=== PATIENT | female | born 1950 | race Caucasian/White ===

== ENCOUNTER 2016-06-18 12:26 | Day surgery (SDC) | payer MEDICARE ==
[2016-06-14 15:29] VITALS: BMI 34.5
[~2016-06-18 12:26] MED LIST: ALBUTEROL NEB (CONC) 2.5 MG/0.5 ML INHALATION ONE; LACTATED RINGERS 1,000 ML IV ONE; LACTATED RINGERS 1,000 ML IV SCH; LIDOCAINE 2% (PF) 20 MG/ML 10ML INHALATION ONE
[2016-06-18] MEDS ORDERED: LIDOCAINE 1% INJ 10MG/ML (20 ML MDV) ONE (12:39)
[2016-06-18] MEDS ORDERED: GLYCOPYRROLATE 0.2 MG/ML 2 ML VIAL ONE (12:39)
[2016-06-18] MEDS ORDERED: PROPOFOL 10 MG/ML 20 ML VIAL IV ONE (12:39)
[2016-06-18] MEDS ORDERED: MIDAZOLAM 2 MG/2 ML VIAL ONE (12:39)
[2016-06-18] MEDS ORDERED: LIDOCAINE 1% 20 ML VIAL (10MG/ML) FOR IV START INTRADERMA ONE (12:53)
[2016-06-18 13:07] LABS: Glucose,Whole Blood 90 mg/dL (75-99)
--- NOTE | 2016-06-18 14:21 | P.PCN ---
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 Anesthetic agents was being administered by FREIGHT RATE ANALYST at the bedside. The patient was given a total of 70 mg of Diprivan, 1 mg of Versed and 50 mg of lidocaine. After achieving a adequate sedation flexible bronchoscope was inserted into the right nostril was advanced upper airway. Examination of the posterior oropharynx, larynx and epiglottis and vocal cords was done. There was significant amount of adipose tissue growing circumferentially around the upper airway. This was consistent with a history of obstructive sleep apnea. Epiglottis was identified. The vallecula , arytenoids and the vocal cords were visualized and they're all within normal limits. The vocal cords and functional and symmetrical. Following that, a total of 2 ML's of 1% lidocaine was applied to the vocal cords and the flexible bronchoscope was advanced Doppler airway. Evidence of tracheobronchomalacia was seen throughout the airway was in lower lobes bilaterally. At this point, therapeutic airway suctioning was done and copious amount of thick purulent mucous plugs were aspirated and lower lungs bilaterally, more so in the different segments of the right lower lobe bronchus. Cinnamon amount of secretions were seen in the left lower lobe bronchus and limited in the left upper lobe bronchus. The rest or secretions were quite thick and purulent. I give them with saline ultimately was able to suction the rest or secretions and airway patency was achieved. The visualized airways and the segments and subsegments were all patent and there was no endobronchial tumors or lesions identified. Nevertheless there was significant amount of mucosa erythematous changes throughout the airways more so in the left upper lobe and left lower lobe bronchi. A bronchioloalveolar lavage of the right lower lobe was done. A total of 25 mL of fluid was aspirated and aspirate was quite purulent and turbid. Addendum of the procedure, diabetic airway suctioning was done and the flexible bronchoscope was removed and the patient was transferred recovery in stable condition. No bedside complications. No bleeding. Further recommendations are to follow in terms of antibiotic therapy based on the results of the cultures that were obtained today.
[2016-06-18 14:52] VITALS: BP 105/66; RESP 20
[2016-06-18 14:59] VITALS: PULSE 72
[2016-06-18 17:13] LABS: RBC, Body Fluid 2055 /uL
== END 2016-06-18 15:16 | disposition home or self-care (01) ==
LOC: ORWHC2ENDO 12:26
PROVIDERS: ATTEND Internal Medicine Critical Care Medicine
DX: J39.8 Other specified diseases of upper respiratory tract (principal); J98.09 Other diseases of bronchus, not elsewhere classified; R05 Cough; I10 Essential (primary) hypertension; E78.5 Hyperlipidemia, unspecified; J44.9 Chronic obstructive pulmonary disease, unspecified; J45.909 Unspecified asthma, uncomplicated; G47.33 Obstructive sleep apnea (adult) (pediatric); Z99.89 Dependence on other enabling machines and devices; Z72.0 Tobacco use; F39 Unspecified mood [affective] disorder; Z79.51 Long term (current) use of inhaled steroids; Z79.899 Other long term (current) drug therapy; Z88.0 Allergy status to penicillin; Z88.2 Allergy status to sulfonamides; Z88.8 Allergy status to other drugs, medicaments and biological substances; E66.9 Obesity, unspecified; Z68.34 Body mass index [BMI] 34.0-34.9, adult
CPT/HCPCS: 94640; 87798 ×4; 87496; 87498; 87529 ×2; 89050; 87252; 87502 ×2; 87070; 87205; 87116; 87102; 87206; 31624; J2250; J2001 ×2; J2704

== ENCOUNTER 2016-06-27 10:11 | Observation (INO) | payer MEDICARE ==
[2016-06-27] MEDS ORDERED: MORPHINE SULFATE 4 MG/ML SYRINGE IV STA (10:16)
[2016-06-27] MEDS ORDERED: ONDANSETRON 4 MG/2 ML VIAL IVP STA (10:16)
[2016-06-27] MEDS ORDERED: RX INFO: IV CONTRAST WAS GIVEN 1 EACH MISC MISCELLANE PRN (10:17)
--- NOTE | 2016-06-27 10:24 | ED ---
General Adult HPI - General Stated complaint: chest pain Time Seen by Provider: 06/27/16 10:12 Source: RN notes reviewed - History of Present Illness Initial comments: This is a 65-year-old female who presents to the emergency department complaining of severe chest pain that radiates straight through to her back. Patient states started about 15 minutes ago. Patient states it's always there but it does at times get much worse. Patient states she is no more short of breath than she normally is. Patient denies any diaphoresis. Patient denies any abdominal pain. Patient denies any nausea or vomiting. Patient states that she has been coughing lately. Patient states she had an episode of this last week and until she coughed up a bunch of blood the pain continued. Patient states last for about 15 minutes a week ago. Patient states she has hypertension. Patient denies any heart disease. Patient denies any recent fever or chills. Patient denies any headache patient denies numbness weakness. Patient denies lightheadedness dizziness or near syncopal episode. - Related Data Home Medications Medication Instructions Recorded Confirmed Enalapril Maleate [Vasotec] 20 mg PO DAILY 05/11/14 06/27/16 Escitalopram [Lexapro] 10 mg PO DAILY 05/11/14 06/27/16 Fluticasone/Salmeterol [Advair 1 puff INHALATION RT-DAILY 05/11/14 06/27/16 500-50 Diskus] Hydrochlorothiazide [Hydrodiuril] 12.5 mg PO DAILY 05/11/14 06/27/16 Omeprazole [PriLOSEC] 20 mg PO AC-BRKFST 05/11/14 06/27/16 Citracal Slow Release 2 tab PO QAM 06/14/16 06/27/16 Multivitamins, Thera [Multivitamin 1 tab PO DAILY 06/14/16 06/27/16 (formulary)] Tiotropium 18 Mcg/Puff [Spiriva] 1 cap INHALATION RT-DAILY 06/14/16 06/27/16 traMADol HCL [Ultram] 50 mg PO Q6HR PRN 06/18/16 06/27/16 Allergies Allergy/AdvReac Type Severity Reaction Status Date / Time albuterol Allergy Unknown shaking, Verified 06/27/16 11:30 weakness, insomnia oxytetracycline Allergy Unknown Verified 06/27/16 11:30 [From Terramycin] Childhood oxytetracycline HCl Allergy Unknown Verified 06/27/16 11:30 [From Terramycin] Childhood Penicillins Allergy Unknown Verified 06/27/16 11:30 Childhood streptomycin [Streptomycin] Allergy Unknown Verified 06/27/16 11:30 Childhood Sulfa (Sulfonamide Allergy Unknown Verified 06/27/16 11:30 Antibiotics) Childhood Tetracyclines Allergy Unknown Verified 06/27/16 11:30 Childhood Review of Systems ROS Statement: Those systems with pertinent positive or pertinent negative responses have been documented in the HPI. ROS Other: All systems not noted in ROS Statement are negative. Past Medical History Past Medical History: Asthma, Chest Pain / Angina, COPD, GERD/Reflux, Hyperlipidemia, Hypertension, Osteoarthritis (OA), Pneumonia, Skin Disorder, Sleep Apnea/CPAP/BIPAP Additional Past Medical History / Comment(s): HX OF MIGRAINES, USES OXYGEN AT 2 LITERS AT NIGHT AND PRN DURING THE DAY., ENLARGED LIVER., TRACHEOBRONCHOMALACIA , CHRONIC COUGH., patch of dry skin on elbow, History of Any Multi-Drug Resistant Organisms: None Reported Past Surgical History: Appendectomy, Section, Orthopedic Surgery, Tonsillectomy Additional Past Surgical History / Comment(s): jamey wrist, left elbow, ovarian cyst, exploratory laparoscopy, Rt knee Arthroscopy x 2. Past Anesthesia/Blood Transfusion Reactions: Motion Sickness Past Psychological History: Depression Smoking Status: Current every day smoker Past Alcohol Use History: Rare Additional Past Alcohol Use History / Comment(s): STARTED SMOKING AT AGE 14. smokes 1/2 - 3/4PPD Past Drug Use History: None Reported - Past Family History Mother Family Medical History: Cancer Additional Family Medical History / Comment(s): LUNG CA Father Family Medical History: Cancer Additional Family Medical History / Comment(s): LUNG CA Sister(s) Family Medical History: Cancer, Deep Vein Thrombosis (DVT) Additional Family Medical History / Comment(s): . Brother(s) Family Medical History: Coronary Artery Disease (CAD) General Exam - General Exam Comments Initial Comments: GENERAL: Patient is well-developed and well-nourished. Patient is nontoxic and well- hydrated and is in moderate distress. ENT: Neck is soft and supple. No significant lymphadenopathy is noted. Oropharynx is clear. Moist mucous membranes. Neck has full range of motion without eliciting any pain. EYES: The sclera were anicteric and conjunctiva were pink and moist. Extraocular movements were intact and pupils were equal round and reactive to light. Eyelids were unremarkable. PULMONARY: Unlabored respirations. Good breath sounds bilaterally. No audible rales rhonchi or wheezing was noted. CARDIOVASCULAR: There is a regular rate and rhythm without any murmurs gallops or rubs. ABDOMEN: Soft and nontender with normal bowel sounds. No palpable organomegaly was noted. There is no palpable pulsatile mass. SKIN: Skin is clear with no lesions or rashes and otherwise unremarkable. NEUROLOGIC: Patient is alert and oriented x3. Cranial nerves II through XII are grossly intact. Motor and sensory are also intact. Normal speech, volume and content. Symmetrical smile. MUSCULOSKELETAL: Normal extremities with adequate strength and full range of motion. No lower extremity swelling or edema. No calf tenderness. LYMPHATICS: No significant lymphadenopathy is noted PSYCHIATRIC: Normal psychiatric evaluation. Normal interpersonal interactions appears functionally intact in deals appropriately with others. No signs of depression. No signs of anxiety. Course Vital Signs 06/27/16 06/27/16 06/27/16 10:13 10:35 10:36 Temperature 98.3 F Pulse Rate 86 Respiratory 24 Rate Blood Pressure 135/71 108/55 105/63 O2 Sat by Pulse 93 L Oximetry Medical Decision Making - Medical Decision Making EKG shows normal sinus rhythm at 86 bpm NM interval is on an 88 QRS is 78 QT interval 372 QTC is 445. EKG shows no ST segment elevation or depression or T- wave abdomen is noted. Patient has Q waves in leads 3 and aVF which are the same as an old EKG. Chest x-ray shows no acute abnormality. Computed tomography scan of the aorta shows no acute abnormality. No obvious PE was seen either. Because the patient has significant chest pain on his 2 different occasions now I thought the patient was having some unstable angina I started the patient on heparin I consult cardiology I spoke with Dr. Vail he agreed to admit the patient admitted the patient I wrote admitting orders. I continued the heparin Nitropaste and aspirin on the floor. - Lab Data Result diagrams: 06/27/16 10:12 06/27/16 10:12 Lab Results 06/27/16 06/27/16 06/27/16 Range/Units 10:12 10:12 10:12 WBC 13.7 H (3.8-10.6) k/uL RBC 5.15 (3.80-5.40) m/uL Hgb 15.9 (11.4-16.0) gm/dL Hct 48.7 H (34.0-46.0) % MCV 94.5 (80.0-100.0) fL MCH 30.8 (25.0-35.0) pg MCHC 32.6 (31.0-37.0) g/dL RDW 14.6 (11.5-15.5) % Plt Count 215 (150-450) k/uL Neutrophils % 59 % Lymphocytes % 33 % Monocytes % 4 % Eosinophils % 2 % Basophils % 1 % Neutrophils # 8.0 H (1.3-7.7) k/uL Lymphocytes # 4.6 (1.0-4.8) k/uL Monocytes # 0.6 (0-1.0) k/uL Eosinophils # 0.2 (0-0.7) k/uL Basophils # 0.1 (0-0.2) k/uL PT 9.6 (9.0-12.0) sec INR 0.9 (<1.1) APTT 22.4 (22.0-30.0) sec Sodium 141 (137-145) mmol/L Potassium 4.2 (3.5-5.1) mmol/L Chloride 103 (98-107) mmol/L Carbon Dioxide 29 (22-30) mmol/L Anion Gap 9 mmol/L BUN 18 H (7-17) mg/dL Creatinine 0.87 (0.52-1.04) mg/dL Est GFR (MDRD) Af Amer >60 (>60 ml/min/1.73 sqM) Est GFR (MDRD) Non-Af >60 (>60 ml/min/1.73 sqM) Glucose 106 H (74-99) mg/dL Calcium 10.4 H (8.4-10.2) mg/dL Magnesium 2.2 (1.6-2.3) mg/dL Total Bilirubin 1.1 (0.2-1.3) mg/dL AST 16 (14-36) U/L ALT 24 (9-52) U/L Alkaline Phosphatase 99 (38-126) U/L Total Creatine Kinase (30-135) U/L CK-MB (CK-2) (0.0-2.4) ng/mL CK-MB (CK-2) Rel Index Troponin I (0.000-0.034) ng/mL Total Protein 7.2 (6.3-8.2) g/dL Albumin 4.2 (3.5-5.0) g/dL 06/27/16 Range/Units 10:12 WBC (3.8-10.6) k/uL RBC (3.80-5.40) m/uL Hgb (11.4-16.0) gm/dL Hct (34.0-46.0) % MCV (80.0-100.0) fL MCH (25.0-35.0) pg MCHC (31.0-37.0) g/dL RDW (11.5-15.5) % Plt Count (150-450) k/uL Neutrophils % % Lymphocytes % % Monocytes % % Eosinophils % % Basophils % % Neutrophils # (1.3-7.7) k/uL Lymphocytes # (1.0-4.8) k/uL Monocytes # (0-1.0) k/uL Eosinophils # (0-0.7) k/uL Basophils # (0-0.2) k/uL PT (9.0-12.0) sec INR (<1.1) APTT (22.0-30.0) sec Sodium (137-145) mmol/L Potassium (3.5-5.1) mmol/L Chloride (98-107) mmol/L Carbon Dioxide (22-30) mmol/L Anion Gap mmol/L BUN (7-17) mg/dL Creatinine (0.52-1.04) mg/dL Est GFR (MDRD) Af Amer (>60 ml/min/1.73 sqM) Est GFR (MDRD) Non-Af (>60 ml/min/1.73 sqM) Glucose (74-99) mg/dL Calcium (8.4-10.2) mg/dL Magnesium (1.6-2.3) mg/dL Total Bilirubin (0.2-1.3) mg/dL AST (14-36) U/L ALT (9-52) U/L Alkaline Phosphatase (38-126) U/L Total Creatine Kinase 43 (30-135) U/L CK-MB (CK-2) 0.7 (0.0-2.4) ng/mL CK-MB (CK-2) Rel Index 1.6 Troponin I <0.012 (0.000-0.034) ng/mL Total Protein (6.3-8.2) g/dL Albumin (3.5-5.0) g/dL Critical Care Time Critical Care Time: Yes Total Critical Care Time: 35 Disposition Clinical Impression: Unstable angina pectoris Disposition: ADMITTED IP TO THIS [facility] Time of Disposition: 13:11
[2016-06-27 10:35] LABS: Basophils # (A) 0.1 k/uL (0-0.2); Basophils % (A) 1 %; CH 30.4; CHCM 32.4; Eosinophils # (A) 0.2 k/uL (0-0.7); Eosinophils % (A) 2 %; HCT 48.7 % (34.0-46.0); HDW 2.27; HGB 15.9 gm/dL (11.4-16.0); Luc # (Auto) 0.24; Luc % (Auto) 2; Lymphocytes # (A) 4.6 k/uL (1.0-4.8); Lymphocytes % (A) 33 %; MCH 30.8 pg (25.0-35.0); MCHC 32.6 g/dL (31.0-37.0); MCV 94.5 fL (80.0-100.0); Mean Platelet Volume 6.6; Monocytes # (A) 0.6 k/uL (0-1.0); Monocytes % (A) 4 %; Neutrophils % (A) 59 %; RBC 5.15 m/uL (3.80-5.40); RDW 14.6 % (11.5-15.5); WBC 13.7 k/uL (3.8-10.6); WBC (Perox) 13.31
[2016-06-27 10:40] LABS: INR 0.9 (<1.1); Partial Thromboplastin Time 22.4 sec (22.0-30.0); Prothrombin Time 9.6 sec (9.0-12.0)
[2016-06-27 10:42] LABS: ALT 24 U/L (9-52); AST 16 U/L (14-36); Alkaline Phosphatase 99 U/L (38-126); Anion Gap 9 mmol/L; Blood Urea Nitrogen 18 mg/dL (7-17); Calcium 10.4 mg/dL (8.4-10.2); Carbon Dioxide 29 mmol/L (22-30); Chloride 103 mmol/L (98-107); Glucose 106 mg/dL (74-99); Magnesium 2.2 mg/dL (1.6-2.3); Non-African American GFR(MDRD) >60 (>60 ml/min/1.73 sqM); Potassium 4.2 mmol/L (3.5-5.1); Sodium 141 mmol/L (137-145); Total Bilirubin 1.1 mg/dL (0.2-1.3); Total Protein 7.2 g/dL (6.3-8.2)
[2016-06-27 11:05] LABS: Creatine Kinase 43 U/L (30-135)
[2016-06-27 11:14] LABS: Creatine Kinase MB 0.7 ng/mL (0.0-2.4)
--- NOTE | 2016-06-27 11:33 | CT ---
EXAMINATION TYPE: CT angio thoracic/abd aorta DATE OF EXAM: 06/27/2016 11:14 AM COMPARISON: CT chest March 03, 2013. CT abdomen and pelvis August 05, 2012. HISTORY: Severe back pain CT DLP: 1931.4 mGycm. Automated Exposure Control for Dose Reduction was Utilized. CONTRAST: CTA scan of the thorax, abdomen and pelvis is performed without oral and without and with IV Contrast , patient injected with 100 mL of Omnipaque 350. Three-D reconstructed images are created on a drumbi workstation and reviewed FINDINGS: VASCULAR: Poorly opacified pulmonary system is noted making evaluation at this level suboptimal. There is mild calcified plaque in the aortic arch. There is mild noncalcified plaque in the descendin g ectatic thoracic aorta. There is mild to minimal calcified plaque in the mid to distal abdominal ao rta. There is mild to moderate mixed plaque in the left common iliac artery. Mild mixed plaque is see n in the right common iliac artery extending into bilateral internal iliac arteries. External iliac a rteries are patent to common femoral artery origin with mild eccentric mixed plaque. There is no sign ificant stenosis identified. There is patent celiac axis, SMA, BETTINA, and bilateral single renal arteries. There is normal variant w ith takeoff of left gastric artery from the abdominal aorta adjacent to celiac axis. There is normal three-vessel origin from the aortic arch. No linear hypodensity to suggest dissection is seen. No ane urysmal change is noted. LUNGS: Moderate underlying emphysematous change is present. Dependent atelectasis in the left lung ba se is seen. There is more focal consolidation or atelectasis in the right lung base near diaphragm re demonstrated. No pleural effusion or pneumothorax is identified. No concerning parenchymal nodule or mass is seen. Tracheobronchial tree is patent. MEDIASTINUM: There are no greater than 1 cm hilar or mediastinal lymph nodes. No pericardial effusi on is seen. Coronary artery calcification is present. Heart size is upper limits of normal. OTHER: No additional significant abnormality is seen. LIVER/GB: Dependent gallstones are seen in gallbladder on today's study. Liver is diffusely low dense relative to spleen consistent with fatty infiltration. PANCREAS: No significant abnormality is seen. SPLEEN: No significant abnormality is seen. ADRENALS: No significant abnormality is seen. KIDNEYS: No significant abnormality is seen. BOWEL: Diverticula in the sigmoid colon are redemonstrated. No CT evidence for acute diverticulitis. There is no suspicious small or large bowel dilatation. GENITAL ORGANS: No gross abnormality seen. LYMPH NODES: No greater than 1cm abdominal or pelvic lymph nodes are appreciated. OSSEOUS STRUCTURES: There is exaggerated thoracic kyphosis with moderate multilevel spurring. There i s mild multilevel spurring in the lumbar spine. OTHER: No significant additional abnormality is seen. IMPRESSION: 1. No aortic aneurysm or dissection. 2. No significant acute finding is seen to account for patient's symptoms.
--- NOTE | 2016-06-27 12:22 | XR ---
EXAMINATION TYPE: XR chest 2V DATE OF EXAM: 06/27/2016 12:18 PM COMPARISON: Chest x-ray June 06, 2016. HISTORY: Chest pain for one day. History of COPD appears TECHNIQUE: Frontal and lateral views of the chest are obtained. FINDINGS: There is chronic emphysematous change with right greater than left bibasilar scarring and/o r atelectasis. There is no new focal air space opacity, pleural effusion, or pneumothorax seen. The cardiac silhouette size is enlarged with ectatic and atherosclerotic thoracic aorta. The osseous st ructures are intact. IMPRESSION: Chronic emphysematous change and cardiomegaly without new suspicious acute pulmonary pro cess.
[2016-06-27 13:03] LABS: Troponin I <0.012 ng/mL (0.000-0.034)
[2016-06-27] MEDS ORDERED: NITROGLYCERIN OINT 1 INCH/GM PACKET TOPICAL STA (13:09)
[2016-06-27] MEDS ORDERED: HEPARIN SODIUM,PORCINE 5,000 UNIT/ML 1 ML VIAL IV ONE (13:09)
[2016-06-27] MEDS ORDERED: ASPIRIN 81 MG CHEW PO STA (13:09)
[2016-06-27] MEDS ORDERED: NITROGLYCERIN SL TABS 0.4 MG TAB SUBLINGUAL PRN (13:11)
[2016-06-27] MEDS ORDERED: HEPARIN SODIUM,PORCINE/D5W PMX 25,000 UNIT in DEXTROSE/WATER 1 500ML.BAG IV SCH (13:15)
--- NOTE | 2016-06-27 14:34 | P.HPIM ---
History of Present Illness H&P Date: 06/27/16 Chief Complaint: chest pain Patient came to ER with sudden onset of Midsternal CP radiating to her back. It lasted till NTG given, which made it better. Still present at a milder level. She had similar sx that were relieved afte hemoptysis episode last week, She has not een Dr Rubi since this. Now pain is better, no SOB- ohter than chronic from COPD. No nausea, vomiting, Diarhea, constipation. Review of Systems All systems: negative Past Medical History Past Medical History: Asthma, Chest Pain / Angina, COPD (O2 dependent), GERD/ Reflux, Hyperlipidemia, Hypertension, Osteoarthritis (OA), Pneumonia, Skin Disorder, Sleep Apnea/CPAP/BIPAP Additional Past Medical History / Comment(s): HX OF MIGRAINES, ENLARGED LIVER., TRACHEOBRONCHOMALACIA, CHRONIC COUGH History of Any Multi-Drug Resistant Organisms: None Reported Past Surgical History: Appendectomy, Section, Orthopedic Surgery, Tonsillectomy Additional Past Surgical History / Comment(s): jamey wrist, left elbow, ovarian cyst, exploratory laparoscopy, Rt knee Arthroscopy x 2. Past Anesthesia/Blood Transfusion Reactions: Motion Sickness Past Psychological History: Depression Smoking Status: Current every day smoker Past Alcohol Use History: Rare Additional Past Alcohol Use History / Comment(s): STARTED SMOKING AT AGE 14. smokes 1/2 - 3/4PPD Past Drug Use History: None Reported - Past Family History Mother Family Medical History: Cancer Additional Family Medical History / Comment(s): LUNG CA Father Family Medical History: Cancer Additional Family Medical History / Comment(s): LUNG CA Sister(s) Family Medical History: Cancer, Deep Vein Thrombosis (DVT) Additional Family Medical History / Comment(s): . Brother(s) Family Medical History: Coronary Artery Disease (CAD) Medications and Allergies Home Medications Medication Instructions Recorded Confirmed Type Enalapril Maleate [Vasotec] 20 mg PO DAILY 05/11/14 06/27/16 History Escitalopram [Lexapro] 10 mg PO DAILY 05/11/14 06/27/16 History Fluticasone/Salmeterol [Advair 1 puff INHALATION RT-DAILY 05/11/14 06/27/16 History 500-50 Diskus] Hydrochlorothiazide [Hydrodiuril] 12.5 mg PO DAILY 05/11/14 06/27/16 History Omeprazole [PriLOSEC] 20 mg PO AC-BRKFST 05/11/14 06/27/16 History Citracal Slow Release 2 tab PO QAM 06/14/16 06/27/16 History Multivitamins, Thera [Multivitamin 1 tab PO DAILY 06/14/16 06/27/16 History (formulary)] Tiotropium 18 Mcg/Puff [Spiriva] 1 cap INHALATION RT-DAILY 06/14/16 06/27/16 History traMADol HCL [Ultram] 50 mg PO Q6HR PRN 06/18/16 06/27/16 History Allergies Allergy/AdvReac Type Severity Reaction Status Date / Time albuterol Allergy Unknown shaking, Verified 06/27/16 11:30 weakness, insomnia oxytetracycline Allergy Unknown Verified 06/27/16 11:30 [From Terramycin] Childhood oxytetracycline HCl Allergy Unknown Verified 06/27/16 11:30 [From Terramycin] Childhood Penicillins Allergy Unknown Verified 06/27/16 11:30 Childhood streptomycin [Streptomycin] Allergy Unknown Verified 06/27/16 11:30 Childhood Sulfa (Sulfonamide Allergy Unknown Verified 06/27/16 11:30 Antibiotics) Childhood Tetracyclines Allergy Unknown Verified 06/27/16 11:30 Childhood Physical Exam Vitals: Vital Signs Pulse Resp BP Pulse Ox 06/27/16 13:18 72 18 98/59 90 L - Constitutional General appearance: average body habitus - EENT Eyes: EOMI, PERRLA - Neck Neck: no lymphadenopathy Thyroid: bilateral: normal size, negative: enlarged - Respiratory Respiratory: bilateral: diminished, dullness - Cardiovascular Rhythm: regular Heart sounds: normal: S1, S2 - Psychiatric Psychiatric: A&O x's 3 Results CBC & Chem 7: 06/27/16 10:12 06/27/16 10:12 Thrombosis Risk Factor Assmnt - DVT/VTE Prophylaxis DVT/VTE Prophylaxis: Pharmacologic Prophylaxis ordered Assessment and Plan Plan: chest pain eval for unstable angina: will consult cardiology, serial troponins and CKs Heoptysis : pulmonlogy consult Hypertension: cont enalapril, HCTZ, COPD: cont spiriva, continue O2 Depresion: cont Lexapro Gerd/ GI proylaxxis: cont protonix Dvt Prophylaxis:heparin drip I will await consutls and reevaluate her in 24 hrs.
[2016-06-27] MEDS ORDERED: traMADol 50 MG TAB PO PRN (14:35)
[2016-06-27] MEDS ORDERED: HYDROmorphone 1 MG/ML 1 ML SYRINGE IVP STA (17:00)
[2016-06-27 17:01] LABS: Creatine Kinase 41 U/L (30-135)
[2016-06-27 17:14] LABS: Creatine Kinase MB 0.8 ng/mL (0.0-2.4); Troponin I <0.012 ng/mL (0.000-0.034)
[2016-06-27] MEDS: PANTOPRAZOLE 40 MG TABLET PO SCH ×2 (18:08→18:11)
[2016-06-27] MEDS: NITROGLYCERIN OINT 1 INCH/GM PACKET TOPICAL SCH ×2 (18:36→23:14)
[2016-06-27] MEDS: SYMBICORT 160-4.5 MCG INHALER INHALATION SCH (19:24)
[2016-06-27] MEDS ORDERED: BENZOCAINE/MENTHOL LOZENG 1 EACH LOZENGE MUCOUS MEM PRN (22:55)
[2016-06-27 23:12] LABS: Partial Thromboplastin Time 23.4 sec (22.0-30.0)
[2016-06-27 23:16] LABS: INR 0.9 (<1.1)
[2016-06-27 23:17] LABS: Prothrombin Time 9.6 sec (9.0-12.0)
[2016-06-27 23:23] LABS: Creatine Kinase 38 U/L (30-135)
[2016-06-27 23:37] LABS: Creatine Kinase MB 0.6 ng/mL (0.0-2.4); Troponin I <0.012 ng/mL (0.000-0.034)
[2016-06-27] MEDS ORDERED: HEPARIN SODIUM,PORCINE 5,000 UNIT/ML 1 ML VIAL IV PRN (23:58)
[2016-06-28] MEDS: SYMBICORT 160-4.5 MCG INHALER INHALATION SCH ×3 (00:11→21:34)
[2016-06-28] MEDS: ACETAMINOPHEN TAB 325 MG TAB PO PRN ×3 (00:30→21:19)
[2016-06-28] MEDS: NITROGLYCERIN OINT 1 INCH/GM PACKET TOPICAL SCH ×4 (06:32→22:27)
[2016-06-28 07:32] LABS: Basophils % (A) 0 %; CH 29.6; CHCM 31.4; Eosinophils # (A) 0.2 k/uL (0-0.7); Eosinophils % (A) 1 %; HCT 42.9 % (34.0-46.0); HDW 2.31; HGB 13.9 gm/dL (11.4-16.0); Luc # (Auto) 0.24; Luc % (Auto) 2; Lymphocytes % (A) 24 %; MCH 30.6 pg (25.0-35.0); MCHC 32.3 g/dL (31.0-37.0); MCV 94.7 fL (80.0-100.0); Mean Platelet Volume 6.7; Monocytes # (A) 0.7 k/uL (0-1.0); Monocytes % (A) 5 %; Neutrophils # (A) 8.6 k/uL (1.3-7.7); Neutrophils % (A) 68 %; RBC 4.53 m/uL (3.80-5.40); RDW 14.1 % (11.5-15.5); WBC 12.7 k/uL (3.8-10.6); WBC (Perox) 13.36
[2016-06-28 07:56] LABS: Anion Gap 8 mmol/L; Blood Urea Nitrogen 18 mg/dL (7-17); Calcium 9.4 mg/dL (8.4-10.2); Carbon Dioxide 28 mmol/L (22-30); Chloride 104 mmol/L (98-107); Cholesterol 228 mg/dL (<200); Glucose 103 mg/dL (74-99); HDL Cholesterol 52 mg/dL (40-60); Magnesium 2.3 mg/dL (1.6-2.3); Non-African American GFR(MDRD) >60 (>60 ml/min/1.73 sqM); Potassium 4.3 mmol/L (3.5-5.1); Sodium 140 mmol/L (137-145); Triglycerides 139 mg/dL (<150)
[2016-06-28] MEDS: TIOTROPIUM 18 MCG/PUFF INHALER INHALATION SCH (08:33)
[2016-06-28] MEDS ORDERED: BUTA/APAP/CAF/COD 50-325-40-30 CAP PO PRN ×2 (11:16→11:25)
[2016-06-28] MEDS ORDERED: MORPHINE SULFATE 2 MG/ML SYRINGE IVP STA (11:22)
[2016-06-28] MEDS: HYDROCHLOROTHIAZIDE 12.5 MG CAP PO SCH (11:26)
[2016-06-28] MEDS: ESCITALOPRAM 10 MG TAB PO SCH (11:26)
[2016-06-28] MEDS: ASPIRIN 325 MG TAB PO SCH (11:26)
[2016-06-28] MEDS: LISINOPRIL 20 MG TAB PO SCH (11:26)
--- NOTE | 2016-06-28 11:38 | CONS ---
DATE OF CONSULTATION: This is a 65-year-old lady who smokes 2 packs a day, has COPD, bronchial asthma and also has some issues with mucus plugging, was seen by Dr. Mckeon who performed a bronchoalveolar lavage on her about a week ago. She came into the hospital complaining of pain in the chest radiating to the back. She had a CAT scan of the chest, which did not reveal any evidence of aortic pathology or pulmonary pathology. There was a question of chest pain, possible angina and I was asked to see her in this regard. Her symptoms do not suggest angina, very musculoskeletal and these have improved already unfortunately she continues to smoke. Her troponins are normal. Her EKG does not reveal any significant changes to indicate ischemia. She had a Lexiscan stress test about 14 months ago, which did not reveal any evidence of ischemia. At the time of my evaluation, she is resting comfortably without symptoms. EKG revealed sinus mechanism with nondiagnostic inferior Q waves. PAST MEDICAL HISTORY: This is remarkable for smoking, COPD, mucous plugging, status post recent bronchioloalveolar lavage, osteoarthritis, recurrent pneumonia, sleep apnea, uses a BiPAP. She is status post appendectomy, tonsillectomy and section. She also has hypertensive cardiovascular disease and COPD. Medications at home include Enalapril 20 mg daily, Lexapro, inhalers, hydrochlorothiazide 12.5 mg daily, omeprazole 20 mg daily, Tramadol, multivitamins. ALLERGIES: She is allergic to ALBUTEROL, PENICILLIN, STREPTOMYCIN, TERRAMYCIN, TETRACYCLINE. SULFONAMIDES. Please refer to the recent note by Dr. Mckeon. On examination, blood pressure is 118/70, pulse rate is 80 per minute, regular. HEENT: Unremarkable. Fundus was not examined by me. Neck is supple. There is no JVD. I do not hear a carotid bruit. Heart exam reveals S1 and S2 heard normally. No significant murmur. There is a lot of respiratory noise. Lungs reveal bilateral scattered rhonchi. Abdomen is soft, nontender. Lower extremities reveal diminished pulses. Central nervous system is normal. EKG revealed sinus mechanism, nondiagnostic inferior Q-waves, no acute changes. Laboratory data revealed unremarkable troponins. Stress test from April 2015 was a Lexiscan stress test was normal. IMPRESSION: 1. Chest pain atypical, status post recent bronchioloalveolar lavage. 2. Chronic obstructive pulmonary disease, bronchial asthma. 3. History of smoking. RECOMMENDATIONS: From a cardiac standpoint, I am not recommending any intervention. She can be evaluated by pulmonary by Dr. Mckeon and can be discharged. She can have outpatient stress test in 3 to 4 weeks if she continues to have symptoms, but for the pain that she presents with, I do not believe we are dealing with any myocardial ischemia-type picture and stress test about 14 months ago was negative. Thank you very much for the consult.
--- NOTE | 2016-06-28 13:17 | P.PN ---
Subjective Patient came to ER with sudden onset of Midsternal CP radiating to her back. It lasted till NTG given, which made it better. Still present at a milder level. She had similar sx that were relieved afte hemoptysis episode last week, She has not een Dr Rubi since this. Now pain is better, no SOB- other than chronic from COPD. No nausea, vomiting, Diarhea, constipation. She is complaining of significant headache today. She has no more hemoptysis. A pulmonology consult is pending. Objective - Vital Signs Vital signs: Vital Signs Temp 97.9 F 06/28/16 11:42 Pulse 67 06/28/16 11:42 Resp 18 06/28/16 11:42 BP 133/65 06/28/16 11:42 Pulse Ox 88 L 06/28/16 11:42 Intake & Output 06/27/16 06/28/16 06/28/16 18:59 06:59 18:59 Intake Total 521.333 Balance 521.333 Intake: IV 40 0.9@20 20 Heparin Sodium,Porcine/ 20 D5w Pmx 25,000 unit In Dextrose/Water 1 500ml. bag @ 10.302 UNITS/KG/HR 20 mls/hr IV .Q24H GABO Rx #:[id number] Intake, IV Titration 181.333 Amount Heparin Sodium,Porcine/ 181.333 D5w Pmx 25,000 unit In Dextrose/Water 1 500ml. bag @ 10.302 UNITS/KG/HR 20 mls/hr IV .Q24H GABO Rx #:[id number] Oral 300 Other: Voiding Method Toilet # Voids 1 1 - Exam General: The patient is awake and alert, in moderate distress, Neck: The neck is supple, there is no thyromegaly, lymphadenopathy, tenderness or JVD. Cardiovascular: S1S2 is normal, There is a regular rate and rhythm. No murmur, rub or gallop is appreciated. Respiratory: Lungs are clear to auscultation bilaterally, respirations are non -labored, breath sounds are equal. Gastrointestinal: Soft, non-distended, non-tender abdomen without masses or organomegaly noted. There is no rebound or guarding present. Bowel sounds are unremarkable. Musculoskeletal: Normal ROM, no tenderness, There is no pedal edema. There is no calf tenderness or swelling. No cords were appreciated. Neurological: CN II-XII intact, there are no obvious motor or sensory deficits. Coordination appears grossly intact. Speech is normal. Skin: Skin is warm and dry and no rashes or lesions are noted. - Labs CBC & Chem 7: 06/28/16 06:41 06/28/16 06:41 Labs: Abnormal Lab Results - Last 24 Hours (Table) 06/28/16 06/28/16 06/28/16 Range/Units 06:41 06:41 06:41 WBC 12.7 H (3.8-10.6) k/uL Neutrophils # 8.6 H (1.3-7.7) k/uL APTT 31.4 H (22.0-30.0) sec BUN 18 H (7-17) mg/dL Glucose 103 H (74-99) mg/dL Cholesterol 228 H (<200) mg/dL LDL Cholesterol, Calc 148 H (0-99) mg/dL Assessment and Plan Plan: chest pain eval for unstable angina: serial troponins and CKs all negative. Suspect it is more from a pulmonary cause, or possible GI. Cardiology cleared her. They will follow her up outpatient Heoptysis : pulmonlogy consult pending. Hypertension: cont enalapril, HCTZ, COPD: cont spiriva, continue O2 Depresion: cont Lexapro Gerd/ GI proylaxxis: cont protonix Dvt Prophylaxis:heparin drip I will await pulmonology and possibly discharge her later today.
[2016-06-28] MEDS: FLUTICASONE 50MCG/SPRAY NASAL 16GM EA NOSTRIL PRN (13:36)
[2016-06-28] MEDS: MULTIVITAMINS, THERA 1 EACH TAB PO SCH (13:37)
--- NOTE | 2016-06-28 13:42 | P.CNPUL ---
History of Present Illness Consult date: 06/28/16 Requesting physician: Preston Vail Reason for consult: chest pain Chief complaint: Chest pain History of present illness: This is a very pleasant 65-year-old female patient who follows with Dr. Dr. Vail as her primary care physician. She has a history of hyperlipidemia, hypertension, obesity, migraines, chronic cough. She does have a history of COPD, chronic and ongoing tobacco dependence, sleep apnea, tracheobronchomalacia and had recently undergone bronchoscopy with BAL with Dr. Mckeon last week. She presented to our office yesterday while waiting in the waiting room developed severe midsternal chest pain and she was brought here urgently to the emergency room. a chest x-ray revealed evidence of chronic emphysematous changes and cardiomegaly without any acute pulmonary process. A CT of the chest revealed no evidence of aortic aneurysm or dissection. No significant acute findings were noted. EKG revealed normal sinus rhythm without acute ST or T-wave abnormalities. Troponins were negative. Influenza screen is negative. She is seen today in consultation on the observation unit. She is awake and alert in no acute distress. She states the chest discomfort has subsided. She does complain of a headache and was given morphine. she has had low O2 saturations in the upper 80s on 3 L/m per nasal cannula. She needs increased encouragement regarding deep breathing which her saturations recover nicely. Review of Systems 14 point review of system was conducted. All negative other than as mentioned in HPI. Past Medical History Past Medical History: Asthma, Chest Pain / Angina, COPD, GERD/Reflux, Hyperlipidemia, Hypertension, Osteoarthritis (OA), Pneumonia, Skin Disorder, Sleep Apnea/CPAP/BIPAP Additional Past Medical History / Comment(s): HX OF MIGRAINES, ENLARGED LIVER., TRACHEOBRONCHOMALACIA, CHRONIC COUGH, beginnings of catracts- wears contact lenses. History of Any Multi-Drug Resistant Organisms: None Reported Past Surgical History: Appendectomy, Section, Orthopedic Surgery, Tonsillectomy Additional Past Surgical History / Comment(s): jamey wrist, left elbow, ovarian cyst, exploratory laparoscopy, Rt knee Arthroscopy x 2.bronchoscopy Past Anesthesia/Blood Transfusion Reactions: Motion Sickness Past Psychological History: Depression Smoking Status: Current every day smoker Past Alcohol Use History: Rare Additional Past Alcohol Use History / Comment(s): STARTED SMOKING AT AGE 14. smokes 1/2 - 3/4PPD Past Drug Use History: None Reported - Past Family History Mother Family Medical History: Cancer Additional Family Medical History / Comment(s): LUNG CA Father Family Medical History: Cancer Additional Family Medical History / Comment(s): LUNG CA Sister(s) Family Medical History: Cancer, Deep Vein Thrombosis (DVT) Additional Family Medical History / Comment(s): . Brother(s) Family Medical History: Coronary Artery Disease (CAD) Medications and Allergies Home Medications Medication Instructions Recorded Confirmed Type Enalapril Maleate [Vasotec] 20 mg PO DAILY 05/11/14 06/27/16 History Escitalopram [Lexapro] 10 mg PO DAILY 05/11/14 06/27/16 History Fluticasone/Salmeterol [Advair 1 puff INHALATION RT-DAILY 05/11/14 06/27/16 History 500-50 Diskus] Hydrochlorothiazide [Hydrodiuril] 12.5 mg PO DAILY 05/11/14 06/27/16 History Omeprazole [PriLOSEC] 20 mg PO AC-BRKFST 05/11/14 06/27/16 History Citracal Slow Release 2 tab PO QAM 06/14/16 06/27/16 History Multivitamins, Thera [Multivitamin 1 tab PO DAILY 06/14/16 06/27/16 History (formulary)] Tiotropium 18 Mcg/Puff [Spiriva] 1 cap INHALATION RT-DAILY 06/14/16 06/27/16 History traMADol HCL [Ultram] 50 mg PO Q6HR PRN 06/18/16 06/27/16 History Allergies Allergy/AdvReac Type Severity Reaction Status Date / Time albuterol Allergy Unknown shaking, Verified 06/27/16 11:30 weakness, insomnia oxytetracycline Allergy Unknown Verified 06/27/16 11:30 [From Terramycin] Childhood oxytetracycline HCl Allergy Unknown Verified 06/27/16 11:30 [From Terramycin] Childhood Penicillins Allergy Unknown Verified 06/27/16 11:30 Childhood streptomycin [Streptomycin] Allergy Unknown Verified 06/27/16 11:30 Childhood Sulfa (Sulfonamide Allergy Unknown Verified 06/27/16 11:30 Antibiotics) Childhood Tetracyclines Allergy Unknown Verified 06/27/16 11:30 Childhood Physical Exam Vitals: Vital Signs Temp Pulse Pulse Pulse Resp BP BP 06/28/16 11:42 97.9 F 67 18 133/65 06/28/16 08:00 98.0 F 66 18 115/63 06/28/16 04:00 98.5 F 85 16 102/56 06/28/16 00:00 98.6 F 88 16 99/44 06/27/16 22:59 18 06/27/16 21:40 100.3 F H 99 20 108/53 06/27/16 21:36 98 F 90 18 103/57 06/27/16 19:22 82 18 110/56 06/27/16 17:25 74 20 90/54 06/27/16 16:54 75 20 84/49 06/27/16 14:25 98.4 F 76 20 88/53 Pulse Ox 06/28/16 11:42 88 L 06/28/16 08:00 88 L 06/28/16 04:00 83 L 06/28/16 00:00 86 L 06/27/16 22:59 06/27/16 21:40 84 L 06/27/16 21:36 100 06/27/16 19:22 95 06/27/16 17:25 92 L 06/27/16 16:54 92 L 06/27/16 14:25 87 L Intake and Output 06/27/16 06/28/16 06/28/16 22:59 06:59 14:59 Intake Total 140 381.333 Balance 140 381.333 Intake: IV 40 0.9@20 20 Heparin Sodium,Porcine/ 20 D5w Pmx 25,000 unit In Dextrose/Water 1 500ml. bag @ 10.302 UNITS/KG/HR 20 mls/hr IV .Q24H GABO Rx #:[id number] Intake, IV Titration 181.333 Amount Heparin Sodium,Porcine/ 181.333 D5w Pmx 25,000 unit In Dextrose/Water 1 500ml. bag @ 10.302 UNITS/KG/HR 20 mls/hr IV .Q24H GABO Rx #:[id number] Oral 100 200 Other: Voiding Method Toilet Toilet # Voids 1 1 GENERAL EXAM: Obese. Alert, comfortable in no apparent distress. HEAD: Normocephalic. EYES: Normal reaction of pupils, equal size. NOSE: Clear with pink turbinates. THROAT: No erythema or exudates. NECK: No masses, no JVD. CHEST: No chest wall deformity. LUNGS: Equal air entry with no crackles, wheeze, rhonchi or dullness. CVS: S1 and S2 normal with no audible murmurs, regular rhythm. ABDOMEN: No hepatosplenomegaly, normal bowel sounds, no guarding or rigidity. SPINE: No scoliosis or deformity SKIN: No rashes CENTRAL NERVOUS SYSTEM: No focal deficits, tone is normal in all 4 extremities. Extremities: There is no peripheral edema. No clubbing, no cyanosis. Peripheral pulses are intact. Results - Laboratory Findings CBC and BMP: 06/28/16 06:41 06/28/16 06:41 PT/INR, D-dimer PT 9.6 sec (9.0-12.0) 06/27/16 22:22 INR 0.9 (<1.1) 06/27/16 22:22 Abnormal lab findings: Abnormal Labs 06/28/16 06/28/16 06/28/16 06:41 06:41 06:41 WBC 12.7 H Neutrophils # 8.6 H APTT 31.4 H BUN 18 H Glucose 103 H Cholesterol 228 H LDL Cholesterol, Calc 148 H - Diagnostic Findings Chest x-ray: image reviewed CT scan - chest: image reviewed Assessment and Plan Plan: Impression: #1 Atypical chest pain in a patient found to have normal troponins, normal CTA and chest x-ray. #2 Chronic and ongoing tobacco dependence. #3 Chronic obstructive pulmonary disease, currently inactive and stable. #4 Tracheobronchomalacia with recent bronchoscopy and BAL. #5 Obesity. #6 Gastroesophageal reflux disease. #7 History of migraines. #8 Obstructive sleep apnea. #9 Hypertension. #10 Hyperlipidemia. Plan: The patient was seen and evaluated by Dr. Torres. Her chest x-ray, computed tomography scan and labs were reviewed. There is no acute pulmonary process. She was reassured. We will increase her activity as tolerated. She has been seen and evaluated by cardiology who is recommending outpatient stress test in 3 -4 weeks if symptoms were to recur. She is receiving medication for her migraines. We'll continue with her usual pulmonary medications. She could be cleared for discharge from the pulmonary standpoint. She'll be rescheduled with Dr. Mckeon in 1 week. She is however encouraged to call sooner with any recurrence of symptoms or other questions or concerns. Time with Patient: Greater than 30
[2016-06-29] MEDS: NITROGLYCERIN OINT 1 INCH/GM PACKET TOPICAL SCH ×2 (05:56→11:34)
[2016-06-29] MEDS: SYMBICORT 160-4.5 MCG INHALER INHALATION SCH (07:57)
[2016-06-29] MEDS: TIOTROPIUM 18 MCG/PUFF INHALER INHALATION SCH (07:57)
[2016-06-29 08:03] VITALS: RESP 18
[2016-06-29] MEDS: ASPIRIN 325 MG TAB PO SCH (08:54)
[2016-06-29] MEDS: PANTOPRAZOLE 40 MG TABLET PO SCH (08:54)
[2016-06-29] MEDS: HYDROCHLOROTHIAZIDE 12.5 MG CAP PO SCH (08:55)
[2016-06-29] MEDS: ESCITALOPRAM 10 MG TAB PO SCH (08:56)
[2016-06-29] MEDS: LISINOPRIL 20 MG TAB PO SCH (08:56)
[2016-06-29] MEDS ORDERED: ATORVASTATIN 20 MG TAB PO SCH (09:00)
[2016-06-29] MEDS: FLUTICASONE 50MCG/SPRAY NASAL 16GM EA NOSTRIL PRN (10:12)
[2016-06-29] MEDS: MULTIVITAMINS, THERA 1 EACH TAB PO SCH (11:33)
[2016-06-29 11:55] VITALS: BP 104/59; PULSE 77; TEMP 98.9
--- NOTE | 2016-06-29 13:59 | P.PN ---
Subjective This is a very pleasant 65-year-old female patient who follows with Dr. Vail as her primary care physician. She has a history of hyperlipidemia, hypertension, obesity, migraines, chronic cough. She does have a history of COPD, chronic and ongoing tobacco dependence, sleep apnea, tracheobronchomalacia and had recently undergone bronchoscopy with BAL with Dr. cMkeon last week. She presented to our office yesterday while waiting in the waiting room developed severe midsternal chest pain and she was brought here urgently to the emergency room. a chest x-ray revealed evidence of chronic emphysematous changes and cardiomegaly without any acute pulmonary process. A CT of the chest revealed no evidence of aortic aneurysm or dissection. No significant acute findings were noted. EKG revealed normal sinus rhythm without acute ST or T-wave abnormalities. Troponins were negative. Influenza screen is negative. She is seen today in consultation on the observation unit. She is awake and alert in no acute distress. She states the chest discomfort has subsided. She does complain of a headache and was given morphine. she has had low O2 saturations in the upper 80s on 3 L/m per nasal cannula. She needs increased encouragement regarding deep breathing which her saturations recover nicely. The patient is seen again today in follow-up 06/29/2016 on the observation unit. She is awake and alert in no acute distress. She still has some lingering chest wall pain. She continues with very shallow respirations which causes her to have a low O2 saturations until she is reminded for deep breathing and picks back up over 90%. Her workup has been negative for any acute process. Objective - Vital Signs Vital signs: Vital Signs Temp 98.9 F 06/29/16 11:42 Pulse 77 06/29/16 11:42 Resp 18 06/29/16 11:42 BP 104/59 06/29/16 11:42 Pulse Ox 78 L 06/29/16 11:42 Intake & Output 06/28/16 06/29/16 06/29/16 18:59 06:59 18:59 Intake Total 540 450 477 Balance 540 450 477 Intake: Oral 540 450 477 Other: Voiding Method Toilet Toilet Toilet # Voids 1 3 - Exam GENERAL EXAM: Obese. Alert, comfortable in no apparent distress. HEAD: Normocephalic. EYES: Normal reaction of pupils, equal size. NOSE: Clear with pink turbinates. THROAT: No erythema or exudates. NECK: No masses, no JVD. CHEST: No chest wall deformity. LUNGS: Equal air entry with no crackles, wheeze, rhonchi or dullness. CVS: S1 and S2 normal with no audible murmurs, regular rhythm. ABDOMEN: No hepatosplenomegaly, normal bowel sounds, no guarding or rigidity. SPINE: No scoliosis or deformity SKIN: No rashes CENTRAL NERVOUS SYSTEM: No focal deficits, tone is normal in all 4 extremities. Extremities: There is no peripheral edema. No clubbing, no cyanosis. Peripheral pulses are intact. - Labs CBC & Chem 7: 06/28/16 06:41 06/28/16 06:41 Assessment and Plan Plan: Impression: #1 Atypical chest pain in a patient found to have normal troponins, normal CTA and chest x-ray. #2 Chronic and ongoing tobacco dependence. #3 Chronic obstructive pulmonary disease, currently inactive and stable. #4 Tracheobronchomalacia with recent bronchoscopy and BAL. #5 Obesity. #6 Gastroesophageal reflux disease. #7 History of migraines. #8 Obstructive sleep apnea. #9 Hypertension. #10 Hyperlipidemia. Plan: The patient was seen and evaluated by Dr. Torres. Her chest x-ray, computed tomography scan and labs were reviewed. There is no acute pulmonary process. She was reassured. She is cleared for discharge from the pulmonary standpoint. She'll be rescheduled with Dr. Mckeon in 1 week. She is however encouraged to call sooner with any recurrence of symptoms or other questions or concerns.
--- NOTE | 2016-06-29 14:17 | P.DS ---
Providers Date of admission: 06/27/16 13:11 Expected date of discharge: 06/29/16 Attending physician: Preston Vail Consults: 06/27/16 14:36 Consult Physician Routine Consulting Provider: Jory Torres Consult Reason/Comments: hemoptysis Do you want consulting provider notified?: Yes Primary care physician: Preston [facility] Course: Patient came to ER with sudden onset of Midsternal CP radiating to her back. It lasted till NTG given, which made it better. Still present at a milder level. She had similar sx that were relieved afte hemoptysis episode last week, She has not een Dr Rubi since this. Now pain is better, no SOB- other than chronic from She was admitted observation. She had complaints of headache during her stay and was started on Fioricet. She improved. Pulmonology evaluated and felt that she is musculoskeletal. Cardiology evaluated and felt this was atypical chest pain. She had serial troponins and CKs that were negative. She was cleared for discharge with plan outpatient follow-up. She'll follow-up with Dr. Mckeon outpatient for her episode of hemoptysis. May be related to her recent bronchoscopy She will follow up outpatient with cardiology if needed. Final diagnoses chest pain, atypical Hemoptysis, resolved Hypertension Oxygen dependent COPD Depresion Gerd Plan - Discharge Summary New Discharge Prescriptions: Atorvastatin [Lipitor] 20 mg PO DAILY #30 tab Discharge Medication List Enalapril Maleate [Vasotec] 20 mg PO DAILY 05/11/14 [History] Escitalopram [Lexapro] 10 mg PO DAILY 05/11/14 [History] Fluticasone/Salmeterol [Advair 500-50 Diskus] 1 puff INHALATION RT-DAILY [History] Hydrochlorothiazide [Hydrodiuril] 12.5 mg PO DAILY 05/11/14 [History] Omeprazole [PriLOSEC] 20 mg PO AC-BRKFST 05/11/14 [History] Citracal Slow Release 2 tab PO QAM 06/14/16 [History] Multivitamins, Thera [Multivitamin (formulary)] 1 tab PO DAILY 06/14/16 [History ] Tiotropium 18 Mcg/Puff [Spiriva] 1 cap INHALATION RT-DAILY 06/14/16 [History] traMADol HCL [Ultram] 50 mg PO Q6HR PRN 06/18/16 [History] Atorvastatin [Lipitor] 20 mg PO DAILY #30 tab 06/29/16 [Rx] Fluticasone Nasal [place] [Flonase Nasal [place]] 2 spray EA NOSTRIL DAILY PRN #0 spr 06/29/16 [Rx] Follow up Appointment(s)/Referral(s): Preston Vail MD [Primary Care Provider] - 1 Week Susan Mckeon MD [STAFF PHYSICIAN] - 1 Week Discharge Disposition: HOME SELF-CARE
== END 2016-06-29 15:20 | disposition home or self-care (01) ==
LOC: EC 10:11 → 3OBS 13:11
PROVIDERS: ADMIT Family Medicine; ATTEND Family Medicine
DX: R07.89 Other chest pain (principal); R04.2 Hemoptysis; I11.9 Hypertensive heart disease without heart failure; J44.9 Chronic obstructive pulmonary disease, unspecified; J45.909 Unspecified asthma, uncomplicated; J39.8 Other specified diseases of upper respiratory tract; E66.9 Obesity, unspecified; E78.5 Hyperlipidemia, unspecified; F17.200 Nicotine dependence, unspecified, uncomplicated; F32.9 Major depressive disorder, single episode, unspecified; G47.33 Obstructive sleep apnea (adult) (pediatric); K21.9 Gastro-esophageal reflux disease without esophagitis; Z79.899 Other long term (current) drug therapy; Z87.01 Personal history of pneumonia (recurrent); Z99.81 Dependence on supplemental oxygen; Z79.51 Long term (current) use of inhaled steroids; Z88.1 Allergy status to other antibiotic agents; Z88.0 Allergy status to penicillin; Z88.2 Allergy status to sulfonamides; Z88.8 Allergy status to other drugs, medicaments and biological substances; R51 Headache; G43.909 Migraine, unspecified, not intractable, without status migrainosus
CPT/HCPCS: 96366 ×7; 96375 ×4; 96376 ×3; 96365 ×2; 99291 ×2; 36415; 94640 ×4; 93005; 80061; 80053; 80048; 82550; 82553; 83605; 83690; 83735 ×2; 84484; 85025 ×2; 85610; 85730 ×2; 87502; 71020; 75635; 71275; G0378 ×3; J2270 ×2; J1644 ×3; Q9967; J2405; J1170

== ENCOUNTER 2016-07-05 01:16 | Inpatient (IN) | payer MEDICARE ==
[2016-07-05] MEDS ORDERED: SODIUM CHLORIDE 0.9% 1,000 ML IV ONE (01:52)
[2016-07-05] MEDS ORDERED: HYDROmorphone 1 MG/ML 1 ML SYRINGE IVP STA ×2 (01:52→06:31)
[2016-07-05] MEDS ORDERED: ONDANSETRON 4 MG/2 ML VIAL IVP STA (01:52)
--- NOTE | 2016-07-05 02:16 | ED ---
Abdominal Pain HPI - General Source: patient, RN notes reviewed Mode of arrival: wheelchair Limitations: no limitations <Rosa Jaimes - Last Filed: 07/05/16 04:14> <Dale Amin - Last Filed: 07/05/16 06:41> - General Chief Complaint: Abdominal Pain Stated Complaint: L Side Pain Time Seen by Provider: 07/05/16 01:35 - History of Present Illness Initial Comments: Patient is a 65-year-old female presents to the emergency room for evaluation of abdominal pain. Patient states she began developing left-sided abdominal pain on Saturday. Patient states pain has been getting worse over the past few days. Patient states that she now can not handle her pain. Patient states she is having 10 out of 10 constant sharp pain on her left side. Patient denies pain or burning during urination, trouble urinating or blood in urine. Patient denies history of kidney stones. Patient states pain is worse when she takes deep breath or moves. Patient does have a known history of COPD. Patient denies any worsening shortness of breath. Patient states her O2 sat is usually at 88%. Patient states she is nauseous but denies any vomiting. Patient denies constipation or diarrhea. Patient states she was here last week for chest pain. Patient denies any chest pain today. (Rosa Jaimes) - Related Data Home Medications Medication Instructions Recorded Confirmed Enalapril Maleate [Vasotec] 20 mg PO DAILY 05/11/14 07/05/16 Escitalopram [Lexapro] 10 mg PO DAILY 05/11/14 07/05/16 Fluticasone/Salmeterol [Advair 1 puff INHALATION RT-DAILY 05/11/14 07/05/16 500-50 Diskus] Hydrochlorothiazide [Hydrodiuril] 12.5 mg PO DAILY 05/11/14 07/05/16 Omeprazole [PriLOSEC] 20 mg PO AC-BRKFST 05/11/14 07/05/16 Citracal Slow Release 2 tab PO QAM 06/14/16 07/05/16 Multivitamins, Thera [Multivitamin 1 tab PO DAILY 06/14/16 07/05/16 (formulary)] Tiotropium 18 Mcg/Puff [Spiriva] 1 cap INHALATION RT-DAILY 06/14/16 07/05/16 traMADol HCL [Ultram] 50 mg PO Q6HR PRN 06/18/16 07/05/16 Previous Rx's Medication Instructions Recorded Atorvastatin [Lipitor] 20 mg PO DAILY #30 tab 06/29/16 Fluticasone Nasal Topping [Flonase 2 spray EA NOSTRIL DAILY PRN #0 spr 06/29/16 Nasal Topping] Allergies Allergy/AdvReac Type Severity Reaction Status Date / Time albuterol Allergy Unknown shaking, Verified 07/05/16 01:26 weakness, insomnia oxytetracycline Allergy Unknown Verified 07/05/16 01:26 [From Terramycin] Childhood oxytetracycline HCl Allergy Unknown Verified 07/05/16 01:26 [From Terramycin] Childhood Penicillins Allergy Unknown Verified 07/05/16 01:26 Childhood streptomycin [Streptomycin] Allergy Unknown Verified 07/05/16 01:26 Childhood Sulfa (Sulfonamide Allergy Unknown Verified 07/05/16 01:26 Antibiotics) Childhood Tetracyclines Allergy Unknown Verified 07/05/16 01:26 Childhood Review of Systems ROS Other: All systems not noted in ROS Statement are negative. <Rosa Jaimes - Last Filed: 07/05/16 04:14> ROS Other: All systems not noted in ROS Statement are negative. <Dale Amin - Last Filed: 07/05/16 06:41> ROS Statement: Those systems with pertinent positive or pertinent negative responses have been documented in the HPI. Past Medical History Past Medical History: Asthma, Chest Pain / Angina, COPD, GERD/Reflux, Hyperlipidemia, Hypertension, Osteoarthritis (OA), Pneumonia, Skin Disorder, Sleep Apnea/CPAP/BIPAP Additional Past Medical History / Comment(s): HX OF MIGRAINES, ENLARGED LIVER., TRACHEOBRONCHOMALACIA, CHRONIC COUGH, beginnings of catracts- wears contact lenses. History of Any Multi-Drug Resistant Organisms: None Reported Past Surgical History: Appendectomy, Section, Orthopedic Surgery, Tonsillectomy Additional Past Surgical History / Comment(s): jamey wrist, left elbow, ovarian cyst, exploratory laparoscopy, Rt knee Arthroscopy x 2.bronchoscopy Past Anesthesia/Blood Transfusion Reactions: Motion Sickness Past Psychological History: Depression Smoking Status: Current every day smoker Past Alcohol Use History: Rare Additional Past Alcohol Use History / Comment(s): STARTED SMOKING AT AGE 14. smokes 1/2 - 3/4PPD Past Drug Use History: None Reported - Past Family History Mother Family Medical History: Cancer Additional Family Medical History / Comment(s): LUNG CA Father Family Medical History: Cancer Additional Family Medical History / Comment(s): LUNG CA Sister(s) Family Medical History: Cancer, Deep Vein Thrombosis (DVT) Additional Family Medical History / Comment(s): . Brother(s) Family Medical History: Coronary Artery Disease (CAD) <Rosa Jaimes - Last Filed: 07/05/16 04:14> General Exam Limitations: no limitations General appearance: alert, in no apparent distress Head exam: Present: atraumatic, normocephalic, normal inspection Eye exam: Present: normal appearance Pupils: Present: normal accommodation ENT exam: Present: normal exam Neck exam: Present: normal inspection Respiratory exam: Present: decreased breath sounds. Absent: respiratory distress Cardiovascular Exam: Present: regular rate, normal rhythm, normal heart sounds GI/Abdominal exam: Present: soft, tenderness (Left upper quadrant), normal bowel sounds. Absent: distended, guarding, rebound, rigid Extremities exam: Present: normal inspection Back exam: Present: normal inspection Neurological exam: Present: alert, oriented X3, CN II-XII intact, normal gait Psychiatric exam: Present: normal affect, normal mood Skin exam: Present: warm, dry, intact, normal color. Absent: rash <Rosa Jaimes - Last Filed: 07/05/16 04:14> <Dale Amin - Last Filed: 07/05/16 06:41> - General Exam Comments Initial Comments: Laying in exam room, uncomfortable secondary to pain (Rosa Jaimes) Course <Rosa Jaimes - Last Filed: 07/05/16 04:14> <Dale Amin - Last Filed: 07/05/16 06:41> Vital Signs 07/05/16 07/05/16 07/05/16 01:23 03:31 04:55 Temperature 98.6 F 97.8 F Pulse Rate 98 105 H 80 Respiratory 16 18 18 Rate Blood Pressure 116/75 137/60 95/50 O2 Sat by Pulse 84 L 95 95 Oximetry 07/05/16 06:23 Temperature Pulse Rate 81 Respiratory 18 Rate Blood Pressure 94/55 O2 Sat by Pulse 95 Oximetry - Reevaluation(s) Reevaluation #1: 07/05/16 06:39 I did reevaluate the patient she did require CAT scan of the chest due to the elevated d-dimer and symptoms. (Dale Amin) Medical Decision Making - Lab Data Result diagrams: 07/05/16 02:10 07/05/16 02:10 - Radiology Data Radiology results: report reviewed, image reviewed <Rosa Jaimes - Last Filed: 07/05/16 04:14> - Lab Data Result diagrams: 07/05/16 02:10 07/05/16 02:10 - Radiology Data Radiology results: report reviewed (I did review the imaging and did discuss the findings with radiologist or is evidence bilateral lower lobe pulmonary emboli more so on the left than the right.), image reviewed <Dale Amin - Last Filed: 07/05/16 06:41> - Medical Decision Making Patient is a 65-year-old female presents to the emergency room for evaluation of left upper quadrant pain. KUB x-ray: Mildly increased left base atelectasis/ infiltrate and possible small left pleural effusion. No definite evidence of intestinal obstruction or perforation seen. Case discussed and passed on to Dr. Amin at 4:15 AM. (Rosa Jaimes) - Lab Data Lab Results 07/05/16 07/05/16 07/05/16 Range/Units 02:10 02:10 02:16 WBC 10.5 (3.8-10.6) k/uL RBC 4.99 (3.80-5.40) m/uL Hgb 15.1 (11.4-16.0) gm/dL Hct 47.0 H (34.0-46.0) % MCV 94.2 (80.0-100.0) fL MCH 30.3 (25.0-35.0) pg MCHC 32.1 (31.0-37.0) g/dL RDW 13.9 (11.5-15.5) % Plt Count 288 (150-450) k/uL Neutrophils % 65 % Lymphocytes % 25 % Monocytes % 5 % Eosinophils % 2 % Basophils % 1 % Neutrophils # 6.9 (1.3-7.7) k/uL Lymphocytes # 2.6 (1.0-4.8) k/uL Monocytes # 0.5 (0-1.0) k/uL Eosinophils # 0.2 (0-0.7) k/uL Basophils # 0.1 (0-0.2) k/uL PT (9.0-12.0) sec INR (<1.1) APTT (22.0-30.0) sec D-Dimer (<0.60) mg/L FEU Sodium 140 (137-145) mmol/L Potassium 3.9 (3.5-5.1) mmol/L Chloride 103 (98-107) mmol/L Carbon Dioxide 29 (22-30) mmol/L Anion Gap 8 mmol/L BUN 15 (7-17) mg/dL Creatinine 0.80 (0.52-1.04) mg/dL Est GFR (MDRD) Af Amer >60 (>60 ml/min/1.73 sqM) Est GFR (MDRD) Non-Af >60 (>60 ml/min/1.73 sqM) Glucose 120 H (74-99) mg/dL Calcium 10.4 H (8.4-10.2) mg/dL Magnesium (1.6-2.3) mg/dL Total Bilirubin 1.3 (0.2-1.3) mg/dL AST 15 (14-36) U/L ALT 30 (9-52) U/L Alkaline Phosphatase 106 (38-126) U/L Total Creatine Kinase 40 (30-135) U/L CK-MB (CK-2) 0.4 (0.0-2.4) ng/mL CK-MB (CK-2) Rel Index 1.0 Troponin I <0.012 (0.000-0.034) ng/mL NT-Pro-B Natriuret Pep pg/mL Total Protein 6.6 (6.3-8.2) g/dL Albumin 3.9 (3.5-5.0) g/dL Amylase 34 (30-110) U/L Lipase 26 (23-300) U/L Urine Color Urine Appearance (Clear) Urine pH (5.0-8.0) Ur Specific [place] (1.001-1.035) Urine Protein (Negative) Urine Glucose (UA) (Negative) Urine Ketones (Negative) Urine Blood (Negative) Urine Nitrite (Negative) Urine Bilirubin (Negative) Urine Urobilinogen (<2.0) mg/dL Ur Leukocyte Esterase (Negative) Urine RBC (0-5) /hpf Urine WBC (0-5) /hpf Ur Squamous Epith Cells (0-4) /hpf Urine Bacteria (None) /hpf Urine Mucus (None) /hpf 07/05/16 07/05/16 07/05/16 Range/Units 02:16 02:16 02:16 WBC (3.8-10.6) k/uL RBC (3.80-5.40) m/uL Hgb (11.4-16.0) gm/dL Hct (34.0-46.0) % MCV (80.0-100.0) fL MCH (25.0-35.0) pg MCHC (31.0-37.0) g/dL RDW (11.5-15.5) % Plt Count (150-450) k/uL Neutrophils % % Lymphocytes % % Monocytes % % Eosinophils % % Basophils % % Neutrophils # (1.3-7.7) k/uL Lymphocytes # (1.0-4.8) k/uL Monocytes # (0-1.0) k/uL Eosinophils # (0-0.7) k/uL Basophils # (0-0.2) k/uL PT 10.2 (9.0-12.0) sec INR 1.0 (<1.1) APTT 23.3 (22.0-30.0) sec D-Dimer 1.07 H (<0.60) mg/L FEU Sodium (137-145) mmol/L Potassium (3.5-5.1) mmol/L Chloride (98-107) mmol/L Carbon Dioxide (22-30) mmol/L Anion Gap mmol/L BUN (7-17) mg/dL Creatinine (0.52-1.04) mg/dL Est GFR (MDRD) Af Amer (>60 ml/min/1.73 sqM) Est GFR (MDRD) Non-Af (>60 ml/min/1.73 sqM) Glucose (74-99) mg/dL Calcium (8.4-10.2) mg/dL Magnesium 2.0 (1.6-2.3) mg/dL Total Bilirubin (0.2-1.3) mg/dL AST (14-36) U/L ALT (9-52) U/L Alkaline Phosphatase (38-126) U/L Total Creatine Kinase (30-135) U/L CK-MB (CK-2) (0.0-2.4) ng/mL CK-MB (CK-2) Rel Index Troponin I (0.000-0.034) ng/mL NT-Pro-B Natriuret Pep 86 pg/mL Total Protein (6.3-8.2) g/dL Albumin (3.5-5.0) g/dL Amylase (30-110) U/L Lipase (23-300) U/L Urine Color Urine Appearance (Clear) Urine pH (5.0-8.0) Ur Specific [place] (1.001-1.035) Urine Protein (Negative) Urine Glucose (UA) (Negative) Urine Ketones (Negative) Urine Blood (Negative) Urine Nitrite (Negative) Urine Bilirubin (Negative) Urine Urobilinogen (<2.0) mg/dL Ur Leukocyte Esterase (Negative) Urine RBC (0-5) /hpf Urine WBC (0-5) /hpf Ur Squamous Epith Cells (0-4) /hpf Urine Bacteria (None) /hpf Urine Mucus (None) /hpf 07/05/ Range/Units 03:25 WBC (3.8-10.6) k/uL RBC (3.80-5.40) m/uL Hgb (11.4-16.0) gm/dL Hct (34.0-46.0) % MCV (80.0-100.0) fL MCH (25.0-35.0) pg MCHC (31.0-37.0) g/dL RDW (11.5-15.5) % Plt Count (150-450) k/uL Neutrophils % % Lymphocytes % % Monocytes % % Eosinophils % % Basophils % % Neutrophils # (1.3-7.7) k/uL Lymphocytes # (1.0-4.8) k/uL Monocytes # (0-1.0) k/uL Eosinophils # (0-0.7) k/uL Basophils # (0-0.2) k/uL PT (9.0-12.0) sec INR (<1.1) APTT (22.0-30.0) sec D-Dimer (<0.60) mg/L FEU Sodium (137-145) mmol/L Potassium (3.5-5.1) mmol/L Chloride (98-107) mmol/L Carbon Dioxide (22-30) mmol/L Anion Gap mmol/L BUN (7-17) mg/dL Creatinine (0.52-1.04) mg/dL Est GFR (MDRD) Af Amer (>60 ml/min/1.73 sqM) Est GFR (MDRD) Non-Af (>60 ml/min/1.73 sqM) Glucose (74-99) mg/dL Calcium (8.4-10.2) mg/dL Magnesium (1.6-2.3) mg/dL Total Bilirubin (0.2-1.3) mg/dL AST (14-36) U/L ALT (9-52) U/L Alkaline Phosphatase (38-126) U/L Total Creatine Kinase (30-135) U/L CK-MB (CK-2) (0.0-2.4) ng/mL CK-MB (CK-2) Rel Index Troponin I (0.000-0.034) ng/mL NT-Pro-B Natriuret Pep pg/mL Total Protein (6.3-8.2) g/dL Albumin (3.5-5.0) g/dL Amylase (30-110) U/L Lipase (23-300) U/L Urine Color [place] Urine Appearance Turbid H (Clear) Urine pH 5.0 (5.0-8.0) Ur Specific [place] 1.022 (1.001-1.035) Urine Protein Trace H (Negative) Urine Glucose (UA) Negative (Negative) Urine Ketones Negative (Negative) Urine Blood Negative (Negative) Urine Nitrite Negative (Negative) Urine Bilirubin Negative (Negative) Urine Urobilinogen 2.0 (<2.0) mg/dL Ur Leukocyte Esterase Negative (Negative) Urine RBC 2 (0-5) /hpf Urine WBC 3 (0-5) /hpf Ur Squamous Epith Cells 2 (0-4) /hpf Urine Bacteria Many H (None) /hpf Urine Mucus Many H (None) /hpf 07/05/16 04:00 Sinus rhythm with marked sinus arrhythmia, ventricular rate 92 bpm, PA interval 170 ms, QRS duration 80 ms, QT/QTC 392/484 ms (Rosa Jaimes) Critical Care Time <Rosa Jaimes - Last Filed: 07/05/16 04:14> Critical Care Time: Yes <Dale Amin - Last Filed: 07/05/16 06:41> Critical Care Time: 31 minutes of critical care time which includes initial evaluation the workup done by the physician operations assistant evaluation labs x-rays and CAT scans. Evaluation the patient several occasions. Discussion with radiologist discussion with the admitting physician orders and documentation of the above. ( Dale Amin) Disposition <Rosa Jaimes - Last Filed: 07/05/16 04:14> <Dale Amin - Last Filed: 07/05/16 06:41> Clinical Impression: Pulmonary embolism on left, Pulmonary embolism on right, Chest pain Disposition: ADMITTED IP TO THIS HOSP Condition: Stable
[2016-07-05 02:25] LABS: Basophils # (A) 0.1 k/uL (0-0.2); Basophils % (A) 1 %; CH 31.1; CHCM 33.1; Eosinophils # (A) 0.2 k/uL (0-0.7); Eosinophils % (A) 2 %; HDW 2.26; HGB 15.1 gm/dL (11.4-16.0); Luc % (Auto) 2; Lymphocytes # (A) 2.6 k/uL (1.0-4.8); Lymphocytes % (A) 25 %; MCH 30.3 pg (25.0-35.0); MCHC 32.1 g/dL (31.0-37.0); MCV 94.2 fL (80.0-100.0); Mean Platelet Volume 6.6; Monocytes # (A) 0.5 k/uL (0-1.0); Monocytes % (A) 5 %; Neutrophils # (A) 6.9 k/uL (1.3-7.7); Neutrophils % (A) 65 %; RBC 4.99 m/uL (3.80-5.40); RDW 13.9 % (11.5-15.5); WBC 10.5 k/uL (3.8-10.6); WBC (Perox) 10.44
[2016-07-05 02:36] LABS: ALT 30 U/L (9-52); AST 15 U/L (14-36); Alkaline Phosphatase 106 U/L (38-126); Amylase 34 U/L (30-110); Anion Gap 8 mmol/L; Blood Urea Nitrogen 15 mg/dL (7-17); Calcium 10.4 mg/dL (8.4-10.2); Carbon Dioxide 29 mmol/L (22-30); Chloride 103 mmol/L (98-107); Glucose 120 mg/dL (74-99); Non-African American GFR(MDRD) >60 (>60 ml/min/1.73 sqM); Potassium 3.9 mmol/L (3.5-5.1); Sodium 140 mmol/L (137-145); Total Bilirubin 1.3 mg/dL (0.2-1.3); Total Protein 6.6 g/dL (6.3-8.2)
[2016-07-05] MEDS ORDERED: ACETAMINOPHEN IV (For NPO) 1,000 MG in EMPTY BAG 1 BAG IVPB STA (03:03)
[2016-07-05] MEDS ORDERED: DIAZEPAM 5 MG/ML 2 ML SYRINGE IVP STA (03:03)
[2016-07-05 03:41] LABS: Appearance,Urine Turbid (Clear); Bacteria,Urine Many /hpf; Bilirubin,Urine Negative (Negative); Glucose,Urine (UA) Negative (Negative); Ketones,Urine Negative (Negative); Leukocyte Esterase,Urine Negative (Negative); Mucus,Urine Many /hpf; Nitrite,Urine Negative (Negative); Particle Count 105662; Protein,Urine Trace (Negative); RBC,Urine 2 /hpf (0-5); Specific Gravity,Urine 1.022 (1.001-1.035); Squamous Epithelial Cell,Urine 2 /hpf (0-4); UA Billing (MACRO vs. MICRO) MICRO; WBC,Urine 3 /hpf (0-5)
[2016-07-05 03:53] LABS: Creatine Kinase 40 U/L (30-135)
[2016-07-05 04:04] LABS: Creatine Kinase MB 0.4 ng/mL (0.0-2.4); Partial Thromboplastin Time 23.3 sec (22.0-30.0); Prothrombin Time 10.2 sec (9.0-12.0); Troponin I <0.012 ng/mL (0.000-0.034)
--- NOTE | 2016-07-05 04:06 | XR ---
EXAM: XR Abdomen, 1 View. CLINICAL HISTORY: Reason: pain TECHNIQUE: Upright views of the abdomen/pelvis. COMPARISON: 06/27/16 CTA. FINDINGS: Lower thorax: Persistent bibasilar atelectasis/consolidation, appears slightly increased on the left where there may now be a small left pleural effusion. Gastrointestinal tract: Unremarkable. No dilation. Bones/joints: The bones are stable including mild levoscoliosis and multilevel degenerative changes. IMPRESSION: 1. Mildly increased left base atelectasis/infiltrate and possible small left pleural effusion. 2. No definite evidence of intestinal obstruction or perforation seen.
[2016-07-05] MEDS ORDERED: RX INFO: IV CONTRAST WAS GIVEN 1 EACH MISC MISCELLANE PRN (05:04)
--- NOTE | 2016-07-05 06:13 | CT ---
ADDENDUM - Added by Jesse Blackburn M.D. on 08/10/2016 6:53 AM (-07:00) MIPs were performed. EXAM: CTA chest. HISTORY: Pain. Rule out PE. COMPARISON: 06/27/16. TECHNIQUE: Continuous axial images of the chest were obtained after administration of intravenous contrast, per CTA protocol. Soft tissue and lung algorithms were applied. Coronal and sagittal reformatting was performed. FINDINGS: Several segmental and subsegmental pulmonary emboli in the left lower lobe. Smaller degree of segmental and subsegmental pulmonary emboli in the right lower lobe. No evidence for saddle embolus. Bilateral atelectasis and scarring, particularly in the lower lobes. Some of these opacities are wedge shaped and peripherally located. They could be related to above-mentioned pulmonary emboli. Bilateral emphysematous changes, particularly in the upper lobes. No acute aortic abnormality. Mild cardiomegaly. No pericardial effusion. No pleural effusion. IMPRESSION: 1. Bilateral segmental and subsegmental emboli in the lower lobes. 2. Chronic changes as discussed. CTDI vol = 89.00 mGy DLP = 465.40 mGycm One or more of the following dose reduction techniques were used: automated exposure control, adjustment of the mA and/or kV according to patient size, use of iterative reconstruction technique. [employer] 07/05/16 06:09 Call Doctor Regarding Pulmonary Embolism, called Dr. Amin on 07/05 06:08 (-04:00)
[2016-07-05] MEDS ORDERED: SODIUM CHLORIDE 0.9% 500 ML IV STA (06:31)
[2016-07-05] MEDS ORDERED: NALOXONE 0.4 MG/ML 1 ML VIAL IV PRN (06:41)
[2016-07-05] MEDS ORDERED: HEPARIN SODIUM,PORCINE 5,000 UNIT/ML 1 ML VIAL IV STA (06:42)
[2016-07-05] MEDS ORDERED: traMADol 50 MG TAB PO PRN (06:43)
[2016-07-05] MEDS ORDERED: FLUTICASONE 50MCG/SPRAY NASAL 16GM EA NOSTRIL PRN (06:43)
[2016-07-05] MEDS: HEPARIN SODIUM,PORCINE/D5W PMX 25,000 UNIT in DEXTROSE/WATER 1 500ML.BAG IV SCH ×2 (07:04→20:34)
[2016-07-05] MEDS: IPRATROPIUM-ALBUTEROL 3 ML NEB INHALATION SCH ×5 (07:41→20:27)
[2016-07-05] MEDS: SYMBICORT 160-4.5 MCG INHALER INHALATION SCH (07:41)
[2016-07-05] MEDS: TIOTROPIUM 18 MCG/PUFF INHALER INHALATION SCH (07:42)
[2016-07-05] MEDS ORDERED: CITRACAL SLOW PO SCH (09:00)
[2016-07-05] MEDS: ESCITALOPRAM 10 MG TAB PO SCH (10:26)
[2016-07-05] MEDS: ATORVASTATIN 20 MG TAB PO SCH (10:26)
[2016-07-05] MEDS: MULTIVITAMINS, THERA 1 EACH TAB PO SCH (10:27)
[2016-07-05] MEDS: HYDROCHLOROTHIAZIDE 12.5 MG CAP PO SCH (10:27)
[2016-07-05] MEDS: HYDROmorphone 1 MG/ML 1 ML SYRINGE IVP PRN ×3 (10:28→22:52)
[2016-07-05] MEDS: PANTOPRAZOLE 40 MG TABLET PO SCH (10:51)
--- NOTE | 2016-07-05 11:58 | P.HPIM ---
History of Present Illness H&P Date: 07/05/16 Chief Complaint: Left-sided abdominal pain Patient is a 65-year-old female, patient of Dr. Vail in the outpatient setting, with medical history significant for hyperlipidemia, hypertension, obesity, migraines, COPD, tracheobronchial malacia, sleep apnea, and obesity. Patient states that she uses 2 L of oxygen at home at nighttime. Patient follows with Dr. Mckeon in the outpatient setting. Patient was recently hospitalized from 06/27/2016 2 06/29/2016 with atypical chest pain and hemoptysis that resolved felt to be due to recent bronchoscopy. Patient at that time underwent serial troponins and CKs that were negative. Patient also had a chest CTA and chest x-ray that was negative. Patient was discharged home in stable condition with close follow-up in the outpatient setting. On this admission, patient presented to the emergency department with complaints of left -sided abdominal pain that started on Saturday, progressively getting worse over the last couple days. Pain described as sharp, exacerbated with inspiration or movement, associated with nausea but no vomiting. In the emergency department, patient was found to have elevated d-dimer and underwent a CT of the chest with evidence of bilateral segmental and subsegmental emboli in the lower lobes without evidence of saddle embolus. Patient was admitted to the selective care unit on continuous cardiac monitoring on IV heparin will consult requested to Dr. Carney for pulmonary service. Upon examination, patient is lying in bed. Patient continues to complain of upper quadrant abdominal pain radiating to her back currently rated 10 out of 10. Again, pain is exacerbated with inspiration and movement. Patient denies increased shortness of breath, chills, nausea, vomiting, fevers, or chest pain. Denies constipation or diarrhea. Denies dysuria, hematuria, or urinary frequency. Past Medical History Past Medical History: Asthma, Chest Pain / Angina, COPD, GERD/Reflux, Hyperlipidemia, Hypertension, Osteoarthritis (OA), Pneumonia, Skin Disorder, Sleep Apnea/CPAP/BIPAP Additional Past Medical History / Comment(s): Pt recently admitted to [facility] on 03/03 with atypical chest pain, hemoptysis-resolved. Other HX : Home O2 at 2L/ NC at HS, MIGRAINES, ENLARGED LIVER., TRACHEOBRONCHOMALACIA, CHRONIC COUGH, beginnings of catracts- wears contact lenses. History of Any Multi-Drug Resistant Organisms: None Reported Past Surgical History: Appendectomy, Section, Orthopedic Surgery, Tonsillectomy Additional Past Surgical History / Comment(s): jamey wrist, left elbow, ovarian cyst, exploratory laparoscopy, Rt knee Arthroscopy x 2.bronchoscopy Past Anesthesia/Blood Transfusion Reactions: Motion Sickness Past Psychological History: Depression Additional Psychological History / Comment(s): Pt resides with her spouse. She uses O2 at 2L/NC at HS. She is independent. She has a nebulizer. Smoking Status: Current every day smoker Past Alcohol Use History: Rare Additional Past Alcohol Use History / Comment(s): STARTED SMOKING AT AGE 14. smokes 1/2 - 3/4PPD Past Drug Use History: None Reported - Past Family History Mother Family Medical History: Cancer Additional Family Medical History / Comment(s): LUNG CA Father Family Medical History: Cancer Additional Family Medical History / Comment(s): LUNG CA Sister(s) Family Medical History: Cancer, Deep Vein Thrombosis (DVT) Additional Family Medical History / Comment(s): . Brother(s) Family Medical History: Coronary Artery Disease (CAD) Medications and Allergies Home Medications Medication Instructions Recorded Confirmed Type Enalapril Maleate [Vasotec] 20 mg PO DAILY 05/11/14 07/05/16 History Fluticasone/Salmeterol [Advair 1 puff INHALATION RT-DAILY 05/11/14 07/05/16 History 500-50 Diskus] Hydrochlorothiazide [Hydrodiuril] 12.5 mg PO DAILY 05/11/14 07/05/16 History Omeprazole [PriLOSEC] 20 mg PO AC-BRKFST 05/11/14 07/05/16 History Citracal Slow Release 2 tab PO QAM 06/14/16 07/05/16 History Multivitamins, Thera [Multivitamin 1 tab PO DAILY 06/14/16 07/05/16 History (formulary)] Tiotropium 18 Mcg/Puff [Spiriva] 1 cap INHALATION RT-DAILY 06/14/16 07/05/16 History Allergies Allergy/AdvReac Type Severity Reaction Status Date / Time oxytetracycline Allergy Unknown Verified 07/05/16 06:57 [From Terramycin] Childhood oxytetracycline HCl Allergy Unknown Verified 07/05/16 06:57 [From Terramycin] Childhood Penicillins Allergy Unknown Verified 07/05/16 06:57 Childhood streptomycin [Streptomycin] Allergy Unknown Verified 07/05/16 06:57 Childhood Sulfa (Sulfonamide Allergy Unknown Verified 07/05/16 06:57 Antibiotics) Childhood Tetracyclines Allergy Unknown Verified 07/05/16 06:57 Childhood albuterol AdvReac Unknown shaking, Verified 07/05/16 06:57 weakness, insomnia Physical Exam Vitals: Vital Signs Temp Pulse Pulse Resp BP BP Pulse Ox 07/05/16 10:56 91 16 07/05/16 10:39 91 111/59 07/05/16 08:51 97.5 F L 80 16 95/50 85 L 07/05/16 07:00 97.7 F 78 18 104/58 97 Intake and Output 07/04/16 07/05/16 07/05/16 22:59 06:59 14:59 Intake Total 284.9 Balance 284.9 Intake: Intake, IV Titration 34.9 Amount Heparin Sodium,Porcine/ 34.9 D5w Pmx 25,000 unit In Dextrose/Water 1 500ml. bag @ 18 UNITS/KG/HR 34. 94 mls/hr IV .[id number] [facility] Rx#:[id number] Oral 250 GENERAL: Pt awake and alert, well-nourished, appears uncomfortable. HEAD: Atraumatic, normocephalic. EYES: Pupils equal, round, and reactive to light, extraocular movements intact, sclera anicteric, conjunctiva are normal. ENT: Oropharynx clear without exudates. Moist mucous membranes. NECK:Supple without lymphadenopathy or JVD. LUNGS: Breath sounds diminished to auscultation bilaterally. No wheezes, rales , or rhonchi. HEART: Heart S1, S2, no S3 or S4. Regular rate and rhythm. No murmurs, rubs or gallops. ABDOMEN: Soft, upper quadrant tenderness, nondistended, normoactive bowel sounds. No guarding, no rebound. No masses or organomegaly appreciated. EXTREMITIES: 2+ peripheral pulses. No edema. No calf tenderness. NEUROLOGICAL: Pt oriented x 3. Cranial nerves II through XII grossly intact. Strength and sensation grossly intact. PSYCH: Anxious. SKIN: Warm, dry, intact. Normal turgor. No rashes or lesions. Results CBC & Chem 7: 07/05/16 02:10 07/05/16 02:10 Abdominal x-ray: report reviewed CT scan - chest: report reviewed Thrombosis Risk Factor Assmnt - DVT/VTE Prophylaxis DVT/VTE Prophylaxis: Pharmacologic Prophylaxis ordered - Choose All That Apply Any of the Below Risk Factors Present?: Yes Each Factor Represents 1 point: Abnormal pulmonary function (COPD), Obesity ( BMI >25) Other Risk Factors: Yes Each Risk Factor Represents 2 Points: Age 61-74 years Each Risk Factor Represents 3 Points: Family history of DVT/PE, History of DVT/ PE Other congenital or acquired thrombophilia - If yes, enter type in comment: No Thrombosis Risk Factor Assessment Total Risk Factor Score: 10 Thrombosis Risk Factor Assessment Level: High Risk Assessment and Plan Plan: Impression and plan: 1. Bilateral pulmonary emboli. Pulmonary consult in place, recommendations pending. Continue IV heparin. Continue cardiac monitoring. Monitor respiratory status. 2. Left upper quadrant pain suspect secondary to pulmonary emboli. Continue IV Dilaudid as necessary and tramadol as necessary. 3. Chronic hypoxic respiratory failure, patient uses 2 L nasal cannula at night in the outpatient setting. 4. Chronic obstructive pulmonary disease, stable. Continue Symbicort, Spiriva , nebulized updraft treatments. 5. Tracheobronchomalacia with a recent bronchoscopy and BAL. 6. Obesity, BMI 34.5. Following outpatient setting. 7. Gastroesophageal reflux disease. Continue Protonix 40 mg daily. 8. Obstructive sleep apnea. 9. Hypertension. Continue hydrochlorothiazide 12.5 mg by mouth daily, continue lisinopril 40 mg daily,. 10. Hyperlipidemia. Continue Lipitor 20 mg by mouth daily. 11. History of migraines. 12. Depression, stable. Continue Lexapro grams by mouth daily. 13. Nicotine dependence. Smoking cessation encouraged. Continue to monitor patient. Home medications been reviewed and resumed as appropriate. Continue supportive treatment and pain management. Continue to follow with pulmonary service. Continue GI and DVT prophylaxis. Incentive spirometry 10 times an hour while awake. Repeat CBC and BMP in a.m. The above impression and plan have been discussed and directed by Dr. Sousa. Dwight LEMOS acting as scribe for Dr. Sousa.
[2016-07-05 12:46] LABS: ABG Base Excess -0.6 mmol/L; ABG HCO3 25 mmol/L (21-25); ABG Oxygen Saturation 96.9 % (94-97); ABG PCO2 50 mmHg (35-45); ABG PH 7.32 (7.35-7.45); ABG PO2 98 mmHg (83-108); ABG TCO2 26 mmol/L (19-24)
[2016-07-05] MEDS: LISINOPRIL 20 MG TAB PO SCH (14:27)
[2016-07-05 14:57] LABS: Glucose,Whole Blood 112 mg/dL (75-99)
[2016-07-05 14:59] LABS: Appearance,Urine Clear (Clear); Bilirubin,Urine Negative (Negative); Glucose,Urine (UA) Negative (Negative); Ketones,Urine Negative (Negative); Leukocyte Esterase,Urine Negative (Negative); Nitrite,Urine Negative (Negative); Protein,Urine Negative (Negative); Specific Gravity,Urine 1.028 (1.001-1.035); UA Billing (MACRO vs. MICRO) CHEM; Urobilinogen,Urine <2.0 mg/dL (<2.0)
[2016-07-05] MEDS: HEPARIN SODIUM,PORCINE 5,000 UNIT/ML 1 ML VIAL IV PRN (15:10)
--- NOTE | 2016-07-05 16:27 | P.CNPUL ---
History of Present Illness Consult date: 07/05/16 Requesting physician: Adolfo Sousa Jr Reason for consult: abnormal CXR/CT Chief complaint: left upper quadrant pain History of present illness: This is a very pleasant 65-year-old female patient who follows with Dr. Vail as her primary care physician. She has a history of hyperlipidemia, hypertension, obesity, migraines, chronic cough. She does have a history of chronic obstructive pulmonary disease, chronic and ongoing tobacco dependence, sleep apnea, tracheobronchomalacia and had recently undergone bronchoscopy with BAL with Dr. Mckeon 2 weeks ago. Last week she was admitted on 06/27/2016 with excruciating midsternal pain. A computed tomography scan of the chest revealed no evidence of aortic aneurysm or dissection. There were no acute findings. EKG was normal. Troponins were negative. Influenza screen was negative. She was discharged home the following day. She reads re-presented here early this morning with complaints of abdominal discomfort that is left lateral abdominal pain that had been getting worse over the last several days. She was complaining a lot of 10 out of 10 constant sharp pain in her left side.a KUB of the abdomen revealed mildly increased left base atelectasis/ infiltrate and small left pleural effusion. There is no evidence of intestinal obstruction or perforation seen.CT angiogram revealed bilateral segmental and subsegmental emboli in the lower lobes with wedge shaped opacities. She is seen in consultation on the selective care unit. She is awake and alert. She is complaining of significant left-sided chest and upper abdominal discomfort. She was initially requiring 2 L/m per nasal cannula maintaining O2 saturations in the 90s. Early this morning she started to desaturate requiring 15 L nonrebreather mask. She is quite uncomfortable and short of breath on our evaluation. Arterial blood gases were drawn and she has a pO2 of 98, pCO2 50, pH 7.3 200% FiO2. Review of Systems 14 point review of system was conducted. All negative other than as mentioned in HPI. Past Medical History Past Medical History: Asthma, Chest Pain / Angina, COPD, GERD/Reflux, Hyperlipidemia, Hypertension, Osteoarthritis (OA), Pneumonia, Skin Disorder, Sleep Apnea/CPAP/BIPAP Additional Past Medical History / Comment(s): Pt recently admitted to [facility] on 03/03 with atypical chest pain, hemoptysis-resolved. Other HX : Home O2 at 2L/ NC at HS, MIGRAINES, ENLARGED LIVER., TRACHEOBRONCHOMALACIA, CHRONIC COUGH, beginnings of catracts- wears contact lenses. History of Any Multi-Drug Resistant Organisms: None Reported Past Surgical History: Appendectomy, Section, Orthopedic Surgery, Tonsillectomy Additional Past Surgical History / Comment(s): jamey wrist, left elbow, ovarian cyst, exploratory laparoscopy, Rt knee Arthroscopy x 2.bronchoscopy Past Anesthesia/Blood Transfusion Reactions: Motion Sickness Past Psychological History: Depression Additional Psychological History / Comment(s): Pt resides with her spouse. She uses O2 at 2L/NC at HS. She is independent. She has a nebulizer. Smoking Status: Current every day smoker Past Alcohol Use History: Rare Additional Past Alcohol Use History / Comment(s): STARTED SMOKING AT AGE 14. smokes 1/2 - 3/4PPD Past Drug Use History: None Reported - Past Family History Mother Family Medical History: Cancer Additional Family Medical History / Comment(s): LUNG CA Father Family Medical History: Cancer Additional Family Medical History / Comment(s): LUNG CA Sister(s) Family Medical History: Cancer, Deep Vein Thrombosis (DVT) Additional Family Medical History / Comment(s): . Brother(s) Family Medical History: Coronary Artery Disease (CAD) Medications and Allergies Home Medications Medication Instructions Recorded Confirmed Type Enalapril Maleate [Vasotec] 20 mg PO DAILY 05/11/14 07/05/16 History Fluticasone/Salmeterol [Advair 1 puff INHALATION RT-DAILY 05/11/14 07/05/16 History 500-50 Diskus] Hydrochlorothiazide [Hydrodiuril] 12.5 mg PO DAILY 05/11/14 07/05/16 History Omeprazole [PriLOSEC] 20 mg PO AC-BRKFST 05/11/14 07/05/16 History Citracal Slow Release 2 tab PO QAM 06/14/16 07/05/16 History Multivitamins, Thera [Multivitamin 1 tab PO DAILY 06/14/16 07/05/16 History (formulary)] Tiotropium 18 Mcg/Puff [Spiriva] 1 cap INHALATION RT-DAILY 06/14/16 07/05/16 History Allergies Allergy/AdvReac Type Severity Reaction Status Date / Time oxytetracycline Allergy Unknown Verified 07/05/16 06:57 [From Terramycin] Childhood oxytetracycline HCl Allergy Unknown Verified 07/05/16 06:57 [From Terramycin] Childhood Penicillins Allergy Unknown Verified 07/05/16 06:57 Childhood streptomycin [Streptomycin] Allergy Unknown Verified 07/05/16 06:57 Childhood Sulfa (Sulfonamide Allergy Unknown Verified 07/05/16 06:57 Antibiotics) Childhood Tetracyclines Allergy Unknown Verified 07/05/16 06:57 Childhood albuterol AdvReac Unknown shaking, Verified 07/05/16 06:57 weakness, insomnia Physical Exam Vitals: Vital Signs Temp Pulse Pulse Resp BP BP Pulse Ox 07/05/16 16:00 99.9 F H 90 20 91/60 93 L 07/05/16 15:32 88 07/05/16 15:30 87 19 115/63 94 L 07/05/16 15:14 87 07/05/16 15:00 87 19 112/60 94 L 07/05/16 14:30 100.1 F H 93 21 125/59 94 L 07/05/16 13:14 99 F 07/05/16 12:00 97.9 F 129 H 20 116/55 75 L 07/05/16 11:58 90 L 07/05/16 10:56 91 16 07/05/16 10:39 91 111/59 07/05/16 08:51 97.5 F L 80 16 95/50 85 L 07/05/16 07:00 97.7 F 78 18 104/58 97 Intake and Output 07/05/16 07/05/16 07/05/16 06:59 14:59 22:59 Intake Total 284.9 303.596 Output Total 35 40 Balance 249.9 263.596 Intake: IV 20 0.9 NS 20 Intake, IV Titration 34.9 283.596 Amount Heparin Sodium,Porcine/ 34.9 283.596 D5w Pmx 25,000 unit In Dextrose/Water 1 500ml. bag @ 18 UNITS/KG/HR 34. 94 mls/hr IV .[id number] [facility] Rx#:[id number] Oral 250 Output: Urine 35 40 Other: Voiding Method Indwelling Catheter GENERAL EXAM: Alert, active, comfortable in no apparent distress. HEAD: Normocephalic. EYES: Normal reaction of pupils, equal size. NOSE: Clear with pink turbinates. THROAT: No erythema or exudates. NECK: No masses, no JVD. CHEST: No chest wall deformity. LUNGS: Equal air entry with faint crackles in the left posterior base. CVS: S1 and S2 normal with no audible murmurs, regular rhythm. ABDOMEN: No hepatosplenomegaly, normal bowel sounds, no guarding or rigidity. SPINE: No scoliosis or deformity SKIN: No rashes CENTRAL NERVOUS SYSTEM: No focal deficits, tone is normal in all 4 extremities. Extremities: There is no significant peripheral edema. No clubbing, no cyanosis. Peripheral pulses are intact. Results - Laboratory Findings CBC and BMP: 07/05/16 02:10 07/05/16 02:10 ABG ABG pH 7.32 (7.35-7.45) L 07/05/16 12:28 ABG pCO2 50 mmHg (35-45) H 07/05/16 12:28 ABG pO2 98 mmHg (83-108) 07/05/16 12:28 ABG O2 Saturation 96.9 % (94-97) 07/05/16 12:28 PT/INR, D-dimer PT 10.2 sec (9.0-12.0) 07/05/16 02:16 INR 1.0 (<1.1) 07/05/16 02:16 D-Dimer 1.07 mg/L FEU (<0.60) H 07/05/16 02:16 Abnormal lab findings: Abnormal Labs 07/05/16 07/05/16 07/05/16 12:28 12:59 14:37 APTT 41.5 H ABG pH 7.32 L ABG pCO2 50 H ABG Total CO2 26 H POC Glucose (mg/dL) 112 H - Diagnostic Findings Chest x-ray: image reviewed CT scan - chest: image reviewed Assessment and Plan Plan: Impression: #1 Dyspnea and left-sided chest pain and a patient found to have bilateral segmental and subsegmental pulmonary emboli with possible pulmonary infarction in the left lung base. #2 Recent admission for atypical chest pain with normal troponins and a normal CT angiogram and chest x-ray 1 week ago. #3 Chronic and ongoing tobacco dependence. #4 Chronic obstructive pulmonary disease. #5 Tracheobronchomalacia with recent bronchoscopy and BAL negative for cytology. #6 Obesity. #7 Gastroesophageal reflux disease. #8 History of migraines. #9 History of sleep apnea. #10 Hypertension. #11 Hyperlipidemia. Plan: The patient was seen and evaluated by Dr. Carney. Her chest x-ray, computed tomography scan and labs were all reviewed. There are some small subsegmental pulmonary emboli noted. We will transfer her to the intensive care unit based on her high oxygen requirements and significant pain and discomfort. She'll be placed on BiPAP 10/5 at 50% FiO2. She is anticoagulated with heparin drip. She does have some patchy infiltrates and recent fever. We will initiate IV Levaquin. We'll continue with her bronchodilators unusual pulmonary medications. We'll continue to monitor her closely in the intensive care unit. We'll continue to follow. Time with Patient: Greater than 30
[2016-07-05] MEDS: LEVOFLOXACIN 750MG-D5W PMX 750 MG in DEXTROSE/WATER 1 150ML.BAG IVPB SCH (17:04)
[2016-07-05] MEDS ORDERED: IPRATROPIUM-ALBUTEROL 3 ML NEB INHALATION PRN (21:11)
[2016-07-06 04:33] LABS: Basophils % (A) 0 %; CH 30.5; CHCM 32.3; Eosinophils # (A) 0.2 k/uL (0-0.7); Eosinophils % (A) 2 %; HDW 2.33; HGB 13.9 gm/dL (11.4-16.0); Luc # (Auto) 0.16; Luc % (Auto) 2; Lymphocytes # (A) 2.2 k/uL (1.0-4.8); Lymphocytes % (A) 21 %; MCH 30.8 pg (25.0-35.0); MCHC 32.4 g/dL (31.0-37.0); MCV 94.9 fL (80.0-100.0); Mean Platelet Volume 6.6; Monocytes # (A) 0.5 k/uL (0-1.0); Monocytes % (A) 5 %; Neutrophils # (A) 7.4 k/uL (1.3-7.7); Neutrophils % (A) 71 %; RBC 4.53 m/uL (3.80-5.40); RDW 13.4 % (11.5-15.5); WBC 10.4 k/uL (3.8-10.6); WBC (Perox) 10.97
[2016-07-06 04:54] LABS: ALT 28 U/L (9-52); AST 15 U/L (14-36); Alkaline Phosphatase 93 U/L (38-126); Anion Gap 7 mmol/L; Blood Urea Nitrogen 13 mg/dL (7-17); Calcium 9.4 mg/dL (8.4-10.2); Carbon Dioxide 29 mmol/L (22-30); Chloride 101 mmol/L (98-107); Glucose 100 mg/dL (74-99); Magnesium 1.8 mg/dL (1.6-2.3); Non-African American GFR(MDRD) >60 (>60 ml/min/1.73 sqM); Potassium 3.9 mmol/L (3.5-5.1); Sodium 137 mmol/L (137-145); Total Bilirubin 0.7 mg/dL (0.2-1.3)
[2016-07-06] MEDS ORDERED: Potassium Replacement Protocol 1 EACH MISC MISCELLANE PRN (06:27)
[2016-07-06] MEDS ORDERED: Magnesium Replacement Protocol 1 EACH MISC MISCELLANE PRN (06:28)
[2016-07-06] MEDS: HEPARIN SODIUM,PORCINE 5,000 UNIT/ML 1 ML VIAL IV PRN (06:38)
[2016-07-06] MEDS: POTASSIUM CHLORIDE 10 MEQ, LIDOCAINE 2% INJ 10 MG in SODIUM CHLORIDE 0.9% 100 ML IV SCH ×2 (06:53→12:39)
[2016-07-06] MEDS: MAGNESIUM SULFATE-D5W PMX 1 GM in DEXTROSE/WATER 1 100ML.BAG IVPB SCH ×2 (06:53→12:40)
[2016-07-06] MEDS: HYDROmorphone 2 MG/ML 1 ML SYRINGE IVP PRN (06:55)
--- NOTE | 2016-07-06 07:49 | XR ---
EXAMINATION TYPE: XR chest 1V DATE OF EXAM: 07/06/2016 6:35 AM COMPARISON: 06/27/2016 HISTORY: 65-year-old female with pulmonary embolism TECHNIQUE: Single frontal view of the chest is obtained. FINDINGS: Rightward patient rotation alters the normal cardiomediastinal contours. Heart remains mildly enlarge d. Mild diffuse interstitial prominence and mild hyperinflation is unchanged. Continued patchy bibasi lar opacities. No significant pleural effusion. IMPRESSION: Overall stable cardiomegaly, COPD, and patchy bibasilar atelectasis/infiltrates.
--- NOTE | 2016-07-06 08:23 | P.PN ---
Subjective Progress note dated 07/06/2016 65-year-old female that we saw yesterday in consultation. She was over on the sixth floor. She was admitted with a diagnosis of pulmonary embolism. She does have history of hyperlipidemia hypertension obesity migraines chronic cough. She also has a history of COPD. Was recently in the hospital. Also suffers from sleep apnea and tracheal bronchomalacia with recent bronchoscopy done about 2 weeks ago. Anyway because of worsening respiratory status we decided to move her the unit. She isn't currently on BiPAP. BiPAP settings are 10 and 5 and 70%. She's currently on heparin via weightbase protocol and appointment 9 IV. Currently sleeping. Does not appear to be in any distress. Yesterday the big issue is severe pain particularly on the left side. She may have suffered a pulmonary infarct. I'm probably going to have respiratory therapy do a blood gas on her just to see where she is at. Objective - Vital Signs Vital signs: Vital Signs Temp 102.3 F H 07/06/16 04:00 Pulse 94 07/06/16 07:00 Resp 16 07/06/16 07:00 BP 119/71 07/06/16 07:00 Pulse Ox 94 L 07/06/16 07:00 Intake & Output 07/05/16 07/06/16 07/06/16 18:59 06:59 18:59 Intake Total 798.496 864.769 Output Total 250 694 Balance 548.496 170.769 Weight 98.2 kg Intake: IV 80 265 0.9 NS 80 265 Intake, IV Titration 468.496 599.769 Amount Heparin Sodium,Porcine/ 318.496 599.769 D5w Pmx 25,000 unit In Dextrose/Water 1 500ml. bag @ 18 UNITS/KG/HR 34. 94 mls/hr IV .[id number] [facility] Rx#:[id number] Levofloxacin 750Mg-D5w 150 Pmx 750 mg In Dextrose/ Water 1 150ml.bag @ 100 mls/hr IVPB Q24H [facility] Rx#: [id number] Oral 250 Output: Urine 250 694 Other: Voiding Method Indwelling Catheter Indwelling Catheter - Exam No acute distress, oriented 3. HEENT examination is grossly unremarkable. Mucous membranes are moist. BiPAP mask in place. Neck supple. Full range of motion. No adenopathy or thyromegaly. Cardiovascular examination reveals regular rhythm rate. S1 and S2 normal. No S3-S4. No distinct murmur noted. Pulmonary exam: lungs reveal few scattered rhonchi. No wheezes. No crackles. Breath sounds are diminished but equal bilaterally. Abdomen soft bowel sounds are heard. Extremities are intact. No cyanosis clubbing or edema. Dermatologic examination is without rash. Neurologic examination is nonfocal. - Labs CBC & Chem 7: 07/06/16 04:11 07/06/16 04:11 Labs: Abnormal Lab Results - Last 24 Hours (Table) 07/05/16 07/05/16 07/05/16 Range/Units 12:28 12:59 14:37 APTT 41.5 H (22.0-30.0) sec ABG pH 7.32 L (7.35-7.45) ABG pCO2 50 H (35-45) mmHg ABG Total CO2 26 H (19-24) mmol/L Glucose (74-99) mg/dL POC Glucose (mg/dL) 112 H (75-99) mg/dL Total Protein (6.3-8.2) g/dL Albumin (3.5-5.0) g/dL 07/05/16 07/06/16 07/06/16 Range/Units 19:44 04:11 04:11 APTT 55.7 H 42.0 H (22.0-30.0) sec ABG pH (7.35-7.45) ABG pCO2 (35-45) mmHg ABG Total CO2 (19-24) mmol/L Glucose 100 H (74-99) mg/dL POC Glucose (mg/dL) (75-99) mg/dL Total Protein 6.0 L (6.3-8.2) g/dL Albumin 3.4 L (3.5-5.0) g/dL Microbiology - Last 24 Hours (Table) 07/05/16 14:20 Urine Culture - Preliminary Urine,Catheterized Assessment and Plan (1) Acute bronchitis Status: Acute (2) Pneumonia Status: Acute (3) Chest pain Status: Acute (4) Pulmonary embolism on left Status: Acute (5) COPD bronchitis Status: Acute (6) Tracheomalacia Status: Acute Plan: Plan dated 07/06/2016 The patient's medications labs and x-rays are all reviewed. Additional recommendations suggestions are forthcoming. CAT scan x-rays were reviewed yesterday. The patient was placed on BiPAP. She is on heparin via weight- based protocol. We added some antibiotics for possible infection. We'll follow closely. Prognosis is guarded. Time with Patient: Less than 30
[2016-07-06] MEDS: SYMBICORT 160-4.5 MCG INHALER INHALATION SCH (09:54)
[2016-07-06] MEDS: TIOTROPIUM 18 MCG/PUFF INHALER INHALATION SCH (09:54)
[2016-07-06] MEDS: IPRATROPIUM-ALBUTEROL 3 ML NEB INHALATION SCH ×4 (09:54→21:07)
--- NOTE | 2016-07-06 12:03 | P.PN ---
Subjective Principal diagnosis: Bilateral pulmonary emboli Patient is a 65-year-old female, patient of Dr. Vail in the outpatient setting, with medical history significant for hyperlipidemia, hypertension, obesity, migraines, COPD, tracheobronchial malacia, sleep apnea, and obesity. Patient states that she uses 2 L of oxygen at home at nighttime. Patient follows with Dr. Mckeon in the outpatient setting. Patient was recently hospitalized from 06/27/2016 to 06/29/2016 with atypical chest pain and hemoptysis that resolved felt to be due to recent bronchoscopy. Patient at that time underwent serial troponins and CKs that were negative. Patient also had a chest CTA and chest x-ray that was negative. Patient was discharged home in stable condition with close follow-up in the outpatient setting. On this admission, patient presented to the emergency department with complaints of left -sided abdominal pain that started on Saturday, progressively getting worse over the last couple days. Pain described as sharp, exacerbated with inspiration or movement, associated with nausea but no vomiting. In the emergency department, patient was found to have elevated d-dimer and underwent a CT angiogram with evidence of bilateral segmental and subsegmental emboli in the lower lobes without evidence of saddle embolus. Patient was admitted to the selective care unit on continuous cardiac monitoring on IV heparin will consult requested to Dr. Carney for pulmonary service. While on selective care unit, patient developed acute hypoxic respiratory failure requiring 15 L of nonrebreather mask. Patient was transferred to the intensive care unit for further monitoring where she did require BiPAP overnight. This morning patient is examined in the intensive care unit where she is currently off BiPAP. is at bedside. Patient continues to complain of left upper quadrant abdominal pain radiating to her back currently rated 8 out of 10. Again, pain is exacerbated with inspiration and movement. Patient nausea, vomiting, increased shortness of breath, or chest pain. Patient did have a temperature of 102.3 at 4 AM last night. Patient is currently oxygenating 93% on 15 L high flow nasal cannula. WBC 10.4. Chest x-ray from this morning with evidence of stable cardiomegaly, COPD, and patchy by basilar atelectasis versus infiltrates. Patient continues on IV heparin for pulmonary emboli and IV Levaquin for suspected pneumonia. Objective - Vital Signs Vital signs: Vital Signs Temp 99.7 F H 07/06/16 08:00 Pulse 85 04/21/17 10:30 Resp 17 07/06/16 10:30 BP 99/59 07/06/16 10:30 Pulse Ox 93 L 07/06/16 10:30 Intake & Output 07/05/16 07/06/16 07/06/16 18:59 06:59 18:59 Intake Total 798.496 864.769 Output Total 250 694 32 Balance 548.496 170.769 -32 Weight 98.2 kg 98.2 kg Intake: IV 80 265 0.9 NS 80 265 Intake, IV Titration 468.496 599.769 Amount Heparin Sodium,Porcine/ 318.496 599.769 D5w Pmx 25,000 unit In Dextrose/Water 1 500ml. bag @ 18 UNITS/KG/HR 34. 94 mls/hr IV .[id number] [facility] Rx#:[id number] Levofloxacin 750Mg-D5w 150 Pmx 750 mg In Dextrose/ Water 1 150ml.bag @ 100 mls/hr IVPB Q24H [facility] Rx#: [id number] Oral 250 Output: Urine 250 694 32 Other: Voiding Method Indwelling Catheter Indwelling Catheter Indwelling Catheter - Exam GENERAL: Pt awake and alert, well-nourished, appears uncomfortable. HEAD: Atraumatic, normocephalic. EYES: Pupils equal, round, and reactive to light, extraocular movements intact, sclera anicteric, conjunctiva are normal. ENT: Oropharynx clear without exudates. Moist mucous membranes. NECK:Supple without lymphadenopathy or JVD. LUNGS: Breath sounds diminished to auscultation bilaterally. No wheezes, rales , or rhonchi. HEART: Heart S1, S2, no S3 or S4. Regular rate and rhythm. No murmurs, rubs or gallops. ABDOMEN: Soft, left upper quadrant tenderness, nondistended, normoactive bowel sounds. No guarding, no rebound. No masses or organomegaly appreciated. EXTREMITIES: 2+ peripheral pulses. No edema. No calf tenderness. NEUROLOGICAL: Pt oriented x 3. Cranial nerves II through XII grossly intact. Strength and sensation grossly intact. PSYCH: Calm SKIN: Warm, dry, intact. Normal turgor. No rashes or lesions. - Labs CBC & Chem 7: 07/06/16 04:11 07/06/16 04:11 Labs: Abnormal Lab Results - Last 24 Hours (Table) 07/05/16 07/05/16 07/05/16 Range/Units 12:28 12:59 14:37 APTT 41.5 H (22.0-30.0) sec ABG pH 7.32 L (7.35-7.45) ABG pCO2 50 H (35-45) mmHg ABG Total CO2 26 H (19-24) mmol/L Glucose (74-99) mg/dL POC Glucose (mg/dL) 112 H (75-99) mg/dL Total Protein (6.3-8.2) g/dL Albumin (3.5-5.0) g/dL 07/05/16 07/06/16 07/06/16 Range/Units 19:44 04:11 04:11 APTT 55.7 H 42.0 H (22.0-30.0) sec ABG pH (7.35-7.45) ABG pCO2 (35-45) mmHg ABG Total CO2 (19-24) mmol/L Glucose 100 H (74-99) mg/dL POC Glucose (mg/dL) (75-99) mg/dL Total Protein 6.0 L (6.3-8.2) g/dL Albumin 3.4 L (3.5-5.0) g/dL Microbiology - Last 24 Hours (Table) 07/05/16 14:20 Urine Culture - Preliminary Urine,Catheterized Assessment and Plan Plan: Impression and plan: 1. Bilateral pulmonary emboli. Pulmonary consult in place, recommendations reviewed. Continue IV heparin. Continue cardiac monitoring. Monitor respiratory status. 2. Left upper quadrant pain suspect secondary to pulmonary emboli and possible infarction. Continue IV Dilaudid as necessary and tramadol as necessary. Will add Toradol for pain relief. 3. Acute on chronic hypoxic respiratory failure suspect secondary to pneumonia. Patient uses 2 L nasal cannula at night in the outpatient setting. Continue IV Levaquin. Will obtain sputum culture. 4. Chronic obstructive pulmonary disease, stable. Continue Symbicort, Spiriva , nebulized updraft treatments. 5. Tracheobronchomalacia with a recent bronchoscopy and BAL. 6. Obesity, BMI 34.5. Following outpatient setting. 7. Gastroesophageal reflux disease. Continue Protonix 40 mg daily. 8. Obstructive sleep apnea. 9. Hypertension. Continue hydrochlorothiazide 12.5 mg by mouth daily, continue lisinopril 40 mg daily. 10. Hyperlipidemia. Continue Lipitor 20 mg by mouth daily. 11. History of migraines. 12. Depression, stable. Continue Lexapro. 13. Nicotine dependence. Smoking cessation encouraged. Continue to monitor patient. Home medications has been reviewed and resumed as appropriate. Continue supportive treatment and pain management. Continue to follow with pulmonary service. Continue GI and DVT prophylaxis. Incentive spirometry 10 times an hour while awake. Repeat CBC and BMP in a.m. The above impression and plan have been discussed and directed by Dr. Sousa. Dwight LEMOS acting as scribe for Dr. Sousa.
[2016-07-06] MEDS: ESCITALOPRAM 10 MG TAB PO SCH (12:38)
[2016-07-06] MEDS: ATORVASTATIN 20 MG TAB PO SCH (12:38)
[2016-07-06] MEDS: HYDROCHLOROTHIAZIDE 12.5 MG CAP PO SCH (12:38)
[2016-07-06] MEDS: LISINOPRIL 20 MG TAB PO SCH (12:38)
[2016-07-06] MEDS: HEPARIN SODIUM,PORCINE/D5W PMX 25,000 UNIT in DEXTROSE/WATER 1 500ML.BAG IV SCH (12:40)
[2016-07-06] MEDS: PANTOPRAZOLE 40 MG TABLET PO SCH (12:41)
[2016-07-06] MEDS: MULTIVITAMINS, THERA 1 EACH TAB PO SCH (12:41)
[2016-07-06] MEDS: KETOROLAC 30 MG/ML 1 ML VIAL IVP SCH ×2 (14:22→18:25)
[2016-07-06] MEDS: LEVOFLOXACIN 750MG-D5W PMX 750 MG in DEXTROSE/WATER 1 150ML.BAG IVPB SCH (18:25)
[2016-07-07] MEDS: KETOROLAC 30 MG/ML 1 ML VIAL IVP SCH ×4 (00:27→17:57)
[2016-07-07] MEDS: HEPARIN SODIUM,PORCINE/D5W PMX 25,000 UNIT in DEXTROSE/WATER 1 500ML.BAG IV SCH ×2 (03:04→17:44)
[2016-07-07 04:50] LABS: Basophils % (A) 0 %; CH 30.9; CHCM 33.7; Eosinophils # (A) 0.2 k/uL (0-0.7); Eosinophils % (A) 3 %; HCT 39.6 % (34.0-46.0); HDW 2.56; HGB 13.2 gm/dL (11.4-16.0); Luc # (Auto) 0.21; Luc % (Auto) 3; Lymphocytes # (A) 2.9 k/uL (1.0-4.8); Lymphocytes % (A) 38 %; MCH 30.7 pg (25.0-35.0); MCHC 33.4 g/dL (31.0-37.0); Mean Platelet Volume 6.5; Monocytes # (A) 0.3 k/uL (0-1.0); Monocytes % (A) 4 %; Neutrophils % (A) 52 %; RBC 4.31 m/uL (3.80-5.40); RDW 13.1 % (11.5-15.5); WBC 7.8 k/uL (3.8-10.6); WBC (Perox) 7.79
[2016-07-07 05:20] LABS: Anion Gap 4 mmol/L; Blood Urea Nitrogen 14 mg/dL (7-17); Calcium 9.6 mg/dL (8.4-10.2); Carbon Dioxide 32 mmol/L (22-30); Chloride 99 mmol/L (98-107); Glucose 95 mg/dL (74-99); Magnesium 2.1 mg/dL (1.6-2.3); Non-African American GFR(MDRD) >60 (>60 ml/min/1.73 sqM); Phosphorous 3.9 mg/dL (2.5-4.5); Potassium 3.8 mmol/L (3.5-5.1); Sodium 135 mmol/L (137-145)
--- NOTE | 2016-07-07 07:44 | XR ---
EXAMINATION TYPE: XR chest 1V DATE OF EXAM: 07/07/2016 7:03 AM COMPARISON: 07/06/2016 INDICATION: Pulmonary embolism TECHNIQUE: Single frontal view of the chest is obtained. FINDINGS: The heart size is mildly prominent. The pulmonary vasculature is normal. Lung allen are stable in appearance. IMPRESSION: * 1. Stable from the chest.
[2016-07-07] MEDS: SYMBICORT 160-4.5 MCG INHALER INHALATION SCH (07:47)
[2016-07-07] MEDS: TIOTROPIUM 18 MCG/PUFF INHALER INHALATION SCH (07:47)
[2016-07-07] MEDS: IPRATROPIUM-ALBUTEROL 3 ML NEB INHALATION SCH ×4 (07:47→22:14)
[2016-07-07 07:50] LABS: Glucose,Whole Blood 104 mg/dL (75-99)
[2016-07-07] MEDS ORDERED: POTASSIUM CHLORIDE ER 20 MEQ TAB.ER PO SCH (08:00)
[2016-07-07] MEDS: LISINOPRIL 20 MG TAB PO SCH (08:11)
[2016-07-07] MEDS: HYDROCHLOROTHIAZIDE 12.5 MG CAP PO SCH (08:11)
[2016-07-07 08:53] LABS: INR 1.1 (<1.1); Prothrombin Time 11.1 sec (9.0-12.0)
[2016-07-07] MEDS: PANTOPRAZOLE 40 MG TABLET PO SCH (09:31)
[2016-07-07] MEDS: ATORVASTATIN 20 MG TAB PO SCH (09:32)
[2016-07-07] MEDS: HYDROmorphone 1 MG/ML 1 ML SYRINGE IVP PRN (09:32)
[2016-07-07] MEDS: ESCITALOPRAM 10 MG TAB PO SCH (09:32)
--- NOTE | 2016-07-07 11:36 | P.PN ---
Objective - Vital Signs Vital signs: Vital Signs Temp 97.5 F L 07/07/16 08:00 Pulse 74 07/07/16 08:00 Resp 23 07/07/16 08:00 BP 94/67 07/07/16 08:00 Pulse Ox 90 L 07/07/16 08:00 Intake & Output 07/06/16 07/07/16 07/07/16 18:59 06:59 18:59 Intake Total 709.212 830 60 Output Total 632 464 215 Balance 77.212 366 -155 Weight 98.2 kg Intake: IV 210 230 60 0.9 NS 210 230 60 Intake, IV Titration 259.212 600 Amount Heparin Sodium,Porcine/ 109.212 500 D5w Pmx 25,000 unit In Dextrose/Water 1 500ml. bag @ 18 UNITS/KG/HR 34. 94 mls/hr IV .[id number] [facility] Rx#:[id number] Levofloxacin 750Mg-D5w 150 100 Pmx 750 mg In Dextrose/ Water 1 150ml.bag @ 100 mls/hr IVPB Q24H [facility] Rx#: [id number] Oral 240 Output: Urine 632 464 215 Other: Voiding Method Indwelling Catheter Indwelling Catheter - Exam General: [Patient awake, alert and oriented times 3. Patient in no acute distress.] HEENT: [PERRL. EOMI. No pharyngeal erythema or exudate.] Neck: [No adenopathy.] Cardiac: [Heart regular in rate and rhythm. No S3. No S4. No clicks, rubs. No murmur.] Lungs: [Clear to auscultation bilaterally.bilateral chest discomfort lower lobes Abdomen: [No mass. No organomegaly. Bowel sounds presnt and normoactive in all 4 quadrants.] left abdominal flank pain Extremes: [No edema no cyanosis no claudication normal pulses] : [] Musculoskeletal: [No joint erythema, edema or tenderness.] Skin: [No rash.] Neurologic: [No lateralizing deficits. CN II - XII grossly intact.] Lymphatic: [No adenopathy.] - Labs CBC & Chem 7: 07/07/16 04:22 07/07/16 04:22 Labs: Abnormal Lab Results - Last 24 Hours (Table) 07/06/16 07/07/16 07/07/16 Range/Units 11:39 04:22 07:48 APTT 59.2 H (22.0-30.0) sec Sodium 135 L (137-145) mmol/L Carbon Dioxide 32 H (22-30) mmol/L POC Glucose (mg/dL) 104 H (75-99) mg/dL 07/07/16 Range/Units 08:20 APTT 54.0 H (22.0-30.0) sec Sodium (137-145) mmol/L Carbon Dioxide (22-30) mmol/L POC Glucose (mg/dL) (75-99) mg/dL Microbiology - Last 24 Hours (Table) 07/05/16 14:20 Urine Culture - Final Urine,Catheterized Assessment and Plan (1) Pulmonary embolism on left Narrative/Plan: she is currently being anticoagulated with heparin Status: Acute (2) Pulmonary embolism on right Narrative/Plan: Patient is currently being anticoagulated with heparin Status: Acute (3) Tracheomalacia Narrative/Plan: known history, currently under care with pulmonary medicine Status: Acute Plan: Patient currently being anticoagulated with heparin, also IV antibiotic , Levaquin to treat potential pneumonia pain management for discomfort longterm bronchodilators as well asinhaled corticosteroids Time with Patient: Greater than 30
[2016-07-07] MEDS: MULTIVITAMINS, THERA 1 EACH TAB PO SCH (12:40)
--- NOTE | 2016-07-07 14:43 | PN ---
DATE OF SERVICE: 07/07/2016 This is a very pleasant 65-year-old female patient, who follows with Dr. Vail as her primary care physician. She also follows with Dr. Mckeon in our office for tracheobronchial malacia, obstructive sleep apnea, and chronic and ongoing tobacco dependence, and chronic obstructive pulmonary disease. She presented here on 07/05/2016 with complaints of left-sided pain and upper abdominal discomfort. She was found to have bilateral segmental and subsegmental emboli of the lower lobes with a wedge-shaped opacities. She was in respiratory distress requiring 15 L nonrebreather mask out on selective care unit yesterday and we moved her into the intensive care unit for closer monitoring. Today, she is doing much better. She is awake and alert, in no acute distress. She is still on 15 L of high flow nasal cannula. She has a 0.9 normal saline at KVO and a heparin drip currently. She denies any worsening shortness of breath at this time. She is stronger today as compared to yesterday. She is comfortable at rest. Her pain has subsided. On physical exam, she is alert and oriented in no acute distress. Vital signs reveal blood pressure 94/67, heart rate 76, respirations are 23, temperature 97.5. She is 90% O2 saturation on 15 L of high flow nasal cannula. Her head is normocephalic. Sclerae are nonicteric. There is crowding of posterior pharynx. Her neck is short, supple. Trachea midline. Her lungs are clear anteriorly, faint crackles in the posterior bases. Her heart is regular, S1, S2. Her abdomen is obese, soft, nontender. Bowel sounds are present. There is trace peripheral edema. No clubbing. No cyanosis. Peripheral pulses are intact. INVESTIGATIONS: Lab results reveal WBC is 7.8, hemoglobin 13.2, platelet count 277,000. Sodium 135, potassium 3.5, chloride 99, CO2 of 32, BUN 14, creatinine 0.80. A chest x-ray reveals stable findings, no acute processes. Her medications are reviewed. IMPRESSION: 1. Left-sided chest discomfort secondary to pulmonary emboli. 2. Bilateral pulmonary emboli in the segmental and subsegmental branches. 3. Chronic and ongoing tobacco dependence. 4. Chronic obstructive pulmonary disease. 5. Tracheal bronchomalacia with recent bronchoscopy and BAL. 6. Obesity. 7. Gastroesophageal reflux disease. 8. History of migraines. 9. History of sleep apnea. 10. Hypertension. 11. Hyperlipidemia. 12. Recent admission for atypical chest pain with normal troponins and abnormal CT angiogram one week ago. PLAN: The patient was seen and evaluated by Dr. Carney. Her chest x-ray and labs were reviewed. Will continue with her current medications and we will see if her insurance will cover one of the newer anticoagulants in the form of Xarelto or Eliquis. If not, she will get warfarin 10 mg tonight. Will move her out of the intensive care unit back to the selective care unit today. Will continue to follow and make further recommendations based on her clinical status.
[2016-07-07] MEDS: LEVOFLOXACIN 750MG-D5W PMX 750 MG in DEXTROSE/WATER 1 150ML.BAG IVPB SCH (16:12)
[2016-07-07] MEDS: RIVAROXABAN 15 MG TAB PO SCH (17:29)
[2016-07-07] MEDS: HYDROmorphone 2 MG/ML 1 ML SYRINGE IVP PRN ×2 (18:40→22:55)
[2016-07-08] MEDS: KETOROLAC 30 MG/ML 1 ML VIAL IVP SCH ×5 (02:40→23:33)
[2016-07-08] MEDS: PANTOPRAZOLE 40 MG TABLET PO SCH (06:49)
[2016-07-08] MEDS: RIVAROXABAN 15 MG TAB PO SCH ×2 (06:49→17:36)
[2016-07-08 07:08] LABS: Basophils % (A) 0 %; CHCM 32.8; Eosinophils # (A) 0.2 k/uL (0-0.7); Eosinophils % (A) 3 %; HCT 41.1 % (34.0-46.0); HDW 2.31; HGB 13.4 gm/dL (11.4-16.0); Luc # (Auto) 0.13; Luc % (Auto) 2; Lymphocytes # (A) 1.6 k/uL (1.0-4.8); Lymphocytes % (A) 22 %; MCH 30.9 pg (25.0-35.0); MCHC 32.5 g/dL (31.0-37.0); MCV 94.9 fL (80.0-100.0); Mean Platelet Volume 6.6; Monocytes # (A) 0.4 k/uL (0-1.0); Monocytes % (A) 5 %; Neutrophils # (A) 4.9 k/uL (1.3-7.7); Neutrophils % (A) 68 %; RBC 4.33 m/uL (3.80-5.40); RDW 13.3 % (11.5-15.5); WBC 7.2 k/uL (3.8-10.6); WBC (Perox) 7.31
[2016-07-08 07:14] LABS: Anion Gap 5 mmol/L; Blood Urea Nitrogen 15 mg/dL (7-17); Calcium 9.9 mg/dL (8.4-10.2); Carbon Dioxide 33 mmol/L (22-30); Chloride 99 mmol/L (98-107); Glucose 103 mg/dL (74-99); Magnesium 1.7 mg/dL (1.6-2.3); Non-African American GFR(MDRD) >60 (>60 ml/min/1.73 sqM); Phosphorous 3.8 mg/dL (2.5-4.5); Potassium 4.5 mmol/L (3.5-5.1); Sodium 137 mmol/L (137-145)
[2016-07-08] MEDS: IPRATROPIUM-ALBUTEROL 3 ML NEB INHALATION SCH ×2 (07:31→11:17)
[2016-07-08] MEDS: TIOTROPIUM 18 MCG/PUFF INHALER INHALATION SCH (07:31)
[2016-07-08] MEDS: SYMBICORT 160-4.5 MCG INHALER INHALATION SCH (07:31)
[2016-07-08] MEDS: ATORVASTATIN 20 MG TAB PO SCH (08:22)
[2016-07-08] MEDS: HYDROCHLOROTHIAZIDE 12.5 MG CAP PO SCH (08:22)
[2016-07-08] MEDS: ESCITALOPRAM 10 MG TAB PO SCH (08:22)
[2016-07-08] MEDS: LISINOPRIL 20 MG TAB PO SCH (08:22)
--- NOTE | 2016-07-08 11:03 | P.PN ---
Subjective Principal diagnosis: Bilateral pulmonary embolus, patient of Dr. Vail's. We'll also follows Dr. Mckeon for her tracheobronchial malacia obstructive sleep apnea and chronic ongoing tobacco dependence chronic obstructive pulmonary disease. The chest discomfort secondary to the pulmonary embolus has diminished markedly she' s currently on heparin her left-sided pain and upper abdominal discomfort is diminished although still present patient is doing much better Objective - Vital Signs Vital signs: Vital Signs Temp 98.8 F 07/08/16 08:00 Pulse 90 07/08/16 08:00 Resp 17 07/08/16 06:00 BP 113/59 07/08/16 08:00 Pulse Ox 91 L 07/08/16 08:00 Intake & Output 07/07/16 07/08/16 07/08/16 18:59 06:59 18:59 Intake Total 600 290 190 Output Total 865 150 400 Balance -265 140 -210 Weight 98.2 kg 100 kg Intake: IV 100 190 10 0.9 NS 100 190 10 Intake, IV Titration 500 100 Amount Heparin Sodium,Porcine/ 500 D5w Pmx 25,000 unit In Dextrose/Water 1 500ml. bag @ 18 UNITS/KG/HR 34. 94 mls/hr IV .[id number] GABO Rx#:[id number] Levofloxacin 750Mg-D5w 100 Pmx 750 mg In Dextrose/ Water 1 150ml.bag @ 100 mls/hr IVPB Q24H [facility]O Rx#: [id number] Oral 180 Output: Urine 865 150 400 Other: Voiding Method Indwelling Catheter Indwelling Catheter # Voids 1 - Exam General: [Patient awake, alert and oriented times 3. Patient in no acute distress.] HEENT: [PERRL. EOMI. No pharyngeal erythema or exudate.] Neck: [No adenopathy.] Cardiac: [Heart regular in rate and rhythm. No S3. No S4. No clicks, rubs. No murmur.] Lungs: [Clear to auscultation bilaterally.bilateral chest discomfort lower lobes Abdomen: [No mass. No organomegaly. Bowel sounds presnt and normoactive in all 4 quadrants.] left abdominal flank pain Extremes: [No edema no cyanosis no claudication normal pulses] : [] Musculoskeletal: [No joint erythema, edema or tenderness.] Skin: [No rash.] Neurologic: [No lateralizing deficits. CN II - XII grossly intact.] Lymphatic: [No adenopathy.] - Labs CBC & Chem 7: 07/08/16 05:51 07/08/16 05:51 Labs: Abnormal Lab Results - Last 24 Hours (Table) 07/08/16 Range/Units 05:51 Carbon Dioxide 33 H (22-30) mmol/L Glucose 103 H (74-99) mg/dL Assessment and Plan (1) Pulmonary embolism on left Narrative/Plan: she is currently being anticoagulated with heparin Status: Acute (2) Pulmonary embolism on right Narrative/Plan: Patient is currently being anticoagulated with heparin Status: Acute (3) Tracheomalacia Narrative/Plan: known history, currently under care with pulmonary medicine Status: Acute Plan: Patient currently being anticoagulated with heparin, also IV antibiotic , Levaquin to treat potential pneumonia pain management for discomfort jail bronchodilators as well asinhaled corticosteroids Time with Patient: Greater than 30
[2016-07-08] MEDS ORDERED: ALBUTEROL NEB (CONC) 2.5 MG/0.5 ML INHALATION PRN (11:55)
[2016-07-08] MEDS: MULTIVITAMINS, THERA 1 EACH TAB PO SCH (12:31)
[2016-07-08] MEDS: HYDROmorphone 2 MG/ML 1 ML SYRINGE IVP PRN ×2 (12:31→21:00)
[2016-07-08] MEDS: ALBUTEROL NEB (CONC) 2.5 MG/0.5 ML INHALATION SCH ×3 (15:44→19:02)
--- NOTE | 2016-07-08 16:41 | PN ---
A 65-year-old female patient who follows with Dr. Vail and also Dr. Mckeon. She does have a history of tracheobronchomalacia, sleep apnea syndrome, chronic and ongoing tobacco dependence and COPD. She presented on the 05 of July with complaints of left-sided pain and upper abdominal discomfort. She was found to have a bilateral pulmonary emboli. She was initially on the floor. She was transferred to the ICU for respiratory decline, needed a nonrebreather mask for a period of time. Anyway, she improved and was able to be transferred out to the floor. Doing better today. Remains on the heparin drip. Her O2 has been weaned down. Her IV at KVO. Feeling much improved. Not back to baseline, but certainly feeling much better. Temperature 98.8, heart rate 68, respiratory rate is 16, blood pressure 113/59, mean 77. Her 10L high flow, which is down from her 15L high flow, shows a saturation of 94%. Appears in no acute distress. Not particularly tachypneic. HEENT is grossly unremarkable. Mucous membranes are moist. No oral lesions. NECK: Supple. Full range of motion. No adenopathy or thyromegaly. Neck veins are flat. Cardiovascular reveals regular rhythm and rate. S1, S2 normal. No S3, S4 or murmur. Lungs reveal a few scattered rhonchi. No wheezes or crackles. ABDOMEN: Soft. Bowel sounds are heard. No masses or tenderness. Extremities are intact. No cyanosis, clubbing or edema. Skin is without rash or lesions. Brief neurologic is nonfocal. Labs are reviewed. White count 7.2, hemoglobin 13.4, hematocrit 41.1, platelet count 301,000. PTT is 54.0, reflective of the fact she is still on IV heparin. Sodium, potassium and chloride normal. CO2 of 33. BUN and creatinine were 15 and 0.81. No recent x-rays to report. Most recent x-ray was done on the 07 of July and showed it to be stable and unchanged. Medications are reviewed. She is currently on: 1. Xarelto. 2. She is also on her other breathing medications as was done recently. ASSESSMENT: 1. Bilateral pulmonary emboli. 2. Chronic and ongoing tobacco dependence with chronic obstructive pulmonary disease and chronic obstructive pulmonary disease exacerbation. 3. History of tracheobronchomalacia. 4. Obesity. 5. Gastroesophageal reflux disease. 6. History of migraine. 7. Sleep apnea syndrome. 8. Hypertension. 9. Hyperlipidemia. 10. Recent admission for atypical chest pain with normal troponins. The patient was transitioned onto Xarelto. No additional recommendations are made. Will leave it up to the primary to make a decision about discharge. Will continue to follow. Prognosis is guarded.
[2016-07-08] MEDS: LEVOFLOXACIN 750 MG TAB PO SCH (17:36)
[2016-07-08] MEDS: CHLORPHEN-HYDROcod 8-10mg/5ml 5 ML ORAL.SYRG PO PRN (17:37)
[2016-07-09] MEDS: KETOROLAC 30 MG/ML 1 ML VIAL IVP SCH ×4 (06:19→23:51)
[2016-07-09] MEDS: RIVAROXABAN 15 MG TAB PO SCH ×2 (06:21→17:25)
[2016-07-09] MEDS: PANTOPRAZOLE 40 MG TABLET PO SCH (06:21)
[2016-07-09 06:45] LABS: Basophils % (A) 0 %; CH 30.9; CHCM 33.7; Eosinophils # (A) 0.3 k/uL (0-0.7); Eosinophils % (A) 5 %; HCT 41.6 % (34.0-46.0); HDW 2.51; HGB 13.7 gm/dL (11.4-16.0); Luc # (Auto) 0.16; Luc % (Auto) 3; Lymphocytes # (A) 2.3 k/uL (1.0-4.8); Lymphocytes % (A) 35 %; MCH 30.3 pg (25.0-35.0); MCHC 32.9 g/dL (31.0-37.0); MCV 92.1 fL (80.0-100.0); Mean Platelet Volume 6.6; Monocytes # (A) 0.3 k/uL (0-1.0); Monocytes % (A) 5 %; Neutrophils # (A) 3.4 k/uL (1.3-7.7); Neutrophils % (A) 53 %; RBC 4.52 m/uL (3.80-5.40); RDW 13.3 % (11.5-15.5); WBC 6.5 k/uL (3.8-10.6); WBC (Perox) 6.56
[2016-07-09 07:04] LABS: Anion Gap 6 mmol/L; Blood Urea Nitrogen 17 mg/dL (7-17); Calcium 9.9 mg/dL (8.4-10.2); Carbon Dioxide 33 mmol/L (22-30); Chloride 100 mmol/L (98-107); Glucose 88 mg/dL (74-99); Magnesium 1.8 mg/dL (1.6-2.3); Non-African American GFR(MDRD) >60 (>60 ml/min/1.73 sqM); Phosphorous 3.2 mg/dL (2.5-4.5); Sodium 139 mmol/L (137-145)
[2016-07-09] MEDS: ALBUTEROL NEB (CONC) 2.5 MG/0.5 ML INHALATION SCH ×4 (07:04→19:46)
[2016-07-09] MEDS: SYMBICORT 160-4.5 MCG INHALER INHALATION SCH (07:08)
[2016-07-09] MEDS: TIOTROPIUM 18 MCG/PUFF INHALER INHALATION SCH (07:08)
[2016-07-09] MEDS: MULTIVITAMINS, THERA 1 EACH TAB PO SCH (08:08)
[2016-07-09] MEDS: LISINOPRIL 20 MG TAB PO SCH (08:08)
[2016-07-09] MEDS: ESCITALOPRAM 10 MG TAB PO SCH (08:08)
[2016-07-09] MEDS: ATORVASTATIN 20 MG TAB PO SCH (08:09)
[2016-07-09] MEDS: HYDROCHLOROTHIAZIDE 12.5 MG CAP PO SCH (08:09)
[2016-07-09] MEDS: HYDROmorphone 2 MG/ML 1 ML SYRINGE IVP PRN ×2 (08:13→13:23)
[2016-07-09] MEDS ORDERED: BISACODYL 10 MG SUPP RECTAL STA (10:15)
[2016-07-09] MEDS ORDERED: POLYETHYLENE GLYCOL 3350 17 GM POWD.PACK PO SCH (10:30)
--- NOTE | 2016-07-09 11:00 | XR ---
EXAMINATION TYPE: XR abdomen 2V DATE OF EXAM: 07/09/2016 10:37 AM CLINICAL HISTORY: Abdominal pain. TECHNIQUE: Supine and upright views of the abdomen are obtained. COMPARISON: Abdominal x-ray July 05, 2016 FINDINGS: Scattered gas is seen in non-distended small bowel loops. Gas and fecal material is seen in non-distended colon and rectum. There is new left medial basilar consolidation with air bronchogra ms. There is persistent small left pleural effusion. There is right basilar scarring. Multilevel spur ring and lumbar spine is redemonstrated. IMPRESSION: Overall nonobstructive bowel gas pattern. Note is made of new left medial basilar or ret rocardiac consolidation with air bronchograms , suspected new focal pneumonia.
--- NOTE | 2016-07-09 12:25 | P.PN ---
Subjective Principal diagnosis: Bilateral pulmonary emboli Patient is a 65-year-old female, patient of Dr. Vail in the outpatient setting, with medical history significant for hyperlipidemia, hypertension, obesity, migraines, COPD, tracheobronchial malacia, sleep apnea, and obesity. Patient states that she uses 2 L of oxygen at home at nighttime. Patient follows with Dr. Mckeon in the outpatient setting. Patient was recently hospitalized from 06/27/2016 to 06/29/2016 with atypical chest pain and hemoptysis that resolved felt to be due to recent bronchoscopy. Patient at that time underwent serial troponins and CKs that were negative. Patient also had a chest CTA and chest x-ray that was negative. Patient was discharged home in stable condition with close follow-up in the outpatient setting. On this admission, patient presented to the emergency department with complaints of left -sided abdominal pain that started on Saturday, progressively getting worse over the last couple days. Pain described as sharp, exacerbated with inspiration or movement, associated with nausea but no vomiting. In the emergency department, patient was found to have elevated d-dimer and underwent a CT angiogram with evidence of bilateral segmental and subsegmental emboli in the lower lobes without evidence of saddle embolus. Patient was admitted to the selective care unit on continuous cardiac monitoring on IV heparin with consult requested to Dr. Carney for pulmonary service. While on selective care unit, patient developed acute hypoxic respiratory failure requiring 15 L of nonrebreather mask. Patient was transferred to the intensive care unit for further monitoring. Patient improved over the weekend and was transferred back to selective care unit. Upon exam, patient reports improvement in breathing. Patient does complain of persistent left flank pain. Patient denies nausea, vomiting, increased shortness of breath, or chest pain. Patient states she hasn't had a bowel movement since admission. Patient is currently oxygenating 90% on 8 L high flow nasal cannula. No evidence of fevers or leukocytosis. IV heparin has been discontinued and patient has been transition to Xarelto. Objective - Vital Signs Vital signs: Vital Signs Temp 98.6 F 07/09/16 08:00 Pulse 76 07/09/16 11:08 Resp 18 07/09/16 08:00 BP 110/56 07/09/16 08:00 Pulse Ox 90 L 07/09/16 08:00 Intake & Output 07/08/16 07/09/16 07/09/16 18:59 06:59 18:59 Intake Total 590 100 Output Total 400 150 Balance 190 -150 100 Weight 99.5 kg Intake: IV 30 0.9 NS 30 Oral 560 100 Output: Urine 400 150 Other: Voiding Method Bedside Commode # Voids 1 - Exam GENERAL: Pt awake and alert, well-nourished, in no acute distress. HEAD: Atraumatic, normocephalic. EYES: Pupils equal, round, and reactive to light, extraocular movements intact, sclera anicteric, conjunctiva are normal. ENT: Oropharynx clear without exudates. Moist mucous membranes. NECK:Supple without lymphadenopathy or JVD. LUNGS: Breath sounds essentially clear to auscultation bilaterally. No wheezes , rales, or rhonchi. HEART: Heart S1, S2, no S3 or S4. Regular rate and rhythm. No murmurs, rubs or gallops. ABDOMEN: Soft, nontender, nondistended, normoactive bowel sounds. No guarding, no rebound. No masses or organomegaly appreciated. Back: Left flank pain tenderness to palpation. EXTREMITIES: 2+ peripheral pulses. No edema. No calf tenderness. NEUROLOGICAL: Pt oriented x 3. Cranial nerves II through XII grossly intact. Strength and sensation grossly intact. PSYCH: Calm SKIN: Warm, dry, intact. Normal turgor. No rashes or lesions. - Labs CBC & Chem 7: 07/09/16 05:59 07/09/16 05:56 Labs: Abnormal Lab Results - Last 24 Hours (Table) 07/09/16 Range/Units 05:56 Carbon Dioxide 33 H (22-30) mmol/L Assessment and Plan Plan: Impression and plan: 1. Bilateral pulmonary emboli. Pulmonary consult in place, recommendations reviewed. Continue Xarelto for anticoagulation. Continue cardiac monitoring. Monitor respiratory status. 2. Left flank pain suspect referred from pulmonary emboli and possible infarction. Continue IV Dilaudid and tramadol as necessary. Continue Toradol for pain relief. 3. Acute on chronic hypoxic respiratory failure suspect secondary to pneumonia. Patient uses 2 L nasal cannula at night in the outpatient setting. Continue Levaquin. Wean FiO2 as tolerated. 4. Acute on chronic obstructive pulmonary disease exacerbation. Continue Symbicort, Spiriva, nebulized updraft treatments. 5. Tracheobronchomalacia with a recent bronchoscopy and BAL. 6. Obesity, BMI 34.5. Following outpatient setting. 7. Gastroesophageal reflux disease. Continue Protonix 40 mg daily. 8. Obstructive sleep apnea. Continue BiPAP at night. Patient has CPAP machine at home. 9. Hypertension. Continue hydrochlorothiazide 12.5 mg by mouth daily, continue lisinopril 40 mg daily. 10. Hyperlipidemia. Continue Lipitor 20 mg by mouth daily. 11. History of migraines. 12. Depression, stable. Continue Lexapro. 13. Nicotine dependence. Smoking cessation encouraged. 14. Constipation. Will obtain abdominal x-ray. Patient will receive Dulcolax suppository and be started on MiraLAX. Encourage oral intake. Continue to monitor patient. Continue supportive treatment and pain management. Consult physical therapy for discharge planning. Continue to follow with pulmonary service. Continue GI and DVT prophylaxis. Incentive spirometry 10 times an hour while awake. Repeat CBC and BMP in a.m. The above impression and plan have been discussed and directed by Dr. Vail. Dwight LEMOS acting as scribe for Dr. Vail.
[2016-07-09] MEDS ORDERED: BISACODYL 5 MG TABLET.DR PO PRN (14:53)
--- NOTE | 2016-07-09 16:44 | P.PN ---
Subjective Principal diagnosis: Pulmonary embolism This is a very pleasant 65-year-old female patient who follows with Dr. Vail as her primary care physician. She has a history of hyperlipidemia, hypertension, obesity, migraines, chronic cough. She does have a history of chronic obstructive pulmonary disease, chronic and ongoing tobacco dependence, sleep apnea, tracheobronchomalacia and had recently undergone bronchoscopy with BAL with Dr. Mckeon 2 weeks ago. Last week she was admitted on 06/27/2016 with excruciating midsternal pain. A computed tomography scan of the chest revealed no evidence of aortic aneurysm or dissection. There were no acute findings. EKG was normal. Troponins were negative. Influenza screen was negative. She was discharged home the following day. She reads re-presented here early this morning with complaints of abdominal discomfort that is left lateral abdominal pain that had been getting worse over the last several days. She was complaining a lot of 10 out of 10 constant sharp pain in her left side.a KUB of the abdomen revealed mildly increased left base atelectasis/ infiltrate and small left pleural effusion. There is no evidence of intestinal obstruction or perforation seen.CT angiogram revealed bilateral segmental and subsegmental emboli in the lower lobes with wedge shaped opacities. She is seen in consultation on the selective care unit. She is awake and alert. She is complaining of significant left-sided chest and upper abdominal discomfort. She was initially requiring 2 L/m per nasal cannula maintaining O2 saturations in the 90s. Early this morning she started to desaturate requiring 15 L nonrebreather mask. She is quite uncomfortable and short of breath on our evaluation. Arterial blood gases were drawn and she has a pO2 of 98, pCO2 50, pH 7.3 200% FiO2. She is seen again today 07/09/2016 in follow-up on the selective care unit. She is awake and alert in no acute distress. She's been up ambulating in the room. She did have some abdominal complaints. An abdominal x-ray revealed nonobstructive bowel gas pattern. However there was noted new left medial basilar retrocardiac consolidation with air bronchograms suspicious for new focal pneumonia. She is still requiring 8 L of high flow nasal cannula to maintain O2 saturations in the 90s. She's been hemodynamically stable. No leukocytosis. She is on Xarelto for anticoagulation. Objective - Vital Signs Vital signs: Vital Signs Temp 98.6 F 07/09/16 08:00 Pulse 76 07/09/16 15:38 Resp 19 07/09/16 12:00 BP 100/59 07/09/16 13:20 Pulse Ox 90 L 07/09/16 12:00 Intake & Output 07/08/16 07/09/16 07/09/16 18:59 06:59 18:59 Intake Total 590 320 Output Total 464 750 0259 Balance 190 -150 -780 Weight 99.5 kg Intake: IV 30 0.9 NS 30 Oral 560 320 Output: Urine 448 135 7231 Other: Voiding Method Bedside Commode # Voids 1 - Exam GENERAL EXAM: Obese. Alert, comfortable in no apparent distress. HEAD: Normocephalic. EYES: Normal reaction of pupils, equal size. NOSE: Clear with pink turbinates. THROAT: There is crowding of the posterior pharynx. No erythema or exudates. NECK: Short. No masses, no JVD. CHEST: No chest wall deformity. LUNGS: Equal air entry with few scattered rhonchi. CVS: S1 and S2 normal with no audible murmurs, regular rhythm. ABDOMEN: No hepatosplenomegaly, normal bowel sounds, no guarding or rigidity. SPINE: No scoliosis or deformity SKIN: No rashes CENTRAL NERVOUS SYSTEM: No focal deficits, tone is normal in all 4 extremities. Extremities: There is no significant peripheral edema. No clubbing, no cyanosis. Peripheral pulses are intact. - Labs CBC & Chem 7: 07/09/16 05:59 07/09/16 05:56 Labs: Abnormal Lab Results - Last 24 Hours (Table) 07/09/16 Range/Units 05:56 Carbon Dioxide 33 H (22-30) mmol/L Assessment and Plan Plan: Impression: #1 Dyspnea and left-sided chest pain and a patient found to have bilateral segmental and subsegmental pulmonary emboli with possible pulmonary infarction in the left lung base. There is new focal density with a new left medial basilar or retrocardiac consolidation. #2 Recent admission for atypical chest pain with normal troponins and a normal CT angiogram and chest x-ray 1 week ago. #3 Chronic and ongoing tobacco dependence. #4 Chronic obstructive pulmonary disease. #5 Tracheobronchomalacia with recent bronchoscopy and BAL negative for cytology. #6 Obesity. #7 Gastroesophageal reflux disease. #8 History of migraines. #9 History of sleep apnea. #10 Hypertension. #11 Hyperlipidemia. Plan: The patient was seen and evaluated by Dr. Mckeon. She is improved today as compared to yesterday. She still has ongoing issues with higher FiO2 requirements. We'll continue to titrate down the FiO2 to maintain O2 saturations in the 90s. She remains on bronchodilators, Symbicort, Tussionex. She is on Xarelto for anticoagulation. We'll continue antibiotics in the form of Levaquin. We'll increase her activity as tolerated. We'll continue to follow.
--- NOTE | 2016-07-09 16:53 | US ---
EXAMINATION TYPE: US venous doppler duplex LE BI DATE OF EXAM: 07/09/2016 4:45 PM COMPARISON: CLINICAL HISTORY: 65-year-old female rule out DVT. Patient with PE, on blood thinners. SIDE PERFORMED: Bilateral TECHNIQUE: The lower extremity deep venous system is examined utilizing real time linear array sonog shira with graded compression, doppler sonography and color-flow sonography. FINDINGS: VESSELS IMAGED: External Iliac Vein (EIV) Common Femoral Vein Deep Femoral Vein Greater Saphenous Vein * Femoral Vein Popliteal Vein Small Saphenous Vein * Proximal Calf Veins (* superficial vessels) Right Leg: Appears negative for DVT Left Leg: Appears negative for DVT. Prominent valves seen in mid popliteal vein. IMPRESSION: No evidence of DVT within the bilateral lower extremities imaged from the groin to the upper calves.
[2016-07-09] MEDS: BISACODYL 5 MG TABLET.DR PO SCH (17:25)
[2016-07-09] MEDS: LEVOFLOXACIN 750 MG TAB PO SCH (17:25)
[2016-07-09] MEDS: HYDROmorphone 1 MG/ML 1 ML SYRINGE IVP PRN (20:23)
[2016-07-10 06:40] LABS: Basophils % (A) 0 %; CH 30.6; CHCM 33.1; Eosinophils # (A) 0.3 k/uL (0-0.7); Eosinophils % (A) 4 %; HCT 41.3 % (34.0-46.0); HDW 2.41; HGB 13.7 gm/dL (11.4-16.0); Luc # (Auto) 0.24; Luc % (Auto) 3; Lymphocytes # (A) 2.5 k/uL (1.0-4.8); Lymphocytes % (A) 28 %; MCH 30.9 pg (25.0-35.0); MCHC 33.3 g/dL (31.0-37.0); MCV 92.8 fL (80.0-100.0); Mean Platelet Volume 6.6; Monocytes # (A) 0.4 k/uL (0-1.0); Monocytes % (A) 4 %; Neutrophils # (A) 5.4 k/uL (1.3-7.7); Neutrophils % (A) 61 %; RBC 4.45 m/uL (3.80-5.40); RDW 13.2 % (11.5-15.5); WBC 8.9 k/uL (3.8-10.6); WBC (Perox) 8.79
[2016-07-10] MEDS: RIVAROXABAN 15 MG TAB PO SCH ×2 (06:43→17:25)
[2016-07-10] MEDS: PANTOPRAZOLE 40 MG TABLET PO SCH (06:43)
[2016-07-10] MEDS: KETOROLAC 30 MG/ML 1 ML VIAL IVP SCH (06:45)
[2016-07-10 06:51] LABS: Calcium 9.9 mg/dL (8.4-10.2); Magnesium 1.9 mg/dL (1.6-2.3); Potassium 4.3 mmol/L (3.5-5.1)
--- NOTE | 2016-07-10 07:34 | XR ---
EXAMINATION TYPE: XR chest 2V DATE OF EXAM: 07/10/2016 7:20 AM COMPARISON: 07/07/2016 HISTORY: Shortness of breath TECHNIQUE: Frontal and lateral views of the chest are obtained. FINDINGS: Scattered senescent parenchymal changes noted. Hyperinflation compatible with COPD. There is right basilar atelectasis and/or infiltrate slightly improved from prior study. Heart size is stable. Mediastinal structures are stable and grossly unremarkable. No evidence for hilar prominence. Degenerative changes dorsal spine. IMPRESSION: 1. There is right basilar atelectasis and/or infiltrate slightly improved from prior study.
[2016-07-10] MEDS: ALBUTEROL NEB (CONC) 2.5 MG/0.5 ML INHALATION SCH ×4 (08:03→19:41)
[2016-07-10] MEDS: TIOTROPIUM 18 MCG/PUFF INHALER INHALATION SCH (08:03)
[2016-07-10] MEDS: SYMBICORT 160-4.5 MCG INHALER INHALATION SCH (08:03)
[2016-07-10] MEDS: ATORVASTATIN 20 MG TAB PO SCH (08:37)
[2016-07-10] MEDS: ESCITALOPRAM 10 MG TAB PO SCH (08:37)
[2016-07-10] MEDS: HYDROCHLOROTHIAZIDE 12.5 MG CAP PO SCH (08:37)
[2016-07-10] MEDS: MULTIVITAMINS, THERA 1 EACH TAB PO SCH (11:31)
[2016-07-10] MEDS: BISACODYL 5 MG TABLET.DR PO SCH (11:31)
[2016-07-10] MEDS: LISINOPRIL 20 MG TAB PO SCH (11:41)
--- NOTE | 2016-07-10 12:36 | P.PN ---
Subjective Principal diagnosis: Pulmonary embolism This is a very pleasant 65-year-old female patient who follows with Dr. Vail as her primary care physician. She has a history of hyperlipidemia, hypertension, obesity, migraines, chronic cough. She does have a history of chronic obstructive pulmonary disease, chronic and ongoing tobacco dependence, sleep apnea, tracheobronchomalacia and had recently undergone bronchoscopy with BAL with Dr. Mckeon 2 weeks ago. Last week she was admitted on 06/27/2016 with excruciating midsternal pain. A computed tomography scan of the chest revealed no evidence of aortic aneurysm or dissection. There were no acute findings. EKG was normal. Troponins were negative. Influenza screen was negative. She was discharged home the following day. She reads re-presented here early this morning with complaints of abdominal discomfort that is left lateral abdominal pain that had been getting worse over the last several days. She was complaining a lot of 10 out of 10 constant sharp pain in her left side.a KUB of the abdomen revealed mildly increased left base atelectasis/ infiltrate and small left pleural effusion. There is no evidence of intestinal obstruction or perforation seen.CT angiogram revealed bilateral segmental and subsegmental emboli in the lower lobes with wedge shaped opacities. She is seen in consultation on the selective care unit. She is awake and alert. She is complaining of significant left-sided chest and upper abdominal discomfort. She was initially requiring 2 L/m per nasal cannula maintaining O2 saturations in the 90s. Early this morning she started to desaturate requiring 15 L nonrebreather mask. She is quite uncomfortable and short of breath on our evaluation. Arterial blood gases were drawn and she has a pO2 of 98, pCO2 50, pH 7.3 200% FiO2. She is seen again today 07/09/2016 in follow-up on the selective care unit. She is awake and alert in no acute distress. She's been up ambulating in the room. She did have some abdominal complaints. An abdominal x-ray revealed nonobstructive bowel gas pattern. However there was noted new left medial basilar retrocardiac consolidation with air bronchograms suspicious for new focal pneumonia. She is still requiring 8 L of high flow nasal cannula to maintain O2 saturations in the 90s. She's been hemodynamically stable. No leukocytosis. She is on Xarelto for anticoagulation. The patient is seen again today 07/10/2016 in follow-up on the selective care unit. She is currently awake and alert in no acute distress. She is still requiring 8 L of high flow nasal cannula to maintain O2 saturations greater than 90%. Does continue with a loose nonproductive cough. No chills or night sweats.no fever. No leukocytosis. She remains on antibiotics in the form of Levaquin. Objective - Vital Signs Vital signs: Vital Signs Temp 97.0 F L 07/10/16 11:37 Pulse 90 07/10/16 11:39 Resp 20 07/10/16 11:39 BP 109/56 07/10/16 11:37 Pulse Ox 90 L 07/10/16 11:37 Intake & Output 07/09/16 07/10/16 07/10/16 18:59 06:59 18:59 Intake Total 560 20 180 Output Total 1100 Balance -540 20 180 Weight 94.5 kg Intake: IV 20 0.9 NS 20 Oral 560 180 Output: Urine 1100 Other: Voiding Method Toilet Toilet - Exam GENERAL EXAM: Obese. Alert, comfortable in no apparent distress. HEAD: Normocephalic. EYES: Normal reaction of pupils, equal size. NOSE: Clear with pink turbinates. THROAT: There is crowding of the posterior pharynx. No erythema or exudates. NECK: Short. No masses, no JVD. CHEST: No chest wall deformity. LUNGS: Equal air entry with few scattered rhonchi. CVS: S1 and S2 normal with no audible murmurs, regular rhythm. ABDOMEN: No hepatosplenomegaly, normal bowel sounds, no guarding or rigidity. SPINE: No scoliosis or deformity SKIN: No rashes CENTRAL NERVOUS SYSTEM: No focal deficits, tone is normal in all 4 extremities. Extremities: There is no significant peripheral edema. No clubbing, no cyanosis. Peripheral pulses are intact. - Labs CBC & Chem 7: 07/10/16 05:50 07/10/16 05:50 Labs: Abnormal Lab Results - Last 24 Hours (Table) 07/10/16 Range/Units 05:50 Carbon Dioxide 34 H (22-30) mmol/L BUN 23 H (7-17) mg/dL Creatinine 1.30 H (0.52-1.04) mg/dL Assessment and Plan Plan: Impression: #1 Dyspnea and left-sided chest pain and a patient found to have bilateral segmental and subsegmental pulmonary emboli with possible pulmonary infarction in the left lung base. There is new focal density with a new left medial basilar or retrocardiac consolidation. X-ray on 07/10/2016 reveals continued right basilar atelectasis improved from prior. #2 Recent admission for atypical chest pain with normal troponins and a normal CT angiogram and chest x-ray 1 week ago. #3 Chronic and ongoing tobacco dependence. #4 Chronic obstructive pulmonary disease. #5 Tracheobronchomalacia with recent bronchoscopy and BAL negative for cytology. #6 Obesity. #7 Gastroesophageal reflux disease. #8 History of migraines. #9 History of sleep apnea. #10 Hypertension. #11 Hyperlipidemia. Plan: The patient was seen and evaluated by Dr. Mckeon. She is improved today as compared to yesterday. She still has ongoing issues with higher FiO2 requirements. We will repeat her chest x-ray. She remains on bronchodilators, Symbicort, Tussionex. She is on Xarelto for anticoagulation. We'll continue antibiotics in the form of Levaquin. We'll increase her activity as tolerated. We'll continue to follow.
--- NOTE | 2016-07-10 12:39 | P.PN ---
Subjective Principal diagnosis: Bilateral pulmonary emboli Patient is a 65-year-old female, patient of Dr. Vail in the outpatient setting, with medical history significant for hyperlipidemia, hypertension, obesity, migraines, COPD, tracheobronchial malacia, sleep apnea, and obesity. Patient states that she uses 2 L of oxygen at home at nighttime. Patient follows with Dr. Mckeon in the outpatient setting. Patient was recently hospitalized from 06/27/2016 to 06/29/2016 with atypical chest pain and hemoptysis that resolved felt to be due to recent bronchoscopy. Patient at that time underwent serial troponins and CKs that were negative. Patient also had a chest CTA and chest x-ray that was negative. Patient was discharged home in stable condition with close follow-up in the outpatient setting. On this admission, patient presented to the emergency department with complaints of left -sided abdominal pain that started on Saturday, progressively getting worse over the last couple days. Pain described as sharp, exacerbated with inspiration or movement, associated with nausea but no vomiting. In the emergency department, patient was found to have elevated d-dimer and underwent a CT angiogram with evidence of bilateral segmental and subsegmental emboli in the lower lobes without evidence of saddle embolus. Patient was admitted to the selective care unit on continuous cardiac monitoring on IV heparin with consult requested to Dr. Carney for pulmonary service. While on selective care unit, patient developed acute hypoxic respiratory failure requiring 15 L of nonrebreather mask. Patient was transferred to the intensive care unit for further monitoring. Patient improved over the weekend and was transferred back to selective care unit. Upon exam, patient complains of feeling tired. Patient reports improvement in left flank pain. Patient denies nausea, vomiting, increased shortness of breath , or chest pain. Patient states she did have a bowel movement after receiving Dulcolax suppository yesterday. Patient is currently oxygenating 90% on 8 L high flow nasal cannula. No evidence of fevers or leukocytosis. Patient does have evidence of acute renal failure with BUN of 23 and creatinine 1.3. In reviewing vital signs, patient is noted to have had some episodes of hypotension. Patient did undergo a venous Doppler study yesterday that was negative for bilateral DVTs. Chest x-ray from this morning shows slight improvement in right basilar atelectasis and/or infiltrate from prior study. Abdominal x-ray obtained yesterday with evidence of overall nonobstructive bowel gas pattern with note of new left medial basilar retrocardiac consolidation with suspected new focal pneumonia per radiologist. Objective - Vital Signs Vital signs: Vital Signs Temp 97.0 F L 07/10/16 11:37 Pulse 90 07/10/16 11:39 Resp 20 07/10/16 11:39 BP 109/56 07/10/16 11:37 Pulse Ox 90 L 07/10/16 11:37 Intake & Output 07/09/16 07/10/16 07/10/16 18:59 06:59 18:59 Intake Total 560 20 180 Output Total 1100 Balance -540 20 180 Weight 94.5 kg Intake: IV 20 0.9 NS 20 Oral 560 180 Output: Urine 1100 Other: Voiding Method Toilet Toilet - Exam GENERAL: Pt awake and alert, well-nourished, in no acute distress. HEAD: Atraumatic, normocephalic. EYES: Pupils equal, round, and reactive to light, extraocular movements intact, sclera anicteric, conjunctiva are normal. ENT: Oropharynx clear without exudates. Moist mucous membranes. NECK:Supple without lymphadenopathy or JVD. LUNGS: Breath sounds essentially clear to auscultation bilaterally. No wheezes , rales, or rhonchi. HEART: Heart S1, S2, no S3 or S4. Regular rate and rhythm. No murmurs, rubs or gallops. ABDOMEN: Soft, nontender, nondistended, normoactive bowel sounds. No guarding, no rebound. No masses or organomegaly appreciated. Back: Left flank pain tenderness to palpation, improved from yesterday. EXTREMITIES: 2+ peripheral pulses. No edema. No calf tenderness. NEUROLOGICAL: Pt oriented x 3. Cranial nerves II through XII grossly intact. Strength and sensation grossly intact. PSYCH: Calm SKIN: Warm, dry, intact. Normal turgor. No rashes or lesions. - Labs CBC & Chem 7: 07/10/16 05:50 07/10/16 05:50 Labs: Abnormal Lab Results - Last 24 Hours (Table) 07/10/16 Range/Units 05:50 Carbon Dioxide 34 H (22-30) mmol/L BUN 23 H (7-17) mg/dL Creatinine 1.30 H (0.52-1.04) mg/dL Assessment and Plan Plan: Impression and plan: 1. Bilateral pulmonary emboli. Pulmonary consult in place, recommendations reviewed. Continue Xarelto for anticoagulation. Continue cardiac monitoring. Monitor respiratory status. 2. Acute renal failure suspect secondary to intravascular volume depletion and hypoperfusion with episodes of hypotension. Will hold blood pressure medications. Start IV fluids 0.9 normal saline 100 mL an hour. 3. Left flank pain suspect referred from pulmonary emboli and possible infarction, improved. We'll discontinue IV Dilaudid and start patient on hydrocodone by mouth. Continue tramadol as necessary. Toradol will be discontinued. 4. Acute on chronic hypoxic respiratory failure suspect secondary to pneumonia. New focal density with a new left medial basilar retrocardiac consolidation. Patient uses 2 L nasal cannula at night in the outpatient setting. Continue Levaquin. Increase activity. Wean FiO2 as tolerated to keep oxygen saturations in the low 90s. 5. Acute on chronic obstructive pulmonary disease exacerbation. Continue Symbicort, Spiriva, nebulized updraft treatments. 6. Tracheobronchomalacia with a recent bronchoscopy and BAL negative for cytology. 7. Obesity, BMI 34.5. Follow-up in outpatient setting. 8. Gastroesophageal reflux disease. Continue Protonix 40 mg daily. 9. Obstructive sleep apnea. Continue BiPAP at night. Patient has CPAP machine at home. 10. History of hypertension. Will discontinue hydrochlorothiazide 12.5 mg by mouth daily and lisinopril 40 mg daily for episodes of hypotension. 11. Hyperlipidemia. Continue Lipitor 20 mg by mouth daily. 12. History of migraines. 13. Depression, stable. Continue Lexapro. 14. Nicotine dependence. Smoking cessation encouraged. 15. Constipation, resolved. Abdominal x-ray with evidence of overall nonobstructive bowel pattern. Start patient on Colace 100 mg by mouth twice a day. Encourage oral intake. Continue to monitor patient. Continue supportive treatment and pain management. Consult physical therapy for discharge planning. Continue to follow with pulmonary service. Continue GI and DVT prophylaxis. Incentive spirometry 10 times an hour while awake. Repeat CBC and BMP in a.m. The above impression and plan have been discussed and directed by Dr. Vail. Dwight LEMOS acting as scribe for Dr. Vail.
[2016-07-10] MEDS: HYDROcodone/APAP 5-325MG 1 EACH TAB PO PRN (14:11)
[2016-07-10] MEDS: SODIUM CHLORIDE 0.9% 1,000 ML IV SCH ×2 (15:14→20:27)
[2016-07-10] MEDS: DOCUSATE 100 MG CAP PO SCH (20:28)
[2016-07-11 06:37] LABS: Basophils % (A) 0 %; CH 30.8; CHCM 33.6; Eosinophils # (A) 0.3 k/uL (0-0.7); Eosinophils % (A) 3 %; HCT 42.6 % (34.0-46.0); HDW 2.38; Luc # (Auto) 0.21; Luc % (Auto) 2; Lymphocytes # (A) 2.3 k/uL (1.0-4.8); Lymphocytes % (A) 24 %; MCH 30.3 pg (25.0-35.0); MCHC 32.9 g/dL (31.0-37.0); MCV 92.1 fL (80.0-100.0); Mean Platelet Volume 6.8; Monocytes # (A) 0.4 k/uL (0-1.0); Monocytes % (A) 4 %; Neutrophils # (A) 6.6 k/uL (1.3-7.7); Neutrophils % (A) 67 %; RBC 4.63 m/uL (3.80-5.40); RDW 13.4 % (11.5-15.5); WBC 9.9 k/uL (3.8-10.6); WBC (Perox) 9.86
[2016-07-11 06:47] LABS: Anion Gap 8 mmol/L; Blood Urea Nitrogen 19 mg/dL (7-17); Calcium 10.2 mg/dL (8.4-10.2); Carbon Dioxide 28 mmol/L (22-30); Chloride 106 mmol/L (98-107); Glucose 102 mg/dL (74-99); Non-African American GFR(MDRD) >60 (>60 ml/min/1.73 sqM); Potassium 4.4 mmol/L (3.5-5.1); Sodium 142 mmol/L (137-145)
[2016-07-11] MEDS: PANTOPRAZOLE 40 MG TABLET PO SCH (06:49)
--- NOTE | 2016-07-11 07:51 | XR ---
EXAMINATION TYPE: XR chest 2V DATE OF EXAM: 07/11/2016 7:47 AM COMPARISON: 07/10/2016 INDICATION: Right middle lobe atelectasis TECHNIQUE: Single frontal view of the chest is obtained. FINDINGS: The heart size is normal. The pulmonary vasculature is normal. Minimal linear opacity remains in the right midlung compatible some residual atelectasis which is res olving. There may be some developing infiltrate in the left lower lung field. Subsegmental atelectasi s or developing pneumonia should be considered. IMPRESSION: 1. Resolving right middle lobe atelectasis. 2. Developing left lower lobe infiltrate. Correlate for atelectasis and pneumonia.
[2016-07-11] MEDS: SODIUM CHLORIDE 0.9% NEBULIZ 3 ML INHALATION PRN ×2 (08:06→17:01)
[2016-07-11] MEDS: ALBUTEROL NEB (CONC) 2.5 MG/0.5 ML INHALATION SCH ×4 (08:06→21:18)
[2016-07-11] MEDS: TIOTROPIUM 18 MCG/PUFF INHALER INHALATION SCH (08:07)
[2016-07-11] MEDS: SYMBICORT 160-4.5 MCG INHALER INHALATION SCH (08:07)
[2016-07-11] MEDS ORDERED: LEVOFLOXACIN 750 MG TAB PO SCH (09:00)
[2016-07-11] MEDS: SODIUM CHLORIDE 0.9% 1,000 ML IV SCH (10:07)
[2016-07-11] MEDS: BISACODYL 5 MG TABLET.DR PO SCH (10:08)
[2016-07-11] MEDS: RIVAROXABAN 15 MG TAB PO SCH ×2 (10:08→18:04)
[2016-07-11] MEDS: ATORVASTATIN 20 MG TAB PO SCH (10:09)
[2016-07-11] MEDS: DOCUSATE 100 MG CAP PO SCH ×2 (10:09→20:32)
[2016-07-11] MEDS: ESCITALOPRAM 10 MG TAB PO SCH (10:10)
[2016-07-11] MEDS: MULTIVITAMINS, THERA 1 EACH TAB PO SCH (10:11)
[2016-07-11] MEDS: CHLORPHEN-HYDROcod 8-10mg/5ml 5 ML ORAL.SYRG PO PRN ×2 (14:27→21:42)
--- NOTE | 2016-07-11 14:44 | P.PN ---
Subjective Principal diagnosis: Bilateral pulmonary emboli Patient is a 65-year-old female, patient of Dr. Vail in the outpatient setting, with medical history significant for hyperlipidemia, hypertension, obesity, migraines, COPD, tracheobronchial malacia, sleep apnea, and obesity. Patient states that she uses 2 L of oxygen at home at nighttime. Patient follows with Dr. Mckeon in the outpatient setting. Patient was recently hospitalized from 06/27/2016 to 06/29/2016 with atypical chest pain and hemoptysis that resolved felt to be due to recent bronchoscopy. Patient at that time underwent serial troponins and CKs that were negative. Patient also had a chest CTA and chest x-ray that was negative. Patient was discharged home in stable condition with close follow-up in the outpatient setting. On this admission, patient presented to the emergency department with complaints of left -sided abdominal pain that started on Saturday, progressively getting worse over the last couple days. Pain described as sharp, exacerbated with inspiration or movement, associated with nausea but no vomiting. In the emergency department, patient was found to have elevated d-dimer and underwent a CT angiogram with evidence of bilateral segmental and subsegmental emboli in the lower lobes without evidence of saddle embolus. Patient was admitted to the selective care unit on continuous cardiac monitoring on IV heparin with consult requested to Dr. Carney for pulmonary service. While on selective care unit, patient developed acute hypoxic respiratory failure requiring 15 L of nonrebreather mask. Patient was transferred to the intensive care unit for further monitoring. Patient improved over the weekend and was transferred back to selective care unit. Upon exam, patient reports improvement in left flank pain. Patient denies nausea , vomiting, increased shortness of breath, or chest pain. Patient reports diarrhea. Patient is currently oxygenating 89% on 6 L high flow nasal cannula. No evidence of fevers or leukocytosis. Acute kidney failure has resolved. Chest x-ray from this morning shows resolving right middle lobe atelectasis and developing left lower lobe infiltrate. Objective - Vital Signs Vital signs: Vital Signs Temp 97.6 F 07/11/16 12:00 Pulse 98 07/11/16 12:00 Resp 18 07/11/16 12:00 BP 127/79 07/11/16 12:00 Pulse Ox 89 L 07/11/16 12:00 Intake & Output 07/10/16 07/11/16 07/11/16 18:59 06:59 18:59 Intake Total 1220 1600 118 Output Total 400 Balance 1220 1200 118 Weight 94.6 kg Intake: IV 800 Sodium Chloride 0.9% 1, 800 000 ml @ 100 mls/hr IV . Q10H GABO Rx#:[id number] Intake, IV Titration 700 800 Amount Sodium Chloride 0.9% 1, 700 800 000 ml @ 100 mls/hr IV . Q10H GABO Rx#:[id number] Oral 520 118 Output: Urine 400 Other: Voiding Method Toilet Toilet # Voids 1 - Exam GENERAL: Pt awake and alert, well-nourished, in no acute distress. HEAD: Atraumatic, normocephalic. EYES: Pupils equal, round, and reactive to light, extraocular movements intact, sclera anicteric, conjunctiva are normal. ENT: Oropharynx clear without exudates. Moist mucous membranes. NECK:Supple without lymphadenopathy or JVD. LUNGS: Breath sounds coarse with scattered rhonchi to auscultation bilaterally. No wheezes, rales, or rhonchi. HEART: Heart S1, S2, no S3 or S4. Regular rate and rhythm. No murmurs, rubs or gallops. ABDOMEN: Soft, nontender, nondistended, normoactive bowel sounds. No guarding, no rebound. No masses or organomegaly appreciated. Back: Left flank pain tenderness to palpation, improved from yesterday. EXTREMITIES: 2+ peripheral pulses. No edema. No calf tenderness. NEUROLOGICAL: Pt oriented x 3. Cranial nerves II through XII grossly intact. Strength and sensation grossly intact. PSYCH: Calm SKIN: Warm, dry, intact. Normal turgor. No rashes or lesions. - Labs CBC & Chem 7: 07/11/16 05:53 07/11/16 05:53 Labs: Abnormal Lab Results - Last 24 Hours (Table) 07/11/16 Range/Units 05:53 BUN 19 H (7-17) mg/dL Glucose 102 H (74-99) mg/dL Assessment and Plan Plan: Impression and plan: 1. Bilateral pulmonary emboli. Pulmonary consult in place, recommendations reviewed. Continue Xarelto for anticoagulation. Continue cardiac monitoring. Monitor respiratory status. 2. Acute renal failure suspect secondary to intravascular volume depletion and hypoperfusion with episodes of hypotension, resolved. Continue to hold blood pressure medications. Will discontinue IV fluids. 3. Left flank pain suspect referred from pulmonary emboli and possible infarction, improved. Continue hydrocodone by mouth. Continue tramadol as necessary. 4. Acute on chronic hypoxic respiratory failure suspect secondary to pneumonia. New focal density with a new left medial basilar retrocardiac consolidation. Patient uses 2 L nasal cannula at night in the outpatient setting and CPAP at night. Continue Levaquin. Increase activity. Wean FiO2 as tolerated to keep oxygen saturations in the low 90s. 5. Acute on chronic obstructive pulmonary disease exacerbation. Continue Symbicort, Spiriva, nebulized updraft treatments. 6. Tracheobronchomalacia with a recent bronchoscopy and BAL negative for cytology. 7. Obesity, BMI 34.5. Follow-up in outpatient setting. 8. Gastroesophageal reflux disease. Continue Protonix 40 mg daily. 9. Obstructive sleep apnea. Continue BiPAP at night. Patient has CPAP machine at home. 10. History of hypertension. Continue to hold hydrochlorothiazide 12.5 mg by mouth daily and lisinopril 40 mg daily for episodes of hypotension. 11. Hyperlipidemia. Continue Lipitor 20 mg by mouth daily. 12. History of migraines. 13. Depression, stable. Continue Lexapro. 14. Nicotine dependence. Smoking cessation encouraged. 15. Constipation, resolved, patient now has diarrhea. Hold Colace 100 mg by mouth twice a day for diarrhea. Continue to monitor patient. Continue supportive treatment and pain management. Consult physical therapy for discharge planning. Continue to follow with pulmonary service. Continue GI and DVT prophylaxis. Incentive spirometry 10 times an hour while awake. Repeat CBC and BMP in a.m. The above impression and plan have been discussed and directed by Dr. Vail. Dwight LEMOS acting as scribe for Dr. Vail.
--- NOTE | 2016-07-11 17:33 | P.PN ---
Subjective Principal diagnosis: Pulmonary embolism This is a very pleasant 65-year-old female patient who follows with Dr. Vail as her primary care physician. She has a history of hyperlipidemia, hypertension, obesity, migraines, chronic cough. She does have a history of chronic obstructive pulmonary disease, chronic and ongoing tobacco dependence, sleep apnea, tracheobronchomalacia and had recently undergone bronchoscopy with BAL with Dr. Mckeon 2 weeks ago. Last week she was admitted on 06/27/2016 with excruciating midsternal pain. A computed tomography scan of the chest revealed no evidence of aortic aneurysm or dissection. There were no acute findings. EKG was normal. Troponins were negative. Influenza screen was negative. She was discharged home the following day. She reads re-presented here early this morning with complaints of abdominal discomfort that is left lateral abdominal pain that had been getting worse over the last several days. She was complaining a lot of 10 out of 10 constant sharp pain in her left side.a KUB of the abdomen revealed mildly increased left base atelectasis/ infiltrate and small left pleural effusion. There is no evidence of intestinal obstruction or perforation seen.CT angiogram revealed bilateral segmental and subsegmental emboli in the lower lobes with wedge shaped opacities. She is seen in consultation on the selective care unit. She is awake and alert. She is complaining of significant left-sided chest and upper abdominal discomfort. She was initially requiring 2 L/m per nasal cannula maintaining O2 saturations in the 90s. Early this morning she started to desaturate requiring 15 L nonrebreather mask. She is quite uncomfortable and short of breath on our evaluation. Arterial blood gases were drawn and she has a pO2 of 98, pCO2 50, pH 7.3 200% FiO2. She is seen again today 07/09/2016 in follow-up on the selective care unit. She is awake and alert in no acute distress. She's been up ambulating in the room. She did have some abdominal complaints. An abdominal x-ray revealed nonobstructive bowel gas pattern. However there was noted new left medial basilar retrocardiac consolidation with air bronchograms suspicious for new focal pneumonia. She is still requiring 8 L of high flow nasal cannula to maintain O2 saturations in the 90s. She's been hemodynamically stable. No leukocytosis. She is on Xarelto for anticoagulation. The patient is seen again today 07/10/2016 in follow-up on the selective care unit. She is currently awake and alert in no acute distress. She is still requiring 8 L of high flow nasal cannula to maintain O2 saturations greater than 90%. Does continue with a loose nonproductive cough. No chills or night sweats.no fever. No leukocytosis. She remains on antibiotics in the form of Levaquin. She is continued on 6 L of high flow nasal cannula to maintain O2 saturations greater than 90%. She continues with a loose nonproductive cough. She remains afebrile. No leukocytosis. Today's chest x-ray reveals resolving right middle lobe atelectasis with some mild left lower lobe infiltrate. Remains on Levaquin. He has been having ongoing issues with diarrhea. We will check a C. diff. Objective - Vital Signs Vital signs: Vital Signs Temp 97.6 F 07/11/16 16:00 Pulse 92 07/11/16 17:17 Resp 18 07/11/16 16:54 BP 119/57 07/11/16 16:00 Pulse Ox 88 L 07/11/16 16:54 Intake & Output 07/10/16 07/11/16 07/11/16 18:59 06:59 18:59 Intake Total 1220 1600 890 Output Total 400 Balance 1220 1200 890 Weight 94.6 kg Intake: IV 800 550 Invasive Line 4 10 Sodium Chloride 0.9% 1, 800 540 000 ml @ 100 mls/hr IV . Q10H [facility] Rx#:[id number] Intake, IV Titration 700 800 Amount Sodium Chloride 0.9% 1, 700 800 000 ml @ 100 mls/hr IV . Q10H [facility] Rx#:[id number] Oral 520 340 Output: Urine 400 Other: Voiding Method Toilet Toilet # Voids 1 - Exam GENERAL EXAM: Obese. Alert, comfortable in no apparent distress. HEAD: Normocephalic. EYES: Normal reaction of pupils, equal size. NOSE: Clear with pink turbinates. THROAT: There is crowding of the posterior pharynx. No erythema or exudates. NECK: Short. No masses, no JVD. CHEST: No chest wall deformity. LUNGS: Equal air entry with few scattered rhonchi. CVS: S1 and S2 normal with no audible murmurs, regular rhythm. ABDOMEN: No hepatosplenomegaly, normal bowel sounds, no guarding or rigidity. SPINE: No scoliosis or deformity SKIN: No rashes CENTRAL NERVOUS SYSTEM: No focal deficits, tone is normal in all 4 extremities. Extremities: There is no significant peripheral edema. No clubbing, no cyanosis. Peripheral pulses are intact. - Labs CBC & Chem 7: 07/11/16 05:53 07/11/16 05:53 Labs: Abnormal Lab Results - Last 24 Hours (Table) 07/11/16 Range/Units 05:53 BUN 19 H (7-17) mg/dL Glucose 102 H (74-99) mg/dL Assessment and Plan Plan: Impression: #1 Dyspnea and left-sided chest pain and a patient found to have bilateral segmental and subsegmental pulmonary emboli with possible pulmonary infarction in the left lung base. There is new focal density with a new left medial basilar or retrocardiac consolidation improved. X-ray on 07/11/2016 reveals improved right basilar atelectasis. Anticoagulated with Xarelto. #2 Recent admission for atypical chest pain with normal troponins and a normal CT angiogram and chest x-ray 1 week ago. #3 Chronic and ongoing tobacco dependence. #4 Chronic obstructive pulmonary disease. #5 Tracheobronchomalacia with recent bronchoscopy and BAL negative for cytology. #6 Obesity. #7 Gastroesophageal reflux disease. #8 History of migraines. #9 History of sleep apnea. #10 Hypertension. #11 Hyperlipidemia. Plan: The patient was seen and evaluated by Dr. Mckeon. She is improved today as compared to yesterday. Her chest x-ray continues to improve. Continue to try to wean down her FiO2 will maintaining O2 saturations at 90% or higher. We'll add a flutter valve. We'll check a C. difficile. We will increase her activity as tolerated. We'll continue to follow.
[2016-07-11] MEDS: HYDROcodone/APAP 5-325MG 1 EACH TAB PO PRN (23:22)
[2016-07-11 23:25] VITALS: RESP 16
[2016-07-12 07:23] LABS: Basophils % (A) 1 %; CH 30.8; CHCM 33.5; Eosinophils # (A) 0.3 k/uL (0-0.7); Eosinophils % (A) 4 %; HCT 42.2 % (34.0-46.0); HDW 2.42; HGB 13.9 gm/dL (11.4-16.0); Luc % (Auto) 2; Lymphocytes # (A) 2.8 k/uL (1.0-4.8); Lymphocytes % (A) 33 %; MCH 30.3 pg (25.0-35.0); MCHC 32.8 g/dL (31.0-37.0); MCV 92.5 fL (80.0-100.0); Mean Platelet Volume 6.1; Monocytes # (A) 0.4 k/uL (0-1.0); Monocytes % (A) 4 %; Neutrophils # (A) 4.7 k/uL (1.3-7.7); Neutrophils % (A) 56 %; RBC 4.57 m/uL (3.80-5.40); RDW 13.3 % (11.5-15.5); WBC 8.4 k/uL (3.8-10.6); WBC (Perox) 8.34
[2016-07-12 07:42] VITALS: BP 110/51; PULSE 74; TEMP 98.5
[2016-07-12 07:46] LABS: Anion Gap 7 mmol/L; Blood Urea Nitrogen 15 mg/dL (7-17); Calcium 10.3 mg/dL (8.4-10.2); Carbon Dioxide 28 mmol/L (22-30); Chloride 107 mmol/L (98-107); Glucose 91 mg/dL (74-99); Non-African American GFR(MDRD) >60 (>60 ml/min/1.73 sqM); Potassium 3.9 mmol/L (3.5-5.1); Sodium 142 mmol/L (137-145)
[2016-07-12] MEDS: DOCUSATE 100 MG CAP PO SCH (08:25)
[2016-07-12] MEDS: PANTOPRAZOLE 40 MG TABLET PO SCH (08:25)
[2016-07-12] MEDS: RIVAROXABAN 15 MG TAB PO SCH (08:25)
[2016-07-12] MEDS: ATORVASTATIN 20 MG TAB PO SCH (08:25)
[2016-07-12] MEDS: BISACODYL 5 MG TABLET.DR PO SCH (08:25)
[2016-07-12] MEDS: ESCITALOPRAM 10 MG TAB PO SCH (08:26)
[2016-07-12] MEDS: TIOTROPIUM 18 MCG/PUFF INHALER INHALATION SCH (08:58)
[2016-07-12] MEDS: SYMBICORT 160-4.5 MCG INHALER INHALATION SCH (08:58)
[2016-07-12] MEDS: ALBUTEROL NEB (CONC) 2.5 MG/0.5 ML INHALATION SCH ×2 (08:58→12:30)
[2016-07-12] MEDS ORDERED: LEVOFLOXACIN 750 MG TAB PO SCH (09:00)
[2016-07-12 12:10] VITALS: BMI 33.6
[2016-07-12] MEDS: MULTIVITAMINS, THERA 1 EACH TAB PO SCH (12:13)
--- NOTE | 2016-07-12 12:40 | P.DS ---
Providers Date of admission: 07/05/16 06:42 Expected date of discharge: 07/12/16 Attending physician: Adolfo Sousa Consults: 07/05/16 06:59 Consult Physician Urgent Consulting Provider: Susan Mckeon Consult Reason/Comments: Bilateral pulmonary embolism, history of COPD Do you want consulting provider notified?: Already Contacted Primary care physician: Preston Vail [facility] Course: Patient is a 65-year-old female, patient of Dr. Vail in the outpatient setting, with medical history significant for hyperlipidemia, hypertension, obesity, migraines, COPD, tracheobronchial malacia, sleep apnea, and obesity. Patient states that she uses 2 L of oxygen at home at nighttime. Patient follows with Dr. Mckeon in the outpatient setting. Patient was recently hospitalized from 06/27/2016 to 06/29/2016 with atypical chest pain and hemoptysis that resolved felt to be due to recent bronchoscopy. Patient at that time underwent serial troponins and CKs that were negative. Patient also had a chest CTA and chest x-ray that was negative. Patient was discharged home in stable condition with close follow-up in the outpatient setting. On this admission, patient presented to the emergency department with complaints of progressive left-sided abdominal pain. patient was found to have elevated d- dimer and underwent a CT angiogram with evidence of bilateral segmental and subsegmental emboli in the lower lobes without evidence of saddle embolus. Patient was admitted to the selective care unit on continuous cardiac monitoring on IV heparin with consult requested to Dr. Carney for pulmonary service. While on selective care unit, patient developed acute hypoxic respiratory failure requiring 15 L of nonrebreather mask. Patient was transferred to the intensive care unit for further monitoring. Patient improved and was transferred back to selective care unit. Patient did have some abdominal complaints and underwent an abdominal x-ray there revealed a nonobstructive bowel gas pattern. Patient was also noted to have new left medial basilar retrocardiac consolidation suspicious for new focal pneumonia. Chest x-ray on 07/11/2016 showed resolving right middle lobe atelectasis with some mild left lower lobe infiltrate. Patient improved with antibiotics, supportive care and pain management, and anticoagulation in the form of Xarelto per PE protocol. On the day of discharge, patient's oxygen saturation was 91% on 2 L nasal cannula. Patient was ambulating in the room. Tolerating diet. Pain controlled with current pain management. Patient was felt stable for discharge to home by both pulmonary service and medical service with close follow-up in the outpatient setting. Discharge diagnoses: 1. Bilateral pulmonary emboli. 2. Acute renal failure suspect secondary to intravascular volume depletion and hypoperfusion with episodes of hypotension, resolved. 3. Left flank pain suspect referred from pulmonary emboli and possible infarction, improved. 4. Acute on chronic hypoxic respiratory failure suspect secondary to pneumonia. 5. Acute on chronic obstructive pulmonary disease exacerbation. 6. Tracheobronchomalacia with a recent bronchoscopy and BAL negative for cytology. 7. Obesity, BMI 34.5. 8. Gastroesophageal reflux disease. 9. Obstructive sleep apnea. 10. History of hypertension. 11. Hyperlipidemia. 12. History of migraines. 13. Depression, stable. 14. Nicotine dependence. 15. Constipation, resolved. 16. Diarrhea, resolved. The above impression and plan have been discussed and directed by Dr. Vail. Dwight LEMOS acting as scribe for Dr. Vail. Patient Condition at Discharge: Good Plan - Discharge Summary New Discharge Prescriptions: Albuterol Inhaler [Ventolin Hfa Inhaler] 1 - 2 puff INHALATION Q6HR PRN #1 inhaler PRN Reason: Shortness Of Breath Escitalopram [Lexapro] 10 mg PO DAILY #30 tab Rivaroxaban [Xarelto] 15 mg PO BID-W/MEALS #32 tab Rivaroxaban [Xarelto] 20 mg PO DAILY #30 tab Discharge Medication List Fluticasone/Salmeterol [Advair 500-50 Diskus] 1 puff INHALATION RT-DAILY [History] Omeprazole [PriLOSEC] 20 mg PO AC-BRKFST 05/11/14 [History] Multivitamins, Thera [Multivitamin (formulary)] 1 tab PO DAILY 06/14/16 [History ] Tiotropium 18 Mcg/Puff [Spiriva] 1 cap INHALATION RT-DAILY 06/14/16 [History] Albuterol Inhaler [Ventolin Hfa Inhaler] 1 - 2 puff INHALATION Q6HR PRN #1 inhaler 07/12/16 [Rx] Atorvastatin [Lipitor] 20 mg PO DAILY tab 07/12/16 [Rx] Escitalopram [Lexapro] 10 mg PO DAILY #30 tab 07/12/16 [Rx] Rivaroxaban [Xarelto] 15 mg PO BID-W/MEALS #32 tab 07/12/16 [Rx] Rivaroxaban [Xarelto] 20 mg PO DAILY #30 tab 07/12/16 [Rx] Follow up Appointment(s)/Referral(s): Preston Vail MD [Primary Care Provider] - 1-2 days Susan Mckeon MD [STAFF PHYSICIAN] - 1 Week Patient Instructions/Handouts: Pulmonary Embolism (DC) Activity/Diet/Wound Care/Special Instructions: Xaralto 15 mg PO BID for 16 more days for a total of 21 days FOLLOWED by Xarelto 20 mg PO daily. Discharge Disposition: HOME SELF-CARE
--- NOTE | 2016-07-12 12:59 | P.PN ---
Subjective Principal diagnosis: Pulmonary embolism This is a very pleasant 65-year-old female patient who follows with Dr. Vail as her primary care physician. She has a history of hyperlipidemia, hypertension, obesity, migraines, chronic cough. She does have a history of chronic obstructive pulmonary disease, chronic and ongoing tobacco dependence, sleep apnea, tracheobronchomalacia and had recently undergone bronchoscopy with BAL with Dr. Mckeon 2 weeks ago. Last week she was admitted on 06/27/2016 with excruciating midsternal pain. A computed tomography scan of the chest revealed no evidence of aortic aneurysm or dissection. There were no acute findings. EKG was normal. Troponins were negative. Influenza screen was negative. She was discharged home the following day. She reads re-presented here early this morning with complaints of abdominal discomfort that is left lateral abdominal pain that had been getting worse over the last several days. She was complaining a lot of 10 out of 10 constant sharp pain in her left side.a KUB of the abdomen revealed mildly increased left base atelectasis/ infiltrate and small left pleural effusion. There is no evidence of intestinal obstruction or perforation seen.CT angiogram revealed bilateral segmental and subsegmental emboli in the lower lobes with wedge shaped opacities. She is seen in consultation on the selective care unit. She is awake and alert. She is complaining of significant left-sided chest and upper abdominal discomfort. She was initially requiring 2 L/m per nasal cannula maintaining O2 saturations in the 90s. Early this morning she started to desaturate requiring 15 L nonrebreather mask. She is quite uncomfortable and short of breath on our evaluation. Arterial blood gases were drawn and she has a pO2 of 98, pCO2 50, pH 7.3 200% FiO2. She is seen again today 07/09/2016 in follow-up on the selective care unit. She is awake and alert in no acute distress. She's been up ambulating in the room. She did have some abdominal complaints. An abdominal x-ray revealed nonobstructive bowel gas pattern. However there was noted new left medial basilar retrocardiac consolidation with air bronchograms suspicious for new focal pneumonia. She is still requiring 8 L of high flow nasal cannula to maintain O2 saturations in the 90s. She's been hemodynamically stable. No leukocytosis. She is on Xarelto for anticoagulation. The patient is seen again today 07/10/2016 in follow-up on the selective care unit. She is currently awake and alert in no acute distress. She is still requiring 8 L of high flow nasal cannula to maintain O2 saturations greater than 90%. Does continue with a loose nonproductive cough. No chills or night sweats.no fever. No leukocytosis. She remains on antibiotics in the form of Levaquin. She is continued on 6 L of high flow nasal cannula to maintain O2 saturations greater than 90%. She continues with a loose nonproductive cough. She remains afebrile. No leukocytosis. Today's chest x-ray reveals resolving right middle lobe atelectasis with some mild left lower lobe infiltrate. Remains on Levaquin. He has been having ongoing issues with diarrhea. We will check a C. diff. She was seen and evaluated again today 07/12/2016. She has been doing well on 2 L/m per nasal cannula. She is back to her baseline. She has been anticoagulated with Xarelto. Her C. difficile screen was negative. Objective - Vital Signs Vital signs: Vital Signs Temp 98.5 F 07/12/16 07:41 Pulse 74 07/12/16 08:00 Resp 16 07/12/16 10:25 BP 110/51 07/12/16 07:41 Pulse Ox 91 L 07/12/16 10:25 Intake & Output 07/11/16 07/12/16 07/12/16 18:59 06:59 18:59 Intake Total 890 10 Output Total 150 300 Balance 890 -140 -300 Weight 94.6 kg Intake: IV 550 10 Invasive Line 4 10 10 Sodium Chloride 0.9% 1, 540 000 ml @ 100 mls/hr IV . [facility]H [facility] Rx#:[id number] Oral 340 0 Output: Urine 150 300 Other: Voiding Method Toilet Toilet # Voids 1 - Exam GENERAL EXAM: Obese. Alert, comfortable in no apparent distress. HEAD: Normocephalic. EYES: Normal reaction of pupils, equal size. NOSE: Clear with pink turbinates. THROAT: There is crowding of the posterior pharynx. No erythema or exudates. NECK: Short. No masses, no JVD. CHEST: No chest wall deformity. LUNGS: Equal air entry with few scattered rhonchi. CVS: S1 and S2 normal with no audible murmurs, regular rhythm. ABDOMEN: No hepatosplenomegaly, normal bowel sounds, no guarding or rigidity. SPINE: No scoliosis or deformity SKIN: No rashes CENTRAL NERVOUS SYSTEM: No focal deficits, tone is normal in all 4 extremities. Extremities: There is no significant peripheral edema. No clubbing, no cyanosis. Peripheral pulses are intact. - Labs CBC & Chem 7: 07/12/16 06:56 07/12/16 06:53 Labs: Abnormal Lab Results - Last 24 Hours (Table) 07/12/16 Range/Units 06:53 Calcium 10.3 H (8.4-10.2) mg/dL Assessment and Plan Plan: Impression: #1 Dyspnea and left-sided chest pain and a patient found to have bilateral segmental and subsegmental pulmonary emboli with possible pulmonary infarction in the left lung base. There is new focal density with a new left medial basilar or retrocardiac consolidation improved. X-ray on 07/11/2016 reveals improved right basilar atelectasis. Anticoagulated with Xarelto. #2 Recent admission for atypical chest pain with normal troponins and a normal CT angiogram and chest x-ray 1 week ago. #3 Chronic and ongoing tobacco dependence. #4 Chronic obstructive pulmonary disease. #5 Tracheobronchomalacia with recent bronchoscopy and BAL negative for cytology. #6 Obesity. #7 Gastroesophageal reflux disease. #8 History of migraines. #9 History of sleep apnea. #10 Hypertension. #11 Hyperlipidemia. Plan: The patient was seen and evaluated by Dr. Mckeon. He is cleared for discharge from the pulmonary standpoint. She'll continue her usual pulmonary medications. She does have BiPAP at home. She also has oxygen at home and a nebulizer. She will follow-up with Dr. Mckeon in the office as scheduled. She is encouraged to call sooner with any recurrence of symptoms or other questions or concerns. She'll be maintained on Xarelto.
== END 2016-07-12 13:51 | disposition home or self-care (01) | DRG 175 ==
LOC: EC 01:16 → 6SEL 06:42 → 6ICU 14:07 → 6SEL 07-07 18:21 → 3SUR 07-11 22:51
PROVIDERS: ADMIT Family Medicine; ATTEND Family Medicine
DX: I26.99 Other pulmonary embolism without acute cor pulmonale (principal); J96.21 Acute and chronic respiratory failure with hypoxia; N17.9 Acute kidney failure, unspecified; J18.9 Pneumonia, unspecified organism; I95.9 Hypotension, unspecified; Z99.81 Dependence on supplemental oxygen; I11.9 Hypertensive heart disease without heart failure; E86.9 Volume depletion, unspecified; J44.1 Chronic obstructive pulmonary disease with (acute) exacerbation; J44.0 Chronic obstructive pulmonary disease with (acute) lower respiratory infection; R10.12 Left upper quadrant pain; G47.33 Obstructive sleep apnea (adult) (pediatric); R19.7 Diarrhea, unspecified; J98.09 Other diseases of bronchus, not elsewhere classified; J45.909 Unspecified asthma, uncomplicated; J39.8 Other specified diseases of upper respiratory tract; M19.90 Unspecified osteoarthritis, unspecified site; H26.9 Unspecified cataract; R11.0 Nausea; I49.9 Cardiac arrhythmia, unspecified; K21.9 Gastro-esophageal reflux disease without esophagitis; K59.00 Constipation, unspecified; E66.9 Obesity, unspecified; E78.5 Hyperlipidemia, unspecified; F32.9 Major depressive disorder, single episode, unspecified; G43.909 Migraine, unspecified, not intractable, without status migrainosus; F17.200 Nicotine dependence, unspecified, uncomplicated; Z71.6 Tobacco abuse counseling; Z98.890 Other specified postprocedural states; Z79.51 Long term (current) use of inhaled steroids; Z68.34 Body mass index [BMI] 34.0-34.9, adult; Z79.899 Other long term (current) drug therapy; Z82.49 Family history of ischemic heart disease and other diseases of the circulatory system; Z80.1 Family history of malignant neoplasm of trachea, bronchus and lung; Z88.1 Allergy status to other antibiotic agents; Z88.0 Allergy status to penicillin; Z88.2 Allergy status to sulfonamides; Z88.8 Allergy status to other drugs, medicaments and biological substances; Z87.42 Personal history of other diseases of the female genital tract; Z87.19 Personal history of other diseases of the digestive system; Z90.49 Acquired absence of other specified parts of digestive tract; Z87.2 Personal history of diseases of the skin and subcutaneous tissue; Z87.01 Personal history of pneumonia (recurrent)
CPT/HCPCS: 36415; 36600; 71010; 71020; 71275; 74000; 74020; 80048; 80053; 81001; 81003; 82150; 82550; 82553; 82805; 83690; 83735; 83880; 84100; 84484; 85025; 85379; 85610; 85730; 87086; 87324; 93005; 93970; 94640; 94660; 94667; 94760

== ENCOUNTER → 2016-09-10 | Outpatient (CLI) | payer MEDICARE ==
--- NOTE | 2016-09-10 19:24 | US ---
EXAMINATION TYPE: US transvaginal DATE OF EXAM: 09/10/2016 COMPARISON: Prior CT 2012, US 2009 CLINICAL HISTORY: N95.0 Post menopausal bleeding x1 day. Difficult exam due to patient pain and overl osiel bowel gas TECHNIQUE: Transvaginal (TV) Date of LMP: 20 years ago EXAM MEASUREMENTS: Uterus: 4.1 x 1.1 x 1.7 cm Endometrial Stripe: 0.3 cm Right Ovary: 1.0 x 0.6 x 0.8 cm Left Ovary: 1.8 x 1.1 x 1.4 cm 1. Uterus: Retroverted Probable nabothian cysts visualized within cervix 2. Endometrium: There appears to be some fluid visualized within the endometrium 3. Right Ovary: wnl as visualized 4. Left Ovary: wnl as visualized 5. Bilateral Adnexa: wnl as visualized 6. Posterior cul-de-sac: wnl IMPRESSION: Atrophic uterus. No adnexal mass or free fluid. No endometrial thickening.
== END | disposition home or self-care (01) ==
LOC: RADUSMAIN 17:56
PROVIDERS: ATTEND Family Medicine
DX: N85.8 Other specified noninflammatory disorders of uterus (principal)
CPT/HCPCS: 76830

== ENCOUNTER → 2017-04-11 | Outpatient (CLI) | payer MEDICARE ==
[2017-04-11 08:46] LABS: Blood Urea Nitrogen 18 mg/dL (7-17)
--- NOTE | 2017-04-11 10:08 | CT ---
EXAMINATION TYPE: CT angio chest DATE OF EXAM: 04/11/2017 COMPARISON: 07/05/2016 HISTORY: Follow up on pulmonary embolism CT DLP: 664.30 mGycm CONTRAST: CT chest with contrast and 3D reconstruction with MIP imaging is performed with IV Contrast, patient injected with 100 mL of Omnipaque 350. Contrast-enhanced CT of the chest was performed through the course of the pulmonary arteries with harvey g and mediastinal window settings submitted. 3D reconstruction with MIP imaging was also performed. PULMONARY ARTERIES: The pulmonary arteries and their major tributaries are patent. I do not see leroy dence for sizable filling defect to suggest pulmonary embolic process. Previously noted emboli have r esolved in the interval. LUNGS: Basilar parenchymal scarring and/or atelectasis noted. Scattered emphysematous changes seen mo derate to severe within the upper lobes. No pulmonary nodule or mass is detected. No pleural effusio n. MEDIASTINUM: Thoracic aorta is of normal caliber . The heart is mildly enlarged. No evidence for me diastinal mass. No mediastinal lymph nodes greater than 1cm. HILAR STRUCTURES: No evidence for mass. No hilar lymph nodes greater than 1 cm. UPPER ABDOMEN: Cholelithiasis.. IMPRESSION: 1. No evidence for Pulmonary embolism at this time. 2. Basilar atelectasis and/or parenchymal scarring. 3. Moderate to severe upper lobe emphysematous change.
== END | disposition home or self-care (01) ==
LOC: RADCTMAIN 08:08
PROVIDERS: ATTEND Internal Medicine Critical Care Medicine
DX: J43.9 Emphysema, unspecified (principal)
CPT/HCPCS: 82565; 84520; 71275; 36415; Q9967

== ENCOUNTER → 2017-11-21 | Outpatient (CLI) | payer MEDICARE ==
--- NOTE | 2017-11-21 14:49 | US ---
EXAMINATION TYPE: US abdomen complete DATE OF EXAM: 11/21/2017 COMPARISON: CT 06/27/2016 CLINICAL HISTORY: R10.10 Upper Abd pain, R19.7 Diahrrhea, R63.4. Difficult study due to patient body habitus and overlying bowel gas EXAM MEASUREMENTS: Liver Length: 15.1 cm Gallbladder Wall: 0.2 cm CBD: 0.6 cm Spleen: 8.9 cm Right Kidney: 12.9 x 6.8 x 4.7 cm Left Kidney: 10.8 x 4.6 x 4.3 cm Pancreas: Tail obscured by overlying bowel gas, visualized portions appear wnl Liver: Heterogeneous. limited visualization due to overlying bowel gas Gallbladder: Stone visualized Evidence for sonographic Chong's sign: No CBD: wnl, distal portion obscured by bowel gas Spleen: wnl Right Kidney: No hydronephrosis or masses seen Left Kidney: No hydronephrosis or masses seen Upper IVC: wnl Abd Aorta: Atherosclerotic changes visualized IMPRESSION: 1. Cholelithiasis. No acute cholecystitis by ultrasound.
== END | disposition home or self-care (01) ==
LOC: RADUSWWP 12:06
PROVIDERS: ATTEND Family Medicine
DX: K80.20 Calculus of gallbladder without cholecystitis without obstruction (principal)
CPT/HCPCS: 76700

== ENCOUNTER 2017-12-04 13:21 | Observation (INO) | payer MEDICARE ==
[2017-12-04] MEDS ORDERED: IPRATROPIUM 0.5 MG/2.5 ML NEBU INHALATION STA (14:11)
[2017-12-04] MEDS ORDERED: ALBUTEROL NEBULIZED (CONC) 5 MG, SODIUM CHLORIDE 0.9% NEBULIZ 3 ML INHALATION STA ×4 (14:14→14:16)
--- NOTE | 2017-12-04 14:18 | ED ---
General Adult HPI - General Chief complaint: Shortness of Breath Stated complaint: COUGHING UP BLOOD Time Seen by Provider: 12/04/17 13:25 Source: patient, RN notes reviewed Mode of arrival: ambulatory Limitations: no limitations - History of Present Illness Initial comments: This is a 67-year-old female who presents emergency Department complaining of difficulty breathing and a cough over the last week. Patient states over the last couple of days she's been coughing up some bright red blood. Patient states she has a history of pulmonary and wasn't and she is already on Xarelto. Patient states she is coughing up bright red blood mixed with sputum. Patient states her shortness of breath also has gotten worse over the last couple of days. Patient denies any leg swelling or calf tenderness. Patient denies any chest pain except with coughing. Patient denies any palpitations. Patient denies abdominal pain patient denies nausea vomiting diarrhea. Patient denies any fever but does complain that she's had the chills lately. - Related Data Home Medications Medication Instructions Recorded Confirmed Fluticasone/Salmeterol [Advair 1 puff INHALATION RT-BID 05/11/14 12/04/17 500-50 Diskus] Omeprazole [PriLOSEC] 20 mg PO AC-BRKFST 05/11/14 12/04/17 Multivitamins, Thera [Multivitamin 1 tab PO DAILY 06/14/16 12/04/17 (formulary)] Calcium Carbonate [Tums] 500 mg PO TID PRN 12/04/17 12/04/17 Cholecalciferol [Vitamin D3] 1,000 unit PO DAILY 12/04/17 12/04/17 Enalapril [Vasotec] 20 mg PO DAILY 12/04/17 12/04/17 HYDROcodone/APAP 10-325MG [[place] 1 tab PO Q6H PRN 12/04/17 12/04/17 10-325] Rivaroxaban [Xarelto] 15 mg PO DAILY 12/04/17 12/04/17 Umeclidinium [place] [Incruse 1 puff INHALATION RT-DAILY 12/04/17 12/04/17 Ellipta] Previous Rx's Medication Instructions Recorded Escitalopram [Lexapro] 10 mg PO DAILY #30 tab 07/12/16 Allergies Allergy/AdvReac Type Severity Reaction Status Date / Time oxytetracycline Allergy Unknown Verified 12/04/17 13:55 [From Terramycin] Childhood oxytetracycline HCl Allergy Unknown Verified 12/04/17 13:55 [From Terramycin] Childhood Penicillins Allergy Unknown Verified 12/04/17 13:55 Childhood streptomycin [Streptomycin] Allergy Unknown Verified 12/04/17 13:55 Childhood Sulfa (Sulfonamide Allergy Unknown Verified 12/04/17 13:55 Antibiotics) Childhood Tetracyclines Allergy Unknown Verified 12/04/17 13:55 Childhood albuterol AdvReac Unknown shaking, Verified 12/04/17 13:55 weakness, insomnia Review of Systems ROS Statement: Those systems with pertinent positive or pertinent negative responses have been documented in the HPI. ROS Other: All systems not noted in ROS Statement are negative. Past Medical History Past Medical History: Chest Pain / Angina, COPD, GERD/Reflux, Hyperlipidemia, Hypertension, Osteoarthritis (OA), Pneumonia, Skin Disorder, Sleep Apnea/CPAP/ BIPAP Additional Past Medical History / Comment(s): Pt recently admitted to [facility] on 03/03 with atypical chest pain, hemoptysis-resolved. Other HX : Home O2 at 2L/ NC at HS, MIGRAINES, ENLARGED LIVER., TRACHEOBRONCHOMALACIA, CHRONIC COUGH, beginnings of catracts- wears contact lenses. History of Any Multi-Drug Resistant Organisms: None Reported Past Surgical History: Appendectomy, Section, Orthopedic Surgery, Tonsillectomy Additional Past Surgical History / Comment(s): jamey wrist, left elbow, ovarian cyst, exploratory laparoscopy, Rt knee Arthroscopy x 2.bronchoscopy Past Anesthesia/Blood Transfusion Reactions: Motion Sickness Past Psychological History: Depression Smoking Status: Current every day smoker Past Alcohol Use History: Rare Past Drug Use History: None Reported - Past Family History Mother Family Medical History: Cancer Additional Family Medical History / Comment(s): LUNG CA Father Family Medical History: Cancer Additional Family Medical History / Comment(s): LUNG CA Sister(s) Family Medical History: Cancer, Deep Vein Thrombosis (DVT) Additional Family Medical History / Comment(s): . Brother(s) Family Medical History: Coronary Artery Disease (CAD) General Exam - General Exam Comments Initial Comments: GENERAL: Patient is well-developed and well-nourished. Patient is nontoxic and well- hydrated and is in mild distress. Pulse ox was 87% on room air ENT: Neck is soft and supple. No significant lymphadenopathy is noted. Oropharynx is clear. Moist mucous membranes. Neck has full range of motion without eliciting any pain. EYES: The sclera were anicteric and conjunctiva were pink and moist. Extraocular movements were intact and pupils were equal round and reactive to light. Eyelids were unremarkable. PULMONARY: Patient is wheezing bilaterally CARDIOVASCULAR: There is a regular rate and rhythm without any murmurs gallops or rubs. ABDOMEN: Soft and nontender with normal bowel sounds. No palpable organomegaly was noted. There is no palpable pulsatile mass. SKIN: Skin is clear with no lesions or rashes and otherwise unremarkable. NEUROLOGIC: Patient is alert and oriented x3. Cranial nerves II through XII are grossly intact. Motor and sensory are also intact. Normal speech, volume and content. Symmetrical smile. Cerebellar exam grossly intact. MUSCULOSKELETAL: Normal extremities with adequate strength and full range of motion. No lower extremity swelling or edema. No calf tenderness. LYMPHATICS: No significant lymphadenopathy is noted PSYCHIATRIC: Normal psychiatric evaluation. Limitations: no limitations Course Vital Signs 12/04/17 12/04/17 12/04/17 13:41 14:15 14:18 Temperature 98.1 F 98.8 F Pulse Rate 77 68 Respiratory 20 20 20 Rate Blood Pressure 130/80 146/79 O2 Sat by Pulse 88 L 90 L Oximetry 12/04/17 12/04/17 12/04/17 15:06 15:30 15:31 Temperature Pulse Rate 74 78 78 Respiratory Rate Blood Pressure O2 Sat by Pulse Oximetry Medical Decision Making - Medical Decision Making EKG shows sinus rhythm at 67 bpm VT interval is 248 QRS is 92 QT interval 432 QTC is 456 per patient's EKG shows no ST segment elevation or depression or T wave abnormalities are noted. Chest x-ray shows no acute abnormality. Patient received multiple breathing treatments emergency department plus steroids and her improvement was minimal. I spoke with Dr. Sousa he agreed to admit the patient admitted the patient wrote admitting orders continued albuterol steroids on the floor I consult pulmonology. - Lab Data Result diagrams: 12/04/17 14:14 12/04/17 14:14 Lab Results 12/04/17 12/04/17 12/04/17 Range/Units 14:14 14:14 14:14 WBC 9.5 (3.8-10.6) k/uL RBC 5.06 (3.80-5.40) m/uL Hgb 15.4 (11.4-16.0) gm/dL Hct 46.9 H (34.0-46.0) % MCV 92.5 (80.0-100.0) fL MCH 30.5 (25.0-35.0) pg MCHC 32.9 (31.0-37.0) g/dL RDW 13.0 (11.5-15.5) % Plt Count 231 (150-450) k/uL Neutrophils % 49 % Lymphocytes % 42 % Monocytes % 4 % Eosinophils % 2 % Basophils % 1 % Neutrophils # 4.6 (1.3-7.7) k/uL Lymphocytes # 4.0 (1.0-4.8) k/uL Monocytes # 0.4 (0-1.0) k/uL Eosinophils # 0.2 (0-0.7) k/uL Basophils # 0.1 (0-0.2) k/uL PT (9.0-12.0) sec INR (<1.2) APTT (22.0-30.0) sec Sodium 143 (137-145) mmol/L Potassium 3.8 (3.5-5.1) mmol/L Chloride 108 H (98-107) mmol/L Carbon Dioxide 29 (22-30) mmol/L Anion Gap 6 mmol/L BUN 18 H (7-17) mg/dL Creatinine 0.65 (0.52-1.04) mg/dL Est GFR (CKD-EPI)AfAm >90 (>60 ml/min/1.73 sqM) Est GFR (CKD-EPI)NonAf >90 (>60 ml/min/1.73 sqM) Glucose 92 (74-99) mg/dL Calcium 10.1 (8.4-10.2) mg/dL Magnesium 1.9 (1.6-2.3) mg/dL Total Bilirubin 0.5 (0.2-1.3) mg/dL AST 18 (14-36) U/L ALT 30 (9-52) U/L Alkaline Phosphatase 109 (38-126) U/L Total Creatine Kinase 31 (30-135) U/L CK-MB (CK-2) 0.7 (0.0-2.4) ng/mL CK-MB (CK-2) Rel Index 2.3 Troponin I <0.012 (0.000-0.034) ng/mL Total Protein 6.3 (6.3-8.2) g/dL Albumin 3.9 (3.5-5.0) g/dL 12/04/17 Range/Units 14:14 WBC (3.8-10.6) k/uL RBC (3.80-5.40) m/uL Hgb (11.4-16.0) gm/dL Hct (34.0-46.0) % MCV (80.0-100.0) fL MCH (25.0-35.0) pg MCHC (31.0-37.0) g/dL RDW (11.5-15.5) % Plt Count (150-450) k/uL Neutrophils % % Lymphocytes % % Monocytes % % Eosinophils % % Basophils % % Neutrophils # (1.3-7.7) k/uL Lymphocytes # (1.0-4.8) k/uL Monocytes # (0-1.0) k/uL Eosinophils # (0-0.7) k/uL Basophils # (0-0.2) k/uL PT 12.4 H (9.0-12.0) sec INR 1.3 H (<1.2) APTT 30.8 H (22.0-30.0) sec Sodium (137-145) mmol/L Potassium (3.5-5.1) mmol/L Chloride (98-107) mmol/L Carbon Dioxide (22-30) mmol/L Anion Gap mmol/L BUN (7-17) mg/dL Creatinine (0.52-1.04) mg/dL Est GFR (CKD-EPI)AfAm (>60 ml/min/1.73 sqM) Est GFR (CKD-EPI)NonAf (>60 ml/min/1.73 sqM) Glucose (74-99) mg/dL Calcium (8.4-10.2) mg/dL Magnesium (1.6-2.3) mg/dL Total Bilirubin (0.2-1.3) mg/dL AST (14-36) U/L ALT (9-52) U/L Alkaline Phosphatase (38-126) U/L Total Creatine Kinase (30-135) U/L CK-MB (CK-2) (0.0-2.4) ng/mL CK-MB (CK-2) Rel Index Troponin I (0.000-0.034) ng/mL Total Protein (6.3-8.2) g/dL Albumin (3.5-5.0) g/dL Critical Care Time Critical Care Time: Yes Total Critical Care Time: 35 Disposition Clinical Impression: Acute exacerbation of chronic obstructive airways disease, Hemoptysis Disposition: ADMITTED IP TO THIS HOSP Referrals: Preston Vail MD [Primary Care Provider] - 1-2 days Time of Disposition: 15:47
[2017-12-04] MEDS ORDERED: methylPREDNISolone SOD SUCCI 125 MG/2 ML VIAL IV STA (14:26)
[2017-12-04 14:30] LABS: Basophils # (A) 0.1 k/uL (0-0.2); Basophils % (A) 1 %; Eosinophils # (A) 0.2 k/uL (0-0.7); Eosinophils % (A) 2 %; HCT 46.9 % (34.0-46.0); HGB 15.4 gm/dL (11.4-16.0); Lymphocytes % (A) 42 %; MCH 30.5 pg (25.0-35.0); MCHC 32.9 g/dL (31.0-37.0); MCV 92.5 fL (80.0-100.0); Mean Platelet Volume 6.8; Monocytes # (A) 0.4 k/uL (0-1.0); Monocytes % (A) 4 %; Neutrophils # (A) 4.6 k/uL (1.3-7.7); Neutrophils % (A) 49 %; Platelet Count 231 k/uL (150-450); RBC 5.06 m/uL (3.80-5.40); WBC 9.5 k/uL (3.8-10.6)
--- NOTE | 2017-12-04 14:37 | XR ---
EXAMINATION TYPE: XR chest 2V DATE OF EXAM: 12/04/2017 COMPARISON: 07/11/2016 INDICATION: Cough and congestion TECHNIQUE: Frontal and lateral views of the chest are obtained. FINDINGS: The heart size is at the upper limits of normal for size.. The pulmonary vasculature is normal. The lungs are clear. IMPRESSION: 1. No acute pulmonary process.
[2017-12-04 14:42] LABS: INR 1.3 (<1.2); Partial Thromboplastin Time 30.8 sec (22.0-30.0); Prothrombin Time 12.4 sec (9.0-12.0)
[2017-12-04 14:47] LABS: ALT 30 U/L (9-52); AST 18 U/L (14-36); Albumin 3.9 g/dL (3.5-5.0); Alkaline Phosphatase 109 U/L (38-126); Anion Gap 6 mmol/L; Blood Urea Nitrogen 18 mg/dL (7-17); Calcium 10.1 mg/dL (8.4-10.2); Carbon Dioxide 29 mmol/L (22-30); Chloride 108 mmol/L (98-107); Glucose 92 mg/dL (74-99); Magnesium 1.9 mg/dL (1.6-2.3); Potassium 3.8 mmol/L (3.5-5.1); Sodium 143 mmol/L (137-145); Total Bilirubin 0.5 mg/dL (0.2-1.3); Total Protein 6.3 g/dL (6.3-8.2)
[2017-12-04 14:53] LABS: Creatine Kinase 31 U/L (30-135)
[2017-12-04] MEDS ORDERED: ALBUTEROL NEBULIZED 2.5 MG/3 ML INHALATION STA ×2 (15:00→15:13)
[2017-12-04 15:06] LABS: Creatine Kinase MB 0.7 ng/mL (0.0-2.4); Troponin I <0.012 ng/mL (0.000-0.034)
[2017-12-04] MEDS ORDERED: IPRATROPIUM-ALBUTEROL 3 ML NEB INHALATION STA (15:47)
[2017-12-04] MEDS: IPRATROPIUM-ALBUTEROL 3 ML NEB INHALATION SCH ×2 (16:30→20:14)
[2017-12-04] MEDS ORDERED: LORazepam 2 MG/ML INJ IV STA (16:43)
[2017-12-04] MEDS: methylPREDNISolone SOD SUCCI 125 MG/2 ML VIAL IV SCH (18:53)
[2017-12-05] MEDS: methylPREDNISolone SOD SUCCI 125 MG/2 ML VIAL IV SCH ×2 (00:50→05:43)
[2017-12-05] MEDS ORDERED: ACETAMINOPHEN TAB 325 MG TAB PO PRN (07:55)
[2017-12-05 08:58] LABS: Anion Gap 11 mmol/L; Blood Urea Nitrogen 21 mg/dL (7-17); Calcium 10.5 mg/dL (8.4-10.2); Carbon Dioxide 25 mmol/L (22-30); Chloride 109 mmol/L (98-107); Glucose 178 mg/dL (74-99); Magnesium 1.9 mg/dL (1.6-2.3); Potassium 4.2 mmol/L (3.5-5.1); Sodium 145 mmol/L (137-145)
--- NOTE | 2017-12-05 10:14 | P.DS ---
Providers Date of admission: 12/04/17 15:47 Expected date of discharge: 12/05/17 Attending physician: Adolfo Sousa Consults: 12/04/17 15:47 Consult Physician Routine Consulting Provider: Susan Mckeon Consult Reason/Comments: COPD, hemoptysis Do you want consulting provider notified?: Yes Primary care physician: [facility] Course: This document serves as H&P and discharge summary 67-year-old female who presented to the emergency room with a chief complaint of shortness of breath and hemoptysis. The patient reports over the past few days her shortness of breath has increased past her baseline. She reports a few episodes over the past couple days of pink tinged sputum and one episode of sputum with bright red streaking in it. No further episodes of hemoptysis have been visualized. Sputum this morning is clear. The patient reports an increase in the amount of cigarettes she has been smoking and reports she is smoking almost two packs a day. Chest xray completed was negative for an acute process. She was started on IV steroids. She does have a productive hacking cough, which the patient and report is her baseline. She is anxious to leave the hospital and requesting to be discharged. Dr. Sousa agreeable to discharge home today. Patient is to follow up with Dr. Sousa tomorrow in the office. She also has an appointment with Dr. Mckeon scheduled for Saturday. She was prescribed a prednisone taper at the time of discharge. DISCHARGE DIAGNOSIS: Acute exacerbation of chronic obstructive pulmonary disease Acute on chronic bronchitis Hemoptysis secondary to bronchitis, resolved at the time of discharge, hemoglobin remained stable History of pulmonary embolus, maintained on long-term anticoagulation with Xarelto Hyperlipidemia Hypertension Ongoing nicotine dependence, patient reports she smokes 2 packs a day Obesity: BMI 31.3 Nurse practitioner note has been reviewed by physician. Signing provider agrees with the documented findings, assessment, and plan of care. Patient Condition at Discharge: Stable Plan - Discharge Summary Discharge Rx Participant: No New Discharge Prescriptions: New predniSONE See Taper PO DIRECTED #30 tab Continue Omeprazole [PriLOSEC] 20 mg PO AC-BRKFST Fluticasone/Salmeterol [Advair 500-50 Diskus] 1 puff INHALATION RT-BID Multivitamins, Thera [Multivitamin (formulary)] 1 tab PO DAILY Escitalopram [Lexapro] 10 mg PO DAILY #30 tab HYDROcodone/APAP 10-325MG [[place] 10-325] 1 tab PO Q6H PRN PRN Reason: Pain Enalapril [Vasotec] 20 mg PO DAILY Calcium Carbonate [Tums] 500 mg PO TID PRN PRN Reason: Heartburn Umeclidinium [place] [Incruse Ellipta] 1 puff INHALATION RT-DAILY Cholecalciferol [Vitamin D3] 1,000 unit PO DAILY Rivaroxaban [Xarelto] 15 mg PO DAILY Discharge Medication List Fluticasone/Salmeterol [Advair 500-50 Diskus] 1 puff INHALATION RT-BID 05/11/14 [History] Omeprazole [PriLOSEC] 20 mg PO AC-BRKFST 05/11/14 [History] Multivitamins, Thera [Multivitamin (formulary)] 1 tab PO DAILY 06/14/16 [History ] Escitalopram [Lexapro] 10 mg PO DAILY #30 tab 07/12/16 [Rx] Calcium Carbonate [Tums] 500 mg PO TID PRN 12/04/17 [History] Cholecalciferol [Vitamin D3] 1,000 unit PO DAILY 12/04/17 [History] Enalapril [Vasotec] 20 mg PO DAILY 12/04/17 [History] HYDROcodone/APAP 10-325MG [[place] 10-325] 1 tab PO Q6H PRN 12/04/17 [History] Rivaroxaban [Xarelto] 15 mg PO DAILY 12/04/17 [History] Umeclidinium [place] [Incruse Ellipta] 1 puff INHALATION RT-DAILY 12/04/17 [ History] predniSONE See Taper PO DIRECTED #30 tab 12/05/17 [Rx] Follow up Appointment(s)/Referral(s): Adolfo Sousa Jr, DO [Doctor of Osteopathic Medicine] - 12/06/17 9:30 am (.) Susan Mckeon MD [STAFF PHYSICIAN] - 12/09/17 (Patient already has appointment scheduled on Saturday) Patient Instructions/Handouts: How to Stop Smoking (ED), Cigarette Smoking and Your Health (GEN), COPD (Chronic Obstructive Pulmonary Disease) (ED) Activity/Diet/Wound Care/Special Instructions: If you begin to see blood in your sputum again, please call Dr. Sousa or come to the emergency room if severe Discharge Disposition: HOME SELF-CARE
[2017-12-05 10:24] VITALS: BP 167/76; PULSE 75; RESP 18; TEMP 97.7
[2017-12-05 11:53] LABS: HCT 49.8 % (34.0-46.0); HGB 15.6 gm/dL (11.4-16.0); MCH 29.9 pg (25.0-35.0); MCHC 31.2 g/dL (31.0-37.0); MCV 95.7 fL (80.0-100.0); Mean Platelet Volume 7.2; Platelet Count 256 k/uL (150-450); RBC 5.21 m/uL (3.80-5.40); RDW 12.9 % (11.5-15.5); WBC 6.7 k/uL (3.8-10.6)
[2017-12-05 19:14] LABS: Hemoglobin A1C 5.6 % (4.0-6.0)
== END 2017-12-05 10:03 | disposition home or self-care (01) ==
LOC: EC 13:21 → 6SEL 15:47 → INTOOBSV 15:47 → 6SEL 20:06 → 5MS5E 12-05 09:00 → UNDODISIN 12-05 10:03
PROVIDERS: ADMIT Family Medicine; ATTEND Family Medicine
DX: J44.1 Chronic obstructive pulmonary disease with (acute) exacerbation (principal); J44.0 Chronic obstructive pulmonary disease with (acute) lower respiratory infection; J20.9 Acute bronchitis, unspecified; R04.2 Hemoptysis; I10 Essential (primary) hypertension; R16.0 Hepatomegaly, not elsewhere classified; G43.909 Migraine, unspecified, not intractable, without status migrainosus; F32.9 Major depressive disorder, single episode, unspecified; E78.5 Hyperlipidemia, unspecified; H26.9 Unspecified cataract; F17.210 Nicotine dependence, cigarettes, uncomplicated; G47.30 Sleep apnea, unspecified; M19.90 Unspecified osteoarthritis, unspecified site; Z99.89 Dependence on other enabling machines and devices; L98.9 Disorder of the skin and subcutaneous tissue, unspecified; Z99.81 Dependence on supplemental oxygen; J39.8 Other specified diseases of upper respiratory tract; K21.9 Gastro-esophageal reflux disease without esophagitis; E66.9 Obesity, unspecified; Z68.31 Body mass index [BMI] 31.0-31.9, adult; Z79.01 Long term (current) use of anticoagulants; Z79.51 Long term (current) use of inhaled steroids; Z79.899 Other long term (current) drug therapy; Z88.1 Allergy status to other antibiotic agents; Z88.0 Allergy status to penicillin; Z88.2 Allergy status to sulfonamides; Z88.8 Allergy status to other drugs, medicaments and biological substances; Z87.01 Personal history of pneumonia (recurrent); Z90.89 Acquired absence of other organs; Z80.1 Family history of malignant neoplasm of trachea, bronchus and lung; Z82.49 Family history of ischemic heart disease and other diseases of the circulatory system; Z83.2 Family history of diseases of the blood and blood-forming organs and certain disorders involving the immune mechanism
CPT/HCPCS: 96376; 96374; 96375; 99291; 36415; 94640 ×2; 93005; 83880; 80053; 80048; 82550; 82553; 83735 ×2; 84484; 85025; 85027; 85610; 85730; 83036; 71046; G0378 ×3; J2060; J2930 ×2

== ENCOUNTER → 2019-02-11 | Outpatient (CLI) | payer MEDICARE ==
--- NOTE | 2019-02-11 18:18 | XR ---
EXAMINATION TYPE: XR chest 2V DATE OF EXAM: 02/11/2019 COMPARISON: Chest x-ray December 04, 2017. HISTORY: Shortness of breath. TECHNIQUE: Frontal and lateral views of the chest are obtained. FINDINGS: There is background chronic emphysematous change without suspicious new focal air space op acity, pleural effusion, or pneumothorax seen. The cardiac silhouette size remains enlarged with ect atic and atherosclerotic aorta. The osseous structures are intact. IMPRESSION: Chronic emphysematous change and cardiomegaly without acute pulmonary process.
--- NOTE | 2019-02-12 07:52 | CT ---
EXAMINATION TYPE: CT facial bones wo con DATE OF EXAM: 02/11/2019 COMPARISON: MRI brain July 01, 2012. MRI brain May 26 2012 HISTORY: Left sided mandibular pain and throat pain. CT DLP: 673.2 mGycm. Automated Exposure Control for Dose Reduction was Utilized. TECHNIQUE: CT scan of the sinuses is performed without contrast, axial images are obtained, coronal r eformatted images are also reviewed. FINDINGS: Mucous retention cyst or polyp inferior right maxillary sinus. Remainder paranasal sinuses are clear. Hypoplastic left frontal sinus noted. The ostiomeatal complex is patent bilaterally on the coronal images. Visualized portion of mastoid air cells show no abnormal opacification. The globes are intact bilate rally. Temporomandibular joints are maintained. Multiple cavitary fillings and crowns maxillary and mandibular teeth cause streak artifact somewhat l imiting evaluation at floor of mouth. Mandible is intact without fracture or suspicious osseous lesio n. No bony destruction is evident. Nasal septum remains deviated to left of midline. IMPRESSION: No acute findings seen to come for account for patient's symptoms of left-sided pain.
--- NOTE | 2019-02-12 08:23 | CT ---
EXAMINATION TYPE: CT soft tissue neck wo con DATE OF EXAM: 02/11/2019 HISTORY: Left sided mandibular pain and throat pain. COMPARISON: NONE CT DLP: 486.3 mGycm. Automated Exposure Control for Dose Reduction was Utilized. TECHNIQUE: CT scan of the neck is performed without IV contrast, axial images are obtained, coronal and sagittal reformatted images are reviewed. FINDINGS: Lack of IV contrast is noted lowers sensitivity for mucosal lesions and neck adenopathy. Airway: Grossly patent. Moderate emphysematous change in the visualized upper lungs noted. Parotid/submandibular glands: No gross abnormality seen. Carotid/Vascular Structures: Moderate calcified plaque left carotid bulb. Osseous Structures: Exaggerated thoracic kyphosis. Slight dextroconvex scoliotic curvature of mid tho racic spine. Other: Scattered subcentimeter lymph nodes throughout the neck bilaterally. No suspicious greater chad n 1 cm neck adenopathy. The parapharyngeal fat spaces are maintained. IMPRESSION: No suspicious acute finding identified on noncontrast CT to account for left-sided throa t pain.
== END | disposition home or self-care (01) ==
LOC: RADCTMAIN 16:40
PROVIDERS: ATTEND Family Medicine
DX: I51.7 Cardiomegaly (principal); K08.89 Other specified disorders of teeth and supporting structures; J44.0 Chronic obstructive pulmonary disease with (acute) lower respiratory infection; M79.9 Soft tissue disorder, unspecified; R07.0 Pain in throat; F17.210 Nicotine dependence, cigarettes, uncomplicated; Z88.0 Allergy status to penicillin; Z88.1 Allergy status to other antibiotic agents; Z88.2 Allergy status to sulfonamides
CPT/HCPCS: 70486; 70490; 71046

== ENCOUNTER → 2020-03-25 | Outpatient (CLI) | payer MEDICARE | END | disposition home or self-care (01) | LOC: LABWHC1 12:46 | PROVIDERS: ATTEND Internal Medicine Critical Care Medicine | DX: R05 Cough (principal) | CPT/HCPCS: U0003; C9803; U0005 ==

== ENCOUNTER 2020-05-06 11:12 | Day surgery (SDC) | payer MEDICARE ==
[2020-05-04 15:17] VITALS: BMI 32.8
[~2020-05-06 11:12] MED LIST changes: -LACTATED RINGERS 1,000 ML IV ONE; -LIDOCAINE 2% (PF) 20 MG/ML 10ML INHALATION ONE; +LIDOCAINE 2% (PF) 20 MG/ML 5 ML VIAL INHALATION ONE; +LIDOCAINE VISCOUS 300 MG/15 ML CUP MUCOUS MEM ONE; +SODIUM CHLORIDE 0.9% 1,000 ML IV SCH
[2020-05-06] MEDS ORDERED: LIDOCAINE 1% (10MG/ML) FOR IV START INTRADERMA ONE (12:00)
[2020-05-06] MEDS ORDERED: MIDAZOLAM 2 MG/2 ML VIAL ONE (12:14)
[2020-05-06] MEDS ORDERED: fentaNYL (PF) 50 MCG/ML 2 ML AMP ONE (12:14)
[2020-05-06] MEDS ORDERED: LIDOCAINE 1% INJ 10MG/ML (20 ML MDV) ONE (12:14)
[2020-05-06] MEDS ORDERED: SUCCINYLCHOLINE CHLORIDE 100 MG/5 ML SYR IV ONE (12:14)
[2020-05-06] MEDS ORDERED: PROPOFOL 10 MG/ML 20 ML VIAL IV ONE (12:14)
[2020-05-06 12:20] LABS: Glucose,Whole Blood 109 mg/dL (75-99)
--- NOTE | 2020-05-06 13:01 | P.PCN ---
Date of Procedure: 05/06/20 Preoperative Diagnosis: COPD , Recurrent Pneumonia's Postoperative Diagnosis: COPD , Recurrent Pneumonia's Procedure(s) Performed: Flexible Bronchoscopy, BAL of the Lingula Anesthesia: XIANG Surgeon: Susan Mckeon Estimated Blood Loss (ml): 0 Pathology: other Condition: stable Disposition: same day Operative Findings: This is a flexible bronchoscope that was done in the endoscopy suite for COPD exacerbation recurrent pneumonias. The patient has completed several courses of antibiotics. She has advanced COPD. She is oxygen dependent and she has chronic hypoxic respiratory failure. Bronchoscopy and the bronchioloalveolar lavage was done This procedure was done while the patient was intubated on a mechanical ventilator. The intubation process was done by SAMPLE CUTTER. In fact the patient was attempted to be intubated using a laryngoscope and it was quite difficult as the patient was quite anterior. I assisted the procedure and I intubated the patient over the bronchoscope and the procedure went smoothly and the patient was intubated by #8 orotracheal tube. Following that, the procedure was completed by the patient was intubated on a mechanical ventilator and adequate oxygenation and ventilation was provided The flexible bronchoscope was introduced to the orotracheal tube with was advanced to the lower trachea. The tip of the tube was seen around 2 cm above the jason. Airway inspection was done. Distal trachea was within normal limits. Bilateral mainstem bronchi, right upper lobe bronchus, right middle lobe bronchus, right lower lobe bronchus, and the various 10 segments of the right lung was inspected. Bronchoscope we will then moved to the left side and left upper lobe bronchus, and the left lower lobe bronchus and a different segments were evaluated and inspected. There were some looseness for secretions. There was evidence of tracheomalacia and bronchomalacia throughout the patient's airways. No purulent secretions. No endobronchial tumors. All of the secretions were suctioned out. The lavage of the lingula was done and I performed the bronchioloalveolar lavage of the superior segment of the lingula. A total of 80 mL of fluid was infused and 15 disease was suctioned back. Aspirate was cloudy. Following that, the patient was extubated. As the patient was being extubated, and upper airway inspection was done. The vocal cords and epiglottis and the vallecula and there are 2 nodules inspected and are all within normal limits. There was no evidence of any upper airway abnormalities. The bronchoscope was removed and the patient was transferred recovery in stable condition. The fluid was sent for cultures and analysis.
[2020-05-06 13:06] VITALS: TEMP 97.1
[2020-05-06 13:43] VITALS: RESP 16
[2020-05-06] MEDS ORDERED: ACETAMINOPHEN TAB 500 MG TAB ONE (13:58)
[2020-05-06] MEDS ORDERED: ACETAMINOPHEN TAB 500 MG TAB PO ONE (14:00)
[2020-05-06 14:49] VITALS: BP 127/86; PULSE 74
[2020-05-06 15:58] LABS: Appearance,BF Cloudy; Color,BF Pink; Nucleated Cells, Body Fluid 70 /uL; RBC, Body Fluid 12750 /uL
[2020-05-06 16:07] LABS: Mononuclear WBC,Body Fluid 11 %; Polynuclear WBC,Body Fluid 88 %; Total Cells Counted,Body Fluid 100
== END 2020-05-06 15:03 | disposition home or self-care (01) ==
LOC: ORWHC2ENDO 11:12
PROVIDERS: ATTEND Internal Medicine Critical Care Medicine
DX: J44.1 Chronic obstructive pulmonary disease with (acute) exacerbation (principal); J18.9 Pneumonia, unspecified organism; R04.2 Hemoptysis; J98.11 Atelectasis; J39.8 Other specified diseases of upper respiratory tract; J98.09 Other diseases of bronchus, not elsewhere classified; E78.5 Hyperlipidemia, unspecified; K21.9 Gastro-esophageal reflux disease without esophagitis; Z86.711 Personal history of pulmonary embolism; I10 Essential (primary) hypertension; I25.10 Atherosclerotic heart disease of native coronary artery without angina pectoris; F41.9 Anxiety disorder, unspecified; E66.9 Obesity, unspecified; Z68.32 Body mass index [BMI] 32.0-32.9, adult; H26.9 Unspecified cataract; G47.33 Obstructive sleep apnea (adult) (pediatric); Z99.89 Dependence on other enabling machines and devices; Z87.891 Personal history of nicotine dependence; Z98.891 History of uterine scar from previous surgery; F32.9 Major depressive disorder, single episode, unspecified; Z98.890 Other specified postprocedural states; Z90.89 Acquired absence of other organs; Z79.01 Long term (current) use of anticoagulants; Z99.81 Dependence on supplemental oxygen; Z79.899 Other long term (current) drug therapy; Z88.0 Allergy status to penicillin; Z88.2 Allergy status to sulfonamides; Z88.1 Allergy status to other antibiotic agents; Z88.8 Allergy status to other drugs, medicaments and biological substances
CPT/HCPCS: 89050; 87252; 87070; 87205; 87116; 87102; 87206; 31624; J2250; J2001; J3010; J0330; J2704; 87496; 87498; 87502; 87529; 87634; 87798

== ENCOUNTER 2021-01-04 11:01 | Day surgery (SDC) | payer MEDICARE ==
[2020-12-08 11:34] VITALS: BMI 31.3
[~2021-01-04 11:01] MED LIST changes: -ALBUTEROL NEB (CONC) 2.5 MG/0.5 ML INHALATION ONE; +LIDOCAINE 1% (10MG/ML) FOR IV START INTRADERMA PRN; -LIDOCAINE 2% (PF) 20 MG/ML 5 ML VIAL INHALATION ONE; -LIDOCAINE VISCOUS 300 MG/15 ML CUP MUCOUS MEM ONE; -SODIUM CHLORIDE 0.9% 1,000 ML IV SCH
[2021-01-04 11:41] VITALS: TEMP 98.3
[2021-01-04] MEDS ORDERED: ONDANSETRON 4 MG/2 ML VIAL ONE (11:49)
[2021-01-04] MEDS ORDERED: ONDANSETRON 4 MG/2 ML VIAL IVP ONE (11:49)
[2021-01-04] MEDS ORDERED: fentaNYL (PF) 50 MCG/ML 2 ML AMP ONE (12:14)
[2021-01-04] MEDS ORDERED: MIDAZOLAM 2 MG/2 ML VIAL ONE (12:14)
[2021-01-04] MEDS ORDERED: KETAMINE 10 MG/ML 20 ML VIAL ONE (12:14)
[2021-01-04] MEDS ORDERED: PROPOFOL 10 MG/ML 20 ML VIAL IV ONE (12:14)
[2021-01-04] MEDS ORDERED: LIDOCAINE 1% INJ 10MG/ML (20 ML MDV) ONE (12:14)
--- NOTE | 2021-01-04 12:27 | P.PCN ---
Date of Procedure: 01/04/21 Procedure(s) Performed: BRIEF HISTORY: Patient is a 70-year-old, pleasant, female scheduled for an upper endoscopy as a part of evaluation of epigastric and upper abdominal pain for the last 3-4 months duration. She does have long-standing history of GERD and currently on Protonix 40 mg daily . Because of the persistent abdominal pain she is scheduled for an upper endoscopy to evaluate further. PROCEDURE PERFORMED: Esophagogastroduodenoscopy with biopsy. PREOPERATIVE DIAGNOSIS: Chronic epigastric pain of several months duration uncertain history of GERD. IV sedation per anesthesia. PROCEDURE: After informed consent was obtained, the patient was brought into the endoscopy unit. IV sedation was administered by Anesthesia under continuous monitoring. Initially the Olympus GIF-140 video endoscope was inserted into the mouth. Esophagus intubated without any difficulty. It was gradually advanced into the stomach and duodenum and carefully examined. The bulb and the second part of the duodenum appeared normal. His were done from the duodenum to rule out celiac disease His were done from the duodenum to rule out celiac disease The scope at this time was withdrawn to the stomach, adequately insufflated with air, and upon careful examination, mucosa of the antrum, had mild diffuse david ritis with linear areas of erythema in the antrum and biopsies were done from this area. The body, cardia and the fundus appeared normal. The scope was then withdrawn into the esophagus. The GE junction was located at 39 cm from the incisors. The esophagus appeared normal. There were no erosions or ulcerations seen , biopsies were done from the distal esophagus and the patient tolerated the procedure well. IMPRESSION: 1. Diffuse antral gastritis. 2. No evidence of esophagitis or peptic ulcer disease. RECOMMENDATIONS: The findings of this examination were discussed with the patient as well as a family. She was advised to follow with the biopsy results. She will continue with her current medications and follow antireflux measures.
[2021-01-04 12:40] VITALS: RESP 16
[2021-01-04 12:53] VITALS: BP 126/79; PULSE 90
== END 2021-01-04 13:45 | disposition home or self-care (01) ==
LOC: ORWHC2ENDO 11:01
PROVIDERS: ATTEND Internal Medicine Gastroenterology
DX: K29.50 Unspecified chronic gastritis without bleeding (principal); K21.00 Gastro-esophageal reflux disease with esophagitis, without bleeding; E78.5 Hyperlipidemia, unspecified; G47.33 Obstructive sleep apnea (adult) (pediatric); J44.9 Chronic obstructive pulmonary disease, unspecified; F17.210 Nicotine dependence, cigarettes, uncomplicated; J39.8 Other specified diseases of upper respiratory tract; Z99.81 Dependence on supplemental oxygen; Z79.899 Other long term (current) drug therapy; Z79.01 Long term (current) use of anticoagulants; Z90.89 Acquired absence of other organs; Z98.890 Other specified postprocedural states; Z90.49 Acquired absence of other specified parts of digestive tract
CPT/HCPCS: 88305; 43239; J2250; J2405; J2001; J3010; J2704

== ENCOUNTER 2021-06-17 03:39 | Inpatient (IN) | payer MEDICARE ==
--- NOTE | 2021-06-17 04:22 | ED ---
SOB HPI - General Chief Complaint: Shortness of Breath Stated Complaint: SOB Time Seen by Provider: 06/17/21 04:04 Source: EMS Mode of arrival: EMS Limitations: no limitations - History of Present Illness Initial Comments: This patient is 70-year-old woman who presents to be evaluated for dyspnea. She states that it has come on over the course of tonight and getting worse. She states she is currently being treated for pneumonia. She is taking azith romycin. She has had a cough. She did not note fever tonight. She is not having chest pain. On the review of systems, the patient does acknowledge having a severe bifrontal headache. MD Complaint: shortness of breath, cough -: hour(s) Severity scale (1-10): 0 Consistency: constant Worsens With: lying flat Known History Of: COPD, recurrent pneumonia Treatments Prior to Arrival: oxygen - Related Data Home Oxygen Therapy: No Home Medications Medication Instructions Recorded Confirmed Multivitamins, Thera [Multivitamin 1 tab PO DAILY 06/14/16 01/04/21 (formulary)] Calcium Carbonate [Tums] 500 mg PO TID PRN 12/04/17 01/04/21 Enalapril [Vasotec] 20 mg PO DAILY 12/04/17 01/04/21 HYDROcodone/APAP 10-325MG [Brewster 1 tab PO BID PRN 12/04/17 01/04/21 10-325] Rivaroxaban [Xarelto] 10 mg PO DAILY 12/04/17 01/04/21 CHLORPHEN-HYDROcod 8-10mg/5ml 5 ml PO Q12HR PRN 03/31/18 01/04/21 [Tussionex] Levalbuterol Nebulized (Conc) 1.25 mg INHALATION DAILY 03/31/18 01/04/21 [Xopenex Nebulized (Conc)] bisacodyL [Dulcolax] 1 tab PO DAILY PRN 03/31/18 01/04/21 Atorvastatin [Lipitor] 20 mg PO HS 05/04/20 01/04/21 Guaifenesin/Pseudoephedrne HCl 1 each PO Q12H PRN 05/04/20 01/04/21 [Mucinex D ER 1,200-120 mg Tab] Escitalopram [Lexapro] 20 mg PO DAILY 12/08/20 01/04/21 Fluticasone/Salmeterol [Advair 1 inhalation PO BID 12/08/20 01/04/21 250-50 Diskus] Pantoprazole [Protonix] 40 mg PO DAILY 12/08/20 01/04/21 Sucralfate [Carafate] 1 gm PO ACHS 12/08/20 01/04/21 Theophylline 24 Hour [Edison-24] 300 mg PO DAILY 12/08/20 01/04/21 Tiotropium Mcgee [Spiriva] 1 cap INHALATION DAILY 12/08/20 01/04/21 Acetaminophen [Tylenol Extra 1,000 mg PO DIRECTED PRN 12/30/20 01/04/21 Strength] Allergies Allergy/AdvReac Type Severity Reaction Status Date / Time ciprofloxacin [From Cipro] Allergy muscle Verified 06/17/21 03:44 tenderness oxytetracycline Allergy Unknown Verified 06/17/21 03:44 [From Terramycin] Childhood oxytetracycline HCl Allergy Unknown Verified 06/17/21 03:44 [From Terramycin] Childhood Penicillins Allergy Unknown Verified 06/17/21 03:44 Childhood streptomycin [Streptomycin] Allergy Unknown Verified 06/17/21 03:44 Childhood Sulfa (Sulfonamide Allergy Unknown Verified 06/17/21 03:44 Antibiotics) Childhood Tetracyclines Allergy Unknown Verified 06/17/21 03:44 Childhood albuterol AdvReac Unknown shaking, Verified 06/17/21 03:44 weakness, insomnia Review of Systems ROS Statement: Those systems with pertinent positive or pertinent negative responses have been documented in the HPI. ROS Other: All systems not noted in ROS Statement are negative. Constitutional: Denies: fever, chills Eyes: Denies: vision change ENT: Denies: ear pain Respiratory: Reports: cough, dyspnea, wheezes. Denies: hemoptysis, stridor Cardiovascular: Reports: palpitations, orthopnea. Denies: chest pain, edema, syncope Gastrointestinal: Denies: abdominal pain, nausea, vomiting, diarrhea Genitourinary: Denies: dysuria, hematuria Musculoskeletal: Denies: back pain Skin: Denies: rash Neurological: Reports: headache. Denies: weakness, numbness, paresthesias, confusion Psychiatric: Reports: anxiety Past Medical History Past Medical History: Chest Pain / Angina, COPD, GERD/Reflux, Hyperlipidemia, Hypertension, Osteoarthritis (OA), Pneumonia, Pulmonary Embolus (PE), Respiratory Disorder, Skin Disorder, Sleep Apnea/CPAP/BIPAP, Syncope Additional Past Medical History / Comment(s): bipap and Home O2 at 2L @[facility], & during day prn, hx syncope years ago, Migraines, Enlarged liver, Tracheobronchomalacia, chronic cough w/ occ hemoptysis, gallstones, abd pain recently but has improved w/ Rx History of Any Multi-Drug Resistant Organisms: None Reported Past Surgical History: Appendectomy, Section, Orthopedic Surgery, Tonsillectomy Additional Past Surgical History / Comment(s): jamey wrist, left elbow, ovarian cyst, exploratory laparoscopy, Rt knee Arthroscopy x2. several bronchoscopies, last 05/06/20. laser eye sx. Past Anesthesia/Blood Transfusion Reactions: No Reported Reaction Past Psychological History: Anxiety, Depression Smoking Status: Current every day smoker Past Alcohol Use History: None Reported Past Drug Use History: None Reported - Past Family History Mother Family Medical History: Cancer Additional Family Medical History / Comment(s): LUNG CA Father Family Medical History: Cancer Additional Family Medical History / Comment(s): LUNG CA Sister(s) Family Medical History: Cancer, Deep Vein Thrombosis (DVT) Additional Family Medical History / Comment(s): COLON CANCER Brother(s) Family Medical History: Coronary Artery Disease (CAD) General Exam Limitations: no limitations General appearance: alert, in distress Head exam: Present: atraumatic, normocephalic Eye exam: Present: normal appearance, PERRL, EOMI. Absent: scleral icterus, conjunctival injection Neck exam: Present: normal inspection, full ROM. Absent: meningismus Respiratory exam: Present: respiratory distress, wheezes, accessory muscle use. Absent: rales, rhonchi, stridor, decreased breath sounds, prolonged expiratory Cardiovascular Exam: Present: regular rate, normal rhythm, normal heart sounds. Absent: systolic murmur, diastolic murmur, rubs, gallop GI/Abdominal exam: Present: soft. Absent: distended, tenderness, guarding, rebound, rigid, mass Extremities exam: Present: normal inspection, normal capillary refill. Absent: pedal edema, calf tenderness Back exam: Present: normal inspection. Absent: CVA tenderness (R), CVA tenderness (L) Neurological exam: Present: alert Skin exam: Present: warm, intact, normal color, diaphoretic. Absent: rash Course Vital Signs 06/17/21 06/17/21 06/17/21 03:44 03:50 03:57 Temperature 98.2 F Pulse Rate 63 81 Respiratory 19 19 18 Rate Blood Pressure 115/94 115/94 O2 Sat by Pulse 98 99 Oximetry 06/17/21 06/17/21 06/17/21 04:15 04:30 04:45 Temperature Pulse Rate 90 88 Respiratory 6 L 20 25 H Rate Blood Pressure 142/123 144/128 O2 Sat by Pulse 97 97 Oximetry 06/17/21 06/17/21 06/17/21 05:00 05:15 05:45 Temperature Pulse Rate 82 85 Respiratory 22 19 Rate Blood Pressure 159/129 141/113 139/119 O2 Sat by Pulse 97 96 Oximetry 06/17/21 06/17/21 06/17/21 06:00 06:15 06:20 Temperature Pulse Rate 96 98 Respiratory 26 H 19 28 H Rate Blood Pressure 139/119 116/101 O2 Sat by Pulse 96 95 95 Oximetry 06/17/21 06/17/21 06/17/21 06:30 07:00 07:15 Temperature Pulse Rate 122 H 97 109 H Respiratory 23 44 H 23 Rate Blood Pressure 148/136 130/93 126/91 O2 Sat by Pulse 93 L 93 L 92 L Oximetry 06/17/21 07:36 Temperature 97.5 F L Pulse Rate 109 H Respiratory 24 Rate Blood Pressure 126/84 O2 Sat by Pulse 94 L Oximetry Medical Decision Making - Lab Data Result diagrams: 06/17/21 03:45 06/17/21 03:45 Lab Results 06/17/21 06/17/21 06/17/21 Range/Units 03:45 03:45 03:45 WBC 15.9 H (3.8-10.6) k/uL RBC 5.35 (3.80-5.40) m/uL Hgb 16.3 H (11.4-16.0) gm/dL Hct 53.8 H (34.0-46.0) % MCV 100.5 H (80.0-100.0) fL MCH 30.5 (25.0-35.0) pg MCHC 30.3 L (31.0-37.0) g/dL RDW 12.9 (11.5-15.5) % Plt Count 306 (150-450) k/uL MPV 7.6 Neutrophils % 57 % Lymphocytes % 36 % Monocytes % 4 % Eosinophils % 1 % Basophils % 1 % Neutrophils # 9.1 H (1.3-7.7) k/uL Lymphocytes # 5.7 H (1.0-4.8) k/uL Monocytes # 0.6 (0-1.0) k/uL Eosinophils # 0.2 (0-0.7) k/uL Basophils # 0.1 (0-0.2) k/uL Manual Slide Review Performed Hypochromasia Slight PT 10.4 (9.0-12.0) sec INR 0.9 (<1.2) APTT 18.0 L (22.0-30.0) sec D-Dimer >34.10 H (<0.60) mg/L FEU Sodium 142 (137-145) mmol/L Potassium 4.3 (3.5-5.1) mmol/L Chloride 108 H (98-107) mmol/L Carbon Dioxide 25 (22-30) mmol/L Anion Gap 9 mmol/L BUN 31 H (7-17) mg/dL Creatinine 0.77 (0.52-1.04) mg/dL Est GFR (CKD-EPI)AfAm >90 (>60 ml/min/1.73 sqM) Est GFR (CKD-EPI)NonAf 78 (>60 ml/min/1.73 sqM) Glucose 146 H (74-99) mg/dL Lactic Ac Sepsis Rflx Plasma Lactic Acid Nir (0.7-2.0) mmol/L Calcium 10.6 H (8.4-10.2) mg/dL Magnesium 1.9 (1.6-2.3) mg/dL Total Bilirubin 0.7 (0.2-1.3) mg/dL AST 64 H (14-36) U/L ALT 65 H (4-34) U/L Alkaline Phosphatase 81 (38-126) U/L Troponin I (0.000-0.034) ng/mL NT-Pro-B Natriuret Pep pg/mL Total Protein 7.1 (6.3-8.2) g/dL Albumin 4.4 (3.5-5.0) g/dL Coronavirus (PCR) (Not Detectd) 06/17/21 06/17/21 06/17/21 Range/Units 03:45 03:45 03:45 WBC (3.8-10.6) k/uL RBC (3.80-5.40) m/uL Hgb (11.4-16.0) gm/dL Hct (34.0-46.0) % MCV (80.0-100.0) fL MCH (25.0-35.0) pg MCHC (31.0-37.0) g/dL RDW (11.5-15.5) % Plt Count (150-450) k/uL MPV Neutrophils % % Lymphocytes % % Monocytes % % Eosinophils % % Basophils % % Neutrophils # (1.3-7.7) k/uL Lymphocytes # (1.0-4.8) k/uL Monocytes # (0-1.0) k/uL Eosinophils # (0-0.7) k/uL Basophils # (0-0.2) k/uL Manual Slide Review Hypochromasia PT (9.0-12.0) sec INR (<1.2) APTT (22.0-30.0) sec D-Dimer (<0.60) mg/L FEU Sodium (137-145) mmol/L Potassium (3.5-5.1) mmol/L Chloride (98-107) mmol/L Carbon Dioxide (22-30) mmol/L Anion Gap mmol/L BUN (7-17) mg/dL Creatinine (0.52-1.04) mg/dL Est GFR (CKD-EPI)AfAm (>60 ml/min/1.73 sqM) Est GFR (CKD-EPI)NonAf (>60 ml/min/1.73 sqM) Glucose (74-99) mg/dL Lactic Ac Sepsis Rflx Plasma Lactic Acid Nir 2.1 H* (0.7-2.0) mmol/L Calcium (8.4-10.2) mg/dL Magnesium (1.6-2.3) mg/dL Total Bilirubin (0.2-1.3) mg/dL AST (14-36) U/L ALT (4-34) U/L Alkaline Phosphatase (38-126) U/L Troponin I 0.285 H* (0.000-0.034) ng/mL NT-Pro-B Natriuret Pep 6460 pg/mL Total Protein (6.3-8.2) g/dL Albumin (3.5-5.0) g/dL Coronavirus (PCR) (Not Detectd) 06/17/21 06/17/21 Range/Units 04:55 05:38 WBC (3.8-10.6) k/uL RBC (3.80-5.40) m/uL Hgb (11.4-16.0) gm/dL Hct (34.0-46.0) % MCV (80.0-100.0) fL MCH (25.0-35.0) pg MCHC (31.0-37.0) g/dL RDW (11.5-15.5) % Plt Count (150-450) k/uL MPV Neutrophils % % Lymphocytes % % Monocytes % % Eosinophils % % Basophils % % Neutrophils # (1.3-7.7) k/uL Lymphocytes # (1.0-4.8) k/uL Monocytes # (0-1.0) k/uL Eosinophils # (0-0.7) k/uL Basophils # (0-0.2) k/uL Manual Slide Review Hypochromasia PT (9.0-12.0) sec INR (<1.2) APTT (22.0-30.0) sec D-Dimer (<0.60) mg/L FEU Sodium (137-145) mmol/L Potassium (3.5-5.1) mmol/L Chloride (98-107) mmol/L Carbon Dioxide (22-30) mmol/L Anion Gap mmol/L BUN (7-17) mg/dL Creatinine (0.52-1.04) mg/dL Est GFR (CKD-EPI)AfAm (>60 ml/min/1.73 sqM) Est GFR (CKD-EPI)NonAf (>60 ml/min/1.73 sqM) Glucose (74-99) mg/dL Lactic Ac Sepsis Rflx Y Plasma Lactic Acid Nir (0.7-2.0) mmol/L Calcium (8.4-10.2) mg/dL Magnesium (1.6-2.3) mg/dL Total Bilirubin (0.2-1.3) mg/dL AST (14-36) U/L ALT (4-34) U/L Alkaline Phosphatase (38-126) U/L Troponin I (0.000-0.034) ng/mL NT-Pro-B Natriuret Pep pg/mL Total Protein (6.3-8.2) g/dL Albumin (3.5-5.0) g/dL Coronavirus (PCR) Not Detected (Not Detectd) - EKG Data -: EKG Interpreted by Me EKG shows normal: sinus rhythm (With occasional PVCs. Rate 96 bpm), axis (Normal), intervals (Normal), QRS complexes (Normal) Interpretation: nonspecific ST-T wave changes Disposition Clinical Impression: COPD exacerbation, Congestive heart failure, Hypertension Disposition: ADMITTED IP TO THIS HOSP Condition: Serious Is patient prescribed a controlled substance at d/c from ED?: No Referrals: Preston Vail MD [Primary Care Provider] - 1-2 days Decision Time: 08:20
[2021-06-17] MEDS ORDERED: MORPHINE SULFATE 4 MG/ML SYRINGE IV STA ×2 (04:35→06:27)
--- NOTE | 2021-06-17 04:41 | XR ---
EXAMINATION TYPE: XR chest 1V portable DATE OF EXAM: 06/17/2021 COMPARISON: 06/13/2021 HISTORY: Short of breath TECHNIQUE: FINDINGS: Heart is enlarged. There is coarsening of the interstitial markings. There is no definite p leural effusion. There are chest leads. Thoracic aorta is atheromatous. There is mild thoracic dextro scoliosis. IMPRESSION: Cardiomegaly. Mild pulmonary fibrotic changes. No obvious heart failure. Lung markings in creased slightly compared to old exam.
[2021-06-17 04:43] LABS: Basophils # (A) 0.1 k/uL (0-0.2); Basophils % (A) 1 %; Eosinophils # (A) 0.2 k/uL (0-0.7); Eosinophils % (A) 1 %; HCT 53.8 % (34.0-46.0); HGB 16.3 gm/dL (11.4-16.0); Hypochromasia Slight; Lymphocytes # (A) 5.7 k/uL (1.0-4.8); Lymphocytes % (A) 36 %; MCH 30.5 pg (25.0-35.0); MCHC 30.3 g/dL (31.0-37.0); MCV 100.5 fL (80.0-100.0); Mean Platelet Volume 7.6; Monocytes # (A) 0.6 k/uL (0-1.0); Monocytes % (A) 4 %; Neutrophils # (A) 9.1 k/uL (1.3-7.7); Neutrophils % (A) 57 %; Platelet Count 306 k/uL (150-450); RBC 5.35 m/uL (3.80-5.40); RDW 12.9 % (11.5-15.5); WBC 15.9 k/uL (3.8-10.6)
[2021-06-17 05:16] LABS: INR 0.9 (<1.2); Prothrombin Time 10.4 sec (9.0-12.0)
[2021-06-17 05:19] LABS: ALT 65 U/L (4-34); AST 64 U/L (14-36); African American GFR (CKD) >90 (>60 ml/min/1.73 sqM); Albumin 4.4 g/dL (3.5-5.0); Alkaline Phosphatase 81 U/L (38-126); Anion Gap 9 mmol/L; Blood Urea Nitrogen 31 mg/dL (7-17); Calcium 10.6 mg/dL (8.4-10.2); Carbon Dioxide 25 mmol/L (22-30); Chloride 108 mmol/L (98-107); Glucose 146 mg/dL (74-99); Magnesium 1.9 mg/dL (1.6-2.3); Non-African American GFR(CKD) 78 (>60 ml/min/1.73 sqM); Potassium 4.3 mmol/L (3.5-5.1); Sodium 142 mmol/L (137-145); Total Bilirubin 0.7 mg/dL (0.2-1.3); Total Protein 7.1 g/dL (6.3-8.2)
--- NOTE | 2021-06-17 06:04 | CT ---
EXAMINATION TYPE: CT chest angio for PE DATE OF EXAM: 06/17/2021 COMPARISON: 04/11/2017 HISTORY: EXTREMELY HIGH D DIMER CT DLP: 864.6 mGycm Automated exposure control for dose reduction was used. CONTRAST: Performed with IV Contrast, patient injected with 85 mL of Isovue 370. Images obtained from the thoracic inlet to the diaphragm without IV contrast. There are Three-D postp rocessed images. There is no mediastinal adenopathy. Thoracic aorta is atheromatous. There are no hilar masses. There is normal contrast opacification of the pulmonary arteries. There are no filling defects. There are large pulmonary arteries suggestive of some degree of pulmonary hypertension. There is some cons olidation and atelectasis along the major fissure in the right lower lobe. There is also some consoli dation at the right posterior lung base. There is mild infiltrate or atelectasis at the left posterio r lung base. Heart is enlarged. There is some contrast refluxed into the inferior vena cava. There is bullous pulmonary emphysema. The thoracic spine is intact. IMPRESSION: Emphysema. Pulmonary infiltrates in both lower lobes and also along the right major fissure. Enlarged pulmonary arteries consistent with pulmonary hypertension. No evidence of pulmonary embolism. Pulmonary infiltrates mostly new compared to the old exam. There is some underlying pulmonary fibrosi s.
[2021-06-17] MEDS ORDERED: NITROGLYCERIN-D5W PMX 50 MG in DEXTROSE/WATER 1 250ML.BAG IV ONE (06:28)
[2021-06-17] MEDS ORDERED: HYDROmorphone 1 MG/ML 1 ML SYRINGE IVP STA (08:20)
[2021-06-17] MEDS: FUROSEMIDE 10 MG/ML 4 ML VIAL IV SCH ×2 (09:13→21:34)
--- NOTE | 2021-06-17 09:24 | CT ---
EXAMINATION TYPE: CT brain wo con DATE OF EXAM: 06/17/2021 HISTORY: quick onset headache CT DLP: 1111.4 mGycm. Automated Exposure Control for Dose Reduction was Utilized. TECHNIQUE: CT scan of the head is performed without contrast. COMPARISON: MRI brain July 01, 2012. FINDINGS: There is no acute intracranial hemorrhage or midline shift identified. There is mild diff use ventricular and sulcal prominence consistent with diffuse age-related cerebral atrophy. Ceja-whit e matter differentiation fairly well maintained. Some residual contrast from recent CTA chest study s een filling intracranial vessels and draining dural venous sinuses. The globes are intact and the vis ualized sinuses are clear. Hypoplastic left frontal sinus redemonstrated. IMPRESSION: No acute intracranial hemorrhage or midline shift.
[2021-06-17] MEDS ORDERED: AZITHROMYCIN 500 MG TAB PO STA (10:01)
[2021-06-17] MEDS ORDERED: IPRATROPIUM-ALBUTEROL 3 ML NEB INHALATION PRN (10:02)
[2021-06-17 10:53] LABS: Glucose,Whole Blood 97 mg/dL (75-99)
[2021-06-17] MEDS: IPRATROPIUM-ALBUTEROL 3 ML NEB INHALATION SCH ×3 (10:58→21:02)
--- NOTE | 2021-06-17 11:18 | ECHOF ---
Referral Reason:CHF exacerbation MEASUREMENTS -------- HEIGHT: 170.2 cm WEIGHT: 90.7 kg BP: IVSd: 1.5 cm (0.6 - 1.1) LVIDd: 4.8 cm (3.9 - 5.3) LVPWd: 1.8 cm (0.6 - 1.1) IVSs: 1.5 cm LVIDs: 4.7 cm LVPWs: 1.8 cm LAESV Index (A-L): 26.28 ml/m Ao Diam: 3.3 cm (2.0 - 3.7) AV Cusp: 1.9 cm (1.5 - 2.6) LA Diam: 3.1 cm (2.7 - 3.8) MV E Sarath: 1.17 m/s MV DecT: 343 ms MV A Sarath: 0.77 m/s MV E/A Ratio: 1.51 RAP: 5.00 mmHg RVSP: 30.96 mmHg FINDINGS -------- This was a technically difficult study with suboptimal views. The left ventricular size is normal. There is moderate concentric left ventricular hypertrophy. T here is severe global hypokinesis of LV . Overall left ventricular systolic function is severely im paired with, an EF between 20 - 25 %. The RV was not well visualized. The left atrial size is normal. Normal LA size by volume 22+/-6 ml/m2. The right atrium was not well visualized. 5.0mg of Lumason was utilized for enhancement of images The aortic valve is trileaflet and appears structurally normal. The mitral valve is normal. Mild mitral regurgitation is present. The tricuspid valve appears structurally normal. Mild tricuspid regurgitation present. Right vent ricular systolic pressure is normal at < 35 mmHg. The pulmonic valve was not well visualized. The aortic root size is normal. IVC Not well visulized. There is no pericardial effusion. CONCLUSIONS -------- 1. The left ventricular size is normal. 2. There is moderate concentric left ventricular hypertrophy. 3. There is severe global hypokinesis of LV . 4. Overall left ventricular systolic function is severely impaired with, an EF between 20 - 25 %. 5. Mild mitral regurgitation is present. 6. Mild tricuspid regurgitation present. 7. There is no pericardial effusion. QUARRY WORKER: Lauren Perez RDCS
[2021-06-17] MEDS ORDERED: bisacodyL 5 MG TABLET.DR PO PRN (11:23)
[2021-06-17] MEDS ORDERED: [UNRECOGNIZED DRUG - OTHER] PO PRN (11:23)
[2021-06-17] MEDS ORDERED: NON FORMULARY DRUG (Levalbuterol Hfa Inhaler 200 PUFF/9 GM Gm) INHALATION PRN (11:23)
[2021-06-17] MEDS: HYDROcodone/APAP 10-325MG 1 EACH TAB PO PRN ×2 (11:47→18:10)
--- NOTE | 2021-06-17 11:47 | P.HPIM ---
History of Present Illness H&P Date: 06/17/21 Chief Complaint: Shortness of breath This is a 70-year-old patient of Dr. Vail's who presented to the hospital emergency room be evaluated for shortness of breath dyspnea. She states that this is Over a Course of Tonight and Has Been Getting Worse Was Recently Seen in the Office by Dr. Vail and Was Being Treated for Pneumonia Had Been Placed on Azithromycin States Mild Cough No Evidence of Fever No Chest Pain, No Nausea, Moderate to Severe Bifrontal Headache and Currently on a Nitro Drip for Uncontrolled Hypertension Review of Systems Constitutional: Reports fatigue, Reports night sweats, Reports weakness Ears, nose, mouth and throat: Reports headache Cardiovascular: Reports chest pain, Reports dyspnea on exertion, Reports high blood pressure Respiratory: Reports cough, Reports dyspnea, Reports respiratory infections (Current smoker) Gastrointestinal: Reports as per HPI Genitourinary: Reports as per HPI Menstruation: Reports postmenopausal Musculoskeletal: Reports low back pain, Reports myalgias Integumentary: Reports as per HPI Neurological: Reports as per HPI Psychiatric: Reports as per HPI Past Medical History Past Medical History: Chest Pain / Angina, COPD, GERD/Reflux, Hyperlipidemia, Hypertension, Osteoarthritis (OA), Pneumonia, Pulmonary Embolus (PE), Respiratory Disorder, Skin Disorder, Sleep Apnea/CPAP/BIPAP, Syncope Additional Past Medical History / Comment(s): bipap and Home O2 at 2L @[facility], & during day prn, hx syncope years ago, Migraines, Enlarged liver, Tracheobronchomalacia, chronic cough w/ occ hemoptysis, gallstones, abd pain recently but has improved w/ Rx History of Any Multi-Drug Resistant Organisms: None Reported Past Surgical History: Appendectomy, Section, Orthopedic Surgery, Tonsillectomy Additional Past Surgical History / Comment(s): jamey wrist, left elbow, ovarian cyst, exploratory laparoscopy, Rt knee Arthroscopy x2. several bronchoscopies, last 05/06/20. laser eye sx. Past Anesthesia/Blood Transfusion Reactions: No Reported Reaction Past Psychological History: Anxiety, Depression Smoking Status: Current every day smoker Past Alcohol Use History: None Reported Past Drug Use History: None Reported - Past Family History Mother Family Medical History: Cancer Additional Family Medical History / Comment(s): LUNG CA Father Family Medical History: Cancer Additional Family Medical History / Comment(s): LUNG CA Sister(s) Family Medical History: Cancer, Deep Vein Thrombosis (DVT) Additional Family Medical History / Comment(s): COLON CANCER Brother(s) Family Medical History: Coronary Artery Disease (CAD) Medications and Allergies Home Medications Medication Instructions Recorded Confirmed Type Multivitamins, Thera [Multivitamin 1 tab PO DAILY 06/14/16 06/17/21 History (formulary)] Calcium Carbonate [Tums] 500 mg PO TID PRN 12/04/17 06/17/21 History Enalapril [Vasotec] 20 mg PO DAILY 12/04/17 06/17/21 History HYDROcodone/APAP 10-325MG [[place] 1 tab PO Q6H PRN 12/04/17 06/17/21 History 10-325] CHLORPHEN-HYDROcod 8-10mg/5ml 5 ml PO Q12HR PRN 03/31/18 06/17/21 History [Tussionex] bisacodyL [Dulcolax] 1 tab PO DAILY PRN 03/31/18 06/17/21 History Atorvastatin [Lipitor] 20 mg PO HS 05/04/20 06/17/21 History Escitalopram [Lexapro] 10 mg PO DAILY 12/08/20 06/17/21 History Azithromycin [Zithromax] 500 mg PO DAILY 06/17/21 06/17/21 History Fluticasone/Umeclidin/Vilanter 1 puff INHALATION RT-DAILY 06/17/21 06/17/21 History [Trelegy Ellipta 100-62.5-25] Levalbuterol Hfa Inhaler [Xopenex 2 puff INHALATION RT-Q6H PRN 06/17/21 06/17/21 History Hfa Inhaler] Theophylline 12 Hour [[place]-Dur] 300 mg PO BID 06/17/21 06/17/21 History Tiotropium 2.5 Mcg/Puff [Spiriva 2 puff INHALATION RT-DAILY 06/17/21 06/17/21 History Respimat 2.5 Mcg] predniSONE See Taper PO DAILY 06/17/21 06/17/21 History Allergies Allergy/AdvReac Type Severity Reaction Status Date / Time oxytetracycline Allergy Unknown Verified 06/17/21 10:47 [From Terramycin] Childhood oxytetracycline HCl Allergy Unknown Verified 06/17/21 10:47 [From Terramycin] Childhood Penicillins Allergy Unknown Verified 06/17/21 10:47 Childhood streptomycin [Streptomycin] Allergy Unknown Verified 06/17/21 10:47 Childhood Sulfa (Sulfonamide Allergy Unknown Verified 06/17/21 10:47 Antibiotics) Childhood Tetracyclines Allergy Unknown Verified 06/17/21 10:47 Childhood albuterol AdvReac Unknown shaking, Verified 06/17/21 10:47 weakness, insomnia ciprofloxacin [From Cipro] AdvReac muscle Verified 06/17/21 10:47 tenderness Physical Exam Osteopathic Statement: *. No significant issues noted on an osteopathic struc tural exam other than those noted in the History and Physical/Consult. Vitals: Vital Signs Temp Pulse Resp BP Pulse Ox 06/17/21 11:30 95 06/17/21 11:14 97 06/17/21 10:36 98 F 93 20 109/98 93 L 06/17/21 10:30 116/65 06/17/21 10:01 97.8 F 73 16 111/99 95 06/17/21 09:49 98 18 87/63 96 06/17/21 09:14 77 18 121/90 97 06/17/21 09:05 97.9 F 101 H 22 124/87 95 06/17/21 08:25 99 22 141/98 95 06/17/21 07:36 97.5 F L 109 H 24 126/84 94 L 06/17/21 07:15 109 H 23 126/91 92 L 06/17/21 07:00 97 44 H 130/93 93 L 06/17/21 06:30 122 H 23 148/136 93 L 06/17/21 06:20 28 H 95 06/17/21 06:15 98 19 116/101 95 06/17/21 06:00 96 26 H 139/119 96 06/17/21 05:45 139/119 06/17/21 05:15 85 19 141/113 96 06/17/21 05:00 82 22 159/129 97 06/17/21 04:45 88 25 H 144/128 97 06/17/21 04:30 20 06/17/21 04:15 90 6 L 142/123 97 06/17/21 03:57 81 18 115/94 99 06/17/21 03:50 19 06/17/21 03:44 98.2 F 63 19 115/94 98 Intake and Output 06/16/21 06/17/21 06/17/21 22:59 06:59 14:59 Intake Total 1.7 31.35 Output Total 800 Balance 1.7 -768.65 Intake: Intake, IV Titration 1.7 31.35 Amount Nitroglycerin-D5w Pmx 50 1.7 31.35 mg In Dextrose/Water 1 250ml.bag @ 20 MCG/MIN 6 mls/hr IV .Q24H ONE Rx#: [id number] Output: Urine 800 Other: Weight 90.718 kg General: [Patient awake, alert and oriented times 3. Patient in no acute distress.] Currently on BiPAP HEENT: [PERRL. EOMI. No pharyngeal erythema or exudate.] Neck: [No adenopathy.] Cardiac: [Heart regular in rate and rhythm. No S3. No S4. No clicks, rubs. No murmur.] Lungs: Diminished breath sounds bilaterally and basilar crackles Abdomen: [No mass. No organomegaly. Bowel sounds presnt and normoactive in all 4 quadrants.] Extremes: [No edema no cyanosis no claudication normal pulses] : Normal female genitalia Musculoskeletal: [No joint erythema, edema or tenderness.] Skin: [No rash.] Neurologic: [No lateralizing deficits. CN II - XII grossly intact.] Lymphatic: [No adenopathy.] Results CBC & Chem 7: 06/17/21 03:45 06/17/21 03:45 Labs: Abnormal Lab Results - Last 24 Hours (Table) 06/17/21 06/17/21 06/17/21 Range/Units 03:45 03:45 03:45 WBC 15.9 H (3.8-10.6) k/uL Hgb 16.3 H (11.4-16.0) gm/dL Hct 53.8 H (34.0-46.0) % MCV 100.5 H (80.0-100.0) fL MCHC 30.3 L (31.0-37.0) g/dL Neutrophils # 9.1 H (1.3-7.7) k/uL Lymphocytes # 5.7 H (1.0-4.8) k/uL APTT 18.0 L (22.0-30.0) sec D-Dimer >34.10 H (<0.60) mg/L FEU Chloride 108 H (98-107) mmol/L BUN 31 H (7-17) mg/dL Glucose 146 H (74-99) mg/dL Plasma Lactic Acid Nir (0.7-2.0) mmol/L Calcium 10.6 H (8.4-10.2) mg/dL AST 64 H (14-36) U/L ALT 65 H (4-34) U/L Troponin I (0.000-0.034) ng/mL 06/17/21 06/17/21 06/17/21 Range/Units 03:45 03:45 08:35 WBC (3.8-10.6) k/uL Hgb (11.4-16.0) gm/dL Hct (34.0-46.0) % MCV (80.0-100.0) fL MCHC (31.0-37.0) g/dL Neutrophils # (1.3-7.7) k/uL Lymphocytes # (1.0-4.8) k/uL APTT (22.0-30.0) sec D-Dimer (<0.60) mg/L FEU Chloride (98-107) mmol/L BUN (7-17) mg/dL Glucose (74-99) mg/dL Plasma Lactic Acid Nir 2.1 H* (0.7-2.0) mmol/L Calcium (8.4-10.2) mg/dL AST (14-36) U/L ALT (4-34) U/L Troponin I 0.285 H* 0.537 H* (0.000-0.034) ng/mL Assessment and Plan (1) Elevated troponin Current Visit: Yes Status: Acute Code(s): R77.8 - OTHER SPECIFIED ABNORMALITIES OF PLASMA PROTEINS SNOMED Code(s): 973714577 (2) Elevated d-dimer Current Visit: Yes Status: Acute Code(s): R79.89 - OTHER SPECIFIED ABNORMAL FINDINGS OF BLOOD CHEMISTRY SNOMED Code(s): 771255031 (3) COPD exacerbation Current Visit: Yes Status: Acute Code(s): J44.1 - CHRONIC OBSTRUCTIVE PULMONARY DISEASE W (ACUTE) EXACERBATION SNOMED Code(s): 894895889 (4) Congestive heart failure Current Visit: Yes Status: Acute Code(s): I50.9 - HEART FAILURE, UNSPECIFIED SNOMED Code(s): 88372244 (5) Hypertension Current Visit: Yes Status: Acute Code(s): I10 - ESSENTIAL (PRIMARY) HYPERTENSION SNOMED Code(s): 99849866 (6) Acute bronchitis Current Visit: No Status: Acute Code(s): J20.9 - ACUTE BRONCHITIS, UNSPECIFIED SNOMED Code(s): 50052897 (7) Acute exacerbation of chronic obstructive airways disease Current Visit: No Status: Acute Code(s): J44.1 - CHRONIC OBSTRUCTIVE PULMONARY DISEASE W (ACUTE) EXACERBATION SNOMED Code(s): 087553552 Plan: Patient is admitted to the hospital Currently on BiPAP, sats in the 90s Consultation with pulmonary medicine Consultation with cardiology Resume all inhaled meds Wean nitro drip Manage hypertension We will treat headache accordingly Stopped IV morphine Resume appropriate home meds Time with Patient: Greater than 30
[2021-06-17] MEDS: methylPREDNISolone SOD SUCCI 125 MG/2 ML VIAL IV SCH ×2 (11:48→18:10)
[2021-06-17] MEDS: AZITHROMYCIN 500 MG TAB PO SCH (13:21)
--- NOTE | 2021-06-17 14:05 | P.CNPUL ---
History of Present Illness Consult date: 06/17/21 Requesting physician: Preston Vail Reason for consult: dyspnea, hypoxemia Chief complaint: Shortness of breath History of present illness: This is 70-year-old female patient who follows with Dr. Vail as her primary care provider. She has a history of hyperlipidemia, hypertension, obesity, migraines, chronic cough. She also has a history of chronic obstructive pulmonary disease, chronic and ongoing tobacco dependence, sleep apnea, tracheobronchomalacia and follows with Dr. Mckeon in our office. She presented here to the emergency room early this morning for shortness of breath. He was currently being treated for pneumonia and was on azithromycin. Her symptoms did not improve. Chest x-ray reveals evidence of cardiomegaly. Mild pulmonary fibrotic changes. No obvious heart failure. No pleural effusion. White count 15.9. Hemoglobin 16.3. D-dimer greater than 34. Sodium 142. Potassium 4.3. BUN 31, creatinine 0.77. Glucose 146. AST 64. ALT 65. Troponin 0.28, 0.53, 0.66. ProBNP 6460. Coronavirus by PCR not detected. CT angiogram of the chest revealed emphysema. Pulmonary infiltrates in the lower lobes also along the right major fissure. Enlarged pulmonary arteries consistent with pulmonary hypertension. No evidence of pulmonary embolism. Some underlying pulmonary fibrosis. Echocardiogram reveals severely impaired left ventricular systolic function with ejection fraction 20-25% with severe global hypokinesia of the LV. Computed tomography scan of the brain revealed no acute intracranial hemorrhage or midline shift. This was done because of c omplaints of headache. She was placed on BiPAP 10/5 and 50% FiO2. She was also initiated on nitroglycerin drip at 20 mg/m. No other IV fluids running. Review of Systems REVIEW OF SYSTEMS: CONSTITUTIONAL: Denies any recent significant weight loss or weight gain. EYES: Denies change in vision. EARS, NOSE, MOUTH, THROAT: Positive for headaches, denies sore throat. CARDIOVASCULAR: Denies chest pain, palpitations or syncopal episodes. RESPIRATORY: Is that of 4 shortness of breath, cough, congestion no hemoptysis. GASTROINTESTINAL: Denies change in appetite, denies abdominal pain GENITOURINARY: Denies hematuria, denies infections. MUSKULOSKELETAL: Denies pain, denies swelling. INTEGUMENTARY: Denies rash, denies eczema. NEUROLOGICAL: Denies recent memory loss, no recent seizure activity. PSYCHIATRIC: Denies anxiety, denies depression. HEMATOLOGIC/LYMPHATIC: Denies anemia, denies enlarged lymph nodes. Past Medical History Past Medical History: Chest Pain / Angina, COPD, GERD/Reflux, Hyperlipidemia, Hypertension, Osteoarthritis (OA), Pneumonia, Pulmonary Embolus (PE), Respiratory Disorder, Skin Disorder, Sleep Apnea/CPAP/BIPAP, Syncope Additional Past Medical History / Comment(s): bipap and Home O2 at 2L @[facility], & during day prn, hx syncope years ago, Migraines, Enlarged liver, Tracheobroncho malacia, chronic cough w/ occ hemoptysis, gallstones, abd pain recently but has improved w/ Rx History of Any Multi-Drug Resistant Organisms: None Reported Past Surgical History: Appendectomy, Section, Orthopedic Surgery, Tonsillectomy Additional Past Surgical History / Comment(s): jamey wrist, left elbow, ovarian cy st, exploratory laparoscopy, Rt knee Arthroscopy x2. several bronchoscopies, last 05/06/20. laser eye sx. Past Anesthesia/Blood Transfusion Reactions: No Reported Reaction Past Psychological History: Anxiety, Depression Smoking Status: Current every day smoker Past Alcohol Use History: None Reported Past Drug Use History: None Reported - Past Family History Mother Family Medical History: Cancer Additional Family Medical History / Comment(s): LUNG CA Father Family Medical History: Cancer Additional Family Medical History / Comment(s): LUNG CA Sister(s) Family Medical History: Cancer, Deep Vein Thrombosis (DVT) Additional Family Medical History / Comment(s): COLON CANCER Brother(s) Family Medical History: Coronary Artery Disease (CAD) Medications and Allergies Home Medications Medication Instructions Recorded Confirmed Type Multivitamins, Thera [Multivitamin 1 tab PO DAILY 06/14/16 06/17/21 History (formulary)] Calcium Carbonate [Tums] 500 mg PO TID PRN 12/04/17 06/17/21 History Enalapril [Vasotec] 20 mg PO DAILY 12/04/17 06/17/21 History HYDROcodone/APAP 10-325MG [[place] 1 tab PO Q6H PRN 12/04/17 06/17/21 History 10-325] CHLORPHEN-HYDROcod 8-10mg/5ml 5 ml PO Q12HR PRN 03/31/18 06/17/21 History [Tussionex] bisacodyL [Dulcolax] 1 tab PO DAILY PRN 03/31/18 06/17/21 History Atorvastatin [Lipitor] 20 mg PO HS 05/04/20 06/17/21 History Escitalopram [Lexapro] 10 mg PO DAILY 12/08/20 06/17/21 History Azithromycin [Zithromax] 500 mg PO DAILY 06/17/21 06/17/21 History Fluticasone/Umeclidin/Vilanter 1 puff INHALATION RT-DAILY 06/17/21 06/17/21 History [Trelegy Ellipta 100-62.5-25] Levalbuterol Hfa Inhaler [Xopenex 2 puff INHALATION RT-Q6H PRN 06/17/21 06/17/21 History Hfa Inhaler] Theophylline 12 Hour [[place]-Dur] 300 mg PO BID 06/17/21 06/17/21 History Tiotropium 2.5 Mcg/Puff [Spiriva 2 puff INHALATION RT-DAILY 06/17/21 06/17/21 History Respimat 2.5 Mcg] predniSONE See Taper PO DAILY 06/17/21 06/17/21 History Allergies Allergy/AdvReac Type Severity Reaction Status Date / Time oxytetracycline Allergy Unknown Verified 06/17/21 10:47 [From Terramycin] Childhood oxytetracycline HCl Allergy Unknown Verified 06/17/21 10:47 [From Terramycin] Childhood Penicillins Allergy Unknown Verified 06/17/21 10:47 Childhood streptomycin [Streptomycin] Allergy Unknown Verified 06/17/21 10:47 Childhood Sulfa (Sulfonamide Allergy Unknown Verified 06/17/21 10:47 Antibiotics) Childhood Tetracyclines Allergy Unknown Verified 06/17/21 10:47 Childhood albuterol AdvReac Unknown shaking, Verified 06/17/21 10:47 weakness, insomnia ciprofloxacin [From Cipro] AdvReac muscle Verified 06/17/21 10:47 tenderness Physical Exam Vitals: Vital Signs Temp Pulse Resp BP Pulse Ox 06/17/21 13:00 96 13 100/67 93 L 06/17/21 12:30 94 13 106/77 92 L 06/17/21 12:00 96.7 F L 98 15 108/96 92 L 06/17/21 11:30 93 12 112/97 94 L 06/17/21 11:14 97 06/17/21 11:07 96 15 112/97 94 L 06/17/21 10:36 98 F 93 20 109/98 93 L 06/17/21 10:30 116/65 06/17/21 10:01 97.8 F 73 16 111/99 95 06/17/21 09:49 98 18 87/63 96 06/17/21 09:14 77 18 121/90 97 06/17/21 09:05 97.9 F 101 H 22 124/87 95 06/17/21 08:25 99 22 141/98 95 06/17/21 07:36 97.5 F L 109 H 24 126/84 94 L 06/17/21 07:15 109 H 23 126/91 92 L 06/17/21 07:00 97 44 H 130/93 93 L 06/17/21 06:30 122 H 23 148/136 93 L 06/17/21 06:20 28 H 95 06/17/21 06:15 98 19 116/101 95 06/17/21 06:00 96 26 H 139/119 96 06/17/21 05:45 139/119 06/17/21 05:15 85 19 141/113 96 06/17/21 05:00 82 22 159/129 97 06/17/21 04:45 88 25 H 144/128 97 06/17/21 04:30 20 06/17/21 04:15 90 6 L 142/123 97 06/17/21 03:57 81 18 115/94 99 06/17/21 03:50 19 06/17/21 03:44 98.2 F 63 19 115/94 98 Intake and Output 06/16/21 06/17/21 06/17/21 22:59 06:59 14:59 Intake Total 1.7 35.00 Output Total 1500 Balance 1.7 -1465.00 Intake: Intake, IV Titration 1.7 35.00 Amount Nitroglycerin-D5w Pmx 50 1.7 35.00 mg In Dextrose/Water 1 250ml.bag @ 20 MCG/MIN 6 mls/hr IV .Q24H ONE Rx#: [id number] Output: Urine 1500 Other: Voiding Method Indwelling Catheter Weight 90.718 kg GENERAL EXAM: Alert, pleasant 70-year-old female patient, currently on BiPAP 10/5 and 50% FiO2, fairly comfortable in no apparent distress. HEAD: Normocephalic. EYES: Normal reaction of pupils, equal size. NOSE: Clear with pink turbinates. THROAT: No erythema or exudates. NECK: No masses, no JVD. CHEST: No chest wall deformity. LUNGS: Equal air entry with few scattered rhonchi. CVS: S1 and S2 normal with no audible murmur, regular rhythm. ABDOMEN: No hepatosplenomegaly, normal bowel sounds, no guarding or rigidity. SPINE: No scoliosis or deformity SKIN: No rashes CENTRAL NERVOUS SYSTEM: No focal deficits, tone is normal in all 4 extremities. EXTREMITIES: There is no peripheral edema. No clubbing, no cyanosis. Peripheral pulses are intact. Results - Laboratory Findings CBC and BMP: 06/17/21 03:45 06/17/21 03:45 PT/INR, D-dimer PT 10.4 sec (9.0-12.0) 06/17/21 03:45 INR 0.9 (<1.2) 06/17/21 03:45 D-Dimer >34.10 mg/L FEU (<0.60) H 06/17/21 03:45 Abnormal lab findings: Abnormal Labs 06/17/21 06/17/21 06/17/21 03:45 03:45 03:45 WBC 15.9 H Hgb 16.3 H Hct 53.8 H MCV 100.5 H MCHC 30.3 L Neutrophils # 9.1 H Lymphocytes # 5.7 H APTT 18.0 L D-Dimer >34.10 H Chloride 108 H BUN 31 H Glucose 146 H Plasma Lactic Acid Nir Calcium 10.6 H AST 64 H ALT 65 H Troponin I 06/17/21 06/17/21 06/17/21 03:45 03:45 08:35 WBC Hgb Hct MCV MCHC Neutrophils # Lymphocytes # APTT D-Dimer Chloride BUN Glucose Plasma Lactic Acid Nir 2.1 H* Calcium AST ALT Troponin I 0.285 H* 0.537 H* 06/17/21 12:52 WBC Hgb Hct MCV MCHC Neutrophils # Lymphocytes # APTT D-Dimer Chloride BUN Glucose Plasma Lactic Acid Nir Calcium AST ALT Troponin I 0.663 H* - Diagnostic Findings Chest x-ray: image reviewed CT scan - chest: image reviewed Assessment and Plan Assessment: 1 Acute hypoxemic respiratory failure secondary to an acute exacerbation of systolic congestive heart failure with severely impaired left ventricular systolic function and ejection fraction 20-25% 2 Hypertensive urgency, and initiated on nitroglycerin drip 3 Acute exacerbation of chronic obstructive pulmonary disease 4 Bilateral infiltrates lower lobes with possible community-acquired pneumonia 5 History of chronic tobacco dependence 6 Tracheobronchomalacia previous bronchoscopy 7 Obesity 8 Gastroesophageal reflux disease and 9 History of migraines 10 History of obstructive sleep apnea 11 Hypertension 12 Hyperlipidemia Plan: The patient was seen and evaluated Chest x-ray, CT angiogram, echocardiogram and labs reviewed Initiate ceftriaxone and azithromycin Bronchodilators, IV Solu-Medrol Continue nitroglycerin drip Titrate down the FiO2 as tolerated We will continue to follow and make further recommendations based on his clinical status I have personally seen and examined the patient, performed the documentation and the assessment and plan as written. Number of minutes spent on the visit: 20.
[2021-06-17] MEDS ORDERED: SYMBICORT 80-4.5 MCG INHALER INHALATION SCH (20:00)
[2021-06-17] MEDS: BUDESONIDE 1 MG/2 ML NEBU INHALATION SCH (21:02)
[2021-06-17] MEDS: FORMOTEROL FUMARATE 20 MCG/2 ML NEBU INHALATION SCH (21:03)
[2021-06-17] MEDS: ATORVASTATIN 20 MG TAB PO SCH (21:34)
[2021-06-17] MEDS: ACETAMINOPHEN TAB 325 MG TAB PO PRN (21:34)
[2021-06-18] MEDS: methylPREDNISolone SOD SUCCI 125 MG/2 ML VIAL IV SCH ×4 (05:39→17:57)
[2021-06-18] MEDS: HYDROcodone/APAP 10-325MG 1 EACH TAB PO PRN ×2 (06:10→12:18)
--- NOTE | 2021-06-18 06:42 | XR ---
EXAMINATION TYPE: XR chest 1V portable DATE OF EXAM: 06/18/2021 CLINICAL HISTORY: Difficulty breathing progress study. TECHNIQUE: Single AP portable upright view of the chest is obtained. COMPARISON: Chest x-ray an CTA chest from one day earlier and older studies. FINDINGS: Background chronic emphysematous change with focal consolidation in the right middle lobe and increased opacity left lower lung redemonstrated. Persistent cardiomegaly with atherosclerotic an d ectatic thoracic aorta. Osseous structures are intact. IMPRESSION: Cardiomegaly and chronic emphysematous change with right middle lobe consolidation may be chronic and patchy left basilar infiltrate and/or edema all redemonstrated. No significant change fr om one day earlier.
[2021-06-18] MEDS ORDERED: NITROGLYCERIN SL TABS 0.4 MG TAB SUBLINGUAL ONE (07:40)
[2021-06-18] MEDS ORDERED: NON FORMULARY DRUG (Tiotropium 2.5 Mcg/Puff 10 PUFF Each) INHALATION SCH (08:00)
[2021-06-18] MEDS ORDERED: IPRATROPIUM 0.5 MG/2.5 ML NEBU INHALATION SCH (08:00)
[2021-06-18] MEDS: IPRATROPIUM-ALBUTEROL 3 ML NEB INHALATION SCH ×4 (08:17→20:34)
[2021-06-18] MEDS: FORMOTEROL FUMARATE 20 MCG/2 ML NEBU INHALATION SCH ×2 (08:17→20:34)
[2021-06-18] MEDS: BUDESONIDE 1 MG/2 ML NEBU INHALATION SCH ×2 (08:17→20:34)
[2021-06-18] MEDS: FUROSEMIDE 10 MG/ML 4 ML VIAL IV SCH (08:51)
[2021-06-18] MEDS: lisinopriL 20 MG TAB PO SCH (08:52)
[2021-06-18] MEDS: ASPIRIN 325 MG TAB PO SCH (08:52)
[2021-06-18] MEDS: MULTIVITAMINS, THERA 1 EACH TAB PO SCH (08:52)
[2021-06-18] MEDS ORDERED: predniSONE 10 MG TAB PO SCH (09:00)
[2021-06-18] MEDS ORDERED: AZITHROMYCIN 500 MG TAB PO SCH (09:00)
[2021-06-18 09:11] LABS: Basophils % (A) 0 %; Eosinophils % (A) 0 %; HCT 49.3 % (34.0-46.0); HGB 15.7 gm/dL (11.4-16.0); Lymphocytes # (A) 1.1 k/uL (1.0-4.8); Lymphocytes % (A) 15 %; MCH 31.5 pg (25.0-35.0); MCHC 31.8 g/dL (31.0-37.0); Mean Platelet Volume 7.3; Monocytes # (A) 0.1 k/uL (0-1.0); Monocytes % (A) 2 %; Neutrophils # (A) 6.4 k/uL (1.3-7.7); Neutrophils % (A) 83 %; Platelet Count 274 k/uL (150-450); RBC 4.98 m/uL (3.80-5.40); RDW 13.3 % (11.5-15.5); WBC 7.7 k/uL (3.8-10.6)
[2021-06-18 09:22] LABS: African American GFR (CKD) >90 (>60 ml/min/1.73 sqM); Anion Gap 8 mmol/L; Blood Urea Nitrogen 30 mg/dL (7-17); Calcium 10.5 mg/dL (8.4-10.2); Carbon Dioxide 32 mmol/L (22-30); Chloride 99 mmol/L (98-107); Glucose 190 mg/dL (74-99); Non-African American GFR(CKD) 80 (>60 ml/min/1.73 sqM); Potassium 4.2 mmol/L (3.5-5.1); Sodium 139 mmol/L (137-145)
[2021-06-18] MEDS: AZITHROMYCIN 500 MG TAB PO SCH (09:37)
[2021-06-18] MEDS: THEOPHYLLINE 24 HOUR 300 MG CAP.ER.24H PO SCH (09:37)
[2021-06-18] MEDS: ESCITALOPRAM 10 MG TAB PO SCH (09:38)
[2021-06-18] MEDS: LORazepam 2 MG/ML INJ IV PRN (09:53)
[2021-06-18] MEDS ORDERED: NITROGLYCERIN SL TABS 0.4 MG TAB SUBLINGUAL PRN (10:42)
[2021-06-18] MEDS ORDERED: ALPRAZolam 0.25 MG TAB PO PRN (10:42)
[2021-06-18] MEDS ORDERED: ASPIRIN 325 MG TAB PO STA (10:42)
[2021-06-18] MEDS ORDERED: ATORVASTATIN 80 MG TAB PO STA (10:42)
--- NOTE | 2021-06-18 10:42 | P.CRDCN ---
History of Present Illness History of present illness: HISTORY OF PRESENTING ILLNESS Patient is a pleasant 70-year-old female with history of hypertension, hyperlipidemia, obesity, COPD, anxiety who presents secondary worsening shortness breath as well as chest pressure or last week. She states that she had been doing fairly well however has been noting significant dyspnea with any activity or last week. She also admits to some orthopnea. She has been having chest pressure which also goes to her back which also often occurs with exertion and improved with rest. She denies any recent fevers or chills. She is very tearful as she states she lost her a year ago and it was recently his birthday and she has been dealing with the stress of her family members wanting her to move. Cardiology was consult for elevated troponins and chest pain. She received IV Lasix and was placed on BiPAP with improvement to nasal cannula today. She admits she still has some chest pressure however not relieved with nitroglycerin morning. EKG shows sinus rhythm with occasional PVCs, normal axis and no significant ST or T wave abnormalities. Blood work shows troponin 0.2, 0.537, 0.66, 0.32. D- dimer greater than 34, creatinine 0.7, proBNP 6400, cell count 15.9. CTA showed emphysema with pulmonary infiltrates in both lower lobes with no PE with some underlying pulmonary fibrosis. Echo performed 06/17 shows moderate LVH, EF 20-25% with mild mitral regurgitation. REVIEW OF SYSTEMS At the time of my exam: CONSTITUTIONAL: Denies fever or chills. CARDIOVASCULAR: +chest pain, +shortness of breath, +orthopnea, no PND or palpitations. RESPIRATORY: Denies cough. GASTROINTESTINAL: Denies abdominal pain, diarrhea, constipation, nausea or vomiting. MUSCULOSKELETAL: Denies myalgias. NEUROLOGIC: Denies numbness, tingling or weakness. ENDOCRINE: Denies fatigue, weight change, polydipsia or polyurina. GENITOURINARY: Denies burning, hematuria or urgency with micturation. HEMATOLOGIC: Denies history of anemia or bleeding. PHYSICAL EXAMINATION Vital signs reviewed. CONSTITUTIONAL: No apparent distress, ill appearing HEENT: Head is normocephalic. Pupils are equal, round. Sclerae anicteric. Mucous membranes of the mouth are moist. No JVD. No carotid bruit. CHEST EXAMINATION: Lungs are clear to auscultation. +crackles b/l at bases HEART EXAMINATION: Regular rate and rhythm. S1, S2 heard. No murmurs, gallops or rub. ABDOMEN: Soft, nontender. Positive bowel sounds. EXTREMITIES: 2+ peripheral pulses, no lower extremity edema and no calf tenderness. NEUROLOGIC EXAMINATION: Patient is awake, alert and oriented x3. ASSESSMENT 1. Acute on chronic respiratory failure possibly multifactorial secondary to pneumonia plus component of heart failure on top of COPD 2. Acute on chronic systolic heart failure 3. Non-STEMI unclear type I versus type II 4. Chest pain with some typical features over the last 1 week 5. Cardiomyopathy EF 20-25%. Consideration of possible stress-induced cardiomyopathy with the of her and increased stress at home however rule out underlying CAD 6. Hypertension 7. Hyperlipidemia 8. Tobacco abuse PLAN Patient with complex presentation with leukocytosis and x-ray concerning for inf iltrates however somewhat findings consistent with heart failure. New-onset of severe cardiomyopathy EF 20-25% with additional elevated troponins and ongoing off-and-on chest pain. Discussed recommendations for heart catheterization to definitively evaluate for possible underlying CAD continue heparin drip for now. Further recommendations to follow. Past Medical History Past Medical History: Chest Pain / Angina, COPD, GERD/Reflux, Hyperlipidemia, Hypertension, Osteoarthritis (OA), Pneumonia, Pulmonary Embolus (PE), Respiratory Disorder, Skin Disorder, Sleep Apnea/CPAP/BIPAP, Syncope Additional Past Medical History / Comment(s): bipap and Home O2 at 2L @[facility], & during day prn, hx syncope years ago, Migraines, Enlarged liver, Tracheobronchomalacia, chronic cough w/ occ hemoptysis, gallstones, abd pain recently but has improved w/ Rx History of Any Multi-Drug Resistant Organisms: None Reported Past Surgical History: Appendectomy, Section, Orthopedic Surgery, Ton sillectomy Additional Past Surgical History / Comment(s): jamey wrist, left elbow, ovarian cyst, exploratory laparoscopy, Rt knee Arthroscopy x2. several bronchoscopies, last 05/06/20. laser eye sx. Past Anesthesia/Blood Transfusion Reactions: No Reported Reaction Past Psychological History: Anxiety, Depression Smoking Status: Current every day smoker Past Alcohol Use History: None Reported Past Drug Use History: None Reported - Past Family History Mother Family Medical History: Cancer Additional Family Medical History / Comment(s): LUNG CA Father Family Medical History: Cancer Additional Family Medical History / Comment(s): LUNG CA Sister(s) Family Medical History: Cancer, Deep Vein Thrombosis (DVT) Additional Family Medical History / Comment(s): COLON CANCER Brother(s) Family Medical History: Coronary Artery Disease (CAD) Medications and Allergies Home Medications Medication Instructions Recorded Confirmed Type Multivitamins, Thera [Multivitamin 1 tab PO DAILY 06/14/16 06/17/21 History (formulary)] Calcium Carbonate [Tums] 500 mg PO TID PRN 12/04/17 06/17/21 History Enalapril [Vasotec] 20 mg PO DAILY 12/04/17 06/17/21 History HYDROcodone/APAP 10-325MG [[place] 1 tab PO Q6H PRN 12/04/17 06/17/21 History 10-325] CHLORPHEN-HYDROcod 8-10mg/5ml 5 ml PO Q12HR PRN 03/31/18 06/17/21 History [Tussionex] bisacodyL [Dulcolax] 1 tab PO DAILY PRN 03/31/18 06/17/21 History Atorvastatin [Lipitor] 20 mg PO HS 05/04/20 06/17/21 History Escitalopram [Lexapro] 10 mg PO DAILY 12/08/20 06/17/21 History Azithromycin [Zithromax] 500 mg PO DAILY 06/17/21 06/17/21 History Fluticasone/Umeclidin/Vilanter 1 puff INHALATION RT-DAILY 06/17/21 06/17/21 History [Trelegy Ellipta 100-62.5-25] Levalbuterol Hfa Inhaler [Xopenex 2 puff INHALATION RT-Q6H PRN 06/17/21 06/17/21 History Hfa Inhaler] Theophylline 12 Hour [Edison-Dur] 300 mg PO BID 06/17/21 06/17/21 History Tiotropium 2.5 Mcg/Puff [Spiriva 2 puff INHALATION RT-DAILY 06/17/21 06/17/21 History Respimat 2.5 Mcg] predniSONE See Taper PO DAILY 06/17/21 06/17/21 History Allergies Allergy/AdvReac Type Severity Reaction Status Date / Time oxytetracycline Allergy Unknown Verified 06/17/21 10:47 [From Terramycin] Childhood oxytetracycline HCl Allergy Unknown Verified 06/17/21 10:47 [From Terramycin] Childhood Penicillins Allergy Unknown Verified 06/17/21 10:47 Childhood streptomycin [Streptomycin] Allergy Unknown Verified 06/17/21 10:47 Childhood Sulfa (Sulfonamide Allergy Unknown Verified 06/17/21 10:47 Antibiotics) Childhood Tetracyclines Allergy Unknown Verified 06/17/21 10:47 Childhood albuterol AdvReac Unknown shaking, Verified 06/17/21 10:47 weakness, insomnia ciprofloxacin [From Cipro] AdvReac muscle Verified 06/17/21 10:47 tenderness Physical Exam Vitals: Vital Signs Temp Pulse Resp BP Pulse Ox 06/18/21 10:00 90 13 125/79 89 L 06/18/21 09:27 85 06/18/21 09:00 89 14 110/88 93 L 06/18/21 08:27 84 06/18/21 08:17 85 06/18/21 08:00 98.2 F 89 21 106/75 88 L 06/18/21 07:00 81 16 116/84 93 L 06/18/21 06:00 80 17 118/71 93 L 06/18/21 05:00 84 19 111/79 92 L 06/18/21 04:00 60 12 152/66 92 L 06/18/21 03:00 105 H 17 152/66 89 L 06/18/21 02:00 58 L 14 105/61 90 L 06/18/21 01:30 58 L 13 105/61 91 L 06/18/21 01:00 57 L 14 119/72 91 L 06/18/21 00:30 56 L 12 119/72 92 L 06/18/21 00:05 57 L 14 80/55 90 L 06/18/21 00:00 62 14 80/55 91 L 06/17/21 23:30 60 15 99/61 89 L 06/17/21 23:00 60 14 114/77 90 L 06/17/21 22:30 57 L 12 114/77 91 L 06/17/21 22:00 92 12 103/70 92 L 06/17/21 21:30 103 H 15 103/70 94 L 06/17/21 21:28 89 06/17/21 21:16 64 06/17/21 21:06 66 06/17/21 21:00 61 7 L 112/72 93 L 06/17/21 20:30 61 12 112/72 94 L 06/17/21 20:00 61 14 117/69 93 L 06/17/21 19:30 61 14 117/69 92 L 06/17/21 19:00 64 16 122/55 93 L 06/17/21 18:30 91 21 122/55 93 L 06/17/21 18:00 59 L 16 97/72 90 L 06/17/21 17:30 66 13 122/53 88 L 06/17/21 17:00 84 7 L 89 L 06/17/21 16:43 75 06/17/21 16:30 84 13 106/70 94 L 06/17/21 16:27 85 06/17/21 16:00 98.2 F 80 22 119/74 93 L 06/17/21 15:30 92 11 L 116/82 94 L 06/17/21 15:00 93 15 121/74 93 L 06/17/21 14:30 66 11 L 102/60 93 L 06/17/21 14:00 76 15 98/58 91 L 06/17/21 13:30 71 12 94/58 92 L 06/17/21 13:00 96 13 100/67 93 L 06/17/21 12:30 94 13 106/77 92 L 06/17/21 12:00 96.7 F L 98 15 108/96 92 L 06/17/21 11:30 93 12 112/97 94 L 06/17/21 11:14 97 06/17/21 11:07 96 15 112/97 94 L Intake and Output 06/17/21 06/18/21 06/18/21 22:59 06:59 14:59 Intake Total 550 100 Output Total 775 860 570 Balance -225 -563 -470 Intake: IV 100 cefTRIAXone 1 gm In 100 Sodium Chloride 0.9% 50 ml @ 100 mls/hr IVPB Q24HR [facility] Rx#:[id number] Oral 550 Output: Urine 775 860 570 Other: Voiding Method Indwelling Catheter Indwelling Catheter Indwelling Catheter Results 06/18/21 08:49 06/18/21 08:49 Cardiac Enzymes 06/17/21 06/18/21 Range/Units 12:52 08:49 Troponin I 0.663 H* 0.320 H* (0.000-0.034) ng/mL CBC 06/18/21 Range/Units 08:49 WBC 7.7 (3.8-10.6) k/uL RBC 4.98 (3.80-5.40) m/uL Hgb 15.7 (11.4-16.0) gm/dL Hct 49.3 H (34.0-46.0) % Plt Count 274 (150-450) k/uL Comprehensive Metabolic Panel 06/18/21 Range/Units 08:49 Sodium 139 (137-145) mmol/L Potassium 4.2 (3.5-5.1) mmol/L Chloride 99 (98-107) mmol/L Carbon Dioxide 32 H (22-30) mmol/L BUN 30 H (7-17) mg/dL Creatinine 0.76 (0.52-1.04) mg/dL Glucose 190 H (74-99) mg/dL Calcium 10.5 H (8.4-10.2) mg/dL Current Medications Generic Name Dose Route Start Last Admin Trade Name Freq PRN Reason Stop Dose Admin Acetaminophen 650 mg 06/17/21 11:16 06/17/21 21:34 Acetaminophen Tab 325 Mg Tab PO 650 mg Q4HR PRN Administration Fever and/ or Pain Hydrocodone Bitart/Acetaminophen 1 each 06/17/21 11:23 06/18/21 06:10 Hydrocodone/Apap 10-325mg 1 Each Tab PO 1 each Q6H PRN Administration Pain Albuterol/Ipratropium 3 ml 06/17/21 12:00 06/18/21 08:17 Ipratropium-Albuterol 3 Ml Neb INHALATION 3 ml RT-QID GABO Administration Albuterol/Ipratropium 3 ml 06/17/21 10:02 Ipratropium-Albuterol 3 Ml Neb INHALATION RT-Q2H PRN Shortness Of Breath Or Wheezing Aspirin 325 mg 06/18/21 09:00 06/18/21 08:52 Aspirin 325 Mg Tab PO 325 mg DAILY GABO Administration Atorvastatin Calcium 20 mg 06/17/21 21:00 06/17/21 21:34 Atorvastatin 20 Mg Tab PO 20 mg HS GABO Administration Azithromycin 500 mg 06/17/21 10:15 06/18/21 09:37 Azithromycin 500 Mg Tab PO 06/19/21 09:01 500 mg DAILY GABO Administration Protocol Bisacodyl 5 mg 06/17/21 11:23 Bisacodyl 5 Mg Tablet.Dr PO DAILY PRN Constipation Budesonide 1 mg 06/17/21 20:00 06/18/21 08:17 Budesonide 1 Mg/2 Ml Nebu INHALATION 1 mg RT-BID GABO Administration Calcium Carbonate/Glycine 500 mg 06/17/21 11:23 Calcium Carbonate 500 Mg Chewable PO TID PRN Heartburn Escitalopram Oxalate 10 mg 06/18/21 09:00 06/18/21 09:38 Escitalopram 10 Mg Tab PO 10 mg DAILY GABO Administration Formoterol Fumarate 20 mcg 06/17/21 20:00 06/18/21 08:17 Formoterol Fumarate 20 Mcg/2 Ml Nebu INHALATION 20 mcg RT-BID GABO Administration Furosemide 40 mg 06/17/21 09:00 06/18/21 08:51 Furosemide 10 Mg/Ml 4 Ml Vial IV 40 mg Q12HR [facility]O Administration Ceftriaxone Sodium 1 gm/ 50 mls @ 100 mls/hr 06/17/21 10:15 06/18/21 08:51 Sodium Chloride IVPB 100 mls/hr Q24HR [facility] Administration Protocol Lisinopril 40 mg 06/18/21 09:00 06/18/21 08:52 Lisinopril 20 Mg Tab PO 40 mg DAILY GABO Administration Lorazepam 0.5 mg 06/18/21 09:45 06/18/21 09:53 Lorazepam 2 Mg/Ml Inj IV 0.5 mg Q6HR PRN Administration Anxiety Methylprednisolone Sodium Succinate 60 mg 06/17/21 12:00 06/18/21 05:39 Methylprednisolone Sod Succi 125 Mg/2 Ml Vial IV 60 mg Q6HR GABO Administration Multivitamins 1 each 06/18/21 09:00 06/18/21 08:52 Multivitamins, Thera 1 Each Tab PO 1 each DAILY GABO Administration Non-Formulary Medication 5 ml 06/17/21 11:23 Chlorphen-Hydrocod 8-10mg/5ml PO Q12HR PRN Cough Sodium Chloride 10 ml 06/17/21 09:00 06/18/21 08:52 Sodium Chloride 0.9% Flush 10 Ml Syringe IV 10 ml BID GABO Administration Theophylline 600 mg 06/18/21 09:00 06/18/21 09:37 Theophylline 24 Hour 300 Mg Cap.Er.24h PO 600 mg DAILY GABO Administration Intake and Output 06/17/21 06/18/21 06/18/21 22:59 06:59 14:59 Intake Total 550 100 Output Total 775 860 570 Balance -270 -396 -952 Intake: IV 100 cefTRIAXone 1 gm In 100 Sodium Chloride 0.9% 50 ml @ 100 mls/hr IVPB Q24HR [facility] Rx#:[id number] Oral 550 Output: Urine 775 860 570 Other: Voiding Method Indwelling Catheter Indwelling Catheter Indwelling Catheter 06/18/21 08:49 06/18/21 08:49
--- NOTE | 2021-06-18 11:08 | P.PN ---
Subjective Progress Note Date: 06/18/21 Principal diagnosis: Shortness of breath, coughing and wheezing This is 70-year-old female patient who follows with Dr. Vail as her primary care provider. She has a history of hyperlipidemia, hypertension, obesity, migraines, chronic cough. She also has a history of chronic obstructive pulmonary disease, chronic and ongoing tobacco dependence, sleep apnea, tracheobronchomalacia and follows with Dr. Mckeon in our office. She presented here to the emergency room early this morning for shortness of breath. He was currently being treated for pneumonia and was on azithromycin. Her symptoms did not improve. Chest x-ray reveals evidence of cardiomegaly. Mild pulmonary fibrotic changes. No obvious heart failure. No pleural effusion. White count 15.9. Hemoglobin 16.3. D-dimer greater than 34. Sodium 142. Potassium 4.3. BUN 31, creatinine 0.77. Glucose 146. AST 64. ALT 65. Troponin 0.28, 0.53, 0.66. ProBNP 6460. Coronavirus by PCR not detected. CT angiogram of the chest revealed emphysema. Pulmonary infiltrates in the lower lobes also along the right major fissure. Enlarged pulmonary arteries consistent with pulmonary hypertension. No evidence of pulmonary embolism. Some underlying pulmonary fibrosis. Echocardiogram reveals severely impaired left ventricular systolic function with ejection fraction 20-25% with severe global hypokinesia of the LV. Computed tomography scan of the brain revealed no acute intracranial hemorrhage or midline shift. This was done because of complaints of headache. She was placed on BiPAP 10/5 and 50% FiO2. She was also initiated on nitroglycerin drip at 20 mg/m. No other IV fluids running. On 06/18/2021 patient seen in follow-up in the intensive care unit, she remains on BiPAP at 10/5 and FiO2 of 50%, she states her breathing is a little better today, she is breathing easier, her cough has significantly improved, on physical exam she still bronchospastic, there is good air entry bilaterally. No IV fluids, IV fluids have been hep-locked. Today's chest x-ray showing cardiomegaly and chronic emphysematous changes with right middle lobe consolidation which may be chronic and patchy left basilar infiltrate. No significant change from one day earlier. Patient continues on nebulized bron chodilators, she is on empiric antibiotics with azithromycin and Rocephin, she is on IV Lasix of 40 mg every 12 hours, and IV steroids. No complaints of chest discomfort. Today's lab 7 reviewed, white blood cell count 7.7, hemoglobin is 15.7, sodium is 139, potassium is 4.2, CO2 is 32, B1 is 30 and creatinine 0.76. Objective - Vital Signs Vital signs: Vital Signs Temp 98.2 F 06/18/21 08:00 Pulse 90 06/18/21 10:00 Resp 13 06/18/21 10:00 BP 125/79 06/18/21 10:00 Pulse Ox 89 L 06/18/21 10:00 Intake & Output 06/17/21 06/18/21 06/18/21 18:59 06:59 18:59 Intake Total 288.75 300 100 Output Total 2100 1260 570 Balance -1811.25 -960 -587 Weight 90.718 kg Intake: IV 100 cefTRIAXone 1 gm In 100 Sodium Chloride 0.9% 50 ml @ 100 mls/hr IVPB Q24HR [facility] Rx#:[id number] Intake, IV Titration 38.75 Amount Nitroglycerin-D5w Pmx 50 38.75 mg In Dextrose/Water 1 250ml.bag @ 20 MCG/MIN 6 mls/hr IV .Q24H [facility] Rx#: [id number] Oral 250 300 Output: Urine 2100 1260 570 Other: Voiding Method Indwelling Catheter Indwelling Catheter Indwelling Catheter - Exam GENERAL EXAM: Alert, very pleasant, 70-year-old white female, BiPAP support with pressures of 10 of 5 and FiO2 of 50% comfortable in no apparent distress. HEAD: Normocephalic/atraumatic. EYES: Normal reaction of pupils, equal size. Conjunctiva pink, sclera white. NOSE: Clear with pink turbinates. THROAT: No erythema or exudates. NECK: No masses, no JVD, no thyroid enlargement, no adenopathy. CHEST: No chest wall deformity. Symmetrical expansion. LUNGS: Equal air entry with expiratory wheezes CVS: Regular rate and rhythm, normal S1 and S2, no gallops, no murmurs, no rubs ABDOMEN: Soft, nontender. No hepatosplenomegaly, normal bowel sounds, no guarding or rigidity. EXTREMITIES: No clubbing, no edema, no cyanosis, 2+ pulses and upper and lower extremities. MUSCULOSKELETAL: Muscle strength and tone normal. SPINE: No scoliosis or deformity SKIN: No rashes CENTRAL NERVOUS SYSTEM: Alert and oriented -3. No focal deficits, tone is normal in all 4 extremities. PSYCHIATRIC: Alert and oriented -3. Appropriate affect. Intact judgment and insight. - Labs CBC & Chem 7: 06/18/21 08:49 06/18/21 08:49 Labs: Abnormal Lab Results - Last 24 Hours (Table) 06/17/21 06/18/21 06/18/21 Range/Units 12:52 08:49 08:49 Hct 49.3 H (34.0-46.0) % Carbon Dioxide 32 H (22-30) mmol/L BUN 30 H (7-17) mg/dL Glucose 190 H (74-99) mg/dL Calcium 10.5 H (8.4-10.2) mg/dL Troponin I 0.663 H* (0.000-0.034) ng/mL 06/18/21 Range/Units 08:49 Hct (34.0-46.0) % Carbon Dioxide (22-30) mmol/L BUN (7-17) mg/dL Glucose (74-99) mg/dL Calcium (8.4-10.2) mg/dL Troponin I 0.320 H* (0.000-0.034) ng/mL Assessment and Plan Plan: Assessment: #1. Acute hypoxic respiratory failure secondary to an acute exacerbation of systolic CHF with severely impaired left ventricular systolic function and EF of 20-25% #2. Hypertensive urgency, resolved #3. Acute exacerbation of COPD, improving #4. Bilateral infiltrates and no lower lobes with possible community acquired pneumonia #5. History of chronic tobacco dependence #6. Tracheobronchomalacia #7. Morbid obesity with BMI 31.3 kg/m #8. GERD/reflux #9. History of migrainous #10. History of obstructive sleep apnea #11. Hypertension #12. Hyperlipidemia Plan: Continue current medical treatment Patient states she is feeling better breathing easier May give a trial off BiPAP support on nasal cannula Continue diuretics, IV Solu-Medrol, empiric antibiotics Blood pressure has improved Vital signs have been stable Continue monitoring electrolytes and renal profile We'll send a pro-calcitonin level We'll continue to follow in the intensive care unit I have personally seen and examined the patient, performed the documentation and the assessment and plan as written. Number of minutes spent on the visit: [10] Time with Patient: Less than 30
--- NOTE | 2021-06-18 12:12 | P.PN ---
Subjective Progress Note Date: 06/18/21 Principal diagnosis: New cardiomyopathy with recent reduction in EF, congestive heart failure with underlying pneumonia Currently still on BiPAP, O2 sats stable, pending cardiac catheterization Objective - Vital Signs Vital signs: Vital Signs Temp 98.0 F 06/18/21 12:00 Pulse 75 06/18/21 12:00 Resp 17 06/18/21 12:00 BP 107/66 06/18/21 12:00 Pulse Ox 92 L 06/18/21 12:00 Intake & Output 06/17/21 06/18/21 06/18/21 18:59 06:59 18:59 Intake Total 288.75 300 100 Output Total 2100 1260 920 Balance -1811.25 -960 -820 Weight 90.718 kg Intake: IV 100 cefTRIAXone 1 gm In 100 Sodium Chloride 0.9% 50 ml @ 100 mls/hr IVPB Q24HR [facility] Rx#:[id number] Intake, IV Titration 38.75 Amount Nitroglycerin-D5w Pmx 50 38.75 mg In Dextrose/Water 1 250ml.bag @ 20 MCG/MIN 6 mls/hr IV .Q24H [facility] Rx#: [id number] Oral 250 300 Output: Urine 2100 1260 920 Other: Voiding Method Indwelling Catheter Indwelling Catheter Indwelling Catheter - Exam General: [Patient awake, alert and oriented times 3. Patient in no acute distress.] HEENT: [PERRL. EOMI. No pharyngeal erythema or exudate.] Neck: [No adenopathy.] Cardiac: [Heart regular in rate and rhythm. No S3. No S4. No clicks, rubs. No murmur.] Lungs: Diminished breath sounds bilaterally with minimal bibasilar crackles Abdomen: [No mass. No organomegaly. Bowel sounds presnt and normoactive in all 4 quadrants.] Extremes: [No edema no cyanosis no claudication normal pulses] : Normal female genitalia Musculoskeletal: [No joint erythema, edema or tenderness.] Skin: [No rash.] Neurologic: [No lateralizing deficits. CN II - XII grossly intact.] Lymphatic: [No adenopathy.] - Labs CBC & Chem 7: 06/18/21 08:49 06/18/21 08:49 Labs: Abnormal Lab Results - Last 24 Hours (Table) 06/17/21 06/18/2106/18/22 Range/Units 12:52 08:49 08:49 Hct 49.3 H (34.0-46.0) % Carbon Dioxide 32 H (22-30) mmol/L BUN 30 H (7-17) mg/dL Glucose 190 H (74-99) mg/dL Calcium 10.5 H (8.4-10.2) mg/dL Troponin I 0.663 H* (0.000-0.034) ng/mL 06/18/21 Range/Units 08:49 Hct (34.0-46.0) % Carbon Dioxide (22-30) mmol/L BUN (7-17) mg/dL Glucose (74-99) mg/dL Calcium (8.4-10.2) mg/dL Troponin I 0.320 H* (0.000-0.034) ng/mL Assessment and Plan (1) Elevated troponin Current Visit: Yes Status: Acute Code(s): R77.8 - OTHER SPECIFIED ABNORMALITIES OF PLASMA PROTEINS SNOMED Code(s): 704467338 (2) Elevated d-dimer Current Visit: Yes Status: Acute Code(s): R79.89 - OTHER SPECIFIED ABNORMAL FINDINGS OF BLOOD CHEMISTRY SNOMED Code(s): 215202739 (3) COPD exacerbation Current Visit: Yes Status: Acute Code(s): J44.1 - CHRONIC OBSTRUCTIVE PULMONARY DISEASE W (ACUTE) EXACERBATION SNOMED Code(s): 470263886 (4) Congestive heart failure Current Visit: Yes Status: Acute Code(s): I50.9 - HEART FAILURE, UNSPECIFIED SNOMED Code(s): 12412759 (5) Hypertension Current Visit: Yes Status: Acute Code(s): I10 - ESSENTIAL (PRIMARY) HYPERTENSION SNOMED Code(s): 63355356 (6) Acute bronchitis Current Visit: No Status: Acute Code(s): J20.9 - ACUTE BRONCHITIS, UNSPECIFIED SNOMED Code(s): 79529382 (7) Acute exacerbation of chronic obstructive airways disease Current Visit: No Status: Acute Code(s): J44.1 - CHRONIC OBSTRUCTIVE PULMONARY DISEASE W (ACUTE) EXACERBATION SNOMED Code(s): 671877919 Plan: Patient is admitted to the hospital Currently on BiPAP, sats in the 90s Consultation with pulmonary medicine Consultation with cardiology Resume all inhaled meds Manage hypertension Resume appropriate home meds Time with Patient: Greater than 30
[2021-06-18] MEDS ORDERED: IV FLUID CONTINUATION 600 ML IV ONE (15:29)
[2021-06-18] MEDS ORDERED: SODIUM CHLORIDE 0.9% 500 ML 500 ML IV ONE (15:29)
[2021-06-18] MEDS ORDERED: LIDOCAINE 1% INJ 10MG/ML (20 ML MDV) ONE (15:36)
[2021-06-18] MEDS ORDERED: VERAPAMIL 2.5 MG/ML 2 ML AMP ONE ×2 (15:37→16:24)
[2021-06-18] MEDS ORDERED: fentaNYL (PF) 50 MCG/ML 2 ML AMP ONE (15:45)
[2021-06-18] MEDS ORDERED: HEPARIN SODIUM 1,000 UN/ML (10ML VL) ONE (15:45)
[2021-06-18] MEDS: MIDAZOLAM 2 MG/2 ML VIAL IV ONE ×2 (15:55→16:17)
[2021-06-18] MEDS ORDERED: fentaNYL (PF) 50 MCG/ML 2 ML AMP IV ONE (15:56)
[2021-06-18] MEDS ORDERED: LIDOCAINE 1% INJ 10MG/ML (20 ML MDV) SQ ONE (15:56)
[2021-06-18] MEDS: VERAPAMIL SYRINGE (5 MG/10 ML) INTRAARTER ONE ×2 (15:58→16:17)
[2021-06-18] MEDS ORDERED: IOPAMIDOL-370 125ML BTL INJ ONE (16:14)
[2021-06-18] MEDS ORDERED: IOPAMIDOL-370 100ML BTL INJ ONE (16:47)
[2021-06-18] MEDS ORDERED: HEPARIN SODIUM 1,000 UN/ML (10ML VL) IV PRN (17:38)
[2021-06-18] MEDS ORDERED: HEPARIN SODIUM 1,000 UN/ML (10ML VL) IV ONE (17:38)
[2021-06-18] MEDS: HEPARIN SOD,PORK IN 0.45% NACL 25,000 UNIT in 0.45% NACL 1 250ML.BAG IV SCH (17:51)
--- NOTE | 2021-06-18 18:26 | P.PN ---
Subjective New-onset of atrial fibrillation noted during heart catheterization. Patient was placed on heparin drip as well as metoprolol started. Continue to monitor. Hopeful PCI of LAD 4/5 to allow for kidney washout with increased contrast given with CTA and heart catheterization. Objective - Vital Signs Vital signs: Vital Signs Temp 97.7 F 06/18/21 18:00 Pulse 89 06/18/21 18:00 Resp 22 06/18/21 18:00 BP 87/44 06/18/21 18:00 Pulse Ox 90 L 06/18/21 18:00 Intake & Output 06/17/21 06/18/21 06/18/21 18:59 06:59 18:59 Intake Total 288.75 300 500 Output Total 2100 1260 1495 Balance -1811.25 -960 -995 Weight 90.718 kg Intake: IV 500 cefTRIAXone 1 gm In 100 Sodium Chloride 0.9% 50 ml @ 100 mls/hr IVPB Q24HR [facility] Rx#:[id number] Intake, IV Titration 38.75 Amount Nitroglycerin-D5w Pmx 50 38.75 mg In Dextrose/Water 1 250ml.bag @ 20 MCG/MIN 6 mls/hr IV .Q24H [facility] Rx#: [id number] Oral 250 300 Output: Urine 2100 1260 1495 Other: Voiding Method Indwelling Catheter Indwelling Catheter Indwelling Catheter - Labs CBC & Chem 7: 06/18/21 08:49 06/18/21 08:49 Labs: Abnormal Lab Results - Last 24 Hours (Table) 06/18/21 06/18/21 06/18/21 Range/Units 08:49 08:49 08:49 Hct 49.3 H (34.0-46.0) % Carbon Dioxide 32 H (22-30) mmol/L BUN 30 H (7-17) mg/dL Glucose 190 H (74-99) mg/dL Calcium 10.5 H (8.4-10.2) mg/dL Troponin I 0.320 H* (0.000-0.034) ng/mL
[2021-06-18] MEDS: SODIUM CHLORIDE 0.9% 1,000 ML IV SCH (18:54)
[2021-06-18 19:11] LABS: INR 1.1 (<1.2); Partial Thromboplastin Time 93.8 sec (22.0-30.0); Prothrombin Time 11.6 sec (9.0-12.0)
[2021-06-18] MEDS: ACETAMINOPHEN TAB 325 MG TAB PO PRN (20:23)
[2021-06-18] MEDS: ATORVASTATIN 20 MG TAB PO SCH (20:23)
[2021-06-18] MEDS: ALPRAZolam 0.5 MG TAB PO PRN (20:24)
--- NOTE | 2021-06-18 20:52 | P.CARDCATH ---
Description of Procedure: PROCEDURES PERFORMED: Left heart catheterization, bilateral coronary angiography, iFR LAD INDICATION: NSTEMI, CMP CONSENT:I have discussed the risks, benefits and alternative therapies for the above-mentioned procedure and for both sedation/analgesia as well as necessary blood product administration, if indicated, as they pertain to this patient. The patient has indicated understanding and acceptance of the risks and procedures discussed. PROCEDURE: After the risks, benefits and alternatives of the above mentioned procedure explained in detail with the patient, informed consent was obtained. Patient was taken to the catheterization lab and prepped and draped in usual fashion. 1% lidocaine was used to anesthetize the right radial artery. A 6- Algerian sheath was placed in the right radial artery using modified Seldinger technique. Left coronary angiography was performed with a 5-Algerian JL 3.5 catheter and right coronary angiography was attempted with a FR5, AR2, Roshan right, and finally a 6Fr AL 0.07 guide catheter. The AL 0.75 guide allowed for a subselective image with note of RCA 100% mid occlusion. An AL 1 catheter likely would have been able to engage the anteriorly located RCA however due to contrast threshold and spasm in the wrist, further imaging was deferred. A 5- [place]ian FR5 catheter was inserted into the left ventricle and pressure measurements were obtained. The decision was made to perform iFR of the LAD. A 6 Fr CLS 3.5 guide was used to engage the left main. Next, a 0.014 pressure wire was advanced into the proximal left main and normalized. The wire was then advanced into the mid LAD, 1-2 cm past the lesion. iFR was abnormal at 0.62. Due to contrast threshold and spasm in the wrist intervention was deferred and the catheter and wire were removed. The right radial sheath was removed and a TR band was placed with hemostasis achieved. The patient tolerated the procedure well. Patient was transported back to the post catheterization holding area in stable condition. Conscious Sedation: Patient was monitored under the direct supervision of vision of myself for conscious sedation using Versed and fentanyl for a total duration of 55 minutes HEMODYNAMICS: Ao: 110/56 LV: 107/4, LVEDP 7 SELECTIVE CORONARY ARTERIOGRAPHY: LEFT MAIN: The left main is a large caliber vessel which bifurcates into the LAD and circumflex. The left main is extremely short with nearly dual ostia. LEFT ANTERIOR DESCENDING CORONARY ARTERY: LAD is a large caliber vessel which wraps around to the apex. There is a proximal 70% LAD stenosis and a mid LAD 60% stenosis with iFR abnormal at 0.62. There are left to right collaterals. LEFT CIRCUMFLEX CORONARY ARTERY: Left circumflex is a moderate caliber vessel. OM1 is moderate caliber and has mild 20-30% stenosis. OM2 has a proximal 60-70% stenosis. RIGHT CORONARY ARTERY: The right coronary artery is a large caliber vessel which gives off a PDA and PLV branch and is the dominant vessel. The RCA was not fully opacified however appears to have a 100% mid stenosis. FINAL IMPRESSION: 1. CAD as described above with 100% RCA stenosis with left to right collaterals, 70% proximal LAD stenosis (iFR abnormal at 0.62) and OM2 60-70% stenosis. 2. Low normal left sided filling pressures 3. Incidental Afib noted during procedure PLAN: 1. Aggressive risk factor modification per most recent ACC/AHA guidelines. 2. Recommend PCI of LAD.
[2021-06-18] MEDS: METOPROLOL TARTRATE 25 MG TAB PO SCH (22:53)
[2021-06-19] MEDS: methylPREDNISolone SOD SUCCI 125 MG/2 ML VIAL IV SCH ×5 (00:50→23:59)
[2021-06-19] MEDS ORDERED: HEPARIN SODIUM,PORCINE 10,000 UNIT in SODIUM CHLORIDE 0.9% 1,000 ML IRRIGATION PRN (07:00)
[2021-06-19] MEDS ORDERED: HEPARIN SODIUM,PORCINE 2,500 UNIT in SODIUM CHLORIDE 0.9% 250 ML IRRIGATION PRN (07:00)
--- NOTE | 2021-06-19 07:20 | XR ---
EXAMINATION TYPE: XR chest 1V portable DATE OF EXAM: 06/19/2021 Comparison: 06/18/2021 Clinical History: 70-year-old female CHF Findings: The heart remains mildly enlarged. Hyperinflation. Focal opacity persists at the right greater than l eft lung bases, increased on both sides. Impression: 1. Redemonstrated mild cardiomegaly and COPD. 2. Increasing, right greater than left, bibasilar atelectasis or infiltrates.
[2021-06-19] MEDS: ASPIRIN 325 MG TAB PO SCH (08:12)
[2021-06-19] MEDS: ESCITALOPRAM 10 MG TAB PO SCH (08:12)
[2021-06-19] MEDS: METOPROLOL TARTRATE 25 MG TAB PO SCH ×2 (08:12→20:02)
[2021-06-19] MEDS: MULTIVITAMINS, THERA 1 EACH TAB PO SCH (08:12)
[2021-06-19] MEDS: AZITHROMYCIN 500 MG TAB PO SCH (08:12)
[2021-06-19] MEDS: HYDROcodone/APAP 10-325MG 1 EACH TAB PO PRN ×2 (08:12→14:00)
[2021-06-19] MEDS: THEOPHYLLINE 24 HOUR 300 MG CAP.ER.24H PO SCH (08:15)
[2021-06-19] MEDS ORDERED: PROMETHAZINE HCL 6.25 MG/5 ML CUP PO PRN (08:42)
[2021-06-19] MEDS: BUDESONIDE 1 MG/2 ML NEBU INHALATION SCH ×3 (08:48→21:04)
[2021-06-19] MEDS: FORMOTEROL FUMARATE 20 MCG/2 ML NEBU INHALATION SCH ×3 (08:48→21:04)
[2021-06-19] MEDS: IPRATROPIUM-ALBUTEROL 3 ML NEB INHALATION SCH ×5 (08:48→21:05)
[2021-06-19 10:06] LABS: Prothrombin Time 11.1 sec (9.0-12.0)
[2021-06-19 10:07] LABS: Basophils % (A) 0 %; Eosinophils % (A) 0 %; HCT 49.2 % (34.0-46.0); HGB 15.1 gm/dL (11.4-16.0); Hypochromasia Slight; Lymphocytes % (A) 9 %; MCH 30.9 pg (25.0-35.0); MCHC 30.7 g/dL (31.0-37.0); MCV 100.9 fL (80.0-100.0); Macrocytosis Slight; Mean Platelet Volume 7.8; Monocytes # (A) 0.2 k/uL (0-1.0); Monocytes % (A) 2 %; Neutrophils # (A) 10.9 k/uL (1.3-7.7); Neutrophils % (A) 89 %; Platelet Count 309 k/uL (150-450); RBC 4.88 m/uL (3.80-5.40); RDW 13.4 % (11.5-15.5); WBC 12.2 k/uL (3.8-10.6)
[2021-06-19 10:13] LABS: ALT 30 U/L (4-34); AST 17 U/L (14-36); African American GFR (CKD) >90 (>60 ml/min/1.73 sqM); Albumin 3.5 g/dL (3.5-5.0); Alkaline Phosphatase 66 U/L (38-126); Anion Gap 7 mmol/L; Blood Urea Nitrogen 36 mg/dL (7-17); Carbon Dioxide 32 mmol/L (22-30); Chloride 100 mmol/L (98-107); Glucose 214 mg/dL (74-99); Non-African American GFR(CKD) 78 (>60 ml/min/1.73 sqM); Potassium 4.2 mmol/L (3.5-5.1); Sodium 139 mmol/L (137-145); Total Bilirubin 0.5 mg/dL (0.2-1.3)
[2021-06-19] MEDS: lisinopriL 20 MG TAB PO SCH ×2 (10:14→12:40)
[2021-06-19] MEDS: ALPRAZolam 0.5 MG TAB PO PRN (10:14)
--- NOTE | 2021-06-19 11:40 | P.PN ---
Subjective Progress Note Date: 06/19/21 This is a 70-year-old female with history of hypertension, hyperlipidemia, obesity, COPD with admitted to the hospital with shortness of breath, chest tightness and abnormal troponins. Patient's computed tomography scan showed some pulmonary infiltrates without and pulmonary emboli. Cardiac catheterizati on revealed triple-vessel disease with 100% stenosis of the RCA, 70% stenosis of the LAD and a 60-70% stenosis of the circumflex. Echocardiogram done on second showed an ejection fraction of 20%. Patient is being considered for intervention involving the LAD tomorrow. 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 She seemed to be relatively stable. Still complains of shortness of breath. Examination her lungs show expiratory wheezing and rhonchi. She is getting updraft treatments. Puncture sites soft without any ecchymosis or hematoma. Continue current medical therapy and wait for the intervention tomorrow. Objective - Vital Signs Vital signs: Vital Signs Temp 98.3 F 06/19/21 08:00 Pulse 65 06/19/21 11:00 Resp 14 06/19/21 11:00 BP 127/100 06/19/21 11:00 Pulse Ox 96 06/19/21 11:00 Intake & Output 06/18/21 06/19/21 06/19/21 18:59 06:59 18:59 Intake Total 500 845.666 300 Output Total 1495 715 135 Balance -995 130.666 165 Weight 90.4 kg Intake: IV 500 780 300 Sodium Chloride 0.9% 1, 780 300 000 ml @ 60 mls/hr IV . [id number] [facility] Rx#:[id number] cefTRIAXone 1 gm In 100 Sodium Chloride 0.9% 50 ml @ 100 mls/hr IVPB Q24HR [facility] Rx#:[id number] Intake, IV Titration 65.666 Amount Heparin Sod,Pork in 0.45% 65.666 NaCl 25,000 unit In 0.45 % NaCl 1 250ml.bag @ 11. 023 UNITS/KG/HR 10 mls/hr IV .Q24H [facility] Rx#: [id number] Output: Urine 1495 715 135 Other: Voiding Method Indwelling Catheter Indwelling Catheter Indwelling Catheter - Exam GENERAL EXAM: Patient is alert and oriented and doesn't appear to be in any acute distress HEENT: Normocephalic. Normal reaction of pupils, equal size, normal range of extraocular motion. No erythema or exudates in the throat. NECK: No masses, no nuchal rigidity. CHEST: No chest wall deformity. LUNGS: Expiratory rhonchi and wheezing HEART: S1 and S2 normal with no audible mumurs or gallops. Regular rhythm, f emorals equal on both sides.. ABDOMEN: No hepatosplenomegaly, normal bowel sounds, no guarding or rigidity. SKIN: No rashes CENTRAL NERVOUS SYSTEM: No focal deficits. EXTREMITIES: No cyanosis, clubbing or edema. RADIAL PUNCTURE SITE, on the right side seemed to be soft without any hematoma. - Labs CBC & Chem 7: 06/19/21 08:27 06/19/21 08:27 Labs: Abnormal Lab Results - Last 24 Hours (Table) 06/18/21 06/19/21 06/19/21 Range/Units 18:28 08:27 08:27 WBC 12.2 H (3.8-10.6) k/uL Hct 49.2 H (34.0-46.0) % MCV 100.9 H (80.0-100.0) fL MCHC 30.7 L (31.0-37.0) g/dL Neutrophils # 10.9 H (1.3-7.7) k/uL APTT 93.8 H (22.0-30.0) sec Carbon Dioxide 32 H (22-30) mmol/L BUN 36 H (7-17) mg/dL Glucose 214 H (74-99) mg/dL Total Protein 6.0 L (6.3-8.2) g/dL 06/19/21 Range/Units 08:27 WBC (3.8-10.6) k/uL Hct (34.0-46.0) % MCV (80.0-100.0) fL MCHC (31.0-37.0) g/dL Neutrophils # (1.3-7.7) k/uL APTT 57.2 H (22.0-30.0) sec Carbon Dioxide (22-30) mmol/L BUN (7-17) mg/dL Glucose (74-99) mg/dL Total Protein (6.3-8.2) g/dL Assessment and Plan (1) CAD (coronary artery disease) Current Visit: Yes Status: Acute Code(s): I25.10 - ATHSCL HEART DISEASE OF [place] CORONARY ARTERY W/O ANG PCTRS SNOMED Code(s): 85943157 (2) COPD exacerbation Current Visit: Yes Status: Acute Code(s): J44.1 - CHRONIC OBSTRUCTIVE PULMONARY DISEASE W (ACUTE) EXACERBATION SNOMED Code(s): 104963869 (3) Congestive heart failure Current Visit: Yes Status: Acute Code(s): I50.9 - HEART FAILURE, UNSPECIFIED SNOMED Code(s): 62669502 (4) Elevated troponin Current Visit: Yes Status: Acute Code(s): R77.8 - OTHER SPECIFIED ABNORMALITIES OF PLASMA PROTEINS SNOMED Code(s): 438264568 (5) Paroxysmal atrial fibrillation Current Visit: Yes Status: Acute Code(s): I48.0 - PAROXYSMAL ATRIAL FIBRILLATION SNOMED Code(s): 511892480 (6) Cardiomyopathy Current Visit: Yes Status: Acute Code(s): I42.9 - CARDIOMYOPATHY, UNSPECIFIED SNOMED Code(s): 14054300 Plan: Continue current medical therapy. Intervention tomorrow to open the LAD lesion. Further recommendation depending on the clinical course. Patient may need long-term anticoagulation because of atrial fibrillation
[2021-06-19] MEDS: SODIUM CHLORIDE 0.9% 1,000 ML IV SCH (12:33)
[2021-06-19] MEDS: HEPARIN SOD,PORK IN 0.45% NACL 25,000 UNIT in 0.45% NACL 1 250ML.BAG IV SCH (12:40)
[2021-06-19] MEDS: buPROPion XL 150 MG TAB.ER.24H PO SCH (14:01)
--- NOTE | 2021-06-19 14:15 | P.PN ---
Subjective Progress Note Date: 06/19/21 on today's evaluation of 06/19/2021, I'm seeing the patient for a follow-up. The patient is very well-known to me. The patient has advanced COPD along with that she has chronic hypoxic respiratory failure In the patient's is oxygen dependent. She continues to smoke cigarettes. She came into the hospital because of worsening shortness of breath. The troponins were positive with the levels being 0.6 and 0.3. The chest x-ray was free of any acute pulmonary infiltrates. The CAT scan of the chest was reviewed and the patient has some chronic changes involving atelectasis and some bronchiectatic change the lung bases bilaterally. No clear airspace disease was noted. His morning, the patient is on 8 L of oxygen by nasal cannula. Cardiac catheterization is already been completed and the patient was found to have 100% RCA lesions with collaterals. The patient also had 70% LAD lesion which is being considered for stenting and 60% another LAD lesion another 660/70% OM 2 lesion. The patient is currently free of any chest pain. The patient is on IV heparin. Echocardiogram showed an ejection fraction of 20-25% along with concentric LVH. The patient has a congested cough and onset of the sputum production. She has limited on Trelegy Ellipta on outpatient basis in addition to Xopenex updrafts. She also takes promethazine with codeine for cough suppression. She is currently off the BiPAP. He is on 8 L O2 nasal cannula. She remains on IV Solu-Medrol. Objective - Vital Signs Vital signs: Vital Signs Temp 97.8 F 06/19/21 12:00 Pulse 63 06/19/21 14:00 Resp 14 06/19/21 14:00 BP 98/54 06/19/21 14:00 Pulse Ox 92 L 06/19/21 14:00 Intake & Output 06/18/21 06/19/21 06/19/21 18:59 06:59 18:59 Intake Total 500 845.666 874.733 Output Total 1495 715 195 Balance -995 130.666 679.733 Weight 90.4 kg Intake: IV 500 780 480 Sodium Chloride 0.9% 1, 780 480 000 ml @ 60 mls/hr IV . [id number] [facility] Rx#:[id number] cefTRIAXone 1 gm In 100 Sodium Chloride 0.9% 50 ml @ 100 mls/hr IVPB Q24HR [facility] Rx#:[id number] Intake, IV Titration 65.666 144.733 Amount Heparin Sod,Pork in 0.45% 65.666 144.733 NaCl 25,000 unit In 0.45 % NaCl 1 250ml.bag @ 11. 023 UNITS/KG/HR 10 mls/hr IV .Q24H [facility] Rx#: [id number] Oral 250 Output: Urine 1495 715 195 Other: Voiding Method Indwelling Catheter Indwelling Catheter Indwelling Catheter # Bowel Movements 1 - Exam GENERAL EXAM: Alert, very pleasant, 70-year-old white female, the patient is on O2 at 8 L per minute nasal cannula HEAD: Normocephalic/atraumatic. EYES: Normal reaction of pupils, equal size. Conjunctiva pink, sclera white. NOSE: Clear with pink turbinates. THROAT: No erythema or exudates. NECK: No masses, no JVD, no thyroid enlargement, no adenopathy. CHEST: No chest wall deformity. Symmetrical expansion. LUNGS: Equal air entry with expiratory wheezes CVS: Regular rate and rhythm, normal S1 and S2, no gallops, no murmurs, no rubs ABDOMEN: Soft, nontender. No hepatosplenomegaly, normal bowel sounds, no guarding or rigidity. EXTREMITIES: No clubbing, no edema, no cyanosis, 2+ pulses and upper and lower extremities. MUSCULOSKELETAL: Muscle strength and tone normal. SPINE: No scoliosis or deformity SKIN: No rashes CENTRAL NERVOUS SYSTEM: Alert and oriented -3. No focal deficits, tone is normal in all 4 extremities. PSYCHIATRIC: Alert and oriented -3. Appropriate affect. Intact judgment and insight. - Labs CBC & Chem 7: 06/19/21 08:27 06/19/21 08:27 Labs: Abnormal Lab Results - Last 24 Hours (Table) 06/18/21 06/19/21 06/19/21 Range/Units 18:28 08:27 08:27 WBC 12.2 H (3.8-10.6) k/uL Hct 49.2 H (34.0-46.0) % MCV 100.9 H (80.0-100.0) fL MCHC 30.7 L (31.0-37.0) g/dL Neutrophils # 10.9 H (1.3-7.7) k/uL APTT 93.8 H (22.0-30.0) sec Carbon Dioxide 32 H (22-30) mmol/L BUN 36 H (7-17) mg/dL Glucose 214 H (74-99) mg/dL Total Protein 6.0 L (6.3-8.2) g/dL 06/19/21 Range/Units 08:27 WBC (3.8-10.6) k/uL Hct (34.0-46.0) % MCV (80.0-100.0) fL MCHC (31.0-37.0) g/dL Neutrophils # (1.3-7.7) k/uL APTT 57.2 H (22.0-30.0) sec Carbon Dioxide (22-30) mmol/L BUN (7-17) mg/dL Glucose (74-99) mg/dL Total Protein (6.3-8.2) g/dL Assessment and Plan Plan: #1. Acute hypoxic respiratory failure secondary to an acute exacerbation of systolic CHF with severely impaired left ventricular systolic function and EF of 20-25%, in combination with COPD. The patient has advanced COPD and the patient has a. Edematous changes bilaterally and chronic bronchiectatic changes in lung bases along with some atelectasis and some limited fibrosis. No evidence of any airspace disease or pneumonia this point in time. #2. Hypertensive urgency, resolved #3. Acute exacerbation of COPD, improving #4. coronary artery disease, the patient has on a percent RCA lesion, 70% LAD lesion, 60/70% OM 2 lesion. The patient is being considered for angioplasty and stenting of LAD lesion. She is free of any chest pain for now. She is status post acute non-ST segment elevation myocardial infarction. #5. systolic heart failure with an ejection fraction of around 20-25% and secondary pulmonary hypertension. The patient also has concentric LVH. #6. Tracheobronchomalacia #7. Morbid obesity with BMI 31.3 kg/m #8. GERD/reflux #9. History of migrainous #10. History of obstructive sleep apnea #11. Hypertension #12. Hyperlipidemia #13 History of chronic tobacco dependence #14 paroxysmal atrial fibrillation Plan: Continue management of COPD with a combination of bronchodilators and steroids and antibiotics Continue IV heparin for another 24 hours The patient will be kept in the intensive care unit. The patient will be referred for intervention and stenting of the LAD probably within next 24 hours The patient may also need long-term medical condition because of atrial fibrillation. The patient has a ejection fraction of around 20% and the patient remains on IV heparin at this point in time. Prognosis very poor baseline above-mentioned comorbidities. Smoking cessation counseling was done we'll continue to follow
--- NOTE | 2021-06-19 16:36 | P.PN ---
Subjective Progress Note Date: 06/19/21 This is a 70-year female admitted with acute CHF exacerbation, acute COPD exacerbation,chest pain, elevated troponins, possible NSTEMI, significant other last year-ongoing grieving, "cries every day", extremely sad -denies being suicidal or having a suicide plan and multiple other medical issues. Maintained on nebulized bronchodilators, antibiotics and steroids. Congested productive cough. Chest x-ray reporting moderate cardiomegaly, COPD, increasing right greater than left bibasilar atelectasis or infiltrates. Maintaining O2 sats in the low 90s on 8 L high flow nasal cannula. Afebrile, WBC increased to 12.2-on steroids. Renal function stable. Completed cardiac catheterization yes terday reporting 100% RCA stenosis with left to right collaterals, 70% proximal LAD, OM 60-70% stenosis developed atrial fibrillation with RVR; reattempt PCI of LAD tomorrow. Anticoagulated on heparin drip. Denies any chest pain, palpitations. Objective - Vital Signs Vital signs: Vital Signs Temp 97.8 F 06/19/21 12:00 Pulse 84 06/19/21 15:00 Resp 14 06/19/21 15:00 BP 98/49 06/19/21 15:00 Pulse Ox 92 L 06/19/21 15:00 Intake & Output 06/18/21 06/19/21 06/19/21 18:59 06:59 18:59 Intake Total 500 845.666 934.733 Output Total 1495 715 195 Balance -995 130.666 739.733 Weight 90.4 kg Intake: IV 500 780 540 Sodium Chloride 0.9% 1, 780 540 000 ml @ 60 mls/hr IV . [id number] [facility] Rx#:[id number] cefTRIAXone 1 gm In 100 Sodium Chloride 0.9% 50 ml @ 100 mls/hr IVPB Q24HR [facility] Rx#:[id number] Intake, IV Titration 65.666 144.733 Amount Heparin Sod,Pork in 0.45% 65.666 144.733 NaCl 25,000 unit In 0.45 % NaCl 1 250ml.bag @ 11. 023 UNITS/KG/HR 10 mls/hr IV .Q24H [facility] Rx#: [id number] Oral 250 Output: Urine 1495 715 195 Other: Voiding Method Indwelling Catheter Indwelling Catheter Indwelling Catheter # Bowel Movements 1 - Exam - Exam General: [Patient awake, alert and oriented times 3. Patient in no acute distress, teary-eyed, crying,grieving expressing significant sadness over her significant other who passed last year.] HEENT: [PERRL. EOMI. No pharyngeal erythema or exudate.] Neck: Supple, No JVD. Cardiac: [Heart regular in rate and rhythm. No S3. No S4. No clicks, rubs. No murmur.] Lungs: Diminished breath sounds bilaterally with expiratory wheezing Abdomen: [No mass. No organomegaly. Bowel sounds presnt and normoactive in all 4 quadrants.] Extremes: [No edema no cyanosis no claudication normal pulses] Skin: [No rash, warm and dry Neurologic: [No lateralizing deficits. CN II - XII grossly intact.] - Labs CBC & Chem 7: 06/19/21 08:27 06/19/21 08:27 Labs: Abnormal Lab Results - Last 24 Hours (Table) 06/18/21 06/19/21 06/19/21 Range/Units 18:28 08:27 08:27 WBC 12.2 H (3.8-10.6) k/uL Hct 49.2 H (34.0-46.0) % MCV 100.9 H (80.0-100.0) fL MCHC 30.7 L (31.0-37.0) g/dL Neutrophils # 10.9 H (1.3-7.7) k/uL APTT 93.8 H (22.0-30.0) sec Carbon Dioxide 32 H (22-30) mmol/L BUN 36 H (7-17) mg/dL Glucose 214 H (74-99) mg/dL Total Protein 6.0 L (6.3-8.2) g/dL 06/19/21 Range/Units 08:27 WBC (3.8-10.6) k/uL Hct (34.0-46.0) % MCV (80.0-100.0) fL MCHC (31.0-37.0) g/dL Neutrophils # (1.3-7.7) k/uL APTT 57.2 H (22.0-30.0) sec Carbon Dioxide (22-30) mmol/L BUN (7-17) mg/dL Glucose (74-99) mg/dL Total Protein (6.3-8.2) g/dL Assessment and Plan Assessment: Acute CHF exacerbation, systolic dysfunction, severely impaired LV function, EF 20-25% Acute COPD exacerbation with acute bronchitis in a patient with advanced COPD Acute hypoxic, hypercapnic respiratory failure secondary to the above. Obstructive sleep apnea, wears BiPAP CAD, possible NSTEMI, possible takotsubo syndrome--but cardiac cath did report evidence of coronary artery obstruction. status post cardiac catheterization , reporting 100% RCA stenosis with left to right collaterals, 70% proximal LAD, OM 60-70% stenosis developed atrial fibrillation with RVR; reattempt PCI of LAD t omorrow. Paroxysmal atrial fibrillation Anxiety, depression, grieving-her significant other last year, July 2020 Hypertension Gastroesophageal reflux disease Ongoing nicotine dependence Morbid obesity, BMI 31.2 Plan: Continue on current medication regime ,monitoring and symptomatic treatment. Declining psychiatry evaluation. Struggling with significant other's -Grief counseling recommended. Wellbutrin added in addition to Lexapro as per PCP. Scheduled for return to [employer] tomorrow for stent placement of the LAD, as mentioned above. Aggressive pulmonary toileting with nebulized bronchodilators, antibiotics and steroids. Nicotine cessation reinforced. Questions and concerns addressed, support given. The impression and plan of care has been dictated as directed. : I performed a history and examination of this patient, discussed the same with the dictator. I agree with the dictator's note ,documented as a scribe. Any additional findings or plans will be noted.
[2021-06-19] MEDS ORDERED: CPM PO PRN (16:40)
[2021-06-19] MEDS ORDERED: [UNRECOGNIZED DRUG - OTHER] PO PRN (16:40)
[2021-06-19] MEDS: HYDROCODONE PO PRN (17:17)
[2021-06-19] MEDS: [UNRECOGNIZED DRUG - OTHER] PO PRN (17:17)
[2021-06-19] MEDS: LORazepam 2 MG/ML INJ IV PRN (20:02)
[2021-06-19] MEDS: ATORVASTATIN 20 MG TAB PO SCH (20:02)
[2021-06-19] MEDS ORDERED: NITROGLYCERIN SL TABS 0.4 MG TAB SUBLINGUAL PRN (21:02)
[2021-06-19] MEDS ORDERED: ALPRAZolam 0.25 MG TAB PO PRN (21:02)
[2021-06-20] MEDS: ALPRAZolam 0.5 MG TAB PO PRN ×3 (00:03→16:57)
[2021-06-20] MEDS: LEVALBUTEROL 1.25 MG INHALATION SCH ×4 (04:21→22:05)
[2021-06-20] MEDS ORDERED: CLOPIDOGREL 75 MG TAB PO ONE (05:00)
[2021-06-20] MEDS ORDERED: ASPIRIN 325 MG TAB PO ONE (05:00)
[2021-06-20] MEDS ORDERED: ATORVASTATIN 80 MG TAB PO ONE (05:00)
[2021-06-20] MEDS: methylPREDNISolone SOD SUCCI 125 MG/2 ML VIAL IV SCH ×3 (06:01→16:57)
[2021-06-20] MEDS: SODIUM CHLORIDE 0.9% 1,000 ML IV SCH ×3 (06:01→20:52)
[2021-06-20] MEDS: ASPIRIN 325 MG TAB PO SCH (06:01)
[2021-06-20] MEDS ORDERED: HEPARIN SODIUM,PORCINE 10,000 UNIT in SODIUM CHLORIDE 0.9% 1,000 ML IRRIGATION PRN (07:00)
[2021-06-20] MEDS ORDERED: HEPARIN SODIUM,PORCINE 2,500 UNIT in SODIUM CHLORIDE 0.9% 250 ML IRRIGATION PRN (07:00)
[2021-06-20] MEDS: buPROPion XL 150 MG TAB.ER.24H PO SCH (08:44)
[2021-06-20] MEDS: ESCITALOPRAM 10 MG TAB PO SCH (08:46)
[2021-06-20] MEDS: MULTIVITAMINS, THERA 1 EACH TAB PO SCH (08:46)
[2021-06-20] MEDS: lisinopriL 20 MG TAB PO SCH (08:46)
[2021-06-20] MEDS: METOPROLOL TARTRATE 25 MG TAB PO SCH ×2 (08:46→20:52)
[2021-06-20] MEDS: THEOPHYLLINE 24 HOUR 300 MG CAP.ER.24H PO SCH (08:47)
[2021-06-20] MEDS: IPRATROPIUM-ALBUTEROL 3 ML NEB INHALATION SCH ×4 (09:30→19:32)
[2021-06-20] MEDS: FORMOTEROL FUMARATE 20 MCG/2 ML NEBU INHALATION SCH (09:32)
[2021-06-20] MEDS: BUDESONIDE 1 MG/2 ML NEBU INHALATION SCH (09:32)
[2021-06-20] MEDS: HYDROCODONE PO PRN (10:50)
[2021-06-20] MEDS: [UNRECOGNIZED DRUG - OTHER] PO PRN (10:50)
[2021-06-20] MEDS: TRELEGY ELLIPTA INHALATION SCH (10:50)
[2021-06-20] MEDS ORDERED: LIDOCAINE 1% INJ 10MG/ML (20 ML MDV) ONE (11:34)
[2021-06-20] MEDS ORDERED: IV FLUID CONTINUATION 550 ML IV ONE (11:50)
[2021-06-20] MEDS ORDERED: fentaNYL (PF) 50 MCG/ML 2 ML AMP ONE (12:07)
[2021-06-20] MEDS ORDERED: LIDOCAINE 1% INJ 10MG/ML (20 ML MDV) SQ ONE (12:19)
[2021-06-20] MEDS ORDERED: MIDAZOLAM 2 MG/2 ML VIAL IV ONE (12:19)
[2021-06-20] MEDS ORDERED: fentaNYL (PF) 50 MCG/ML 2 ML AMP IV ONE (12:19)
[2021-06-20] MEDS ORDERED: VERAPAMIL 2.5 MG/ML 2 ML AMP ONE (12:20)
[2021-06-20] MEDS ORDERED: VERAPAMIL SYRINGE (5 MG/10 ML) INTRAARTER ONE (12:22)
[2021-06-20] MEDS ORDERED: HEPARIN SODIUM 1,000 UN/ML (10ML VL) ONE (12:22)
[2021-06-20] MEDS ORDERED: IOPAMIDOL-370 125ML BTL INJ ONE (12:49)
[2021-06-20] MEDS ORDERED: IOPAMIDOL-370 100ML BTL INJ ONE (13:13)
--- NOTE | 2021-06-20 13:13 | P.PN ---
Subjective Progress Note Date: 06/20/21 on today's evaluation of 06/19/2021, I'm seeing the patient for a follow-up. The patient is very well-known to me. The patient has advanced COPD along with that she has chronic hypoxic respiratory failure In the patient's is oxygen dependent. She continues to smoke cigarettes. She came into the hospital because of worsening shortness of breath. The troponins were positive with the levels being 0.6 and 0.3. The chest x-ray was free of any acute pulmonary infiltrates. The CAT scan of the chest was reviewed and the patient has some chronic changes involving atelectasis and some bronchiectatic change the lung bases bilaterally. No clear airspace disease was noted. His morning, the patient is on 8 L of oxygen by nasal cannula. Cardiac catheterization is already been completed and the patient was found to have 100% RCA lesions with collaterals. The patient also had 70% LAD lesion which is being considered for stenting and 60% another LAD lesion another 660/70% OM 2 lesion. The patient is currently free of any chest pain. The patient is on IV heparin. Echocardiogram showed an ejection fraction of 20-25% along with concentric LVH. The patient has a congested cough and onset of the sputum production. She has limited on Trelegy Ellipta on outpatient basis in addition to Xopenex updrafts. She also takes promethazine with codeine for cough suppression. She is currently off the BiPAP. He is on 8 L O2 nasal cannula. She remains on IV Solu-Medrol. On 06/20/2021, the patient is being seen for a follow-up. The patient is doing slightly better compared to yesterday. No chest pain. Continues to have cough and congestion which is typical for her as the patient has advanced COPD along with check of bronchomalacia. The patient remains on examination bronchodilators, steroids and antibiotics. The plan was today this patient to the cardiovascular lab and the patient was supposed to undergo a percutaneous transluminal coronary angioplasty of the LAD. No altered mentation. No signs of any CO2 narcosis. No other significant events otherwise for now. The patient was able to obtain her Trelegy Ellipta from home which she is going to use here in hospital and we are going to discontinue the Perforomist and the budesonide nebulized treatments. The patient is also able to take promethazine with codeine. The rest of the medication remains unchanged. She remains on IV Solu Medrol 60 mg IV push every 6 hours. Objective - Vital Signs Vital signs: Vital Signs Temp 98.5 F 06/20/21 10:39 Pulse 65 06/20/21 10:39 Resp 13 06/20/21 10:39 BP 115/71 06/20/21 10:39 Pulse Ox 94 L 06/20/21 10:39 Intake & Output 06/19/21 06/20/21 06/20/21 18:59 06:59 18:59 Intake Total 2320.875 6391 590.000 Output Total 365 510 100 Balance 949.733 570 490.000 Weight 91.7 kg Intake: IV 720 540 340 Sodium Chloride 0.9% 1, 720 540 240 000 ml @ 60 mls/hr IV . [id number] GABO Rx#:[id number] cefTRIAXone 1 gm In 100 Sodium Chloride 0.9% 50 ml @ 100 mls/hr IVPB Q24HR GABO Rx#:[id number] Intake, IV Titration 144.733 250.000 Amount Heparin Sod,Pork in 0.45% 144.733 250.000 NaCl 25,000 unit In 0.45 % NaCl 1 250ml.bag @ 11. 023 UNITS/KG/HR 10 mls/hr IV .Q24H GABO Rx#: [id number] Oral 450 540 Output: Urine 365 510 100 Other: Voiding Method Indwelling Catheter Indwelling Catheter Indwelling Catheter # Bowel Movements 1 - Exam GENERAL EXAM: Alert, very pleasant, 70-year-old white female, the patient is on O2 at 8 L per minute nasal cannula HEAD: Normocephalic/atraumatic. EYES: Normal reaction of pupils, equal size. Conjunctiva pink, sclera white. NOSE: Clear with pink turbinates. THROAT: No erythema or exudates. NECK: No masses, no JVD, no thyroid enlargement, no adenopathy. CHEST: No chest wall deformity. Symmetrical expansion. LUNGS: Equal air entry with expiratory wheezes CVS: Regular rate and rhythm, normal S1 and S2, no gallops, no murmurs, no rubs ABDOMEN: Soft, nontender. No hepatosplenomegaly, normal bowel sounds, no guarding or rigidity. EXTREMITIES: No clubbing, no edema, no cyanosis, 2+ pulses and upper and lower extremities. MUSCULOSKELETAL: Muscle strength and tone normal. SPINE: No scoliosis or deformity SKIN: No rashes CENTRAL NERVOUS SYSTEM: Alert and oriented -3. No focal deficits, tone is normal in all 4 extremities. PSYCHIATRIC: Alert and oriented -3. Appropriate affect. Intact judgment and insight. - Labs CBC & Chem 7: 06/19/21 08:27 06/19/21 08:27 Labs: Abnormal Lab Results - Last 24 Hours (Table) 06/20/21 Range/Units 06:31 APTT 31.5 H (22.0-30.0) sec Assessment and Plan Plan: #1. Acute hypoxic respiratory failure secondary to an acute exacerbation of systolic CHF with severely impaired left ventricular systolic function and EF of 20-25%, in combination with COPD. The patient has advanced COPD and the patient has Emphysematous changes bilaterally and chronic bronchiectatic changes in lung bases along with some atelectasis and some limited fibrosis. No evidence of any airspace disease or pneumonia this point in time. Clinically, the patient continues to be bronchospastic and symptomatically from her COPD. The patient will need bronchodilators and steroids for another 24 hours. #2. Hypertensive urgency, resolved #3. Acute exacerbation of COPD, improving #4. coronary artery disease, the patient has on a percent RCA lesion, 70% LAD lesion, 60/70% OM 2 lesion. The patient is being considered for angioplasty and stenting of LAD lesion. She is free of any chest pain for now. She is status post acute non-ST segment elevation myocardial infarction. #5. systolic heart failure with an ejection fraction of around 20-25% and secondary pulmonary hypertension. The patient also has concentric LVH. #6. Tracheobronchomalacia #7. Morbid obesity with BMI 31.3 kg/m #8. GERD/reflux #9. History of migrainous #10. History of obstructive sleep apnea #11. Hypertension #12. Hyperlipidemia #13 History of chronic tobacco dependence #14 paroxysmal atrial fibrillation Plan: Continue management of COPD with a combination of bronchodilators and steroids and antibiotics Continue IV heparin for another 24 hours Proceed with cardiac catheterization and stenting of the LAD Anticoagulation per cardiology Prognosis very poor baseline above-mentioned comorbidities. Smoking cessation counseling was done we'll continue to follow
[2021-06-20] MEDS ORDERED: RX INFO: IV CONTRAST WAS GIVEN 1 EACH MISC MISCELLANE PRN (13:30)
[2021-06-20] MEDS ORDERED: ATROPINE SULFATE 0.1 MG/ML 10ML SYRINGE IV PRN (13:30)
[2021-06-20] MEDS ORDERED: ZOLPIDEM 5 MG TAB PO PRN (13:30)
[2021-06-20] MEDS ORDERED: NITROGLYCERIN SL TABS 0.4 MG TAB SUBLINGUAL PRN (13:30)
--- NOTE | 2021-06-20 13:30 | P.PRCINT ---
Percutaneous Coronary Int. - Percutaneous Coronary Intervention Percutaneous Coronary Intervention: PROCEDURES PERFORMED:Bilateral coronary angiography, iFR circumflex, PCI proximal to mid LAD with 3.0 x 23mm Xience MARIAN, post dilated with a 4.0 mm NC balloon INDICATION: NSTEMI, CMP, previous LHC with iFR LAD abnormal and circumflex 60- 70% stenosis with RCA suboptimally imaged however appears to be 100% occluded CONSENT:I have discussed the risks, benefits and alternative therapies for the above-mentioned procedure and for both sedation/analgesia as well as necessary blood product administration, if indicated, as they pertain to this patient. The patient has indicated understanding and acceptance of the risks and procedures discussed. PROCEDURE: After the risks, benefits and alternatives of the above mentioned procedure explained in detail with the patient, informed consent was obtained. Patient was taken to the catheterization lab and prepped and draped in usual fashion. 1% lidocaine was used to anesthetize the right radial artery. A 6- Maltese sheath was placed in the right radial artery using modified Seldinger technique. Due to previous inadequate imaging of RCA, RCA angiography was performed with a 6FR AL 1.0 catheter. The decision was made to perform PCI of the LAD and iFR circumflex. A 6 Fr CLS 3.5 guide was used to engage the left main. Next a 0.014 BMW wire was advanced into the distal LAD. Predilation was performed with a 2.5 x 12 mm balloon. A 3.0 x 18mm stent was advanced however noted to be too short and therefore withdrawn. Next a 3.0 x 23 mm Xience MARIAN was deployed in the proximal and mid LAD. The proximal portion of the stent was noted to be much larger caliber than the distal and therefore post-dilation of the proximal and mid stent was performed with a 4.0 x 8 mm noncompliant balloon.. Intervention there was 70% stenosis and AMAN-3 flow and pulse intervention there was 0% stenosis and AMAN-3 flow. Next, a 0.014 pressure wire was advanced into the proximal left main and normalized. The wire was then advanced into the mid circumflex, 1-2 cm past the lesion in the OM2. iFR was normal at 0.97. The catheter was then removed. The right radial sheath was removed and a TR band was placed with hemostasis achieved. The patient tolerated the procedure well. Patient was transported back to the post catheterization holding area in stable condition. Conscious Sedation: Patient was monitored under the direct supervision of vision of myself for conscious sedation using Versed and fentanyl for a total duration of 55 minutes HEMODYNAMICS: Ao: 136/57 SELECTIVE CORONARY ARTERIOGRAPHY: LEFT MAIN: The left main is a large caliber vessel which bifurcates into the LAD and circumflex. The left main is extremely short with nearly dual ostia. LEFT ANTERIOR DESCENDING CORONARY ARTERY: LAD is a large caliber vessel which wraps around to the apex. There is a proximal 70% LAD stenosis and a mid LAD 60% stenosis with iFR abnormal previously at 0.62. There are left to right collaterals. LEFT CIRCUMFLEX CORONARY ARTERY: Left circumflex is a moderate caliber vessel. OM1 is moderate caliber and has mild 20-30% stenosis. OM2 has a proximal 60-70% stenosis (iFR normal at 0.97). RIGHT CORONARY ARTERY: The right coronary artery is a large caliber vessel which gives off a PDA and PLV branch and is the dominant vessel. The RCA has a 100% mid stenosis. FINAL IMPRESSION: 1. CAD as described above with 100% RCA stenosis with left to right col laterals, 70% proximal LAD stenosis (iFR abnormal at 0.62) and OM2 60-70% stenosis (iFR normal at 0.97). 2. S/p PCI proximal to mid LAD with 3.0 x 23mm Xience MARIAN, post dilated with a 4.0 mm NC balloon PLAN: 1. Aggressive risk factor modification per most recent ACC/AHA guidelines. 2. Continue triple therapy with NOAC, Plavix and aspirin for 1 month then deescalate to just NOAC and Plavix for 11 more months.
[2021-06-20 13:38] LABS: Glucose,Whole Blood 137 mg/dL (75-99)
[2021-06-20 13:53] VITALS: BMI 31.6
--- NOTE | 2021-06-20 14:28 | P.PN ---
Subjective Progress Note Date: 06/20/21 This is a 70-year female admitted with acute CHF exacerbation, acute COPD exacerbation,chest pain, elevated troponins, possible NSTEMI, significant other last year-ongoing grieving, "cries every day", extremely sad -denies being suicidal or having a suicide plan and multiple other medical issues. Maintained on nebulized bronchodilators, antibiotics and steroids. Congested productive cough. Chest x-ray reporting moderate cardiomegaly, COPD, increasing right greater than left bibasilar atelectasis or infiltrates. Maintaining O2 sats in the low 90s on 8 L high flow nasal cannula. Afebrile, WBC increased to 12.2-on steroids. Renal function stable. Completed cardiac catheterization yes terday reporting 100% RCA stenosis with left to right collaterals, 70% proximal LAD, OM 60-70% stenosis developed atrial fibrillation with RVR; reattempt PCI of LAD tomorrow. Anticoagulated on heparin drip. Denies any chest pain, palpitations. 06/20/2021 maintained on nebulized bronchodilators, antibiotics, steroids, maintaining O2 sats in the 90s on 8 L high flow nasal cannula.congested cough persists. NPO, scheduled for return to laborer pipelines regarding LAD angioplasty. Denies chest pain, palpitations or increasing shortness of breath. Reports anxiety for which patient has received Xanax with positive results Objective - Vital Signs Vital signs: Vital Signs Temp 98.5 F 06/20/21 10:39 Pulse 65 06/20/21 10:39 Resp 13 06/20/21 10:39 BP 115/71 06/20/21 10:39 Pulse Ox 94 L 06/20/21 10:39 Intake & Output 06/19/21 06/20/21 06/20/21 18:59 06:59 18:59 Intake Total 9867.702 8224 740.000 Output Total 365 510 100 Balance 949.733 570 640.000 Weight 91.7 kg 91.7 kg Intake: IV 720 540 490 Sodium Chloride 0.9% 1, 720 540 240 000 ml @ 60 mls/hr IV . [id number] GABO Rx#:[id number] cefTRIAXone 1 gm In 100 Sodium Chloride 0.9% 50 ml @ 100 mls/hr IVPB Q24HR GABO Rx#:[id number] Intake, IV Titration 144.733 250.000 Amount Heparin Sod,Pork in 0.45% 144.733 250.000 NaCl 25,000 unit In 0.45 % NaCl 1 250ml.bag @ 11. 023 UNITS/KG/HR 10 mls/hr IV .Q24H GABO Rx#: [id number] Oral 450 540 Output: Urine 365 510 100 Other: Voiding Method Indwelling Catheter Indwelling Catheter Indwelling Catheter # Bowel Movements 1 - Exam - Exam General: [Patient awake, alert and oriented times 3. NAD.] HEENT: [PERRL. EOMI. No pharyngeal erythema or exudate.] Neck: Supple, No JVD. Cardiac: [Heart regular in rate and rhythm. No S3. No S4. No clicks, rubs. No murmur.] Lungs: Diminished breath sounds bilaterally with expiratory wheezing Abdomen: [No mass. No organomegaly. Bowel sounds presnt and normoactive in all 4 quadrants.] Extremes: [No edema no cyanosis no claudication normal pulses] Skin: [No rash, warm and dry Neurologic: [No lateralizing deficits. CN II - XII grossly intact.] - Labs CBC & Chem 7: 06/19/21 08:27 06/19/21 08:27 Labs: Abnormal Lab Results - Last 24 Hours (Table) 06/20/21 06/20/21 Range/Units 06:31 13:36 APTT 31.5 H (22.0-30.0) sec POC Glucose (mg/dL) 137 H (75-99) mg/dL Assessment and Plan Assessment: Acute CHF exacerbation, systolic dysfunction, severely impaired LV function, EF 20-25% Acute COPD exacerbation with acute tracheobronchomalacia in a patient with advanced COPD Acute hypoxic, hypercapnic respiratory failure secondary to the above. Obstructive sleep apnea, wears BiPAP CAD, possible NSTEMI, possible takotsubo syndrome--but cardiac cath did report evidence of coronary artery obstruction. status post cardiac catheterization , reporting 100% RCA stenosis with left to right collaterals, 70% proximal LAD, OM 60-70% stenosis developed atrial fibrillation with RVR; reattempt PCI of LAD tomorrow. Paroxysmal atrial fibrillation Anxiety, depression, grieving-her significant other last year, July 2020 Hypertension Gastroesophageal reflux disease Ongoing nicotine dependence Morbid obesity, BMI 31.2 Plan: Continue on current medication regime ,monitoring and symptomatic treatment. NPO, return to Service Control Operator today pending re:for stent placement of the LAD, as mentioned above. Maintain aggressive pulmonary toileting with nebulized bronchodilators, antibiotics and steroids. Nicotine cessation reinforced. The impression and plan of care has been dictated as directed. : I performed a history and examination of this patient, discussed the same with the dictator. I agree with the dictator's note ,documented as a scribe. Any additional findings or plans will be noted.
[2021-06-20] MEDS: INSULIN ASPART (NovoLOG) 100 UNIT/ML VIAL SQ SCH ×3 (15:32→20:52)
[2021-06-20 16:53] LABS: Glucose,Whole Blood 136 mg/dL (75-99)
[2021-06-20] MEDS: HYDROcodone/APAP 10-325MG 1 EACH TAB PO PRN (16:56)
[2021-06-20] MEDS ORDERED: RIVAROXABAN 20 MG TAB PO SCH (17:30)
[2021-06-20 20:03] LABS: Glucose,Whole Blood 169 mg/dL (75-99)
[2021-06-20] MEDS: ATORVASTATIN 20 MG TAB PO SCH (20:52)
[2021-06-20] MEDS: SODIUM CHLORIDE 0.9% 1,000 ML in EMPTY BAG 1 BAG IV SCH ×2 (20:53→23:52)
[2021-06-21] MEDS: ALPRAZolam 0.5 MG TAB PO PRN ×3 (00:01→21:09)
[2021-06-21] MEDS: methylPREDNISolone SOD SUCCI 125 MG/2 ML VIAL IV SCH ×5 (01:23→23:59)
[2021-06-21] MEDS: CALCIUM CARBONATE 500 MG CHEWABLE PO PRN ×2 (04:13→10:22)
[2021-06-21 06:04] LABS: Glucose,Whole Blood 141 mg/dL (75-99)
[2021-06-21] MEDS: INSULIN ASPART (NovoLOG) 100 UNIT/ML VIAL SQ SCH ×4 (06:06→21:09)
[2021-06-21 07:40] LABS: African American GFR (CKD) >90 (>60 ml/min/1.73 sqM); Non-African American GFR(CKD) 88 (>60 ml/min/1.73 sqM)
[2021-06-21] MEDS: LEVALBUTEROL 1.25 MG INHALATION SCH ×4 (08:03→20:03)
[2021-06-21] MEDS: IPRATROPIUM-ALBUTEROL 3 ML NEB INHALATION SCH ×4 (08:03→20:05)
[2021-06-21] MEDS: CLOPIDOGREL 75 MG TAB PO SCH (10:22)
[2021-06-21] MEDS: METOPROLOL TARTRATE 25 MG TAB PO SCH ×2 (10:22→21:08)
[2021-06-21] MEDS: THEOPHYLLINE 24 HOUR 300 MG CAP.ER.24H PO SCH (10:22)
[2021-06-21] MEDS: buPROPion XL 150 MG TAB.ER.24H PO SCH (10:22)
[2021-06-21] MEDS: lisinopriL 20 MG TAB PO SCH (10:23)
[2021-06-21] MEDS: MULTIVITAMINS, THERA 1 EACH TAB PO SCH (10:23)
[2021-06-21] MEDS: ESCITALOPRAM 10 MG TAB PO SCH (10:23)
[2021-06-21] MEDS: ASPIRIN 81 MG PO SCH (10:23)
[2021-06-21] MEDS: HYDROcodone/APAP 10-325MG 1 EACH TAB PO PRN ×2 (10:23→16:36)
[2021-06-21] MEDS: [UNRECOGNIZED DRUG - OTHER] PO PRN (11:30)
[2021-06-21] MEDS: HYDROCODONE PO PRN (11:30)
[2021-06-21 11:52] LABS: Glucose,Whole Blood 155 mg/dL (75-99)
--- NOTE | 2021-06-21 12:00 | P.PN ---
Subjective Patient is a pleasant 70-year-old female with history of hypertension, hyperlipidemia, obesity, COPD, anxiety. She does not follow with a stump shooter. Cardiology was consult for elevated troponins and chest pain. Patient presents secondary worsening shortness breath as well as chest pressure. She also had symptoms of significant dyspnea with any activity and some orthopnea. On admission she received IV Lasix and was placed on BiPAP with improvement and transitioned to nasal cannula. Troponin was elevated at 0.2, 0.537, 0.66, 0.32. D-dimer greater than 34, creatinine 0.7, proBNP 6400, cell count 15.9. CTA showed emphysema with pulmonary infiltrates in both lower lobes with no PE with some underlying pulmonary fibrosis. Echo performed 06/17 shows moderate LVH, EF 20-25% with mild mitral regurgitation. 06/18/2021 Patient underwent cardiac catheterization with Dr. Walsh on 06/18/2021 which revealed CAD as described above with 100% RCA stenosis with left to right collaterals, 70% proximal LAD stenosis (iFR abnormal at 0.62) and OM2 60-70% stenosis, and low normal left-sided filling pressures. Patient also went into a new onset atrial fibrillation with RVR. 06/20/2021- patient underwent cardiac catheterization which revealed 100% RCA stenosis with left to right collaterals, 70% proximal LAD stenosis (iFR abnormal at 0.62) and OM2 60-70% stenosis (iFR normal at 0.97). Patient underwent successful PCI to proximal to mid LAD with Dr. Walsh. 06/21/2021 Patient seen and examined at bedside, no acute distress. Right radial cath site clean dry intact, no hematoma 2+ pulses. She still feels short of breath. Does have some chest discomfort overnight. Labs, serum creatinine 0.70 Telemetry reviewed, patient in sinus mechanism heart rate 50s to 60s, with frequent PVCs and bigeminy noted. No further atrial fibrillation noted. PHYSICAL EXAMINATION Vital signs reviewed. CONSTITUTIONAL: No apparent distress, ill appearing HEENT: Neck Supple. No JVD. CHEST EXAMINATION: Lungs are clear to auscultation. +crackles b/l at bases HEART EXAMINATION: Regular rate and rhythm. S1, S2 heard. No murmurs, gallops or rub. ABDOMEN: Soft, nontender. Positive bowel sounds. EXTREMITIES: 2+ peripheral pulses, no lower extremity edema and no calf tenderness. NEUROLOGIC EXAMINATION: Patient is awake, alert and oriented x3. ASSESSMENT Coronary artery disease s/p PCI to mid LAD 06/20/2021 Acute on chronic respiratory failure possibly multifactorial secondary to pneumonia plus component of heart failure on top of COPD exacerbation Acute on chronic heart failure with reduced EF New onset paroxysmal atrial fibrillation during cardiac catheterization on 06/18/21. On xarelto Non-STEMI Ischemic cardiomyopathy EF 20-25% Hypertension Hyperlipidemia Tobacco abuse PLAN Repeat chest xray Continue dual antiplatelet therapy with aspirin and Plavix Continue statin, lisinopril, metoprolol titrate 25 mg twice a day Xarelto 15mg daily Further recommendations based on clinical course Nurse practitioner note has been reviewed by physician. Signing provider agrees with the documented findings, assessment, and plan of care. Objective - Vital Signs Vital signs: Vital Signs Temp 98.5 F 06/20/21 10:39 Pulse 65 06/20/21 10:39 Resp 13 06/20/21 10:39 BP 115/71 06/20/21 10:39 Pulse Ox 94 L 06/20/21 10:39 Intake & Output 06/19/21 06/20/21 06/20/21 18:59 06:59 18:59 Intake Total 2495.744 0968 740.000 Output Total 365 510 100 Balance 949.733 570 640.000 Weight 91.7 kg 91.7 kg Intake: IV 720 540 490 Sodium Chloride 0.9% 1, 720 540 240 000 ml @ 60 mls/hr IV . [id number] GABO Rx#:[id number] cefTRIAXone 1 gm In 100 Sodium Chloride 0.9% 50 ml @ 100 mls/hr IVPB Q24HR GABO Rx#:[id number] Intake, IV Titration 144.733 250.000 Amount Heparin Sod,Pork in 0.45% 144.733 250.000 NaCl 25,000 unit In 0.45 % NaCl 1 250ml.bag @ 11. 023 UNITS/KG/HR 10 mls/hr IV .Q24H GABO Rx#: [id number] Oral 450 540 Output: Urine 365 510 100 Other: Voiding Method Indwelling Catheter Indwelling Catheter Indwelling Catheter # Bowel Movements 1 - Labs CBC & Chem 7: 06/19/21 08:27 06/21/21 06:59 Labs: Abnormal Lab Results - Last 24 Hours (Table) 06/20/21 06/20/21 Range/Units 06:31 13:36 APTT 31.5 H (22.0-30.0) sec POC Glucose (mg/dL) 137 H (75-99) mg/dL
--- NOTE | 2021-06-21 12:02 | XR ---
EXAMINATION TYPE: XR chest 1V portable DATE OF EXAM: 06/21/2021 COMPARISON: 06/19/2021, 02/22/2021 INDICATION: Shortness of breath, wheezing TECHNIQUE: Single frontal view of the chest is obtained. FINDINGS: The heart size is enlarged. The pulmonary vasculature is normal. There appears to be a nodular type density along the left heart border measuring 1.7 cm. This is not clearly evident on prior but may have been obscured by the infiltrate. Previous infiltrate has signif icantly improved. There may be a 1.6 cm nodular density at the right costophrenic angle not previous ly identified. IMPRESSION: 1. Improving left lung infiltrate. 2. There may be a couple of focal densities newly identified. Consider atelectasis. Follow-up is faustino mmended.
[2021-06-21] MEDS ORDERED: FUROSEMIDE 10 MG/ML 4 ML VIAL IV STA (12:34)
--- NOTE | 2021-06-21 12:34 | P.PN ---
Subjective Progress Note Date: 06/21/21 on today's evaluation of 06/19/2021, I'm seeing the patient for a follow-up. The patient is very well-known to me. The patient has advanced COPD along with that she has chronic hypoxic respiratory failure In the patient's is oxygen dependent. She continues to smoke cigarettes. She came into the hospital because of worsening shortness of breath. The troponins were positive with the levels being 0.6 and 0.3. The chest x-ray was free of any acute pulmonary infiltrates. The CAT scan of the chest was reviewed and the patient has some chronic changes involving atelectasis and some bronchiectatic change the lung bases bilaterally. No clear airspace disease was noted. His morning, the patient is on 8 L of oxygen by nasal cannula. Cardiac catheterization is already been completed and the patient was found to have 100% RCA lesions with collaterals. The patient also had 70% LAD lesion which is being considered for stenting and 60% another LAD lesion another 660/70% OM 2 lesion. The patient is currently free of any chest pain. The patient is on IV heparin. Echocardiogram showed an ejection fraction of 20-25% along with concentric LVH. The patient has a congested cough and onset of the sputum production. She has limited on Trelegy Ellipta on outpatient basis in addition to Xopenex updrafts. She also takes promethazine with codeine for cough suppression. She is currently off the BiPAP. He is on 8 L O2 nasal cannula. She remains on IV Solu-Medrol. On 06/20/2021, the patient is being seen for a follow-up. The patient is doing slightly better compared to yesterday. No chest pain. Continues to have cough and congestion which is typical for her as the patient has advanced COPD along with check of bronchomalacia. The patient remains on examination bronchodilators, steroids and antibiotics. The plan was today this patient to the cardiovascular lab and the patient was supposed to undergo a percutaneous transluminal coronary angioplasty of the LAD. No altered mentation. No signs of any CO2 narcosis. No other significant events otherwise for now. The patient was able to obtain her Trelegy Ellipta from home which she is going to use here in hospital and we are going to discontinue the Perforomist and the budesonide nebulized treatments. The patient is also able to take promethazine with codeine. The rest of the medication remains unchanged. She remains on IV Solu Medrol 60 mg IV push every 6 hours. 06/21/2021, the patient continued to have some congested cough. Unable to bring up much sputum. No angina. No palpitation. She has chest soreness because of her persistent cough. Note that the patient advanced COPD and the patient is also known to have taken bronchomalacia. She is a chronic smoker. No signs of any CO2 narcosis. She underwent cardiac catheterization and stenting of the LAD yesterday. No complications. A repeat chest x-ray was done today and it showed improvement in the left lung infiltrate. There are some couple of focal densities and atelectatic changes in lung bases. No fever. No chills. The patient's blood work from today is pending. Creatinine is at 0.7. Blood sugars is 155. Remains on IV Solu Medrol. Remains on bronchodilators. He remains on IV Rocephin. No signs of any decompensated heart failure. She is on oxygen at 8 L per minute nasal cannula. Objective - Vital Signs Vital signs: Vital Signs Temp 98.0 F 06/21/21 08:00 Pulse 68 06/21/21 11:28 Resp 20 06/21/21 08:00 BP 133/81 06/21/21 08:00 Pulse Ox 90 L 06/21/21 08:00 Intake & Output 06/20/21 06/21/21 06/21/21 18:59 06:59 18:59 Intake Total 740.000 Output Total 100 1300 Balance 640.000 -1300 Weight 91.7 kg 91.7 kg Intake: IV 490 Sodium Chloride 0.9% 1, 240 000 ml @ 60 mls/hr IV . [id number] GABO Rx#:[id number] cefTRIAXone 1 gm In 100 Sodium Chloride 0.9% 50 ml @ 100 mls/hr IVPB Q24HR GABO Rx#:[id number] Intake, IV Titration 250.000 Amount Heparin Sod,Pork in 0.45% 250.000 NaCl 25,000 unit In 0.45 % NaCl 1 250ml.bag @ 11. 023 UNITS/KG/HR 10 mls/hr IV .Q24H GABO Rx#: [id number] Output: Urine 100 1300 Uretheral (Dao) 1300 Other: Voiding Method Indwelling Catheter Indwelling Catheter Indwelling Catheter - Exam GENERAL EXAM: Alert, very pleasant, 70-year-old white female, the patient is on O2 at 8 L per minute nasal cannula HEAD: Normocephalic/atraumatic. EYES: Normal reaction of pupils, equal size. Conjunctiva pink, sclera white. NOSE: Clear with pink turbinates. THROAT: No erythema or exudates. NECK: No masses, no JVD, no thyroid enlargement, no adenopathy. CHEST: No chest wall deformity. Symmetrical expansion. LUNGS: Equal air entry with expiratory wheezes CVS: Regular rate and rhythm, normal S1 and S2, no gallops, no murmurs, no rubs ABDOMEN: Soft, nontender. No hepatosplenomegaly, normal bowel sounds, no guarding or rigidity. EXTREMITIES: No clubbing, no edema, no cyanosis, 2+ pulses and upper and lower extremities. MUSCULOSKELETAL: Muscle strength and tone normal. SPINE: No scoliosis or deformity SKIN: No rashes CENTRAL NERVOUS SYSTEM: Alert and oriented -3. No focal deficits, tone is no rmal in all 4 extremities. PSYCHIATRIC: Alert and oriented -3. Appropriate affect. Intact judgment and insight. - Labs CBC & Chem 7: 06/19/21 08:27 06/21/21 06:59 Labs: Abnormal Lab Results - Last 24 Hours (Table) 06/20/21 06/20/21 06/20/21 Range/Units 13:36 16:52 20:01 POC Glucose (mg/dL) 137 H 136 H 169 H (75-99) mg/dL 06/21/21 06/21/21 Range/Units 06:02 11:50 POC Glucose (mg/dL) 141 H 155 H (75-99) mg/dL Assessment and Plan Plan: #1. Acute hypoxic respiratory failure secondary to an acute exacerbation of systolic CHF with severely impaired left ventricular systolic function and EF of 20-25%, in combination with COPD. The patient has advanced COPD and the patient has Emphysematous changes bilaterally and chronic bronchiectatic changes in lung bases along with some atelectasis and some limited fibrosis. No evidence of any airspace disease or pneumonia this point in time. Clinically, the patient continues to be bronchospastic and symptomatically from her COPD. no obvious signs of decompensated heart failure. Chest x-ray showing essentially COPD and atelectatic changes in lung bases bilaterally. The patient remains on O2 at 8 L per minute nasal cannula #2. Hypertensive urgency, resolved #3. Acute exacerbation of COPD, still active also the patient's hypoxic and 8 L O2 nasal cannula #4. coronary artery disease, the patient has on a percent RCA lesion, 70% LAD lesion, 60/70% OM 2 lesion. The patient is being considered for angioplasty and stenting of LAD lesion. She is free of any chest pain for now. She is status post acute non-ST segment elevation myocardial infarction. The patient underwent cardiac catheterization and stenting of the proximal LAD #5. systolic heart failure with an ejection fraction of around 20-25% and secondary pulmonary hypertension. The patient also has concentric LVH. #6. Tracheobronchomalacia #7. Morbid obesity with BMI 31.3 kg/m #8. GERD/reflux #9. History of migrainous #10. History of obstructive sleep apnea #11. Hypertension #12. Hyperlipidemia #13 History of chronic tobacco dependence #14 paroxysmal atrial fibrillation Plan: Continue management of COPD with a combination of bronchodilators and steroids and antibiotics We'll administer a dose of Lasix 40 mg IV push Cardiac catheterization was completed and the patient underwent a stenting of the LAD Anticoagulation per cardiology , The patient was started on Xarelto Continue bronchodilators and steroids Long-term prognosis poor Prognosis very poor baseline above-mentioned comorbidities. Smoking cessation counseling was done we'll continue to follow
[2021-06-21 12:41] LABS: Anion Gap 5 mmol/L; Blood Urea Nitrogen 45 mg/dL (7-17); Calcium 10.2 mg/dL (8.4-10.2); Carbon Dioxide 27 mmol/L (22-30); Chloride 106 mmol/L (98-107); Glucose 134 mg/dL (74-99); Magnesium 2.2 mg/dL (1.6-2.3); Potassium 4.5 mmol/L (3.5-5.1); Sodium 138 mmol/L (137-145)
--- NOTE | 2021-06-21 13:41 | P.PN ---
Subjective Progress Note Date: 06/21/21 This is a 70-year female admitted with acute CHF exacerbation, acute COPD exacerbation,chest pain, elevated troponins, possible NSTEMI, significant other last year-ongoing grieving, "cries every day", extremely sad -denies being suicidal or having a suicide plan and multiple other medical issues. Maintained on nebulized bronchodilators, antibiotics and steroids. Congested productive cough. Chest x-ray reporting moderate cardiomegaly, COPD, increasing right greater than left bibasilar atelectasis or infiltrates. Maintaining O2 sats in the low 90s on 8 L high flow nasal cannula. Afebrile, WBC increased to 12.2-on steroids. Renal function stable. Completed cardiac catheterization yes terday reporting 100% RCA stenosis with left to right collaterals, 70% proximal LAD, OM 60-70% stenosis developed atrial fibrillation with RVR; reattempt PCI of LAD tomorrow. Anticoagulated on heparin drip. Denies any chest pain, palpitations. 06/20/2021 maintained on nebulized bronchodilators, antibiotics, steroids, maintaining O2 sats in the 90s on 8 L high flow nasal cannula.congested cough persists. 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 Denies chest pain, palpitations or increasing shortness of breath. Reports anxiety for which patient has received Xanax with positive results 06/21/2021 yesterday he underwent cardiac catheterization with stenting of the LAD, tolerated procedure well. Maintained on beta john, GONZALO inhibitor, statin and dual antiplatelet therapy with Plavix and aspirin. Anticoagulated on Xarelto. Denies chest pain, palpitations or increased shortness of breath. Continues on nebulized bronchodilators, IV Rocephin, IV steroids. Required BiPAP last night, currently maintaining O2 sats of 89-90% on 9 L high flow nasal cannula. Chest x-ray reporting improving left lung infiltrate, Labs pending. Objective - Vital Signs Vital signs: Vital Signs Temp 98.0 F 06/21/21 08:00 Pulse 68 06/21/21 11:28 Resp 20 06/21/21 08:00 BP 133/81 06/21/21 08:00 Pulse Ox 90 L 06/21/21 08:00 Intake & Output 06/20/21 06/21/21 06/21/21 18:59 06:59 18:59 Intake Total 740.000 Output Total 100 1300 Balance 640.000 -1300 Weight 91.7 kg 91.7 kg Intake: IV 490 Sodium Chloride 0.9% 1, 240 000 ml @ 60 mls/hr IV . [id number] GABO Rx#:[id number] cefTRIAXone 1 gm In 100 Sodium Chloride 0.9% 50 ml @ 100 mls/hr IVPB Q24HR GABO Rx#:[id number] Intake, IV Titration 250.000 Amount Heparin Sod,Pork in 0.45% 250.000 NaCl 25,000 unit In 0.45 % NaCl 1 250ml.bag @ 11. 023 UNITS/KG/HR 10 mls/hr IV .Q24H GABO Rx#: [id number] Output: Urine 100 1300 Uretheral (Dao) 1300 Other: Voiding Method Indwelling Catheter Indwelling Catheter Indwelling Catheter - Exam - Exam General: [Patient awake, alert and oriented times 3. NAD.] HEENT: [Normal cephalic, atraumatic PERRL. EOMI. No pharyngeal erythema or exudate.] Neck: Supple, no JVD Cardiac: [Heart regular in rate and rhythm. No S3. No S4. No clicks, rubs. No murmur.] Lungs: Diminished breath sounds bilaterally with expiratory wheezing Abdomen: [No mass. No organomegaly. Bowel sounds presnt and normoactive in all 4 quadrants.] Extremes: [No edema no cyanosis no claudication normal pulses] Skin: [No rash, warm and dry Neurologic: [No lateralizing deficits. CN II - XII grossly intact.] - Labs CBC & Chem 7: 06/19/21 08:27 06/21/21 06:59 Labs: Abnormal Lab Results - Last 24 Hours (Table) 06/20/21 06/20/21 06/20/21 Range/Units 13:36 16:52 20:01 BUN (7-17) mg/dL Glucose (74-99) mg/dL POC Glucose (mg/dL) 137 H 136 H 169 H (75-99) mg/dL 06/21/21 06/21/21 06/21/21 Range/Units 06:02 06:59 11:50 BUN 45 H (7-17) mg/dL Glucose 134 H (74-99) mg/dL POC Glucose (mg/dL) 141 H 155 H (75-99) mg/dL Assessment and Plan Assessment: Acute CHF exacerbation, systolic dysfunction, severely impaired LV function, EF 20-25% Acute COPD exacerbation with acute tracheobronchomalacia in a patient with advanced COPD Acute hypoxic, hypercapnic respiratory failure secondary to the above. Obstructive sleep apnea, wears BiPAP CAD, possible NSTEMI, possible takotsubo syndrome--but cardiac cath did report evidence of coronary artery obstruction. status post cardiac catheterization , reporting 100% RCA stenosis with left to right collaterals, 70% proximal LAD, OM 60-70% stenosis developed atrial fibrillation with RVR; status post cardiac cath with stenting of the proximal LAD. Paroxysmal atrial fibrillation Anxiety, depression, grieving-her significant other last year, July 2020 Hypertension Gastroesophageal reflux disease Ongoing nicotine dependence Morbid obesity, BMI 31.2 Plan: Continue on current medication regime ,monitoring and symptomatic treatment. Aggressive pulmonary toileting with nebulized bronchodilators, an tibiotics and steroids. Anticoagulation as per cardiology. Nicotine cessation reinforced. Prognosis guarded given multiple complex medical issues. The impression and plan of care has been dictated as directed. : I performed a history and examination of this patient, discussed the same with the dictator. I agree with the dictator's note ,documented as a scribe. Any additional findings or plans will be noted.
[2021-06-21 16:56] LABS: Glucose,Whole Blood 154 mg/dL (75-99)
[2021-06-21] MEDS: RIVAROXABAN 15 MG TAB PO SCH (18:26)
[2021-06-21 19:53] LABS: Glucose,Whole Blood 159 mg/dL (75-99)
[2021-06-21] MEDS: SODIUM CHLORIDE 0.9% 1,000 ML in EMPTY BAG 1 BAG IV SCH ×2 (21:07→23:32)
[2021-06-21] MEDS: SODIUM CHLORIDE 0.9% 1,000 ML IV SCH (21:08)
[2021-06-21] MEDS: ATORVASTATIN 20 MG TAB PO SCH (21:08)
[2021-06-21] MEDS: TRELEGY ELLIPTA INHALATION SCH (23:32)
[2021-06-22 05:32] LABS: Glucose,Whole Blood 157 mg/dL (75-99)
[2021-06-22] MEDS: SODIUM CHLORIDE 0.9% 1,000 ML IV SCH (06:04)
[2021-06-22] MEDS: methylPREDNISolone SOD SUCCI 125 MG/2 ML VIAL IV SCH ×4 (06:25→23:44)
[2021-06-22] MEDS: INSULIN ASPART (NovoLOG) 100 UNIT/ML VIAL SQ SCH ×4 (06:26→20:31)
[2021-06-22] MEDS: LEVALBUTEROL 1.25 MG INHALATION SCH ×4 (08:15→19:57)
[2021-06-22] MEDS: IPRATROPIUM-ALBUTEROL 3 ML NEB INHALATION SCH ×4 (08:16→19:57)
[2021-06-22] MEDS ORDERED: SODIUM CHLORIDE 0.65% NASAL SPRAY 44 ML BTL NASAL PRN (09:14)
[2021-06-22] MEDS: THEOPHYLLINE 24 HOUR 300 MG CAP.ER.24H PO SCH (09:28)
[2021-06-22] MEDS: MULTIVITAMINS, THERA 1 EACH TAB PO SCH (09:28)
[2021-06-22] MEDS: METOPROLOL TARTRATE 25 MG TAB PO SCH ×2 (09:28→20:30)
[2021-06-22] MEDS: ASPIRIN 81 MG PO SCH (09:28)
[2021-06-22] MEDS: HYDROcodone/APAP 10-325MG 1 EACH TAB PO PRN ×2 (09:28→17:08)
[2021-06-22] MEDS: lisinopriL 20 MG TAB PO SCH (09:28)
[2021-06-22] MEDS: ESCITALOPRAM 10 MG TAB PO SCH (09:28)
[2021-06-22] MEDS: CLOPIDOGREL 75 MG TAB PO SCH (09:29)
[2021-06-22] MEDS: buPROPion XL 150 MG TAB.ER.24H PO SCH (09:29)
[2021-06-22] MEDS: SODIUM CHLORIDE 0.9% 1,000 ML in EMPTY BAG 1 BAG IV SCH ×2 (10:41→20:32)
[2021-06-22] MEDS: [UNRECOGNIZED DRUG - OTHER] PO PRN (11:09)
[2021-06-22] MEDS: HYDROCODONE PO PRN (11:09)
[2021-06-22] MEDS ORDERED: DEXTROSE 5% IN WATER 100 ML with AMIODARONE 150 MG IV ONE (11:31)
[2021-06-22] MEDS ORDERED: AMIODARONE 360 MG in DEXTROSE 5% IN WATER 200 ML IV ONE ×2 (11:31)
[2021-06-22 11:42] LABS: Glucose,Whole Blood 146 mg/dL (75-99)
--- NOTE | 2021-06-22 12:08 | P.PN ---
Subjective Progress Note Date: 06/22/21 Principal diagnosis: Shortness of breath, coughing and wheezing This is 70-year-old female patient who follows with Dr. Vail as her primary care provider. She has a history of hyperlipidemia, hypertension, obesity, migraines, chronic cough. She also has a history of chronic obstructive pulmonary disease, chronic and ongoing tobacco dependence, sleep apnea, tracheobronchomalacia and follows with Dr. Mckeon in our office. She presented here to the emergency room early this morning for shortness of breath. He was currently being treated for pneumonia and was on azithromycin. Her symptoms did not improve. Chest x-ray reveals evidence of cardiomegaly. Mild pulmonary fibrotic changes. No obvious heart failure. No pleural effusion. White count 15.9. Hemoglobin 16.3. D-dimer greater than 34. Sodium 142. Potassium 4.3. BUN 31, creatinine 0.77. Glucose 146. AST 64. ALT 65. Troponin 0.28, 0.53, 0.66. ProBNP 6460. Coronavirus by PCR not detected. CT angiogram of the chest revealed emphysema. Pulmonary infiltrates in the lower lobes also along the right major fissure. Enlarged pulmonary arteries consistent with pulmonary hypertension. No evidence of pulmonary embolism. Some underlying pulmonary fibrosis. Echocardiogram reveals severely impaired left ventricular systolic function with ejection fraction 20-25% with severe global hypokinesia of the LV. Computed tomography scan of the brain revealed no acute intracranial hemorrhage or midline shift. This was done because of complaints of headache. She was placed on BiPAP 10/5 and 50% FiO2. She was also initiated on nitroglycerin drip at 20 mg/m. No other IV fluids running. On 06/18/2021 patient seen in follow-up in the intensive care unit, she remains on BiPAP at 10/5 and FiO2 of 50%, she states her breathing is a little better today, she is breathing easier, her cough has significantly improved, on physical exam she still bronchospastic, there is good air entry bilaterally. No IV fluids, IV fluids have been hep-locked. Today's chest x-ray showing cardiomegaly and chronic emphysematous changes with right middle lobe consolidation which may be chronic and patchy left basilar infiltrate. No significant change from one day earlier. Patient continues on nebulized bron chodilators, she is on empiric antibiotics with azithromycin and Rocephin, she is on IV Lasix of 40 mg every 12 hours, and IV steroids. No complaints of chest discomfort. Today's lab 7 reviewed, white blood cell count 7.7, hemoglobin is 15.7, sodium is 139, potassium is 4.2, CO2 is 32, B1 is 30 and creatinine 0.76. On 06/22/2021 patient seen in follow-up on selective care unit, she is resting c omfortably in bed, seems to be breathing easier, she remains on high flow oxygen at 9 L her pulse ox is 88-92%. She normally wears 3 L of oxygen at home on a regular basis. Lung sounds reveal a few scattered rhonchi, patient still has a congested cough, she remains on steroids in the form of Solu-Medrol 60 g every 6 hours, she is getting nebulized bronchodilators. IV fluids have been hep-locked . No fever or chills, yesterday's chest x-ray was showing improving left lung infiltrate. No new labs today. Continues on Trelegy. Patient has been having a chest discomfort that starts in the back, and radiates through the chest into the anterior lower part of the sternum. She states is not alleviated by anything other than pain medications, describes it as constant, dull. Patient is status post LAD stenting. Cardiology has been following. Patient did have episode of atrial fibrillation during catheterization. Patient has been having bigeminal PVCs since yesterday, the patient went into A. fib today and patient is being started on amiodarone infusion per cardiology. Objective - Vital Signs Vital signs: Vital Signs Temp 97.8 F 06/22/21 09:00 Pulse 52 L 06/22/21 11:46 Resp 18 06/22/21 09:00 BP 129/78 06/22/21 09:00 Pulse Ox 91 L 06/22/21 09:00 Intake & Output 06/21/21 06/22/21 06/22/21 18:59 06:59 18:59 Intake Total 240 Output Total 1500 Balance -1260 Weight 88.8 kg Intake: Oral 240 Output: Urine 1500 Other: Voiding Method Indwelling Catheter Toilet Bedside Commode # Bowel Movements 1 - Exam GENERAL EXAM: Alert, very pleasant, 70-year-old white female, currently on 9 L of oxygen the pulse ox of 88-91% has a frequent congested cough comfortable in no apparent distress. HEAD: Normocephalic/atraumatic. EYES: Normal reaction of pupils, equal size. Conjunctiva pink, sclera white. NOSE: Clear with pink turbinates. THROAT: No erythema or exudates. NECK: No masses, no JVD, no thyroid enlargement, no adenopathy. CHEST: No chest wall deformity. Symmetrical expansion. LUNGS: Equal air entry with expiratory wheezes, and diffuse rhonchi CVS: Irregular rate and rhythm, normal S1 and S2, no gallops, no murmurs, no rubs ABDOMEN: Soft, nontender. No hepatosplenomegaly, normal bowel sounds, no guarding or rigidity. EXTREMITIES: No clubbing, no edema, no cyanosis, 2+ pulses and upper and lower extremities. MUSCULOSKELETAL: Muscle strength and tone normal. SPINE: No scoliosis or deformity SKIN: No rashes CENTRAL NERVOUS SYSTEM: Alert and oriented -3. No focal deficits, tone is norm al in all 4 extremities. PSYCHIATRIC: Alert and oriented -3. Appropriate affect. Intact judgment and insight. - Labs CBC & Chem 7: 06/19/21 08:27 06/21/21 06:59 Labs: Abnormal Lab Results - Last 24 Hours (Table) 06/21/21 06/21/21 06/21/21 Range/Units 06:59 16:55 19:51 BUN 45 H (7-17) mg/dL Glucose 134 H (74-99) mg/dL POC Glucose (mg/dL) 154 H 159 H (75-99) mg/dL 06/22/21 06/22/21 Range/Units 05:30 11:37 BUN (7-17) mg/dL Glucose (74-99) mg/dL POC Glucose (mg/dL) 157 H 146 H (75-99) mg/dL Assessment and Plan Plan: Assessment: #1. Acute hypoxic respiratory failure secondary to an acute exacerbation of systolic CHF with severely impaired left ventricular systolic function and EF of 20-25%, and acute exacerbation of COPD. Patient has a history of advanced COPD and emphysematous changes bilaterally and chronic bronchiectatic changes at the lung bases with some atelectasis and some limited fibrosis. There is no evidence of any air space disease or pneumonia at this point in time, clinically patient continues to be congested, bronchospastic and symptomatic from her COPD. No obvious signs of decompensated heart failure, chest x-ray showed improving left lung infiltrate. #2. Hypertensive urgency, resolved #3. Acute exacerbation of COPD, patient still remains on 9 L of oxygen #4. Coronary artery disease, patient has 100% RCA lesion, 70% LAD lesion and 60-70% OM 2 lesion, status post PCI and stenting of the 70% LAD lesion on 06/21/2021. #5. Acute non-ST elevated myocardial infarction #6. Bilateral infiltrates and no lower lobes with possible community acquired pneumonia #7. History of chronic tobacco dependence #8. Tracheobronchomalacia #9. Morbid obesity with BMI 31.3 kg/m #10. GERD/reflux #11. History of migrainous #12. History of obstructive sleep apnea #13. Hypertension #14. Hyperlipidemia #15. Chronic systolic CHF with ejection fraction of 20-25%, and secondary already hypertension #16. New onset paroxysmal atrial fibrillation, on Xarelto Plan: Continue IV steroids Continue breathing treatments Weaning FiO2 to keep O2 sats saturations at or above 88-90% BiPAP support at bedtime and as needed Continues to be bronchospastic and congested COPD remains active In addition patient went into atrial fibrillation Anticoagulation and rate control medications per cardiology Will continue to follow I have personally seen and examined the patient, performed the documentation and the assessment and plan as written. Number of minutes spent on the visit: [10] This evaluation was done and more than 20 minutes. Add a lengthy discussion with the patient. Her comorbid conditions are stable. We are going to gradually wean down the FiO2. Continue rest of the treatment. We'll keep IV Solu Medrol for another 24 hours. This a split joint evaluation that was done along with the nurse practitioner on the case.. I was involved in more than 80% of this evaluation, decision making and treatment. Time with Patient: Less than 30
--- NOTE | 2021-06-22 13:42 | P.PN ---
Subjective Progress Note Date: 06/22/21 This is a 70-year female admitted with acute CHF exacerbation, acute COPD exacerbation,chest pain, elevated troponins, possible NSTEMI, significant other last year-ongoing grieving, "cries every day", extremely sad -denies being suicidal or having a suicide plan and multiple other medical issues. Maintained on nebulized bronchodilators, antibiotics and steroids. Congested productive cough. Chest x-ray reporting moderate cardiomegaly, COPD, increasing right greater than left bibasilar atelectasis or infiltrates. Maintaining O2 sats in the low 90s on 8 L high flow nasal cannula. Afebrile, WBC increased to 12.2-on steroids. Renal function stable. Completed cardiac catheterization yes terday reporting 100% RCA stenosis with left to right collaterals, 70% proximal LAD, OM 60-70% stenosis developed atrial fibrillation with RVR; reattempt PCI of LAD tomorrow. Anticoagulated on heparin drip. Denies any chest pain, palpitations. 06/20/2021 maintained on nebulized bronchodilators, antibiotics, steroids, maintaining O2 sats in the 90s on 8 L high flow nasal cannula.congested cough persists. 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 Denies chest pain, palpitations or increasing shortness of breath. Reports anxiety for which patient has received Xanax with positive results 06/21/2021 yesterday he underwent cardiac catheterization with stenting of the LAD, tolerated procedure well. Maintained on beta john, GONZALO inhibitor, statin and dual antiplatelet therapy with Plavix and aspirin. Anticoagulated on Xarelto. Denies chest pain, palpitations or increased shortness of breath. Continues on nebulized bronchodilators, IV Rocephin, IV steroids. Required BiPAP last night, currently maintaining O2 sats of 89-90% on 9 L high flow nasal cannula. Chest x-ray reporting improving left lung infiltrate, Labs pending. 06/22/2021. A fibrillation earlier this morning, amiodarone drip initiated . Complains of dull lower midsternal chest discomfort .maintaining O2 sats in the high 80s to low 90s on 9 L nasal cannula. Continues on nebulized [facility] hodilators, steroids. Objective - Vital Signs Vital signs: Vital Signs Temp 97.8 F 06/22/21 09:00 Pulse 64 06/22/21 11:56 Resp 18 06/22/21 09:00 BP 129/78 06/22/21 09:00 Pulse Ox 93 L 06/22/21 10:00 Intake & Output 06/21/21 06/22/21 06/22/21 18:59 06:59 18:59 Intake Total 240 Output Total 1500 Balance -1260 Weight 88.8 kg Intake: Oral 240 Output: Urine 1500 Other: Voiding Method Indwelling Catheter Toilet Bedside Commode # Bowel Movements 1 - Exam - Exam General: [Patient awake, alert and oriented times 3. NAD.] HEENT: [Normal cephalic, atraumatic PERRL. EOMI. MMM. Neck: Supple, no JVD Cardiac: [Heart regular in rate and rhythm. No S3. No S4. No clicks, rubs. No murmur.] Lungs: Congested ,Diminished breath sounds bilaterally with expiratory wheezing Abdomen: [No mass. No organomegaly. Bowel sounds presnt and normoactive in all 4 quadrants.] Extremes: [No edema no cyanosis no claudication normal pulses] Skin: [No rash, warm and dry Neurologic: [No lateralizing deficits. CN II - XII grossly intact.] - Labs CBC & Chem 7: 06/19/21 08:27 06/21/21 06:59 Labs: Abnormal Lab Results - Last 24 Hours (Table) 06/21/21 06/21/21 06/22/21 Range/Units 16:55 19:51 05:30 POC Glucose (mg/dL) 154 H 159 H 157 H (75-99) mg/dL 06/22/21 Range/Units 11:37 POC Glucose (mg/dL) 146 H (75-99) mg/dL Assessment and Plan Assessment: Acute CHF exacerbation, systolic dysfunction, severely impaired LV function, EF 20-25% Acute COPD exacerbation with acute tracheobronchomalacia in a patient with advanced COPD Acute hypoxic, hypercapnic respiratory failure secondary to the above. Obstructive sleep apnea, wears BiPAP CAD, possible NSTEMI, possible takotsubo syndrome--but cardiac cath did report evidence of coronary artery obstruction. status post cardiac catheterization , reporting 100% RCA stenosis with left to right collaterals, 70% proximal LAD, OM 60-70% stenosis developed atrial fibrillation with RVR; status post cardiac cath with stenting of the proximal LAD. Paroxysmal atrial fibrillation, new onset Anxiety, depression, grieving-her significant other last year, July 2020 Hypertension Gastroesophageal reflux disease Ongoing nicotine dependence Morbid obesity, BMI 31.2 Plan: Continue on current medication regime ,monitoring and symptomatic treatment. Antiarrhythmics Anticoagulation as per cardiology. Weaning of FiO2 as per pulmonary's established parameters. Aggressive pulmonary toileting with nebulized bronchodilators, antibiotics and steroids. Nicotine cessation reinforced.Prognosis guarded given multiple complex medical issues. The impression and plan of care has been dictated as directed. : I performed a history and examination of this patient, discussed the same with the dictator. I agree with the dictator's note ,documented as a scribe. Any additional findings or plans will be noted.
--- NOTE | 2021-06-22 14:01 | P.PN ---
Subjective Patient is a pleasant 70-year-old female with history of hypertension, hyperlipidemia, obesity, COPD, anxiety. 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 Cardiology was consult for elevated troponins and chest pain. Patient presents secondary worsening shortness breath as well as chest pressure. She also had symptoms of significant dyspnea with any activity and some orthopnea. On admission she received IV Lasix and was placed on BiPAP with improvement and transitioned to nasal cannula. Troponin was elevated at 0.2, 0.537, 0.66, 0.32. D-dimer greater than 34, creatinine 0.7, proBNP 6400, cell count 15.9. CTA showed emphysema with pulmonary infiltrates in both lower lobes with no PE with some underlying pulmonary fibrosis. Echo performed 06/17 shows moderate LVH, EF 20-25% with mild mitral regurgitation. 06/18/2021 Patient underwent cardiac catheterization with Dr. Walsh on 06/18/2021 which revealed CAD as described above with 100% RCA stenosis with left to right collaterals, 70% proximal LAD stenosis (iFR abnormal at 0.62) and OM2 60-70% stenosis, and low normal left-sided filling pressures. Patient also went into a new onset atrial fibrillation with RVR. 06/20/2021- patient underwent cardiac catheterization which revealed 100% RCA stenosis with left to right collaterals, 70% proximal LAD stenosis (iFR abnormal at 0.62) and OM2 60-70% stenosis (iFR normal at 0.97). Patient underwent successful PCI to proximal to mid LAD with Dr. Walsh. 06/23/2021 Patient seen and examined at bedside, she complains of midsternal chest discomfort when taking a deep breath. Her chest discomfort she states starts in her back, radiating to her chest. EKG was performed this morning and patient went back into atrial fibrillation with PVCs. Rates are currently controlled. Her breathing has somewhat improved. Chest reveals improving left lung infiltrate. Labs, serum creatinine 0.70 Telemetry reviewed, patient in sinus mechanism heart rate 50s to 60s, with frequent PVCs and bigeminy noted. No further atrial fibrillation noted. PHYSICAL EXAMINATION Vital signs reviewed. CONSTITUTIONAL: No apparent distress, ill appearing HEENT: Neck Supple. No JVD. CHEST EXAMINATION: Lungs are clear to auscultation. +rhonchi bilaterally HEART EXAMINATION: Irregular rate and rhythm. S1, S2 heard. No murmurs, gallops or rub. ABDOMEN: Soft, nontender. Positive bowel sounds. EXTREMITIES: 2+ peripheral pulses, no lower extremity edema and no calf tenderness. NEUROLOGIC EXAMINATION: Patient is awake, alert and oriented x3. SKIN: Right radial cath site clean dry intact, no hematoma 2+ pulses. ASSESSMENT Coronary artery disease s/p PCI to mid LAD 06/20/2021 Acute on chronic respiratory failure possibly multifactorial secondary to pneumonia plus component of heart failure on top of COPD exacerbation Acute on chronic heart failure with reduced EF New onset paroxysmal atrial fibrillation during cardiac catheterization on 06/18/21. On xarelto Non-STEMI Ischemic cardiomyopathy EF 20-25% Hypertension Hyperlipidemia Tobacco abuse PLAN Start 150mg IV amiodarone bolus, and start amiodarone drip, likely transition to PO tomorrow Continue dual antiplatelet therapy with aspirin and Plavix Xarelto 15mg daily anticoagulation for atrial fibrillation Continue statin, lisinopril, metoprolol tartrate 25 mg twice a day Pulmonary following, continuing IV steroids Further recommendations based on clinical course Nurse practitioner note has been reviewed by physician. Signing provider agrees with the documented findings, assessment, and plan of care. Objective - Vital Signs Vital signs: Vital Signs Temp 98.0 F 06/22/21 12:00 Pulse 60 06/22/21 12:00 Resp 18 06/22/21 12:00 BP 167/71 06/22/21 12:00 Pulse Ox 91 L 06/22/21 12:00 Intake & Output 06/21/21 06/22/21 06/22/21 18:59 06:59 18:59 Intake Total 240 Output Total 1500 Balance -1260 Weight 88.8 kg Intake: Oral 240 Output: Urine 1500 Other: Voiding Method Indwelling Catheter Toilet Bedside Commode # Bowel Movements 1 - Labs CBC & Chem 7: 06/19/21 08:27 06/21/21 06:59 Labs: Abnormal Lab Results - Last 24 Hours (Table) 06/21/21 06/21/21 06/22/21 Range/Units 16:55 19:51 05:30 POC Glucose (mg/dL) 154 H 159 H 157 H (75-99) mg/dL 06/22/21 Range/Units 11:37 POC Glucose (mg/dL) 146 H (75-99) mg/dL
[2021-06-22] MEDS: TRELEGY ELLIPTA INHALATION SCH (15:17)
[2021-06-22 16:30] LABS: Glucose,Whole Blood 132 mg/dL (75-99)
[2021-06-22] MEDS: RIVAROXABAN 15 MG TAB PO SCH (17:16)
[2021-06-22] MEDS: CALCIUM CARBONATE 500 MG CHEWABLE PO PRN (17:23)
[2021-06-22] MEDS: MAG HYDROX/AL HYDROX/SIMETH 30 ML CUP PO PRN (17:44)
[2021-06-22] MEDS: AMIODARONE 450 MG in DEXTROSE 5% IN WATER 250 ML IV SCH ×2 (18:10)
[2021-06-22 19:59] LABS: Glucose,Whole Blood 235 mg/dL (75-99)
[2021-06-22] MEDS: ATORVASTATIN 20 MG TAB PO SCH (20:30)
[2021-06-22] MEDS: ALPRAZolam 0.5 MG TAB PO PRN (23:46)
[2021-06-23] MEDS: SODIUM CHLORIDE 0.9% 1,000 ML IV SCH ×2 (02:48→17:03)
[2021-06-23] MEDS: SODIUM CHLORIDE 0.9% 1,000 ML in EMPTY BAG 1 BAG IV SCH ×2 (06:02→17:08)
[2021-06-23 06:03] LABS: Glucose,Whole Blood 162 mg/dL (75-99)
[2021-06-23] MEDS: methylPREDNISolone SOD SUCCI 125 MG/2 ML VIAL IV SCH (06:18)
[2021-06-23] MEDS: INSULIN ASPART (NovoLOG) 100 UNIT/ML VIAL SQ SCH ×4 (06:18→20:28)
[2021-06-23] MEDS: LEVALBUTEROL 1.25 MG INHALATION SCH ×4 (08:10→19:12)
[2021-06-23] MEDS: IPRATROPIUM-ALBUTEROL 3 ML NEB INHALATION SCH ×4 (08:11→19:09)
[2021-06-23] MEDS: lisinopriL 20 MG TAB PO SCH (09:21)
[2021-06-23] MEDS: ASPIRIN 81 MG PO SCH (09:21)
[2021-06-23] MEDS: buPROPion XL 150 MG TAB.ER.24H PO SCH (09:22)
[2021-06-23] MEDS: THEOPHYLLINE 24 HOUR 300 MG CAP.ER.24H PO SCH (09:22)
[2021-06-23] MEDS: METOPROLOL TARTRATE 25 MG TAB PO SCH ×2 (09:22→20:33)
[2021-06-23] MEDS: CLOPIDOGREL 75 MG TAB PO SCH (09:22)
[2021-06-23] MEDS: ESCITALOPRAM 10 MG TAB PO SCH (09:22)
[2021-06-23] MEDS: MULTIVITAMINS, THERA 1 EACH TAB PO SCH (09:22)
[2021-06-23] MEDS: CALCIUM CARBONATE 500 MG CHEWABLE PO PRN (09:30)
[2021-06-23 09:45] LABS: Calcium 10.3 mg/dL (8.4-10.2); Potassium 4.5 mmol/L (3.5-5.1)
[2021-06-23] MEDS: AMIODARONE 450 MG in DEXTROSE 5% IN WATER 250 ML IV SCH ×2 (10:07)
[2021-06-23] MEDS: TRELEGY ELLIPTA INHALATION SCH (10:15)
[2021-06-23] MEDS: AMIODARONE 200 MG TAB PO SCH ×3 (11:32→20:32)
[2021-06-23 11:35] LABS: Glucose,Whole Blood 150 mg/dL (75-99)
[2021-06-23] MEDS: MAG HYDROX/AL HYDROX/SIMETH 30 ML CUP PO PRN (12:42)
--- NOTE | 2021-06-23 12:52 | P.PN ---
Subjective Patient is a pleasant 70-year-old female with history of hypertension, hyperlipidemia, obesity, COPD, anxiety. 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 Cardiology was consult for elevated troponins and chest pain. Patient presents secondary worsening shortness breath as well as chest pressure. She also had symptoms of significant dyspnea with any activity and some orthopnea. On admission she received IV Lasix and was placed on BiPAP with improvement and transitioned to nasal cannula. Troponin was elevated at 0.2, 0.537, 0.66, 0.32. D-dimer greater than 34, creatinine 0.7, proBNP 6400, cell count 15.9. CTA showed emphysema with pulmonary infiltrates in both lower lobes with no PE with some underlying pulmonary fibrosis. Echo performed 06/17 shows moderate LVH, EF 20-25% with mild mitral regurgitation. 06/18/2021 Patient underwent cardiac catheterization with Dr. Walsh on 06/18/2021 which revealed CAD as described above with 100% RCA stenosis with left to right collaterals, 70% proximal LAD stenosis (iFR abnormal at 0.62) and OM2 60-70% stenosis, and low normal left-sided filling pressures. Patient also went into a new onset atrial fibrillation with RVR. 06/20/2021- patient underwent cardiac catheterization which revealed 100% RCA stenosis with left to right collaterals, 70% proximal LAD stenosis (iFR abnormal at 0.62) and OM2 60-70% stenosis (iFR normal at 0.97). Patient underwent successful PCI to proximal to mid LAD with Dr. Walsh. 06/23/2021 Patient seen and examined at bedside, she continues to complain of midsternal chest discomfort when taking a deep breath. Her breathing has somewhat improved. TElemetry reviewed, patient converted back to sinus mechanism with IV amiodarone. Labs, sodium 138, potassium 4.5, BUN 41, serum creatinine 0.9 Telemetry reviewed, patient in sinus mechanism heart rate 60s-70s with frequent PVCs and bigeminy noted. PHYSICAL EXAMINATION Vital signs reviewed. CONSTITUTIONAL: No apparent distress, ill appearing HEENT: Neck Supple. No JVD. CHEST EXAMINATION: Lungs are clear to auscultation. +rhonchi bilaterally HEART EXAMINATION: Regular rate and rhythm. S1, S2 heard. No murmurs, gallops or rub. ABDOMEN: Soft, nontender. Positive bowel sounds. EXTREMITIES: 2+ peripheral pulses, no lower extremity edema and no calf tenderness. NEUROLOGIC EXAMINATION: Patient is awake, alert and oriented x3. SKIN: Right radial cath site clean dry intact, no hematoma 2+ pulses. ASSESSMENT Coronary artery disease s/p PCI to mid LAD 06/20/2021 Acute on chronic respiratory failure possibly multifactorial secondary to pneumonia plus component of heart failure on top of COPD exacerbation Acute on chronic heart failure with reduced EF New onset paroxysmal atrial fibrillation during cardiac catheterization on 06/18/21. On xarelto Non-STEMI Ischemic cardiomyopathy EF 20-25% Hypertension Hyperlipidemia Tobacco abuse PLAN Patient is back in sinus mechanism discontinue IV amiodarone PO amiodarone 200mg TID, continue taper. Continue dual antiplatelet therapy with aspirin and Plavix Xarelto 15mg daily anticoagulation for atrial fibrillation Continue statin, lisinopril, metoprolol tartrate 25 mg twice a day Pulmonary following Further recommendations based on clinical course Nurse practitioner note has been reviewed by physician. Signing provider agrees with the documented findings, assessment, and plan of care. Objective - Vital Signs Vital signs: Vital Signs Temp 98.2 F 06/23/21 12:00 Pulse 55 L 06/23/21 12:00 Resp 18 06/23/21 12:00 BP 119/73 06/23/21 12:00 Pulse Ox 90 L 06/23/21 12:00 Intake & Output 06/22/21 06/23/21 06/23/21 18:59 06:59 18:59 Intake Total 236 770 610 Output Total 1 2000 Balance 235 -1230 610 Intake: Intake, IV Titration 200 250 Amount Amiodarone 450 mg In 200 250 Dextrose 5% in Water 250 ml @ 0.5 MG/MIN 16.667 mls/hr IV .Q15H [facility] Rx#: [id number] Oral 236 570 360 Output: Urine 2000 Urine/Stool Mix 1 Other: Voiding Method Toilet Toilet Bedside Commode Bedside Commode # Voids 1 # Bowel Movements 1 - Labs CBC & Chem 7: 06/19/21 08:27 06/23/21 08:31 Labs: Abnormal Lab Results - Last 24 Hours (Table) 06/22/21 06/22/21 06/23/21 Range/Units 16:19 19:57 06:01 Chloride (98-107) mmol/L Carbon Dioxide (22-30) mmol/L BUN (7-17) mg/dL Glucose (74-99) mg/dL POC Glucose (mg/dL) 132 H 235 H 162 H (75-99) mg/dL Calcium (8.4-10.2) mg/dL 06/23/21 06/23/21 Range/Units 08:31 11:33 Chloride 96 L (98-107) mmol/L Carbon Dioxide 38 H (22-30) mmol/L BUN 41 H (7-17) mg/dL Glucose 132 H (74-99) mg/dL POC Glucose (mg/dL) 150 H (75-99) mg/dL Calcium 10.3 H (8.4-10.2) mg/dL
--- NOTE | 2021-06-23 13:44 | P.PN ---
Subjective Progress Note Date: 06/23/21 Principal diagnosis: Shortness of breath, coughing and wheezing This is 70-year-old female patient who follows with Dr. Vail as her primary care provider. She has a history of hyperlipidemia, hypertension, obesity, migraines, chronic cough. She also has a history of chronic obstructive pulmonary disease, chronic and ongoing tobacco dependence, sleep apnea, tracheobronchomalacia and follows with Dr. Mckeon in our office. She presented here to the emergency room early this morning for shortness of breath. He was currently being treated for pneumonia and was on azithromycin. Her symptoms did not improve. Chest x-ray reveals evidence of cardiomegaly. Mild pulmonary fibrotic changes. No obvious heart failure. No pleural effusion. White count 15.9. Hemoglobin 16.3. D-dimer greater than 34. Sodium 142. Potassium 4.3. BUN 31, creatinine 0.77. Glucose 146. AST 64. ALT 65. Troponin 0.28, 0.53, 0.66. ProBNP 6460. Coronavirus by PCR not detected. CT angiogram of the chest revealed emphysema. Pulmonary infiltrates in the lower lobes also along the right major fissure. Enlarged pulmonary arteries consistent with pulmonary hypertension. No evidence of pulmonary embolism. Some underlying pulmonary fibrosis. Echocardiogram reveals severely impaired left ventricular systolic function with ejection fraction 20-25% with severe global hypokinesia of the LV. Computed tomography scan of the brain revealed no acute intracranial hemorrhage or midline shift. This was done because of complaints of headache. She was placed on BiPAP 10/5 and 50% FiO2. She was also initiated on nitroglycerin drip at 20 mg/m. No other IV fluids running. On 06/18/2021 patient seen in follow-up in the intensive care unit, she remains on BiPAP at 10/5 and FiO2 of 50%, she states her breathing is a little better today, she is breathing easier, her cough has significantly improved, on physical exam she still bronchospastic, there is good air entry bilaterally. No IV fluids, IV fluids have been hep-locked. Today's chest x-ray showing cardiomegaly and chronic emphysematous changes with right middle lobe consolidation which may be chronic and patchy left basilar infiltrate. No significant change from one day earlier. Patient continues on nebulized bron chodilators, she is on empiric antibiotics with azithromycin and Rocephin, she is on IV Lasix of 40 mg every 12 hours, and IV steroids. No complaints of chest discomfort. Today's lab 7 reviewed, white blood cell count 7.7, hemoglobin is 15.7, sodium is 139, potassium is 4.2, CO2 is 32, B1 is 30 and creatinine 0.76. On 06/22/2021 patient seen in follow-up on selective care unit, she is resting c omfortably in bed, seems to be breathing easier, she remains on high flow oxygen at 9 L her pulse ox is 88-92%. She normally wears 3 L of oxygen at home on a regular basis. Lung sounds reveal a few scattered rhonchi, patient still has a congested cough, she remains on steroids in the form of Solu-Medrol 60 g every 6 hours, she is getting nebulized bronchodilators. IV fluids have been hep-locked . No fever or chills, yesterday's chest x-ray was showing improving left lung infiltrate. No new labs today. Continues on Trelegy. Patient has been having a chest discomfort that starts in the back, and radiates through the chest into the anterior lower part of the sternum. She states is not alleviated by anything other than pain medications, describes it as constant, dull. Patient is status post LAD stenting. Cardiology has been following. Patient did have episode of atrial fibrillation during catheterization. Patient has been having bigeminal PVCs since yesterday, the patient went into A. fib today and patient is being started on amiodarone infusion per cardiology. On 06/23/2021 patient seen in follow-up on selective care unit. She is breathing much more comfortably, less congestive bronchospastic, she sits up in the chair, on 9 L of oxygen her pulse ox is 93%. We subsequently dropped down the FiO2 to 6 L, she is maintaining O2 saturations at 80-90%, afebrile, vitals stable, she continues on IV steroids, empiric antibiotics and breathing treatments, she admits to feeling and breathing much easier. No complaints of chest discomfort. Yesterday patient went into atrial fibrillation with controlled rate, she was started on amiodarone infusion and patient has already converted back to sinus rhythm. Objective - Vital Signs Vital signs: Vital Signs Temp 98.2 F 06/23/21 12:00 Pulse 55 L 06/23/21 12:00 Resp 18 04/08/22 12:00 BP 119/73 06/23/21 12:00 Pulse Ox 90 L 06/23/21 12:00 Intake & Output 06/22/21 06/23/21 06/23/21 18:59 06:59 18:59 Intake Total 236 770 790 Output Total 1 1999 Balance 235 -1230 790 Intake: Intake, IV Titration 200 250 Amount Amiodarone 450 mg In 200 250 Dextrose 5% in Water 250 ml @ 0.5 MG/MIN 16.667 mls/hr IV .Q15H [facility] Rx#: [id number] Oral 236 570 540 Output: Urine 1999 Urine/Stool Mix 1 Other: Voiding Method Toilet Toilet Bedside Commode Bedside Commode # Voids 1 # Bowel Movements 1 - Exam GENERAL EXAM: Alert, very pleasant, 70-year-old white female, currently on 9 L of oxygen the pulse ox of 93% has a frequent congested cough comfortable in no apparent distress. HEAD: Normocephalic/atraumatic. EYES: Normal reaction of pupils, equal size. Conjunctiva pink, sclera white. NOSE: Clear with pink turbinates. THROAT: No erythema or exudates. NECK: No masses, no JVD, no thyroid enlargement, no adenopathy. CHEST: No chest wall deformity. Symmetrical expansion. LUNGS: Equal air entry with expiratory wheezes, and diffuse rhonchi CVS: Irregular rate and rhythm, normal S1 and S2, no gallops, no murmurs, no rubs ABDOMEN: Soft, nontender. No hepatosplenomegaly, normal bowel sounds, no guarding or rigidity. EXTREMITIES: No clubbing, no edema, no cyanosis, 2+ pulses and upper and lower extremities. MUSCULOSKELETAL: Muscle strength and tone normal. SPINE: No scoliosis or deformity SKIN: No rashes CENTRAL NERVOUS SYSTEM: Alert and oriented -3. No focal deficits, tone is normal in all 4 extremities. PSYCHIATRIC: Alert and oriented -3. Appropriate affect. Intact judgment and insight. - Labs CBC & Chem 7: 06/19/21 08:27 06/23/21 08:31 Labs: Abnormal Lab Results - Last 24 Hours (Table) 06/22/21 06/22/21 06/23/21 Range/Units 16:19 19:57 06:01 Chloride (98-107) mmol/L Carbon Dioxide (22-30) mmol/L BUN (7-17) mg/dL Glucose (74-99) mg/dL POC Glucose (mg/dL) 132 H 235 H 162 H (75-99) mg/dL Calcium (8.4-10.2) mg/dL 06/23/21 06/23/21 Range/Units 08:31 11:33 Chloride 96 L (98-107) mmol/L Carbon Dioxide 38 H (22-30) mmol/L BUN 41 H (7-17) mg/dL Glucose 132 H (74-99) mg/dL POC Glucose (mg/dL) 150 H (75-99) mg/dL Calcium 10.3 H (8.4-10.2) mg/dL Assessment and Plan Plan: Assessment: Acute hypoxic respiratory failure secondary to an acute exacerbation of systolic CHF with severely impaired left ventricular systolic function and EF of 20-25%, and acute exacerbation of COPD. Patient has a history of advanced COPD and emphysematous changes bilaterally and chronic bronchiectatic changes at the lung bases with some atelectasis and some limited fibrosis. There is no evidence of any air space disease or pneumonia at this point in time, clinically patient continues to be congested, bronchospastic and symptomatic from her COPD. No obvious signs of decompensated heart failure, chest x-ray showed improving left lung infiltrate. Hypertensive urgency, resolved Acute exacerbation of COPD, patient still remains on 9 L of oxygen Coronary artery disease, patient has 100% RCA lesion, 70% LAD lesion and 60-70% OM 2 lesion, status post PCI and stenting of the 70% LAD lesion on 06/21/2021. Acute non-ST elevated myocardial infarction Bilateral infiltrates and no lower lobes with possible community acquired pneumonia History of chronic tobacco dependence Tracheobronchomalacia Morbid obesity with BMI 31.3 kg/m GERD/reflux History of migrainous History of obstructive sleep apnea Hypertension Hyperlipidemia Chronic systolic CHF with ejection fraction of 20-25%, and secondary already hypertension New onset paroxysmal atrial fibrillation, on Xarelto, currently has converted to sinus rhythm Plan: Patient admits to breathing easier Oxygenation seems to be improving as well We'll switch IV steroids to oral prednisone 40 mg Continue weaning FiO2 to maintain O2 saturations at 88% or better Continue breathing treatments Patient has converted back to sinus mechanism, maintaining controlled rate Continue oral anticoagulation, Cardiology John We'll continue to follow If continues to improve may consider discharge home tomorrow from pulmonary perspective I have personally seen and examined the patient, performed the documentation and the assessment and plan as written. Number of minutes spent on the visit: [10] This is a split shred evaluation that was done along with a nurse practitioner. I was involved in more than 90% of this evaluation terms of examination, history taking, and decision-making. The evaluation was done and more than 20 minutes. The patient is stable for now. The patient is no specific complaints. The patient has clinically improving. I'm going to discontinue the IV Solu Medrol start the patient prednisone burst taper. Continue anticoagulants. Time with Patient: Less than 30
--- NOTE | 2021-06-23 15:27 | P.PN ---
Subjective Progress Note Date: 06/23/21 06/19/2021:This is a 70-year female admitted with acute CHF exacerbation, acute COPD exacerbation,chest pain, elevated troponins, possible NSTEMI, significant other last year-ongoing grieving, "cries every day", extremely sad - denies being suicidal or having a suicide plan and multiple other medical issues. Maintained on nebulized bronchodilators, antibiotics and steroids. Congested productive cough. Chest x-ray reporting moderate cardiomegaly, COPD, increasing right greater than left bibasilar atelectasis or infiltrates. Maintaining O2 sats in the low 90s on 8 L high flow nasal cannula. Afebrile, WBC increased to 12.2-on steroids. Renal function stable. Completed cardiac catheterization yesterday reporting 100% RCA stenosis with left to right collaterals, 70% proximal LAD, OM 60-70% stenosis developed atrial fibrillation with RVR; reattempt PCI of LAD tomorrow. Anticoagulated on heparin drip. Denies any chest pain, palpitations. 06/20/2021 maintained on nebulized bronchodilators, antibiotics, steroids, maintaining O2 sats in the 90s on 8 L high flow nasal cannula.congested cough persists. NPO, scheduled for return to general labor regarding LAD angioplasty. Denies chest pain, palpitations or increasing shortness of breath. Reports anxiety for which patient has received Xanax with positive results 06/21/2021 yesterday he underwent cardiac catheterization with stenting of the LAD, tolerated procedure well. Maintained on beta john, GONZALO inhibitor, statin and dual antiplatelet therapy with Plavix and aspirin. Anticoagulated on Xarelto. Denies chest pain, palpitations or increased shortness of breath. Continues on nebulized bronchodilators, IV Rocephin, IV steroids. Required BiPAP last night, currently maintaining O2 sats of 89-90% on 9 L high flow nasal can nula. Chest x-ray reporting improving left lung infiltrate, Labs pending. 06/22/2021. A fibrillation earlier this morning, amiodarone drip initiated . Complains of dull lower midsternal chest discomfort .maintaining O2 sats in the high 80s to low 90s on 9 L nasal cannula. Continues on nebulized bronchodilators, steroids. 06/23/2021:patient bck in sinus rhythm. C/o midepigastric pain with eating. She is not on a PPI. Her breathing is improved. Pulmonolgy follwing. She is on Trelegy, Theophilline, Duoneb updrafts, prednisone and O2 at 6l/min. Cardiology are follwing for Afib ardiomyopathy with EF 20-25% (possible Takesubo) Asa, Plavix, and Xarelto. hsyuniel hasd a PCI to the LAD 06/20/2021. she ws admited with NSTEMI as well Currenty she is feeling better. She wants to go home when able. She denies any N/V, diarrhea or cosntiaption. SOB is ongoing but better. Chest pain is as above but indacted the midepigastrum asa the source. Objective - Vital Signs Vital signs: Vital Signs Temp 98.2 F 06/23/21 12:00 Pulse 55 L 06/23/21 13:59 Resp 18 06/23/21 13:59 BP 119/73 06/23/21 12:00 Pulse Ox 90 L 06/23/21 12:00 Intake & Output 06/22/21 06/23/21 06/23/21 18:59 06:59 18:59 Intake Total 236 770 790 Output Total 1 2000 Balance 235 -1230 790 Intake: Intake, IV Titration 200 250 Amount Amiodarone 450 mg In 200 250 Dextrose 5% in Water 250 ml @ 0.5 MG/MIN 16.667 mls/hr IV .Q15H [facility] Rx#: [id number] Oral 236 570 540 Output: Urine 2000 Urine/Stool Mix 1 Other: Voiding Method Toilet Toilet Bedside Commode Bedside Commode # Voids 1 # Bowel Movements 1 - Exam GENERAL EXAM: Alert, very pleasant, 70-year-old white female, currently on 6 L of oxygen the pulse ox of 90% has a frequent congested cough comfortable in no apparent distress. HEAD: Normocephalic/atraumatic. NECK: No masses, no JVD, no thyroid enlargement, no adenopathy. CHEST: No chest wall deformity. Symmetrical expansion. LUNGS: Equal air entry with expiratory wheezes, and diffuse rhonchi CVS: Irregular rate and rhythm, normal S1 and S2, no gallops, no murmurs, no rubs ABDOMEN: Soft, ? tender to LUQ. No hepatosplenomegaly, normal bowel sounds, no guarding or rigidity. EXTREMITIES: No clubbing, no edema, no cyanosis, 2+ pulses and upper and lower extremities. MUSCULOSKELETAL: Muscle strength and tone normal. SPINE: No scoliosis or deformity SKIN: No rashes PSYCHIATRIC: Alert and oriented x 3. Appropriate affect. Intact judgment and insight. - Labs CBC & Chem 7: 06/19/21 08:27 06/23/21 08:31 Labs: Abnormal Lab Results - Last 24 Hours (Table) 06/22/21 06/22/21 06/23/21 Range/Units 16:19 19:57 06:01 Chloride (98-107) mmol/L Carbon Dioxide (22-30) mmol/L BUN (7-17) mg/dL Glucose (74-99) mg/dL POC Glucose (mg/dL) 132 H 235 H 162 H (75-99) mg/dL Calcium (8.4-10.2) mg/dL 06/23/21 06/23/21 Range/Units 08:31 11:33 Chloride 96 L (98-107) mmol/L Carbon Dioxide 38 H (22-30) mmol/L BUN 41 H (7-17) mg/dL Glucose 132 H (74-99) mg/dL POC Glucose (mg/dL) 150 H (75-99) mg/dL Calcium 10.3 H (8.4-10.2) mg/dL Assessment and Plan (1) NSTEMI (non-ST elevated myocardial infarction) Current Visit: Yes Status: Acute Code(s): I21.4 - NON-ST ELEVATION (NSTEMI) MYOCARDIAL INFARCTION SNOMED Code(s): 35456204 (2) S/P angioplasty with stent Current Visit: Yes Status: Acute Code(s): Z95.820 - PERIPHERAL VASCULAR ANGIOPLASTY STATUS W IMPLANTS AND GRAFTS SNOMED Code(s): 814588241 (3) CAD (coronary artery disease) Current Visit: Yes Status: Acute Code(s): I25.10 - ATHSCL HEART DISEASE OF [place] CORONARY ARTERY W/O ANG PCTRS SNOMED Code(s): 06234835 (4) COPD exacerbation Current Visit: Yes Status: Acute Code(s): J44.1 - CHRONIC OBSTRUCTIVE PULMONARY DISEASE W (ACUTE) EXACERBATION SNOMED Code(s): 000484303 (5) Cardiomyopathy Current Visit: Yes Status: Acute Code(s): I42.9 - CARDIOMYOPATHY, UNSPECIFIED SNOMED Code(s): 94328422 (6) Congestive heart failure Current Visit: Yes Status: Acute Code(s): I50.9 - HEART FAILURE, UNSPECIFIED SNOMED Code(s): 32185318 (7) Atrial fibrillation Current Visit: Yes Status: Acute Code(s): I48.91 - UNSPECIFIED ATRIAL FIBRILLATION SNOMED Code(s): 99379212 (8) Hypertension Current Visit: Yes Status: Acute Code(s): I10 - ESSENTIAL (PRIMARY) HYPERTENSION SNOMED Code(s): 34664168 (9) GERD (gastroesophageal reflux disease) Current Visit: Yes Status: Acute Code(s): K21.9 - GASTRO-ESOPHAGEAL REFLUX DISEASE WITHOUT ESOPHAGITIS SNOMED Code(s): 101723297 Plan: Plan: Continue on current medication regime , . Antiarrhythmics Anticoagulation as per cardiology. Weaning of FiO2 as per pulmonology Continue pulmonary toileting with nebulized bronchodilators, antibiotics and steroids. Nicotine cessation reinforced.Prognosis guarded given multiple complex medical issues. plan to return to her own home. refuses REHAB Repeat labs in am he will be seen again in 24 hours
[2021-06-23] MEDS: RIVAROXABAN 15 MG TAB PO SCH (16:36)
[2021-06-23] MEDS: SUCRALFATE 1 GM TAB PO SCH (16:36)
[2021-06-23] MEDS: PANTOPRAZOLE 40 MG TABLET PO SCH (16:36)
[2021-06-23] MEDS: HYDROcodone/APAP 10-325MG 1 EACH TAB PO PRN (16:36)
[2021-06-23 17:05] LABS: Glucose,Whole Blood 153 mg/dL (75-99)
[2021-06-23 20:22] LABS: Glucose,Whole Blood 133 mg/dL (75-99)
[2021-06-23] MEDS: ATORVASTATIN 20 MG TAB PO SCH (20:32)
[2021-06-23] MEDS: ALPRAZolam 0.5 MG TAB PO PRN (20:33)
[2021-06-24] MEDS: SODIUM CHLORIDE 0.9% 1,000 ML in EMPTY BAG 1 BAG IV SCH ×2 (06:13→16:31)
[2021-06-24 06:22] LABS: Glucose,Whole Blood 90 mg/dL (75-99)
[2021-06-24] MEDS: INSULIN ASPART (NovoLOG) 100 UNIT/ML VIAL SQ SCH ×2 (06:43→12:34)
[2021-06-24] MEDS: SUCRALFATE 1 GM TAB PO SCH (06:43)
[2021-06-24] MEDS: PANTOPRAZOLE 40 MG TABLET PO SCH (06:43)
[2021-06-24] MEDS: IPRATROPIUM-ALBUTEROL 3 ML NEB INHALATION SCH ×3 (09:00→16:11)
[2021-06-24] MEDS ORDERED: predniSONE 20 MG TAB PO SCH (09:00)
[2021-06-24] MEDS: LEVALBUTEROL 1.25 MG INHALATION SCH ×3 (09:00→16:13)
[2021-06-24 09:23] LABS: Calcium 9.8 mg/dL (8.4-10.2); Magnesium 2.3 mg/dL (1.6-2.3); Potassium 4.1 mmol/L (3.5-5.1)
[2021-06-24 09:28] VITALS: RESP 16; TEMP 98
[2021-06-24] MEDS: ASPIRIN 81 MG PO SCH (09:34)
[2021-06-24] MEDS: CLOPIDOGREL 75 MG TAB PO SCH (09:34)
[2021-06-24] MEDS: buPROPion XL 150 MG TAB.ER.24H PO SCH (09:34)
[2021-06-24] MEDS: METOPROLOL TARTRATE 25 MG TAB PO SCH (09:35)
[2021-06-24] MEDS: THEOPHYLLINE 24 HOUR 300 MG CAP.ER.24H PO SCH (09:35)
[2021-06-24] MEDS: AMIODARONE 200 MG TAB PO SCH ×2 (09:35→16:36)
[2021-06-24] MEDS: lisinopriL 20 MG TAB PO SCH (09:35)
[2021-06-24] MEDS: MULTIVITAMINS, THERA 1 EACH TAB PO SCH (09:35)
[2021-06-24] MEDS: ESCITALOPRAM 10 MG TAB PO SCH (09:35)
[2021-06-24] MEDS: SODIUM CHLORIDE 0.9% 1,000 ML IV SCH (09:36)
[2021-06-24 11:37] LABS: Glucose,Whole Blood 93 mg/dL (75-99)
--- NOTE | 2021-06-24 12:27 | P.PN ---
Subjective Progress Note Date: 06/24/21 This is 70-year-old female patient who follows with Dr. Vail as her primary care provider. She has a history of hyperlipidemia, hypertension, obesity, migraines, chronic cough. She also has a history of chronic obstructive pulmonary disease, chronic and ongoing tobacco dependence, sleep apnea, trach eobronchomalacia and follows with Dr. Mckeon in our office. She presented here to the emergency room early this morning for shortness of breath. He was currently being treated for pneumonia and was on azithromycin. Her symptoms did not improve. Chest x-ray reveals evidence of cardiomegaly. Mild pulmonary fibrotic changes. No obvious heart failure. No pleural effusion. White count 15.9. Hemoglobin 16.3. D-dimer greater than 34. Sodium 142. Potassium 4.3. BUN 31, creatinine 0.77. Glucose 146. AST 64. ALT 65. Troponin 0.28, 0.53, 0.66. ProBNP 6460. Coronavirus by PCR not detected. CT angiogram of the chest revealed emphysema. Pulmonary infiltrates in the lower lobes also along the right major fissure. Enlarged pulmonary arteries consistent with pulmonary hypertension. No evidence of pulmonary embolism. Some underlying pulmonary fibrosis. Echocardiogram reveals severely impaired left ventricular systolic function with ejection fraction 20-25% with severe global hypokinesia of the LV. Computed tomography scan of the brain revealed no acute intracranial hemorrhage or midline shift. This was done because of complaints of headache. She was placed on BiPAP 10/5 and 50% FiO2. She was also initiated on nitroglycerin drip at 20 mg/m. No other IV fluids running. On 06/18/2021 patient seen in follow-up in the intensive care unit, she remains on BiPAP at 10/5 and FiO2 of 50%, she states her breathing is a little better today, she is breathing easier, her cough has significantly improved, on physical exam she still bronchospastic, there is good air entry bilaterally. No IV fluids, IV fluids have been hep-locked. Today's chest x-ray showing cardiomegaly and chronic emphysematous changes with right middle lobe consolidation which may be chronic and patchy left basilar infiltrate. No significant change from one day earlier. Patient continues on nebulized bronchodilators, she is on empiric antibiotics with azithromycin and Rocephin, she is on IV Lasix of 40 mg every 12 hours, and IV steroids. No complaints of chest discomfort. Today's lab 7 reviewed, white blood cell count 7.7, hemoglobin is 15.7, sodium is 139, potassium is 4.2, CO2 is 32, B1 is 30 and creatinine 0.76. On 06/22/2021 patient seen in follow-up on selective care unit, she is resting comfortably in bed, seems to be breathing easier, she remains on high flow oxygen at 9 L her pulse ox is 88-92%. She normally wears 3 L of oxygen at home on a regular basis. Lung sounds reveal a few scattered rhonchi, patient still has a congested cough, she remains on steroids in the form of Solu-Medrol 60 g every 6 hours, she is getting nebulized bronchodilators. IV fluids have been he p-locked. No fever or chills, yesterday's chest x-ray was showing improving left lung infiltrate. No new labs today. Continues on Trelegy. Patient has been having a chest discomfort that starts in the back, and radiates through the chest into the anterior lower part of the sternum. She states is not alleviated by anything other than pain medications, describes it as constant, dull. Patient is status post LAD stenting. Cardiology has been following. Patient did have episode of atrial fibrillation during catheterization. Patient has been having bigeminal PVCs since yesterday, the patient went into A. fib today and patient is being started on amiodarone infusion per cardiology. On 06/23/2021 patient seen in follow-up on selective care unit. She is breathing much more comfortably, less congestive bronchospastic, she sits up in the chair, on 9 L of oxygen her pulse ox is 93%. We subsequently dropped down the FiO2 to 6 L, she is maintaining O2 saturations at 80-90%, afebrile, vitals stable, she continues on IV steroids, empiric antibiotics and breathing treatments, she admits to feeling and breathing much easier. No complaints of chest discomfort. Yesterday patient went into atrial fibrillation with controlled rate, she was started on amiodarone infusion and patient has already converted back to sinus rhythm. 06/24/2021, the patient is essentially back to her baseline. This is the best she has felt for quite some time. No new complaints. She has been weaned down to 6 L of oxygen by nasal cannula. She is on oral prednisone. She has completed her course of antibiotics and the patient remains on IV Rocephin. She has been Trelegy Melia on outpatient basis. Her cardiac rhythm is sinus. She is ambulating. She is on aspirin and Plavix. No angina. Objective - Vital Signs Vital signs: Vital Signs Temp 98.0 F 06/24/21 08:00 Pulse 64 06/24/21 12:07 Resp 16 06/24/21 11:45 BP 139/71 06/24/21 11:45 Pulse Ox 90 L 06/24/21 11:45 Intake & Output 06/23/21 06/24/21 06/24/21 18:59 06:59 18:59 Intake Total 1030 Balance 1030 Intake: Intake, IV Titration 250 Amount Amiodarone 450 mg In 250 Dextrose 5% in Water 250 ml @ 0.5 MG/MIN 16.667 mls/hr IV .Q15H [facility] Rx#: [id number] Oral 780 Other: Voiding Method Toilet Toilet Bedside Commode Bedside Commode # Voids 1 # Bowel Movements 1 - Exam GENERAL EXAM: Alert, very pleasant, 70-year-old white female, currently on6 L of oxygen the pulse ox of 93% has a frequent congested cough comfortable in no apparent distress. HEAD: Normocephalic/atraumatic. EYES: Normal reaction of pupils, equal size. Conjunctiva pink, sclera white. NOSE: Clear with pink turbinates. THROAT: No erythema or exudates. NECK: No masses, no JVD, no thyroid enlargement, no adenopathy. CHEST: No chest wall deformity. Symmetrical expansion. LUNGS: Equal air entry with expiratory wheezes, and diffuse rhonchi CVS: Irregular rate and rhythm, normal S1 and S2, no gallops, no murmurs, no rubs ABDOMEN: Soft, nontender. No hepatosplenomegaly, normal bowel sounds, no guarding or rigidity. EXTREMITIES: No clubbing, no edema, no cyanosis, 2+ pulses and upper and lower extremities. MUSCULOSKELETAL: Muscle strength and tone normal. SPINE: No scoliosis or deformity SKIN: No rashes CENTRAL NERVOUS SYSTEM: Alert and oriented -3. No focal deficits, tone is normal in all 4 extremities. PSYCHIATRIC: Alert and oriented -3. Appropriate affect. Intact judgment and insight. - Labs CBC & Chem 7: 06/19/21 08:27 06/24/21 08:41 Labs: Abnormal Lab Results - Last 24 Hours (Table) 06/23/21 06/23/21 06/24/21 Range/Units 16:59 20:16 08:41 Sodium 135 L (137-145) mmol/L Carbon Dioxide 36 H (22-30) mmol/L BUN 40 H (7-17) mg/dL POC Glucose (mg/dL) 153 H 133 H (75-99) mg/dL Assessment and Plan Plan: Assessment: Acute hypoxic respiratory failure secondary to an acute exacerbation of systolic CHF with severely impaired left ventricular systolic function and EF of 20-25%, and acute exacerbation of COPD. Patient has a history of advanced COPD and emphysematous changes bilaterally and chronic bronchiectatic changes at the lung bases with some atelectasis and some limited fibrosis. There is no evidence of any air space disease or pneumonia at this point in time, clinically patient continues to be congested, bronchospastic and symptomatic from her COPD. No obvious signs of decompensated heart failure, chest x-ray showed improving left lung infiltrate. Clinically the patient improved and overall respirator status is back to her baseline and this is the best she has felt for quite some time and she is currently on 6 L of O2 nasal cannula. She has home O2. Hypertensive urgency, resolved Acute exacerbation of COPD, patient still remains on 6 L of oxygen Coronary artery disease, patient has 100% RCA lesion, 70% LAD lesion and 60-70% OM 2 lesion, status post PCI and stenting of the 70% LAD lesion on 06/21/2021. Acute non-ST elevated myocardial infarction, post stenting of the LAD Bilateral infiltrates and no lower lobes with possible community acquired pneumonia History of chronic tobacco dependence Tracheobronchomalacia Morbid obesity with BMI 31.3 kg/m GERD/reflux History of migrainous History of obstructive sleep apnea Hypertension Hyperlipidemia Chronic systolic CHF with ejection fraction of 20-25%, and secondary already hypertension New onset paroxysmal atrial fibrillation, on Xarelto, currently has converted to sinus rhythm Plan: Condition is stable and the patient can be discharged home today Continue home O2 somewhere between 5 and 6 L of O2 by nasal cannula We'll switch IV steroids to oral prednisone 40 mg Continue changing at that home No smoking Continue weaning FiO2 to maintain O2 saturations at 88% or better Continue breathing treatments Patient has converted back to sinus mechanism, maintaining controlled rate Continue oral anticoagulation, Continue aspirin and Plavix continue Zestril continue metoprolol 25 mg twice a day Follow-up with me in the office
[2021-06-24] MEDS: TRELEGY ELLIPTA INHALATION SCH (12:34)
--- NOTE | 2021-06-24 12:37 | P.DS ---
Providers Date of admission: 06/17/21 08:21 Expected date of discharge: 06/24/21 Attending physician: Adolfo Sousa Consults: 06/17/21 08:20 Consult Physician Routine Consulting Provider: Susan Mckeon Consult Reason/Comments: Your patient. Multifactorial Dyspnea. Do you want consulting provider notified?: Yes 06/17/21 10:00 Consult Physician Routine Consulting Provider: Jose Walsh Consult Reason/Comments: Elevated troponins Do you want consulting provider notified?: Yes 06/20/21 13:30 Consult Physician Routine Consulting Provider: [facility] Consult Reason/Comments: Post Interventional patient Do you want consulting provider notified?: Already Contacted Primary care physician: Preston Vail - Discharge Diagnosis(es) (1) NSTEMI (non-ST elevated myocardial infarction) Current Visit: Yes Status: Acute (2) S/P angioplasty with stent Current Visit: Yes Status: Acute (3) CAD (coronary artery disease) Current Visit: Yes Status: Acute (4) COPD exacerbation Current Visit: Yes Status: Acute (5) Cardiomyopathy Current Visit: Yes Status: Acute (6) Atrial fibrillation Current Visit: Yes Status: Acute (7) Hypertension Current Visit: Yes Status: Acute (8) GERD (gastroesophageal reflux disease) Current Visit: Yes Status: Acute (9) Acute and chronic respiratory failure with hypoxia Current Visit: Yes Status: Acute (10) Gastro-esophageal reflux disease without esophagitis Current Visit: Yes Status: Acute (11) Acute on chronic systolic (congestive) heart failure Current Visit: Yes Status: Acute (12) Sleep apnea Current Visit: Yes Status: Acute (13) Tracheobronchomalacia Current Visit: Yes Status: Acute (14) Smoker Current Visit: Yes Status: Acute Hospital Course: 06/19/2021:This is a 70-year female admitted with acute CHF exacerbation, acute COPD exacerbation,chest pain, elevated troponins, possible NSTEMI, significant other last year-ongoing grieving, "cries every day", extremely sad - denies being suicidal or having a suicide plan and multiple other medical issues. Maintained on nebulized bronchodilators, antibiotics and steroids. Congested productive cough. Chest x-ray reporting moderate cardiomegaly, COPD, increasing right greater than left bibasilar atelectasis or infiltrates. Maintaining O2 sats in the low 90s on 8 L high flow nasal cannula. Afebrile, WBC increased to 12.2-on steroids. Renal function stable. Completed cardiac catheterization yesterday reporting 100% RCA stenosis with left to right collaterals, 70% proximal LAD, OM 60-70% stenosis developed atrial fibrillation with RVR; reattempt PCI of LAD tomorrow. Anticoagulated on heparin drip. Denies any chest pain, palpitations. 06/20/2021 maintained on nebulized bronchodilators, antibiotics, steroids, maintaining O2 sats in the 90s on 8 L high flow nasal cannula.congested cough persists. 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 Denies chest pain, palpitations or increasing shortness of breath. Reports anxiety for which patient has received Xanax with positive results 06/21/2021 yesterday he underwent cardiac catheterization with stenting of the LAD, tolerated procedure well. Maintained on beta john, GONZALO inhibitor, st atin and dual antiplatelet therapy with Plavix and aspirin. Anticoagulated on Xarelto. Denies chest pain, palpitations or increased shortness of breath. Continues on nebulized bronchodilators, IV Rocephin, IV steroids. Required BiPAP last night, currently maintaining O2 sats of 89-90% on 9 L high flow nasal cannula. Chest x-ray reporting improving left lung infiltrate, Labs pending. 06/22/2021. A fibrillation earlier this morning, amiodarone drip initiated . Complains of dull lower midsternal chest discomfort .maintaining O2 sats in the high 80s to low 90s on 9 L nasal cannula. Continues on nebulized bronchodilators, steroids. 06/23/2021:patient bck in sinus rhythm. C/o midepigastric pain with eating. She is not on a PPI. Her breathing is improved. Pulmonolgy follwing. She is on Trelegy, Theophilline, Duoneb updrafts, prednisone and O2 at 6l/min. Cardiology are follwing for Afib ardiomyopathy with EF 20-25% (possible Takesubo) Asa, Plavix, and Xarelto. hse hasd a PCI to the LAD 06/20/2021. she ws admited with NSTEMI as well Currenty she is feeling better. She wants to go home when able. She denies any N/V, diarrhea or cosntiaption. SOB is ongoing but better. Chest pain is as above but indacted the midepigastrum asa the source. 06/24/2021: Patient remained stable. She is down 4 L of oxygen per minute. She has no pains. She is doing well. She is medically cleared for discharge by cardiology and pulmonology. Patient Condition at Discharge: Serious Plan - Discharge Summary New Discharge Prescriptions: New Aspirin 81 mg PO DAILY 30 Days #30 tab Sodium Chloride 0.65% Nasal [Deep Sea (Saline)] 2 spray NASAL QID PRN ml PRN Reason: Nasal Congestion Nitroglycerin Sl Tabs [Nitrostat] 0.4 mg SUBLINGUAL Q5M PRN #30 tab PRN Reason: Chest Pain Pantoprazole [Protonix] 40 mg PO AC-BID 30 Days #30 tab Trelegy 1 puff INHALATION RT-DAILY #0 Clopidogrel [Plavix] 75 mg PO DAILY 30 Days #30 tab Amiodarone [Cordarone] 200 mg PO TID #90 tab Metoprolol Tartrate [Lopressor] 25 mg PO BID #60 tab Multivitamins, Thera [Multivitamin (formulary)] 1 each PO DAILY tab Promethazine HCl [Phenergan Syrup] 6.25 mg PO Q4HR PRN 10 Days #140 ml PRN Reason: Cough Acetaminophen Tab [Tylenol] 650 mg PO Q4HR PRN tab PRN Reason: Fever And/ Or Pain buPROPion XL [Wellbutrin XL] 150 mg PO DAILY 30 Days #30 tablet Rivaroxaban [Xarelto] 15 mg PO W/SUPPER 30 Days #30 tab Continue Multivitamins, Thera [Multivitamin (formulary)] 1 tab PO DAILY HYDROcodone/APAP 10-325MG [Cary 10-325] 1 tab PO Q6H PRN PRN Reason: Pain Enalapril [Vasotec] 20 mg PO DAILY Calcium Carbonate [Tums] 500 mg PO TID PRN PRN Reason: Heartburn bisacodyL [Dulcolax] 1 tab PO DAILY PRN PRN Reason: Constipation Atorvastatin [Lipitor] 20 mg PO HS Levalbuterol Hfa Inhaler [Xopenex Hfa Inhaler] 2 puff INHALATION RT-Q6H PRN PRN Reason: Shortness Of Breath Fluticasone/Umeclidin/Vilanter [Trelegy Ellipta 100-62.5-25] 1 puff INHALATION RT-DAILY predniSONE See Taper PO DAILY 16 Days #40 tab Escitalopram [Lexapro] 10 mg PO DAILY Theophylline 12 Hour [Edison-Dur] 300 mg PO BID Discontinued CHLORPHEN-HYDROcod 8-10mg/5ml [Tussionex] 5 ml PO Q12HR PRN PRN Reason: Cough Azithromycin [Zithromax] 500 mg PO DAILY Tiotropium 2.5 Mcg/Puff [Spiriva Respimat 2.5 Mcg] 2 puff INHALATION RT-DAILY Discharge Medication List Multivitamins, Thera [Multivitamin (formulary)] 1 tab PO DAILY 06/14/16 [History] Calcium Carbonate [Tums] 500 mg PO TID PRN 12/04/17 [History] Enalapril [Vasotec] 20 mg PO DAILY 12/04/17 [History] HYDROcodone/APAP 10-325MG [Cary 10-325] 1 tab PO Q6H PRN 12/04/17 [History] bisacodyL [Dulcolax] 1 tab PO DAILY PRN 03/31/18 [History] Atorvastatin [Lipitor] 20 mg PO HS 05/04/20 [History] Escitalopram [Lexapro] 10 mg PO DAILY 12/08/20 [History] Fluticasone/Umeclidin/Vilanter [Trelegy Ellipta 100-62.5-25] 1 puff INHALATION RT-DAILY 06/17/21 [History] Levalbuterol Hfa Inhaler [Xopenex Hfa Inhaler] 2 puff INHALATION RT-Q6H PRN 06/17/21 [History] Theophylline 12 Hour [Edison-Dur] 300 mg PO BID 06/17/21 [History] Clopidogrel [Plavix] 75 mg PO DAILY 30 Days #30 tab 06/21/21 [Rx] Acetaminophen Tab [Tylenol] 650 mg PO Q4HR PRN tab 06/24/21 [Rx] Amiodarone [Cordarone] 200 mg PO TID #90 tab 06/24/21 [Rx] Aspirin 81 mg PO DAILY 30 Days #30 tab 06/24/21 [Rx] Metoprolol Tartrate [Lopressor] 25 mg PO BID #60 tab 06/24/21 [Rx] Multivitamins, Thera [Multivitamin (formulary)] 1 each PO DAILY tab 06/24/21 [Rx] Nitroglycerin Sl Tabs [Nitrostat] 0.4 mg SUBLINGUAL Q5M PRN #30 tab 06/24/21 [Rx] Pantoprazole [Protonix] 40 mg PO AC-BID 30 Days #30 tab 06/24/21 [Rx] Promethazine HCl [Phenergan Syrup] 6.25 mg PO Q4HR PRN 10 Days #140 ml 06/24/21 [Rx] Rivaroxaban [Xarelto] 15 mg PO W/SUPPER 30 Days #30 tab 06/24/21 [Rx] Sodium Chloride 0.65% Nasal [Deep Sea (Saline)] 2 spray NASAL QID PRN ml 06/24/21 [Rx] Trelegy 1 puff INHALATION RT-DAILY #0 06/24/21 [Rx] buPROPion XL [Wellbutrin XL] 150 mg PO DAILY 30 Days #30 tablet 06/24/21 [Rx] predniSONE See Taper PO DAILY 16 Days #40 tab 06/24/21 [Rx] Follow up Appointment(s)/Referral(s): Joanne Claire MD [STAFF PHYSICIAN] - 1 Week Preston Vail MD [Primary Care Provider] - 1-2 days Susan Mckeon MD [STAFF PHYSICIAN] - 3 Weeks Activity/Diet/Wound Care/Special Instructions: Patient will need to be tested for home O2 if she is requiring more than 4L O2, home O2 testing form is in patients chart, please use this as a guide to properly test patient (must be charted this way in Medical record). Patient will require home O2 r/t COPD. Discharge Disposition: HOME SELF-CARE
[2021-06-24 16:34] VITALS: BP 112/61; PULSE 65
[2021-06-24] MEDS: [UNRECOGNIZED DRUG - OTHER] PO PRN (16:34)
[2021-06-24] MEDS: HYDROCODONE PO PRN (16:34)
--- NOTE | 2021-06-25 13:54 | P.PN ---
Subjective Progress Note Date: 06/24/21 Patient is a pleasant 70-year-old female with history of hypertension, hyperlipidemia, obesity, COPD, anxiety. 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 Cardiology was consult for elevated troponins and chest pain. Patient presents secondary worsening shortness breath as well as chest pressure. She also had symptoms of significant dyspnea with any activity and some orthopnea. On admission she received IV Lasix and was placed on BiPAP with improvement and transitioned to nasal cannula. Troponin was elevated at 0.2, 0.537, 0.66, 0.32. D-dimer greater than 34, creatinine 0.7, proBNP 6400, cell count 15.9. CTA showed emphysema with pulmonary infiltrates in both lower lobes with no PE with some underlying pulmonary fibrosis. Echo performed 06/17 shows moderate LVH, EF 20-25% with mild mitral regurgitation. 06/18/2021 Patient underwent cardiac catheterization with Dr. Walsh on 06/18/2021 which re vealed CAD as described above with 100% RCA stenosis with left to right collaterals, 70% proximal LAD stenosis (iFR abnormal at 0.62) and OM2 60-70% stenosis, and low normal left-sided filling pressures. Patient also went into a new onset atrial fibrillation with RVR. 06/20/2021- patient underwent cardiac catheterization which revealed 100% RCA stenosis with left to right collaterals, 70% proximal LAD stenosis (iFR abnormal at 0.62) and OM2 60-70% stenosis (iFR normal at 0.97). Patient underwent successful PCI to proximal to mid LAD with Dr. Walsh. 06/23/2021 Patient seen and examined at bedside, she continues to complain of midsternal chest discomfort when taking a deep breath. Her breathing has somewhat improved. TElemetry reviewed, patient converted back to sinus mechanism with IV amiodarone. Labs, sodium 138, potassium 4.5, BUN 41, serum creatinine 0.9 Telemetry reviewed, patient in sinus mechanism heart rate 60s-70s with frequent PVCs and bigeminy noted. 06/24/2021 Patient denies having any chest pain. She does complain of some heartburn and decreased appetite. Heart rate has been in the 60s, blood pressure 112/61. 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 BUN 40 and creatinine 0.96, potassium 4.1. PHYSICAL EXAMINATION Vital signs reviewed. CONSTITUTIONAL: No apparent distress, ill appearing HEENT: Neck Supple. No JVD. CHEST EXAMINATION: Lungs are clear to auscultation. +rhonchi bilaterally HEART EXAMINATION: Regular rate and rhythm. S1, S2 heard. No murmurs, gallops or rub. ABDOMEN: Soft, nontender. Positive bowel sounds. EXTREMITIES: 2+ peripheral pulses, no lower extremity edema and no calf tenderness. NEUROLOGIC EXAMINATION: Patient is awake, alert and oriented x3. SKIN: Right radial cath site clean dry intact, no hematoma 2+ pulses. ASSESSMENT Coronary artery disease s/p PCI to mid LAD 06/20/2021 Acute on chronic respiratory failure possibly multifactorial secondary to pneumonia plus component of heart failure on top of COPD exacerbation Acute on chronic heart failure with reduced EF New onset paroxysmal atrial fibrillation during cardiac catheterization on 06/18/21. On xarelto Non-STEMI Ischemic cardiomyopathy EF 20-25% Hypertension Hyperlipidemia Tobacco abuse PLAN Continue amiodarone 200mg TID, tapering dose Continue dual antiplatelet therapy with aspirin and Plavix Xarelto 15mg daily anticoagulation for atrial fibrillation Continue statin, lisinopril, metoprolol tartrate 25 mg twice a day Follow-up with Dr. Claire in one week Further recommendations based on clinical course Nurse practitioner note has been reviewed by physician. Signing provider agrees with the documented findings, assessment, and plan of care. Objective - Vital Signs Vital signs: Vital Signs Temp 98.0 F 06/24/21 08:00 Pulse 68 06/24/21 09:13 Resp 16 06/24/21 08:00 BP 141/69 06/24/21 08:00 Pulse Ox 90 L 06/24/21 09:04 Intake & Output 06/23/21 06/24/21 06/24/21 18:59 06:59 18:59 Intake Total 1030 Balance 1030 Intake: Intake, IV Titration 250 Amount Amiodarone 450 mg In 250 Dextrose 5% in Water 250 ml @ 0.5 MG/MIN 16.667 mls/hr IV .Q15H GABO Rx#: [id number] Oral 780 Other: Voiding Method Toilet Toilet Bedside Commode Bedside Commode # Voids 1 # Bowel Movements 1 - Labs CBC & Chem 7: 06/19/21 08:27 06/24/21 08:41 Labs: Abnormal Lab Results - Last 24 Hours (Table) 06/23/21 06/23/21 06/24/21 Range/Units 16:59 20:16 08:41 Sodium 135 L (137-145) mmol/L Carbon Dioxide 36 H (22-30) mmol/L BUN 40 H (7-17) mg/dL POC Glucose (mg/dL) 153 H 133 H (75-99) mg/dL
== END 2021-06-24 17:30 | disposition home or self-care (01) | DRG 246 ==
LOC: EC 03:39 → 2SICU 08:21 → 3SCARD 06-20 11:00
PROVIDERS: ADMIT Family Medicine; ATTEND Family Medicine
PROC: 5A09457 Assistance with Respiratory Ventilation, 24-96 Consecutive Hours, Continuous Positive Airway Pressure (ICD-10-PCS; 2021-06-17)
PROC: B2111ZZ Fluoroscopy of Multiple Coronary Arteries using Low Osmolar Contrast (ICD-10-PCS; 2021-06-18)
PROC: 4A023N7 Measurement of Cardiac Sampling and Pressure, Left Heart, Percutaneous Approach (ICD-10-PCS; 2021-06-18 10:30)
PROC: 0270346 Dilation of Coronary Artery, One Artery, Bifurcation, with Drug-eluting Intraluminal Device, Percutaneous Approach (ICD-10-PCS; principal; 2021-06-20 12:00)
PROC: 5A0945A Assistance with Respiratory Ventilation, 24-96 Consecutive Hours, High Flow/Velocity Cannula (ICD-10-PCS; 2021-06-22)
DX: I21.4 Non-ST elevation (NSTEMI) myocardial infarction (principal); I50.23 Acute on chronic systolic (congestive) heart failure; J18.9 Pneumonia, unspecified organism; J96.21 Acute and chronic respiratory failure with hypoxia; J96.22 Acute and chronic respiratory failure with hypercapnia; J47.0 Bronchiectasis with acute lower respiratory infection; J98.11 Atelectasis; I11.0 Hypertensive heart disease with heart failure; E66.01 Morbid (severe) obesity due to excess calories; Z68.31 Body mass index [BMI] 31.0-31.9, adult; E78.5 Hyperlipidemia, unspecified; F17.210 Nicotine dependence, cigarettes, uncomplicated; F32.A Depression, unspecified; F41.9 Anxiety disorder, unspecified; G47.33 Obstructive sleep apnea (adult) (pediatric); I16.0 Hypertensive urgency; I25.10 Atherosclerotic heart disease of native coronary artery without angina pectoris; I25.5 Ischemic cardiomyopathy; I27.20 Pulmonary hypertension, unspecified; I48.0 Paroxysmal atrial fibrillation; I49.3 Ventricular premature depolarization; J20.9 Acute bronchitis, unspecified; J43.9 Emphysema, unspecified; J84.10 Pulmonary fibrosis, unspecified; J98.09 Other diseases of bronchus, not elsewhere classified; J39.8 Other specified diseases of upper respiratory tract; K21.00 Gastro-esophageal reflux disease with esophagitis, without bleeding; Z79.01 Long term (current) use of anticoagulants; Z79.02 Long term (current) use of antithrombotics/antiplatelets; Z79.52 Long term (current) use of systemic steroids; Z79.82 Long term (current) use of aspirin; Z79.899 Other long term (current) drug therapy; Z80.0 Family history of malignant neoplasm of digestive organs; Z80.1 Family history of malignant neoplasm of trachea, bronchus and lung; Z82.49 Family history of ischemic heart disease and other diseases of the circulatory system; Z86.711 Personal history of pulmonary embolism; Z87.01 Personal history of pneumonia (recurrent); Z98.61 Coronary angioplasty status; Z99.81 Dependence on supplemental oxygen; G43.909 Migraine, unspecified, not intractable, without status migrainosus; Z88.1 Allergy status to other antibiotic agents; Z88.0 Allergy status to penicillin; Z88.2 Allergy status to sulfonamides
CPT/HCPCS: 36415; 70450; 71045; 71275; 80048; 80053; 83605; 83735; 83880; 84145; 84484; 85025; 85379; 85610; 85730; 87635; 93005; 93306; 93454; 93458; 93571; 94640; 94660; 94760; 96365; 96366; 96375; 96376; 99285

== ENCOUNTER → 2021-12-06 | Outpatient (CLI) | payer MEDICARE ==
--- NOTE | 2021-12-06 09:26 | MM ---
Reason for Exam: Clinical finding. Last mammogram was performed 6 year(s) and 4 month(s) ago. Indicated Problems: Lump or thickening of the left side for 2 Month(s). Patient History: Menarche at age 11. First Full-Term at age 21. Postmenopausal. Hormonal Contraceptives for 20 years from age 20 until age 40. Maternal aunt had breast cancer. Risk Values: Farida 5 year model risk: 1.7%. NCI Lifetime model risk: 4.7%. Prior Study Comparison: 05/28/2008 Bilateral Screening Mammogram, [facility]. 11/18/2009 Bilateral Screening Mammogram, [facility]. 09/25/2012 Bilateral Diagnostic Mammogram, [facility]. 07/18/2015 Bilateral Diagnostic Mammogram, [facility]. Tissue Density: There are scattered fibroglandular densities. Findings: Analyzed By CAD. No evidence for mass at the site of clinical concern or within the remainder of the breasts. No suspicious calcifications seen. Overall Assessment: Incomplete: need additional imaging evaluation, BI-RAD 0 Management: Diagnostic Breast Ultrasound of the left breast. A clinical breast exam by your physician is recommended on an annual basis and results should be correlated with mammographic findings. This exam should not preclude additional follow-up of suspicious palpable abnormalities. Results were given to the patient verbally at the time of exam. Electronically signed and approved by: Remington Weinstein M.D. Radiologis
--- NOTE | 2021-12-06 10:20 | USB ---
Reason for Exam: Clinical finding. Patient History: Menarche at age 11. First Full-Term at age 21. Postmenopausal. Hormonal Contraceptives for 20 years from age 20 until age 40. Maternal aunt had breast cancer. Risk Values: Farida 5 year model risk: 1.7%. NCI Lifetime model risk: 4.7%. Technique: Method: Targeted. Prior Study Comparison: 11/18/2009 Bilateral Screening Mammogram, [facility]. 09/25/2012 Bilateral Diagnostic Mammogram, [facility]. 07/18/2015 Bilateral Diagnostic Mammogram, [facility]. Findings: The area of palpable concern of the left breast, the axilla of the left breast and the retroareolar of the left breast were scanned. No solid or cystic masses are identified.. Managed clinically. Overall Assessment: Negative, BI-RAD 1 Management: Screening Mammogram of both breasts in 1 year. A clinical breast exam by your physician is recommended on an annual basis and results should be correlated with mammographic findings. Electronically signed and approved by: Remington Weinstein M.D. Radiologis
[2021-12-06 14:45] LABS: Basophils # (A) 0.04 X 10*3/uL (0.00-0.10); Basophils % (A) 0.7 %; Eosinophils # (A) 0.17 X 10*3/uL (0.04-0.35); Eosinophils % (A) 2.8 %; HCT 44.4 % (37.2-46.3); HGB 14.2 g/dL (12.0-15.0); Immature Grans, Automated 0.3 %; Lymphocytes # (A) 2.24 X 10*3/uL (0.90-5.00); Lymphocytes % (A) 36.5 %; MCH 30.6 pg (27.0-32.0); MCV 95.7 fL (80.0-97.0); Mean Platelet Volume 10.1 fL (9.5-12.2); Monocytes # (A) 0.44 X 10*3/uL (0.20-1.00); Monocytes % (A) 7.2 %; NRBC Per 100 WBC 0 /100 WBCS (0.0-0.0); Neutrophils # (A) 3.23 X 10*3/uL (1.80-7.70); Neutrophils % (A) 52.5 %; Platelet Count 270 X 10*3/uL (140-440); RBC 4.64 X 10*6/uL (4.10-5.20); RDW 13.6 % (11.5-14.5); WBC 6.14 X 10*3/uL (4.50-10.00)
[2021-12-06 15:30] LABS: ALT 10 U/L (8-44); AST 16 U/L (13-35); African American GFR (CKD) 77.9 (60.0-200.0); Albumin 4.1 g/dL (3.8-4.9); Albumin/Globulin Ratio 2.18 (1.60-3.17); Alkaline Phosphatase 96 U/L (41-126); BUN/Creat Ratio 21.54 Ratio (12.00-20.00); Blood Urea Nitrogen 18.7 mg/dL (9.0-27.0); Carbon Dioxide 26.9 mmol/L (20.0-27.5); Chloride 108 mmol/L (96-109); Chol/HDL Ratio 3.41 Ratio; Globulin 1.9 g/dL (1.6-3.3); Glucose 98 mg/dL (70-110); LDL Cholesterol,Calculated 92.4 mg/dL (0.0-131.0); Non-African American GFR(CKD) 67.2 (60.0-200.0); Potassium 4.2 mmol/L (3.5-5.5); Sodium 146 mmol/L (135-145); Total Protein 5.9 g/dL (6.2-8.2)
[2021-12-06 19:01] LABS: Theophylline 10.4 ug/mL (10.0-20.0)
== END | disposition home or self-care (01) ==
LOC: RADMAMWWP 08:17
PROVIDERS: ATTEND Family Medicine
DX: N63.0 Unspecified lump in unspecified breast (principal); I10 Essential (primary) hypertension; E78.2 Mixed hyperlipidemia; I48.0 Paroxysmal atrial fibrillation; R53.83 Other fatigue
CPT/HCPCS: 80061; 80053; 84443; 80198; 85025; 77066; 76642; G0279; 77062